=== PATIENT | female | born 1950 | race Caucasian/White ===

== ENCOUNTER 2025-07-10 14:35 | Inpatient (IN) ==
[2025-07-10 17:08] LABS: Hematocrit (blood only) 41.9 % (37.0-47.0); Hemoglobin 13.8 g/dl (12.0-16.0); Immature Granulocytes # (auto) 0.02 K/uL (0.01-0.20); Immature Granulocytes % (auto) 0.4 %; Mean Corpuscular Hemoglobin 31.4 pg (25.0-34.0); Mean Corpuscular Volume 95.2 fL (80.0-100.0); Platelet Count 201 K/uL (130-400); RDW Standard Deviation 47.3 fL (36.4-46.3); Red Blood Count 4.40 M/uL (4.20-5.40); White Blood Count 5.20 K/ul (4.8-10.8)
[2025-07-10 17:09] LABS: Appearance Urine Clear (Clear); Glucose Urine UA 2+ (Negative)
[2025-07-10 17:36] LABS: Alanine Aminotransferase 29.0 U/L (7-52); Albumin Globulin Ratio 1.1 (0.9-2); Alkaline Phosphatase 95.0 U/L (34-104); Anion Gap 8.0 (3-11); Bilirubin,Total 0.4 mg/dl (0.2-1.0); Blood Urea Nitrogen 39.0 mg/dl (6-23); Calcium 9.6 mg/dl (8.6-10.3); Carbon Dioxide 30.0 mmol/L (21-32); Chloride 103.0 mmol/L (98-107); Creatine Kinase 148.0 U/L (26-192); Creatinine Clr Calc Pharmacy 54.3 ml/min; Globulin 3.4 gm/dl (2.5-4.0); Glucose 92.0 mg/dl (70-99(Fasting)); Potassium 4.3 mmol/L (3.5-5.1); Sodium 141.0 mmol/L (136-145); Total Protein 7.2 gm/dl (6.0-8.3)
[2025-07-10 17:46] LABS: INR 0.9 (0.9-1.1); Prothrombin Time 9.8 Seconds (9.0-12.0)
[2025-07-10 17:50] LABS: Thyroid Stimulating Hormone 3.504 uIu/ml (0.300-4.500)
--- NOTE | 2025-07-10 18:23 | XRay Report ---
Chest radiograph, one view History: Weakness Comparison: None Findings: Single AP view of the chest performed. 8 mm nodular density in the left upper lobe seen to represent a granuloma on prior PET/CT. No focal consolidation or pleural effusion. No pneumothorax. The cardiomediastinal silhouette is within normal limits. Normal pulmonary vascularity. No evidence for lymphadenopathy. No visualized bony or soft tissue abnormality. Surgical clips throughout the right chest wall. Impression: Normal chest radiograph Electronically signed by Warner Betancourt 07-10-2025 6:23 PM
--- NOTE | 2025-07-10 18:43 | Emergency Department Note ---
Impression & Plan Bilateral arm weakness ED Provider Note CHIEF COMPLAINT: Weakness HISTORY OF PRESENTING ILLNESS: This 75-year-old female patient presents to the emergency department with her daughter for evaluation of weakness. The patient states that a few weeks ago she started to lose strength in her right arm. She is now also losing strength in her left hand. The patient has been seeing Dr. Mai of spinal surgery as an outpatient. She states that numerous tests have been performed and she was diagnosed with pinched nerves. However, due to the worsening symptoms, she was referred to the ER. The patient's daughter states that she is no longer able to do her daily activities at home because of the symptoms. She has also had pain in her middle back. All of the symptoms started in the middle of May per the patient's daughter, but getting progressively worse. She had a root canal around 05/29/25 and her right arm pain and symptoms seemed to be more noticeable during that procedure because she could not find a position to hold her arm in without pain and tingling. She states that it feels like there is electric running through both of her arms. Also having pain down both of her arms. She also feels like there is weakness in both hands and she can't even pull covers across her body at night. She can't put on her clothes anymore. She is also having trouble cutting food and feeding herself. Her right hand and arm is the worst, but now affecting her left arm and hand as well. She has a history of breast cancer 10 years ago s/p mastectomy. About 2 years ago she found a lump under her right armpit that was diagnosed as a metastatic lesion. She had lymph nodes removed with multiple abnormal lymph nodes. She had chemo and radiation 2 years ago, but only made it through 4/6 rounds of the chemo due to side effects. She had 25 treatments of radiation. The patient had an outpatient MRI's on 06/21/25. MRI of the cervical spine without contrast showed left C6/7 and C7/T1 neuroforaminal narrowing which may affect the exiting nerve roots. No changes compared to prior. MRI of the thoracic spine without contrast showed mild spinal stenosis from T8/9 through T10/11. Right T11/12 neuroforaminal narrowing which may affect the right T11 nerve root. No definite thoracic spine lesion. There is scoliosis. No changes to prior. MRI of the lumbar spine without contrast showed no acute fracture or traumatic subluxation. There is mild worsening of anterolisthesis of L4/5 which is likely degenerative. Multilevel worsening degenerative changes throughout the lumbar spine with varying degrees of canal, lateral recess, and foraminal stenosis. This is most pronounced at L4/5 with severe canal stenosis and lateral recess effacement as well as impingement of the descending intraspinal L5 nerve roots. Additional impingement of the exiting right L4 nerve root at L4/5. There is a new superimposed small right paracentral disc protrusion at L3/4 which contacts the intraspinal right L4 nerve root without significant mass effect or impingement at this level. Stable small right paracentral to foraminal disc protrusion at L2/3. Remainder of the chronic findings without significant change from previous imaging. The patient had a CT scan of the head with and without contrast to evaluate for brain metastases on 06/14/2025 that showed no acute abnormalities. The patient also had a CT scan of the chest with contrast on 06/14/2025 to evaluate for mets showed a 6.3 x 4.1 cm complex fluid collection in the right axilla with adjacent surgical clips. This may represent a seroma or resolving hematoma related to prior axillary lymph node resection. And necrotic metastasis is also possible. A follow-up CT could be obtained to ensure resolution. REVIEW OF SYSTEMS: See HPI for pertinent positives and pertinent negatives. ALLERGIES: Adhesive tape, clindamycin, crab, Synthroid, Augmentin, ciprofloxacin MEDICATIONS: See below PAST MEDICAL HISTORY: See below PHYSICAL EXAM: VITALS: Vitals are noted on the nurse's note and reviewed by myself. GENERAL: No acute distress, non-diaphoretic. SKIN: No significant erythema or warmth of the bilateral upper extremities. Capillary reflex less than 2 seconds. HEAD: No scalp tenderness. No step-offs felt. EYES: Pupils equal round and reactive to light and accommodation. Conjunctivae without injection, sclerae without icterus. Extraocular movements intact without pain. No nystagmus. NOSE: Patent, turbinates without inflammation or discharge. No sinus tenderness. No septal hematoma or bleeding. FACE: No facial bone tenderness. Full range of motion of the jaw without tenderness. No facial droop. MOUTH: Mucous membranes moist. Uvula midline. Airway patent. Tongue does not deviate. NECK: Supple without nuchal rigidity. Cervical spine is nontender. Full range of motion of the neck without tenderness and normal strength. HEART: Regular rate and rhythm without murmurs gallops or rubs. LUNGS: Clear to auscultation bilaterally without wheezes, rales or rhonchi. No retractions or accessory muscle use. No chest wall tenderness. ABDOMEN: Positive bowel sounds x 4. Normal tympanic percussion. Soft, nontender to palpation. No masses or hepatosplenomegaly. No guarding or rebound tenderness. No focal RLQ or LLQ tenderness. MUSCULOSKELETAL: The patient has decreased range of motion of the right upper extremity especially distal to the elbow. 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 However, she also has decreased strength and range of motion of the left hand as well. She states that she still has normal sensation to light and sharp touch of the bilateral upper extremities. Radial pulses 2+ and equal. Normal range of motion and strength of her bilateral lower extremities with normal sensation. NEURO: Patient was alert and oriented to person place and time. Normal mental status exam. DIFFERENTIAL DIAGNOSIS: Differential diagnosis includes infection, dehydration, metabolic abnormality, hypo/hyperglycemia, electrolyte disturbance, anemia, hypoxia, cardiac sources, intracerebral event, toxicologic, neurologic, strain/sprain, muscle spasm, disc herniation, fracture, subluxation, metastatic disease, cord compression, discitis, sciatica, cauda equina, conus medullaris syndrome, infection, epidural abscess, epidural hematoma, aortic disease, renal colic, UTI, pyelonephritis, gastrointestinal, as well as other pathologies. ED COURSE AND MEDICAL DECISION MAKING: HISTORY FROM INDEPENDENT HISTORIAN: Additional history obtained from the patient's daughter. MEDICATIONS GIVEN: Tylenol 1000 mg IV. MONITOR: Continuous cardiac nurse specialist: Order was placed for continuous cardiac nurse specialist. Patient was placed on the cardiac nurse specialist and continuous pulse ox. Patient was noted to be in normal sinus rhythm at an initial rate of 80 bpm per my interpretation. EKG: EKG was interpreted by myself as sinus rhythm at 76 bpm with no acute ST or T wave changes. INTERPRETATION OF LABS: I interpreted the labs with full lab results as below in the lab section of this note. Laboratory results pertinent to the emergent complaint are discussed in the MDM section below. The patient was advised to follow up with their PCP and/or specialist(s) for further outpatient monitoring and management of any abnormal results. INTERPRETATION OF IMAGING: Imaging studies were interpreted by myself and read by radiology as per the imaging section of this note. The patient was advised to follow up with their PCP and/or specialist(s) for further outpatient management of any non-emergent abnormal findings. Chest x-ray negative for acute cardiopulmonary etiology. CT scan of the head without contrast was negative for acute intracranial abnormality. EXTERNAL RECORDS REVIEWED: I reviewed the patient's outpatient MRIs and CT scans as summarized above. CHRONIC MEDICAL/SOCIAL CONDITIONS AFFECTING CARE: History of metastatic breast cancer CONSULTATIONS: On-call hospitalist MDM SUMMARY: The patient was seen during a time of extreme volume and extreme acuity. Nursing triage protocols were initiated with IV lock, labs, and/or imaging studies conducted by protocol in the triage area. The patient was examined by myself once they were taken back to an exam room. The patient has had progressive weakness of her right > left upper extremities since the middle of May. She had outpatient MRIs of her cervical, thoracic, and lumbar spine as summarized above. The patient also had a CT scan of her head and chest to evaluate for metastases as summarized above. The patient's daughter states that the patient is no longer able to care for herself at home because of the progressive weakness. The patient was given Tylenol 1000 mg IV with improvement of her pain. CBC without leukocytosis, anemia, or thrombocytopenia. PT/INR was normal. Creatinine elevated 1.28 and BUN elevated at 39. CMP otherwise normal. CPK normal. High-sensitivity troponin normal. TSH normal. Magnesium normal. Urinalysis with 2+ glucose, but otherwise negative. Lyme disease screen negative. Anaplasma and Babesia smear negative with DNA PCR still pending. Chest x-ray negative for acute cardiopulmonary etiology. CT scan of the head without contrast was negative for acute intracranial abnormality. I had a meaningful discussion about this patient with Dr. Lawson who agrees with my assessment and the treatment plan. The patient has had progressive weakness since the middle of May. She is no longer able to care for herself at home due to the progressive symptoms. Therefore, the patient will require admission for further evaluation and treatment and possible rehab placement. The patient and her daughter are in agreement with this recommendation. I spoke with the on- call hospitalist who agreed to admit the patient for further evaluation and treatment. Please refer to their dictation for further details. The patient's care was transferred in stable condition. DIAGNOSIS: Bilateral arm weakness R>L Past Med/Surg History Problem List (Updated 07/11/25 @ 00:45 by April Diaz PA-C) Bilateral arm weakness (Acute) Back pain with left-sided radiculopathy Weakness Hypothyroidism Sleep apnea Hypertension Back problem Arthritis Anemia Delayed wound healing Lymphedema of right arm Seroma of breast Recurrent cancer of right breast Medical History Hx of blood clots Kidney failure Bronchitis Surgical History H/O ligation of vein [id number] H/O mastectomy 2012 History of carpal tunnel surgery History of left knee replacement 2011 H/O right knee surgery 2010 Hx of tonsillectomy 1977 H/O lymph node excision 2022 H/O total mastectomy (~2022) Right and sentinel node biopsy/ right axillary lymph node dissection Family History Aunt Breast cancer Other Diabetes Heart disease Stroke Social History Smoking Status: Never smoker Hx Alcohol Use: Yes Alcohol type: hard liquor Alcohol Intake Frequency: 2-4 x/Month Hx Substance Use: No Beliefs That Will Affect Care: None marital status: Current Living Situation: Alone current occupational status: retired Feels Safe at Home: Yes Diet: regular during the past year weight has: increased > 10 lbs Assistive Devices: BiPap, Cane and Glasses Allergies Allergies Allergy/AdvReac Type Severity Reaction Status Date / Time adhesive tape Allergy Rash Unverified 07/10/25 19:18 clindamycin Allergy Unknown Verified 07/10/25 23:07 crab Allergy Nausea Verified 07/10/25 23:07 levofloxacin Allergy Diarrhea Verified 07/10/25 19:17 levothyroxine sodium Allergy Unknown Verified 07/10/25 23:07 [From Synthroid] amoxicillin [From Augmentin] AdvReac Diarrhea Verified 07/10/25 19:17 ciprofloxacin AdvReac Diarrhea Verified 07/10/25 19:17 clavulanic acid AdvReac Diarrhea Verified 07/10/25 19:17 [From Augmentin] Home Meds Home Medications Medication Instructions Recorded Confirmed ascorbic acid (vitamin C) 500 mg 500 mg PO DAILY 01/23/24 07/10/25 tablet lactobacillus combination no.9 4 4,000 mmu cells PO DAILY 01/23/24 07/10/25 billion cell capsule (Adult 50 Plus Probiotic) omega [id number]-[id number]-fish oil 120 1 cap PO DAILY 01/23/24 07/10/25 mg-180 mg-500 mg capsule (Fish Oil) red yeast rice 600 mg capsule 600 mg PO BID 01/23/24 07/10/25 zinc acetate 25 mg (zinc) capsule 25 mg PO DAILY 01/23/24 07/10/25 furosemide 20 mg tablet 20 mg PO DAILY 03/07/24 07/10/25 letrozole 2.5 mg tablet 2.5 mg PO DAILY 03/07/24 07/10/25 ropinirole 0.5 mg tablet 0.5 mg PO HS 09/12/24 07/10/25 thyroid (pork) 60 mg tablet 60 mg PO DAILY 09/12/24 07/10/25 (Thayne Thyroid) amitriptyline 25 mg tablet 25 mg PO HS 02/20/25 07/10/25 empagliflozin 10 mg tablet 10 mg PO DAILY 02/20/25 07/10/25 (Jardiance) gabapentin 400 mg capsule 800 mg PO TID 02/20/25 07/10/25 lisinopril 10 1 tab PO DAILY 02/20/25 07/10/25 mg-hydrochlorothiazide 12.5 mg tablet omeprazole 20 mg capsule,delayed 20 mg PO DAILY PRN Heartburn 02/20/25 07/10/25 release oxycodone 5 mg tablet 5 mg PO Q6H PRN Moderate Pain 07/10/25 07/10/25 (Scale Score 5-6) red yeast rice 600 mg capsule 1,200 mg PO HS 07/10/25 07/10/25 Previous Rx's Medication Instructions Recorded thyroid (pork) 15 mg tablet 15 mg PO DAILY #100 tabs 02/22/25 (Thayne Thyroid) Results & Data (ED) Vital Signs Vital Signs - 24 hr 07/10/25 14:49 07/10/25 18:37 Temperature 36.0 C L Temperature Source Skin Pulse Rate 77 Pulse Rate [Finger] 75 Respiratory Rate 20 18 Respiratory Effort / Characteristics Non-Labored Spontaneous Respiratory Depth Normal Respiratory Pattern Regular Blood Pressure 101/58 L Blood Pressure [Right Arm] 152/87 H Blood Pressure Mean 72 Blood Pressure Mean [Right Arm] 108 Pulse Oximetry 94 95 Oxygen Delivery Method Room Air Room Air Sepsis Recent Fever Within 48 Hours No Sepsis New/Unexplained Change in Mental Status N/A Sepsis Action Taken by Nursing No Action Required Laboratory Data 07/10/25 16:49 07/10/25 16:49 Lab Results 07/10/25 Range/Units 16:49 WBC 5.20 (4.8-10.8) K/ul RBC 4.40 (4.20-5.40) M/uL Hgb 13.8 (12.0-16.0) g/dl Hct 41.9 (37.0-47.0) % MCV 95.2 (80.0-100.0) fL MCH 31.4 (25.0-34.0) pg MCHC 32.9 (32.0-36.0) g/dL RDW Std Deviation 47.3 H (36.4-46.3) fL RDW Coeff of [place] 13.7 (11.5-14.5) % Plt Count 201 (130-400) K/uL MPV 11.0 (9.4-12.4) fL Immature Gran % (Auto) 0.4 % Neut % (Auto) 57.6 % Lymph % (Auto) 28.7 % [place] % (Auto) 11.2 % Eos % (Auto) 1.5 % Baso % (Auto) 0.6 % Neut # (Auto) 3.00 (1.40-6.50) K/uL Lymph # (Auto) 1.49 (1.20-3.40) K/uL [place] # (Auto) 0.58 (0.11-0.59) K/uL Eos # (Auto) 0.08 (0.00-0.50) K/uL Baso # (Auto) 0.03 (0.00-0.20) K/uL Immature Gran # (Auto) 0.02 (0.01-0.20) K/uL PT 9.8 (9.0-12.0) Seconds INR 0.9 (0.9-1.1) Sodium 141 (136-145) mmol/L Potassium 4.3 (3.5-5.1) mmol/L Chloride 103 (98-107) mmol/L Carbon Dioxide 30 (21-32) mmol/L Anion Gap 8 (3-11) BUN 39 H (6-23) mg/dl Creatinine 1.28 H (0.6-1.2) mg/dl Est Cr Clr Drug Dosing 54.3 ml/min eGFR 44.23 BUN/Creatinine Ratio 30.5 H (10-20) Glucose 92 (70-99(Fasting)) mg/dl Calcium 9.6 (8.6-10.3) mg/dl Phosphorus 4.6 (2.5-4.9) mg/dl Magnesium 2.3 (1.7-2.4) mg/dl Total Bilirubin 0.4 (0.2-1.0) mg/dl AST 28 (13-39) U/L ALT 29 (7-52) U/L Alkaline Phosphatase 95 (34-104) U/L Total Creatine Kinase 148 (26-192) U/L Troponin I High Sens 7.1 (0-14) pg/ml Total Protein 7.2 (6.0-8.3) gm/dl Albumin 3.8 (3.4-5.0) gm/dl Globulin 3.4 (2.5-4.0) gm/dl Albumin/Globulin Ratio 1.1 (0.9-2) TSH 3.504 (0.300-4.500) uIu/ml Anaplasma Smear See Comment Babesia Smear See Comment Lyme Disease Screen Negative (Negative) Administered Medications Amitriptyline HCl (Amitriptyline Hcl 25 Mg Tab) 25 mg PO HS NIA Stop: 08/09/25 23:02 Last Admin: 07/11/25 00:00 Dose: 25 mg Documented By: ENRRIQUE Cyclobenzaprine HCl (Cyclobenzaprine Hcl 5 Mg Tab) 5 mg PO BID NIA Stop: 08/09/25 23:02 Last Admin: 07/11/25 00:00 Dose: 5 mg Documented By: ENRRIQUE Gabapentin (Gabapentin 400 Mg Cap) 800 mg PO TID NIA Stop: 08/09/25 23:02 Last Admin: 07/11/25 00:00 Dose: 800 mg Documented By: ENRRIQUE Lactated Ringer's (Lr) 1,000 mls @ 80 mls/hr IV .[id number] NIA Stop: 07/11/25 11:44 Last Admin: 07/10/25 23:12 Dose: 80 mls/hr Documented By: ENRRIQUE Morphine Sulfate (Morphine Sulfate 2 Mg/Ml Carp) 2 mg IV Q3H PRN PRN Reason: Pain (6,7,8,9,10) Stop: 07/24/25 23:53 Last Admin: 07/11/25 00:00 Dose: 2 mg Documented By: ENRRIQUE Ropinirole HCl (Ropinirole Hcl 0.25 Mg Tablet) 0.5 mg PO HS NIA Stop: 08/09/25 23:02 Last Admin: 07/11/25 00:00 Dose: 0.5 mg Documented By: ENRRIQUE Discontinued Medications Gadobutrol (Gadobutrol 65ml Vial) 13.7 ml IV ONCE ONE Stop: 07/10/25 22:32 Last Admin: 07/10/25 22:35 Dose: 13.7 ml Documented By: YOSSI Acetaminophen (Ofirmev) 1,000 mg in 100 mls @ 400 mls/hr IV NOW STA Stop: 07/10/25 19:14 Last Infusion: 07/10/25 19:41 Dose: Infused Documented By: Admin: 07/10/25 19:26 Dose: 400 mls/hr Documented By: TOBIAS Imaging Data Radiologist's Impression: Chest X-Ray 07/10/25 15:12 Chest radiograph, one view History: Weakness Comparison: None Findings: Single AP view of the chest performed. 8 mm nodular density in the left upper lobe seen to represent a granuloma on prior PET/CT. No focal consolidation or pleural effusion. No pneumothorax. The cardiomediastinal silhouette is within normal limits. Normal pulmonary vascularity. No evidence for lymphadenopathy. No visualized bony or soft tissue abnormality. Surgical clips throughout the right chest wall. Impression: Normal chest radiograph Electronically signed by Warner Betancourt 07-10-2025 6:[address] 07/10/25 15:25 Technique: Axial computed tomography images were obtained of the brain from the vertex to the skull base without intravenous contrast. Findings: There is no sign of intracranial hemorrhage. There is normal brown-white matter differentiation with no sign of acute or old infarction. No midline shift or other form of herniation is identified. There is no hydrocephalus. No obvious mass lesion is seen on this noncontrast examination. The visualized portions of the orbits and paranasal sinuses appear unremarkable. The mastoid air cells appear clear Impression: Unremarkable noncontrast CT of the brain Electronically signed by Pedro Luis Bolanos 07-10-2025 6:49 PM Discharge Plan Visit Data Chief Complaint: Weakness Stated Complaint: WEAKNESS ED Provider: Wayne Lawson ED Midlevel Provider: April Diaz Discharge Problem: Bilateral arm weakness Patient Disposition: Admitted As Inpatient Condition: Fair Discharge Instructions Interventions: ED Discharge Assessment Last Done: 07/10/25 21:32
--- NOTE | 2025-07-10 18:49 | CT Scan Report ---
Technique: Axial computed tomography images were obtained of the brain from the vertex to the skull base without intravenous contrast. Findings: There is no sign of intracranial hemorrhage. There is normal brown-white matter differentiation with no sign of acute or old infarction. No midline shift or other form of herniation is identified. There is no hydrocephalus. No obvious mass lesion is seen on this noncontrast examination. The visualized portions of the orbits and paranasal sinuses appear unremarkable. The mastoid air cells appear clear Impression: Unremarkable noncontrast CT of the brain Electronically signed by Pedro Luis Bolanos 07-10-2025 6:49 PM
[2025-07-10] MEDS: ACETAMINOPHEN 1,000 MG/100 ML VIAL IV STA (19:26)
--- NOTE | 2025-07-10 19:55 | History & Physical Report ---
Date of Service July 10, 2025 Assessment & Plan (1) Bilateral arm weakness: (2) Hypertension: (3) Hypothyroidism: (4) Sleep apnea: Plan 75yo female with history of HTN, Hypothyroidism, DANNIE presenting with progressive numbness/tingling and weakness of bilateral UE. Symptoms began with the RUE in mid-May and have progressed. Over the last several weeks she has been having weakness in her LUE as well. She presents today because she has been unable to perform her ADLs. #Bilateral UE weakness - progressive. MRI obtained at [facility] on 06/21/25 - results have been scanned into the chart. Cervical spine MRI with Left C6-C7 and C7-T1 neural foramen narrowing which may affect the exiting nerve roots. This does correspond in part with the area of patient's weakness and discomfort. Question radiculopathy. -Admit to medical -Check MRI Brain -Check CK -Check Mg and PO4 -Tylenol 1gm po TID scheduled -Prednisone 40mg po daily x 5 days -Flexeril 5mg po BID -Oxycodone 5mg po q 6 hours as needed -Continue Gabapentin 800mg po TID -Continue Amitryptyline 25mg po qHS -If no improvement would consider Ortho-Spine consultation -PT/OT evaluations appreciated #Hypertension - blood pressure well controlled at present -Continue home Lisinopril/HCTZ -Montior BP #Hypothyroidism - TSH within normal limits at 3.504 -Continue [place] thyroid at home dose - 75mg po daily #DANNIE -BiPAP qHS #History of breast cancer - s/p mastectomy, s/p recurrence with lymph node dissection, chemotherapy and XRT. On Letrozole History of Present Illness Chief Complaint: bilateral UE weakness Primary Care Provider: ZULEMA Meyers Maryan Gonzalez is a 75yo female with history of DANNIE on nocturnal BiPAP, HTN, remote history of breast cancer presenting with upper extremity weakness. Patient reports her symptoms began in May with RUE numbness, tingling and weakness. Over the last 3-4 weeks she has been having progressive weakness involving her LUE as well. She also reports pain radiating across her upper back, bilateral shoulders and down her arms with pain occasionally across the front of her chest. She has been taking Oxycodone and Tylenol as needed for pain with occasional Ibuprofen as well with some relief. Pain is not positional or exertional. She denies fall, trauma. No LINDER, rash, visual changes, jaw claudication. No involvement of lower extremities. Daughter is at bedside and is concerned that patient is unable to perform her ADLs at home. Patient's just 3 days ago. The patient had an MRI on 06/21/25. Cervical spine without contrast shows left C6-C7 and C7-T1 neuroforaminal narrowing which may affect the exiting nerve root. No change when comapred with prior. MRI of the T-spine with mild spinal stenosis T8-T9 through T10/T11. In the ER she is afebrile, HD stable, NAD ER Course: Tylenol Allergies Allergy/AdvReac Type Severity Reaction Status Date / Time adhesive tape Allergy Rash Unverified 07/10/25 19:18 clindamycin Allergy Verified 07/10/25 19:17 levofloxacin Allergy Diarrhea Verified 07/10/25 19:17 levothyroxine sodium Allergy Verified 07/10/25 19:17 [From Synthroid] amoxicillin [From Augmentin] AdvReac Diarrhea Verified 07/10/25 19:17 ciprofloxacin AdvReac Diarrhea Verified 07/10/25 19:17 clavulanic acid AdvReac Diarrhea Verified 07/10/25 19:17 [From Augmentin] crabs Allergy Nausea Uncoded 07/10/25 19:17 Home Medications Medication Instructions Recorded Confirmed Type ascorbic acid (vitamin C) 500 mg 500 mg PO DAILY 01/23/24 07/10/25 History tablet lactobacillus combination no.9 4 4,000 mmu cells PO DAILY 01/23/24 07/10/25 History billion cell capsule (Adult 50 Plus Probiotic) omega 0-mln-uxj-fish oil 120 1 cap PO DAILY 01/23/24 07/10/25 History mg-180 mg-500 mg capsule (Fish Oil) red yeast rice 600 mg capsule 600 mg PO BID 01/23/24 07/10/25 History zinc acetate 25 mg (zinc) capsule 25 mg PO DAILY 01/23/24 07/10/25 History furosemide 20 mg tablet 20 mg PO DAILY 03/07/24 07/10/25 History letrozole 2.5 mg tablet 2.5 mg PO DAILY 03/07/24 07/10/25 History ropinirole 0.5 mg tablet 0.5 mg PO HS 09/12/24 07/10/25 History thyroid (pork) 60 mg tablet 60 mg PO DAILY 09/12/24 07/10/25 History ([place] Thyroid) amitriptyline 25 mg tablet 25 mg PO HS 02/20/25 07/10/25 History empagliflozin 10 mg tablet 10 mg PO DAILY 02/20/25 07/10/25 History (Jardiance) gabapentin 400 mg capsule 800 mg PO TID 02/20/25 07/10/25 History lisinopril 10 1 tab PO DAILY 02/20/25 07/10/25 History mg-hydrochlorothiazide 12.5 mg tablet omeprazole 20 mg capsule,delayed 20 mg PO DAILY PRN Heartburn 02/20/25 07/10/25 History release thyroid (pork) 15 mg tablet 15 mg PO DAILY #100 tabs 02/22/25 07/10/25 Rx ([place] Thyroid) oxycodone 5 mg tablet 5 mg PO Q6H PRN Moderate Pain 07/10/25 07/10/25 History (Scale Score 5-6) red yeast rice 600 mg capsule 1,200 mg PO HS 07/10/25 07/10/25 History Past Med/Surg History Problem List (Updated 07/10/25 @ 22:49 by Callie Rao DO) Bilateral arm weakness Back pain with left-sided radiculopathy Weakness Hypothyroidism Sleep apnea Hypertension Back problem Arthritis Anemia Delayed wound healing Lymphedema of right arm Seroma of breast Recurrent cancer of right breast Medical History Hx of blood clots Kidney failure Bronchitis Surgical History H/O ligation of vein 0181-7368 H/O mastectomy 2012 History of carpal tunnel surgery History of left knee replacement 2011 H/O right knee surgery 2010 Hx of tonsillectomy 1977 H/O lymph node excision 2022 H/O total mastectomy (~2022) Right and sentinel node biopsy/ right axillary lymph node dissection Family History Aunt Breast cancer Other Diabetes Heart disease Stroke Social History Smoking Status: Never smoker Hx Alcohol Use: Yes Alcohol type: beer, wine and hard liquor Alcohol Intake Frequency: 2-4 x/Month marital status: current occupational status: retired Feels Safe at Home: Yes Diet: regular during the past year weight has: increased > 10 lbs Review of Systems Review of Systems: All systems reviewed & are unremarkable except as noted in HPI & below Physical Exam Physical Exam: General: patient resting comfortably, NAD, non-toxic in appearance, AA&O x 4 Skin: warm, dry, intact, no rashes or lesions HEENT: NC/AT, PERRL, EOMI, anicteric sclera, conjunctiva without injection, external ear normal to inspection and nontender, nares patent, moist mucus membranes, dentition intact, no oropharyngeal lesions, neck supple, trachea midline, no LAD, no thyromegaly, no JVD Heart: +S1/S2, regular, no m/r/g Lungs: equal air entry bilaterally, no rales/rhonchi/wheezes Abd: +BS, soft, NT/ND, no masses/organomegaly/ascites Ext: warm, 2+ pulses in UE/LE bilaterally, no clubbing/cyanosis, RUE edema Neuro: weakness of RUE 4+/5, strength preserved in LUE 5/5 but patient states her hand feels clumsy and she has difficult time controlling it No other neurologic findings Results & Data Results & Data Vital Signs (Past 12 Hours) Vital Signs Temp Pulse Pulse Resp BP BP Pulse Ox 07/10/25 18:37 75 18 152/87 H 95 07/10/25 14:49 36.0 C L 77 20 101/58 L 94 O2 Del Method 07/10/25 18:37 Room Air 07/10/25 14:49 Room Air Laboratory Results Laboratory Results WBC 5.20 K/ul (4.8-10.8) 07/10/25 16:49 RBC 4.40 M/uL (4.20-5.40) 07/10/25 16:49 Hgb 13.8 g/dl (12.0-16.0) 07/10/25 16:49 Hct 41.9 % (37.0-47.0) 07/10/25 16:49 MCV 95.2 fL (80.0-100.0) 07/10/25 16:49 MCH 31.4 pg (25.0-34.0) 07/10/25 16:49 MCHC 32.9 g/dL (32.0-36.0) 07/10/25 16:49 RDW Std Deviation 47.3 fL (36.4-46.3) H 07/10/25 16:49 RDW Coeff of [place] 13.7 % (11.5-14.5) 07/10/25 16:49 Plt Count 201 K/uL (130-400) 07/10/25 16:49 MPV 11.0 fL (9.4-12.4) 07/10/25 16:49 Immature Gran % (Auto) 0.4 % 07/10/25 16:49 Neut % (Auto) 57.6 % 07/10/25 16:49 Lymph % (Auto) 28.7 % 07/10/25 16:49 [place] % (Auto) 11.2 % 07/10/25 16:49 Eos % (Auto) 1.5 % 07/10/25 16:49 Baso % (Auto) 0.6 % 07/10/25 16:49 Neut # (Auto) 3.00 K/uL (1.40-6.50) 07/10/25 16:49 Lymph # (Auto) 1.49 K/uL (1.20-3.40) 07/10/25 16:49 [place] # (Auto) 0.58 K/uL (0.11-0.59) 07/10/25 16:49 Eos # (Auto) 0.08 K/uL (0.00-0.50) 07/10/25 16:49 Baso # (Auto) 0.03 K/uL (0.00-0.20) 07/10/25 16:49 Immature Gran # (Auto) 0.02 K/uL (0.01-0.20) 07/10/25 16:49 PT 9.8 Seconds (9.0-12.0) 07/10/25 16:49 INR 0.9 (0.9-1.1) 07/10/25 16:49 Sodium 141 mmol/L (136-145) 07/10/25 16:49 Potassium 4.3 mmol/L (3.5-5.1) 07/10/25 16:49 Chloride 103 mmol/L (98-107) 07/10/25 16:49 Carbon Dioxide 30 mmol/L (21-32) 07/10/25 16:49 Anion Gap 8 (3-11) 07/10/25 16:49 BUN 39 mg/dl (6-23) H 07/10/25 16:49 Creatinine 1.28 mg/dl (0.6-1.2) H 07/10/25 16:49 Est Cr Clr Drug Dosing 54.3 ml/min 07/10/25 16:49 eGFR 44.23 07/10/25 16:49 BUN/Creatinine Ratio 30.5 (10-20) H 07/10/25 16:49 Glucose 92 mg/dl (70-99(Fasting)) 07/10/25 16:49 Calcium 9.6 mg/dl (8.6-10.3) 07/10/25 16:49 Total Bilirubin 0.4 mg/dl (0.2-1.0) 07/10/25 16:49 AST 28 U/L (13-39) 07/10/25 16:49 ALT 29 U/L (7-52) 07/10/25 16:49 Alkaline Phosphatase 95 U/L (34-104) 07/10/25 16:49 Total Creatine Kinase 148 U/L (26-192) 07/10/25 16:49 Troponin I High Sens 7.1 pg/ml (0-14) 07/10/25 16:49 Total Protein 7.2 gm/dl (6.0-8.3) 07/10/25 16:49 Albumin 3.8 gm/dl (3.4-5.0) 07/10/25 16:49 Globulin 3.4 gm/dl (2.5-4.0) 07/10/25 16:49 Albumin/Globulin Ratio 1.1 (0.9-2) 07/10/25 16:49 TSH 3.504 uIu/ml (0.300-4.500) 07/10/25 16:49 Urine Color Dark Yellow 07/10/25 Unknown Urine Appearance Clear (Clear) 07/10/25 Unknown Urine pH 6.0 (4.5-7.5) 07/10/25 Unknown Ur Specific [place] 1.032 (1.000-1.030) H 07/10/25 Unknown Urine Protein Negative (Negative) 07/10/25 Unknown Urine Glucose (UA) 2+ (Negative) H 07/10/25 Unknown Urine Ketones Negative (Negative) 07/10/25 Unknown Urine Blood Negative (Negative) 07/10/25 Unknown Urine Nitrite Negative (Negative) 07/10/25 Unknown Urine Bilirubin Negative (Negative) 07/10/25 Unknown Urine Urobilinogen Negative (Negative) 07/10/25 Unknown Ur Leukocyte Esterase Negative (Negative) 07/10/25 Unknown Urine Comment 07/10/25 Unknown Anaplasma Smear See Comment 07/10/25 16:49 Babesia Smear See Comment 07/10/25 16:49 Lyme Disease Screen Negative (Negative) 07/10/25 16:49 Impressions Chest X-Ray 07/10/25 15:12 Chest radiograph, one view History: Weakness Comparison: None Findings: Single AP view of the chest performed. 8 mm nodular density in the left upper lobe seen to represent a granuloma on prior PET/CT. No focal consolidation or pleural effusion. No pneumothorax. The cardiomediastinal silhouette is within normal limits. Normal pulmonary vascularity. No evidence for lymphadenopathy. No visualized bony or soft tissue abnormality. Surgical clips throughout the right chest wall. Impression: Normal chest radiograph Electronically signed by Warner Betancourt 07-10-2025 6:[address] 07/10/25 15:25 Technique: Axial computed tomography images were obtained of the brain from the vertex to the skull base without intravenous contrast. Findings: There is no sign of intracranial hemorrhage. There is normal brown-white matter differentiation with no sign of acute or old infarction. No midline shift or other form of herniation is identified. There is no hydrocephalus. No obvious mass lesion is seen on this noncontrast examination. The visualized portions of the orbits and paranasal sinuses appear unremarkable. The mastoid air cells appear clear Impression: Unremarkable noncontrast CT of the brain Electronically signed by Pedro Luis Bolanos 07-10-2025 6:49 PM PG Care Time/CCT Total # of Minutes Spent Total Time Spent with Patient: Total time spent is greater than 50% in coordination of care (as documented) at patient's floor/unit and/or counseling patient: Coding Level of Care Code 95775 INT INP/OBS CARE 3/75MIN Diagnoses Bilateral arm weakness R29.898 Hypertension I10 Hypothyroidism E03.9 Sleep apnea G47.30
[2025-07-10] MEDS: GADOBUTROL 65ML VIAL IV ONE (22:35)
[2025-07-10] MEDS ORDERED: ONDANSETRON INJ 2 MG/ML 2 ML VIAL IV PRN (23:03)
[2025-07-10] MEDS ORDERED: DOCUSATE SODIUM 100 MG CAP PO PRN (23:03)
[2025-07-10] MEDS: LACTATED RINGER'S 1,000 ML IV SCH (23:12)
[2025-07-10 23:42] LABS: Magnesium 2.3 mg/dl (1.7-2.4)
[2025-07-10] MEDS ORDERED: MoRPHine SULFATE 2 MG/ML CARP IV PRN (23:54)
[2025-07-11] MEDS: GABAPENTIN 400 MG CAP PO SCH
[2025-07-11] MEDS: MoRPHine SULFATE 2 MG/ML CARP IV PRN
[2025-07-11] MEDS: CYCLOBENZAPRINE HCL 5 MG TAB PO SCH
[2025-07-11] MEDS: AMITRIPTYLINE HCL 25 MG TAB PO SCH
--- NOTE | 2025-07-11 00:01 | Magnetic Resonance Report ---
Exam(s): MRI HEAD W/WO Contrast IV Amt: 13.7 cc gadavist EXAM: MR Head Without and With Intravenous Contrast CLINICAL HISTORY: Reason for exam: weakness bilateral arms. TECHNIQUE: Magnetic resonance images of the head/brain without and with intravenous contrast in multiple planes. Moderate motion/artifact CONTRAST: Patient received 13.7 cc gadavist of IV contrast COMPARISON: Head CT 07/10/2025. FINDINGS: Brain: No mass effect or acute infarct. No acute hemorrhage. Mild atrophy and chronic white matter disease. No mass or abnormal enhancement. Ventricles: No hydrocephalus or midline shift. Bones/joints: In the left parietal skull, there is a 2.4 x 2.1 x 0.7 cm enhancing area that shows subtle lucency on the head CT. Finding is nonspecific, could be incidental/chronic as there is no aggressive feature. Differential diagnosis includes hemangioma, calvarial meningioma, fibrous dysplasia, Paget's, though myeloma and/or metastatic disease are not excluded. Soft tissues: No scalp hematoma. Visualized Sinuses: Clear. Mastoid air cells: No mastoid effusion. IMPRESSION: 1. Nonspecific enhancing bony lesion left parietal skull, no soft tissue mass or aggressive feature, maybe incidental/chronic. Neoplasm not entirely excluded. 2. Otherwise, normal exam for patient's age group, limited by motion/artifact. Electronically signed by: Dorothea Moody M.D. 07/11/25 00:00 AM
[2025-07-11 07:41] LABS: Hematocrit (blood only) 44.1 % (37.0-47.0); Hemoglobin 14.7 g/dl (12.0-16.0); Mean Corpuscular Hemoglobin 31.6 pg (25.0-34.0); Mean Corpuscular Volume 94.8 fL (80.0-100.0); Platelet Count 187 K/uL (130-400); RDW Standard Deviation 47.0 fL (36.4-46.3); Red Blood Count 4.65 M/uL (4.20-5.40); White Blood Count 4.41 K/ul (4.8-10.8)
[2025-07-11 07:55] LABS: Anion Gap 5.0 (3-11); Blood Urea Nitrogen 31.0 mg/dl (6-23); Calcium 9.7 mg/dl (8.6-10.3); Carbon Dioxide 31.0 mmol/L (21-32); Chloride 103.0 mmol/L (98-107); Creatinine Clr Calc Pharmacy 68.8 ml/min; Glucose 101.0 mg/dl (70-99(Fasting)); Potassium 4.4 mmol/L (3.5-5.1); Sodium 139.0 mmol/L (136-145)
[2025-07-11] MEDS: ACETAMINOPHEN 500 MG TAB PO SCH (08:17)
[2025-07-11] MEDS: predniSONE 20 MG TAB PO SCH (08:18)
[2025-07-11] MEDS: LISINOPRIL/HCTZ 10/12.5MG TAB PO SCH (08:18)
[2025-07-11] MEDS: ARMOUR THYROID 30 MG TAB PO SCH ×2 (08:18→08:19)
[2025-07-11] MEDS: LETROZOLE 2.5 MG TAB PO SCH (08:18)
--- NOTE | 2025-07-11 08:29 | Orthopedic Consultation ---
Date of Consultation July 11, 2025 Assessment & Plan (1) Bilateral arm weakness: MRI report available does describe neuroforaminal disease. I am unable to actually visualize the films at this time. I believe a neurology consult would be warranted particularly with her strength deficits. An EMG nerve conduction of the bilateral lower extremities would be ideal. History of Present Illness Reason for Consultation: Bilateral arm weakness Attending Physician: Cindy Ware MD History of Present Illness This is a 75-year-old female presents with a history of right hand weakness for approximately 2 months. She denies any specific trauma fall or event. She notes pain radiating down the entire arm with deficits to hand function particular with grasp on the right. She is noticing it progressing to the left hand. She is right-hand dominant. She unfortunately recently lost her approximately 3 days ago. She does have a history of carpal tunnel release 10 years ago. Allergies Allergy/AdvReac Type Severity Reaction Status Date / Time adhesive tape Allergy Rash Unverified 07/10/25 19:18 clindamycin Allergy Unknown Verified 07/10/25 23:07 crab Allergy Nausea Verified 07/10/25 23:07 levofloxacin Allergy Diarrhea Verified 07/10/25 19:17 levothyroxine sodium Allergy Unknown Verified 07/10/25 23:07 [From Synthroid] amoxicillin [From Augmentin] AdvReac Diarrhea Verified 07/10/25 19:17 ciprofloxacin AdvReac Diarrhea Verified 07/10/25 19:17 clavulanic acid AdvReac Diarrhea Verified 07/10/25 19:17 [From Augmentin] Home Medications Medication Instructions Recorded Confirmed Type ascorbic acid (vitamin C) 500 mg 500 mg PO DAILY 01/23/24 07/10/25 History tablet lactobacillus combination no.9 4 4,000 mmu cells PO DAILY 01/23/24 07/10/25 History billion cell capsule (Adult 50 Plus Probiotic) omega 3-xkq-xnw-fish oil 120 1 cap PO DAILY 01/23/24 07/10/25 History mg-180 mg-500 mg capsule (Fish Oil) red yeast rice 600 mg capsule 600 mg PO BID 01/23/24 07/10/25 History zinc acetate 25 mg (zinc) capsule 25 mg PO DAILY 01/23/24 07/10/25 History furosemide 20 mg tablet 20 mg PO DAILY 03/07/24 07/10/25 History letrozole 2.5 mg tablet 2.5 mg PO DAILY 03/07/24 07/10/25 History ropinirole 0.5 mg tablet 0.5 mg PO HS 09/12/24 07/10/25 History thyroid (pork) 60 mg tablet 60 mg PO DAILY 09/12/24 07/10/25 History ([place] Thyroid) amitriptyline 25 mg tablet 25 mg PO HS 02/20/25 07/10/25 History empagliflozin 10 mg tablet 10 mg PO DAILY 02/20/25 07/10/25 History (Jardiance) gabapentin 400 mg capsule 800 mg PO TID 02/20/25 07/10/25 History lisinopril 10 1 tab PO DAILY 02/20/25 07/10/25 History mg-hydrochlorothiazide 12.5 mg tablet omeprazole 20 mg capsule,delayed 20 mg PO DAILY PRN Heartburn 02/20/25 07/10/25 History release thyroid (pork) 15 mg tablet 15 mg PO DAILY #100 tabs 02/22/25 07/10/25 Rx ([place] Thyroid) oxycodone 5 mg tablet 5 mg PO Q6H PRN Moderate Pain 07/10/25 07/10/25 History (Scale Score 5-6) red yeast rice 600 mg capsule 1,200 mg PO HS 07/10/25 07/10/25 History Patient History Medical History Hx of blood clots Kidney failure Bronchitis Surgical History H/O ligation of vein [id number] H/O mastectomy 2012 History of carpal tunnel surgery History of left knee replacement 2011 H/O right knee surgery 2010 Hx of tonsillectomy 1977 H/O lymph node excision 2022 H/O total mastectomy (~2022) Right and sentinel node biopsy/ right axillary lymph node dissection Family History Aunt Breast cancer Other Diabetes Heart disease Stroke Social History Smoking Status: Never smoker Hx Alcohol Use: Yes Alcohol type: hard liquor Alcohol Intake Frequency: 2-4 x/Month Hx Substance Use: No Beliefs That Will Affect Care: None marital status: Current Living Situation: Alone current occupational status: retired Feels Safe at Home: Yes Diet: regular during the past year weight has: increased > 10 lbs Assistive Devices: BiPap, Cane and Glasses Physical Exam Physical Exam: Patient seen at the bedside. She does have pain with cervical extension across the cervical thoracic region. No gross Lhermitte's phenomenon noted. Cervical flexion is tolerable. She has reasonable strength in bilateral deltoids and biceps. She has marked strength deficits to the right hand with grasp and finger intrinsics. The left hand is a 4/5 grasp and finger intrinsics. Sensory appears to be intact. Negative Jayme sign. Tinel's is difficult to establish secondary to marked lymphedema. Results & Data Vital Signs (Past 12 Hours) Vital Signs Temp Pulse Pulse Resp BP BP Pulse Ox 07/10/25 23:16 36.9 C 65 18 168/83 H 95 07/10/25 21:32 88 18 108/66 94 O2 Del Method 07/10/25 23:16 Room Air 07/10/25 21:32 Room Air
--- NOTE | 2025-07-11 10:14 | Neurology Consultation ---
Date of Consultation July 11, 2025 Assessment & Plan (1) Bilateral arm weakness: History of Present Illness Attending Physician: Cindy Ware MD History of Present Illness S: pt with few months of progressing weakness b/l upper limbs, rt greater than left. pt with prior hx of several lymph node dissection/mastectomy and chemo and XRT for her recurrent metastatic breast cancer on rt side. pt apparently [facility] and had mri C spine also and told she has Cervical radic. MRI C spine image is in the synapse, reviewed. pt also has increasing lymph edema on rt upper limb/shoulder due to her prior lymph node resection and has been working with oncology for this but not improving. not much pain involved at this point. pt with weakness t/o her UE except for shoulder area. admission HPI: Maryan Gonzalez is a 75yo female with history of DANNIE on nocturnal BiPAP, HTN, remote history of breast cancer presenting with upper extremity weakness. Patient reports her symptoms began in May with RUE numbness, tingling and weakness. Over the last 3-4 weeks she has been having progressive weakness involving her LUE as well. She also reports pain radiating across her upper back, bilateral shoulders and down her arms with pain occasionally across the front of her chest. She has been taking Oxycodone and Tylenol as needed for pain with occasional Ibuprofen as well with some relief. Pain is not positional or exertional. She denies fall, trauma. No LINDER, rash, visual changes, jaw claudication. No involvement of lower extremities. Daughter is at bedside and is concerned that patient is unable to perform her ADLs at home. Patient's just 3 days ago. The patient had an MRI on 06/21/25. Cervical spine without contrast shows left C6-C7 and C7-T1 neuroforaminal narrowing which may affect the exiting nerve root. No change when comapred with prior. MRI of the T-spine with mild spinal stenosis T8-T9 through T10/T11. In the ER she is afebrile, HD stable, NAD ER Course: Tylenol Allergies Allergy/AdvReac Type Severity Reaction Status Date / Time adhesive tape Allergy Rash Unverified 07/10/25 19:18 clindamycin Allergy Unknown Verified 07/10/25 23:07 crab Allergy Nausea Verified 07/10/25 23:07 levofloxacin Allergy Diarrhea Verified 07/10/25 19:17 levothyroxine sodium Allergy Unknown Verified 07/10/25 23:07 [From Synthroid] amoxicillin [From Augmentin] AdvReac Diarrhea Verified 07/10/25 19:17 ciprofloxacin AdvReac Diarrhea Verified 07/10/25 19:17 clavulanic acid AdvReac Diarrhea Verified 07/10/25 19:17 [From Augmentin] Home Medications Medication Instructions Recorded Confirmed Type ascorbic acid (vitamin C) 500 mg 500 mg PO DAILY 01/23/24 07/10/25 History tablet lactobacillus combination no.9 4 4,000 mmu cells PO DAILY 01/23/24 07/10/25 History billion cell capsule (Adult 50 Plus Probiotic) omega 2-xzv-hks-fish oil 120 1 cap PO DAILY 01/23/24 07/10/25 History mg-180 mg-500 mg capsule (Fish Oil) red yeast rice 600 mg capsule 600 mg PO BID 01/23/24 07/10/25 History zinc acetate 25 mg (zinc) capsule 25 mg PO DAILY 01/23/24 07/10/25 History furosemide 20 mg tablet 20 mg PO DAILY 03/07/24 07/10/25 History letrozole 2.5 mg tablet 2.5 mg PO DAILY 03/07/24 07/10/25 History ropinirole 0.5 mg tablet 0.5 mg PO HS 09/12/24 07/10/25 History thyroid (pork) 60 mg tablet 60 mg PO DAILY 09/12/24 07/10/25 History ([place] Thyroid) amitriptyline 25 mg tablet 25 mg PO HS 02/20/25 07/10/25 History empagliflozin 10 mg tablet 10 mg PO DAILY 02/20/25 07/10/25 History (Jardiance) gabapentin 400 mg capsule 800 mg PO TID 02/20/25 07/10/25 History lisinopril 10 1 tab PO DAILY 02/20/25 07/10/25 History mg-hydrochlorothiazide 12.5 mg tablet omeprazole 20 mg capsule,delayed 20 mg PO DAILY PRN Heartburn 02/20/25 07/10/25 History release thyroid (pork) 15 mg tablet 15 mg PO DAILY #100 tabs 02/22/25 07/10/25 Rx ([place] Thyroid) oxycodone 5 mg tablet 5 mg PO Q6H PRN Moderate Pain 07/10/25 07/10/25 History (Scale Score 5-6) red yeast rice 600 mg capsule 1,200 mg PO HS 07/10/25 07/10/25 History Patient History Medical History Hx of blood clots Kidney failure Bronchitis Surgical History H/O ligation of vein 4020-2338 H/O mastectomy 2012 History of carpal tunnel surgery History of left knee replacement 2011 H/O right knee surgery 2010 Hx of tonsillectomy 1977 H/O lymph node excision 2022 H/O total mastectomy (~2022) Right and sentinel node biopsy/ right axillary lymph node dissection Family History Aunt Breast cancer Other Diabetes Heart disease Stroke Social History Smoking Status: Never smoker Hx Alcohol Use: Yes Alcohol type: hard liquor Alcohol Intake Frequency: 2-4 x/Month Hx Substance Use: No Beliefs That Will Affect Care: None marital status: Current Living Situation: Alone current occupational status: retired Feels Safe at Home: Yes Diet: regular during the past year weight has: increased > 10 lbs Assistive Devices: BiPap, Cane and Glasses Exam (Neuro) Physical Exam: HEENT: normocephalic grossly Neuro: Mental: AOx4, fluent speech, normal comprehension, no apraxia, no L/R confusion, no neglect CN: PERRL, Full EOM, symmetric face, midline T/U/P, grossly full ROM neck Motor: No abnormal movements, normal tone, RUE: 4+/5 abduction shoulder, 3+/5 elbow extension and flexion, 4-/5 wrist extension and flexion. 4/5 finger flexion. LUE: 4+/5 shoulder abduction, 4-/5 elbow flexion/extension, 4/5 wrist extension/flexon. 5/5 finger flexion. RUE noted for lymph edema t/o her arm. b/l lower ext: 5-/5 t/o. Sens: slight decrease to touch t/o rt UE. Coord: intact FNT b/l DTR: 1+ sym b/l Gait: intact grossly Impression: 75 yo female with known repeat metastatic breast cancer with x/p XRT and chemo in the past with rt Upper arm lymphedema noted for subacute 3 months of progressing weakness b/l upper limbs (rt greater than left). Her MRI C and T spine from [facility] appears stable with no cord lesion and no obvious nerve radiculopathy to cause her weakness and her distribution of weakness does not match. Given overall clinical picture and her hx, ddx includes Paraneoplastic neurologic syndromes, e.g. Paraneoplastic brachial plexopathy and autoimmune sensorimotor neuronopathy. Her prior XRT and chemo also can be contributing as the peripheral nerve injury from these therapy usually shows up late (few months up to year later). Recommendations: consult oncology for paraneoplastic syndrome work up (including sending labs for antibodies associated with autoimmune neurological syndrome, specifically for Amphiphysin and MULTI OPERATION MACHINE OPERATOR-2 antibodies (which is associated with polyradiculopathy and sensory neuronopathy in pt with breast cancer). physical /Occupational therapy. 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 Dr. Flores will be oncall for neurology tomorrow to follow pt. Chart reviewed I have spent more than 50% educating patient about potential diagnosis and neurological evaluation and coordinating care with patient's treatment team. Total time spent (including chart review and coordination of care): 60 min (this includes chart review). Results & Data Vital Signs (Past 12 Hours) Vital Signs Temp Pulse Resp BP Pulse Ox O2 Del Method 07/10/25 23:16 36.9 C 65 18 168/83 H 95 Room Air PG Care Time/CCT Total # of Minutes Spent Total Time Spent with Patient: Total time spent is greater than 50% in coordination of care (as documented) at patient's floor/unit and/or counseling patient: Coding Level of Care Code 79214 IN/OBS CONSULT LVL 4,60M Diagnoses Bilateral arm weakness R29.898
--- NOTE | 2025-07-11 12:35 | Electrocardiogram Report ---
Test Reason : Blood Pressure : */* mmHG Vent. Rate : 76 BPM Atrial Rate : 76 BPM P-R Int : 214 ms QRS Dur : 120 ms QT Int : 364 ms P-R-T Axes : 45 -51 55 degrees QTcB Int : 409 ms Sinus rhythm with 1st degree A-V block Left anterior fascicular block Left ventricular hypertrophy with QRS widening Abnormal ECG No previous ECGs available Confirmed by Warner Maloney ([id number]) on 07/11/2025 12:35:17 PM Referred By: Scot Mai Confirmed By: Warner Maloney
--- NOTE | 2025-07-11 13:28 | Hospitalist Progress Note ---
Date of Service July 11, 2025 Assessment & Plan (1) Bilateral arm weakness: (2) Hypertension: (3) Hypothyroidism: (4) Sleep apnea: Plan 75yo female with history of HTN, Hypothyroidism, DANNIE presenting with progressive numbness/tingling and weakness of bilateral UE. Symptoms began with the RUE in mid-May and have progressed. Over the last several weeks she has been having weakness in her LUE as well. She presents today because she has been unable to perform her ADLs. #Bilateral UE weakness - progressive. MRI obtained at [facility] on 06/21/25 -Cervical spine MRI with Left C6-C7 and C7-T1 neural foramen narrowing which may affect the exiting nerve roots. This does correspond in part with the area of patient's weakness and discomfort. Question radiculopathy. MRI brain without acute findings or concerns for stroke, does show nonspecific bony lesion of left parietal skull, neoplasm cannot be excluded CK, mag, Phos all within normal limits Continue gabapentin and amitriptyline Trial scheduled Tylenol 1 g 3 times daily, scheduled Flexeril 5 mg twice daily Prednisone 40mg po daily x 5 days OrthoSpine consulted - no neuroforaminal disease, recommend neurology consult. Neurology consulted - concern for paraneoplastic syndrome. Concern for side effect from chemo or radiation. Recommend Oncology consult, could consider IVIG depending on diagnosis Oncology consulted - Dr. Pollard to see pt later, bone scan ordered to look for other areas of bony mets for possible bone marrow bx -PT/OT consulted - pt reports was trying to get [facility] #Hypertension - blood pressure well controlled at present -Continue home Lisinopril/HCTZ #Hypothyroidism - TSH within normal limits at 3.504 -Continue [place] thyroid at home dose - 75mg po daily #DANNIE -BiPAP qHS #History of breast cancer - s/p mastectomy, s/p recurrence with lymph node dissection, chemotherapy and XRT. On Letrozole Dispo: continued inpatient stay DVT proh: SCDs, encourage ambulation Admission and Anticipated Discharge Date Admission Date: July 10, 2025 Subjective patient seen sitting up in the bed. She reports that the weakness is worse on her right side this has been progressive over the last 6 weeks. she describes electrical shock type stabbing all the way down the right arm and about skilled nursing down the left arm. Feels like she cannot open jars and other things like she used to be able to cannot drive anymore. 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 She is able to move all both arms but does have lymphedema in her arms as well Neuro: A&O x3, Results & Data Results & Data Vital Signs (Past 12 Hours) Vital Signs Temp Pulse Resp BP Pulse Ox O2 Del Method 07/11/25 10:21 98.1 F 77 18 119/82 94 Room Air Laboratory Results CBC chemistry, urinalysis reviewed Diagnostic Findings head CT and brain MRI reviewed PG Care Time/CCT Total # of Minutes Spent Total Time Spent with Patient: Total time spent is greater than 50% in coordination of care (as documented) at patient's floor/unit and/or counseling patient: Coding Level of Care Code 90763 SUB INP/OBS CARE 3/50MIN Diagnoses Bilateral arm weakness R29.898 Hypertension I10 Hypothyroidism E03.9 Sleep apnea G47.30
[2025-07-11] MEDS: MICONAZOLE NITRATE 2% CR 30 GM TUBE EXT SCH (22:01)
--- NOTE | 2025-07-12 08:13 | Nuclear Medicine Report ---
WHOLE-BODY NUCLEAR BONE SCAN CLINICAL HISTORY: Left parietal lesion. History breast cancer. COMPARISON STUDY: Chest CT dated 07/05/2025. CT and MRI of the brain dated 07/10/2025. PET/CT dated 2023. TECHNIQUE: Three hours following the IV administration of 28.6 mCi of technetium 99m MDP, whole body nuclear bone scan was performed in the anterior and posterior projections. Additional lateral views of the calvarium were obtained. FINDINGS: There is likely tracer uptake identified in the left parietal bone lesion seen on the calvarial views . No additional foci of abnormal osseous tracer deposition are identified typical in appearance for b markus metastatic disease. Typically degenerative uptake is identified in the shoulders, knees, and feet. 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 Activity localizing to the right mandible is typical for periodontal disease. There is expected excreted activity within the renal collecting system and bladder. IMPRESSION: 1. Although difficult to characterize, there is likely increased tracer uptake within the left pariet al bone lesion seen by MRI. This is best appreciated on the lateral calvarial views. This is nonspeci fic, and as an isolated lesion could potentially represent a process such as fibrous dysplasia. A mel itary bony metastasis is not excluded. At a minimum, continued attention at follow-up will be require d. 2. No additional foci of abnormal tracer uptake suspicious for metastatic disease are identified. ACT 112: Negative or not required by law. Electronically signed by: Emmanuel Burt M.D. 07/12/2025 8:12 AM
--- NOTE | 2025-07-12 09:48 | Orthopedic Progress Note ---
Date of Service July 12, 2025 Assessment & Plan (1) Bilateral arm weakness: Plan: I have had the opportunity to personally review her MRIs of the cervical and thoracic spine. They are of moderate quality. I am not able to truly visualize the neuroforamen. Subsequently would like to obtain an MRI of the cervical spine with obliques while she is in the hospital. Admission and Anticipated Discharge Date Admission Date: July 10, 2025 Subjective Patient continues to have significant bilateral upper extremity weakness right greater than left. Physical Exam Physical Exam: Patient is in chair at the bedside. Continues to demonstrate marked deficits to the right hand. Sensory is intact. Results & Data Vital Signs (Past 12 Hours) Vital Signs Temp Pulse Pulse Resp BP BP Pulse Ox 07/12/25 07:19 36.8 C 64 18 131/81 94 07/11/25 23:29 36.4 C L 67 18 133/88 133/88 93 O2 Del Method 07/12/25 07:19 Room Air 07/11/25 23:29 Room Air
--- NOTE | 2025-07-12 12:23 | Oncology Consultation ---
Date of Consultation July 12, 2025 Assessment & Plan (1) Bilateral arm weakness: Patient admitted to [facility] on 07/10/2025 with progressing bilateral upper extremity weakness and radicular pain radiating predominantly right versus left. Patient has undergone neurologic consultation as well as further imaging including MRI of the brain which revealed a left sided nonspecific bony lesion in the left parietal region measuring 2.4 x 2.1 x 0.7. Bone scan followed which shows no radioactive uptake with the exception of a left parietal lesion. We need to pursue biopsy. However would be highly unusual to see a solitary metastatic lesion in the setting of breast cancer. Patient also continues letrozole which should offer some protection. Ultimately biopsy of this area should be carried out. The Neurology [facility] iam consultant suggested the possibility of paraneoplastic syndrome. Patient has yet to be proven to have active metastatic disease and therefore paraneoplastic syndrome in my estimation is less likely. There is testing available through [facility] but patient needs to be outpatient for us to order. Based on the other consultants involved in her care and the radiographic evidence I'am not totally convinced that her thoracic spine is competent as a suspect there may be a radicular component. Would also agree with electromyogram once patient is discharged. Once everything else from a neurologic or orthopedic perspective is ruled out we will then pursue paraneoplastic antibody testing. (2) Lymphedema of right arm: Patient has compressive sleeve, and continues rehabilitation in this regard. (3) Recurrent cancer of right breast: Patient was diagnosed with recurrent invasive ductal carcinoma involving the right breast ER positive, [place] negative HER2/naty negative with 16 of 17 lymph nodes positive for metastatic disease. She was offered an attempted adjuvant chemotherapy which was aborted because of poor tolerance. Patient continues on letrozole. (4) Back pain with left-sided radiculopathy: . Await results on today's MRI imaging and continue to follow with orthopedics . Patient's pain has been effectively treated with morphine for pain May consider placing her on methadone if correctable measures are not feasible. will discuss further on outpatient follow-up. History of Present Illness Reason for Consultation: Patient with diagnosis of recurrent invasive ductal carcinoma involving right breast grade 2, ER positive. Patient had 16 out of 17 lymph nodes positive for metastatic disease [facility] with bilateral upper extremity weakness and lancinating pain. Attending Physician: Cindy Ware MD History of Present Illness Ms. Willingham is a pleasant 73-year-old female well-known to my service Currently under my care for recurrent invasive ductal carcinoma involving the right breast ER positive, [place] negative, HER2/naty negative. Patient underwent corpectomy and axillary lymph node dissection 16, 17 lymph nodes positive for metastatic disease. She was offered an aborted chemotherapy because of poor tolerance. She is currently on. Over the past several visits patient has complained of progressive bilateral upper extremity weakness and lancinating pain which is much more predominant on the right versus left. He was just in our office on 09 July. She had undergone MRI imaging of the cervical spine and it was felt that her symptoms were out of worsening to the findings on image. Patient had been receiving physical therapy but continues to rapidly lose function which prompted her visit to [facility] where she was admitted on 10 July. She has had further workup including MRI of the brain and is presently undergoing MRI of the thoracic spine. I was somewhat surprised to hear of a nonspecific left parietal bony lesion seen on MRI. She then underwent bone scan which showed no other evidence of bony metastatic disease however there was radioactive uptake in the left parietal region. Patient has been formally evaluated by neurology and they feel that perhaps she has a paraneoplastic type syndrome and is requesting testing. [facility] does offer such a test however needs to be done in the outpatient setting. I asked the hospitalist service to consult interventional radiology for potential biopsy of the left parietal bony lesion. It is highly unusual to see a solitary metastatic lesion. Based on recent imaging there is suggestion of foraminal narrowing and thus radiculopathy is not exclusively ruled out in my opinion. Unfortunately they do not have inpatient EMG capability. Allergies Allergy/AdvReac Type Severity Reaction Status Date / Time adhesive tape Allergy Rash Unverified 07/10/25 19:18 clindamycin Allergy Unknown Verified 07/10/25 23:07 crab Allergy Nausea Verified 07/10/25 23:07 levofloxacin Allergy Diarrhea Verified 07/10/25 19:17 levothyroxine sodium Allergy Unknown Verified 07/10/25 23:07 [From Synthroid] amoxicillin [From Augmentin] AdvReac Diarrhea Verified 07/10/25 19:17 ciprofloxacin AdvReac Diarrhea Verified 07/10/25 19:17 clavulanic acid AdvReac Diarrhea Verified 07/10/25 19:17 [From Augmentin] Home Medications Medication Instructions Recorded Confirmed Type ascorbic acid (vitamin C) 500 mg 500 mg PO DAILY 01/23/24 07/10/25 History tablet lactobacillus combination no.9 4 4,000 mmu cells PO DAILY 01/23/24 07/10/25 History billion cell capsule (Adult 50 Plus Probiotic) omega 0-ugf-lzl-fish oil 120 1 cap PO DAILY 01/23/24 07/10/25 History mg-180 mg-500 mg capsule (Fish Oil) red yeast rice 600 mg capsule 600 mg PO BID 01/23/24 07/10/25 History zinc acetate 25 mg (zinc) capsule 25 mg PO DAILY 01/23/24 07/10/25 History furosemide 20 mg tablet 20 mg PO DAILY 03/07/24 07/10/25 History letrozole 2.5 mg tablet 2.5 mg PO DAILY 03/07/24 07/10/25 History ropinirole 0.5 mg tablet 0.5 mg PO HS 09/12/24 07/10/25 History thyroid (pork) 60 mg tablet 60 mg PO DAILY 09/12/24 07/10/25 History ([place] Thyroid) amitriptyline 25 mg tablet 25 mg PO HS 02/20/25 07/10/25 History empagliflozin 10 mg tablet 10 mg PO DAILY 02/20/25 07/10/25 History (Jardiance) gabapentin 400 mg capsule 800 mg PO TID 02/20/25 07/10/25 History lisinopril 10 1 tab PO DAILY 02/20/25 07/10/25 History mg-hydrochlorothiazide 12.5 mg tablet omeprazole 20 mg capsule,delayed 20 mg PO DAILY PRN Heartburn 02/20/25 07/10/25 History release thyroid (pork) 15 mg tablet 15 mg PO DAILY #100 tabs 02/22/25 07/10/25 Rx ([place] Thyroid) oxycodone 5 mg tablet 5 mg PO Q6H PRN Moderate Pain 07/10/25 07/10/25 History (Scale Score 5-6) red yeast rice 600 mg capsule 1,200 mg PO HS 07/10/25 07/10/25 History Patient History Medical History Hx of blood clots Kidney failure Bronchitis Surgical History H/O ligation of vein 6183-8233 H/O mastectomy 2013 History of carpal tunnel surgery History of left knee replacement 2011 H/O right knee surgery 2010 Hx of tonsillectomy 1977 H/O lymph node excision 2022 H/O total mastectomy (~2022) Right and sentinel node biopsy/ right axillary lymph node dissection Family History Aunt Breast cancer Other Diabetes Heart disease Stroke Social History Smoking Status: Never smoker Hx Alcohol Use: Yes Alcohol type: hard liquor Alcohol Intake Frequency: 2-4 x/Month Hx Substance Use: No Communication Ability: Effective Beliefs That Will Affect Care: None marital status: Current Living Situation: Alone current occupational status: retired Feels Safe at Home: Yes Diet: regular during the past year weight has: increased > 10 lbs Assistive Devices: BiPap, Cane, Glasses and Oxygen - Continuous Review of Systems Constitutional: Bilateral upper extremity weakness right greater than left with associated lancinating pain. Negative weight loss no fevers chills or sweats Eyes: No acute visual disturbances. Respiratory: Neg for SOB, dyspnea or orthopnea. Cardiovascular: Additional Comments: Neg. for cardiovascular disease Gastrointestinal: Denies abdominal pain nausea vomiting diarrhea or constipation Musculoskeletal: As per HPI Physical Exam Constitutional: [place] 75-year-old female in no acute distress awake alert answers questions appropriately Eyes: PERRLA, EOMI ENMT: Throat clear tongue midline Neck: Palpable Respiratory: Clear to auscultation bilaterally Cardiovascular: Regular rate and rhythm no clicks rubs or murmurs gallops Gastrointestinal (Abdomen): Soft nontender nondistended Neurologic: Deferred Results & Data Vital Signs (Past 12 Hours) Vital Signs Temp Pulse Resp BP Pulse Ox O2 Del Method 07/12/25 11:24 36.8 C 75 18 131/79 91 Room Air 07/12/25 07:19 36.8 C 64 18 131/81 94 Room Air
--- NOTE | 2025-07-12 12:27 | Hospitalist Progress Note ---
Date of Service July 12, 2025 Assessment & Plan (1) Bilateral arm weakness: (2) Hypertension: (3) Hypothyroidism: (4) Sleep apnea: Plan 75yo female with history of HTN, Hypothyroidism, DANNIE presenting with progressive numbness/tingling and weakness of bilateral UE. Symptoms began with the RUE in mid-May and have progressed. Over the last several weeks she has been having weakness in her LUE as well. She presents today because she has been unable to perform her ADLs. #Bilateral UE weakness - progressive. MRI obtained at [facility] on 06/21/25 -Cervical spine MRI with Left C6-C7 and C7-T1 neural foramen narrowing which may affect the exiting nerve roots. This does correspond in part with the area of patient's weakness and discomfort. Question radiculopathy. MRI brain without acute findings or concerns for stroke, does show nonspecific bony lesion of left parietal skull, neoplasm cannot be excluded CK, mag, Phos all within normal limits Continue gabapentin and amitriptyline Trial scheduled Tylenol 1 g 3 times daily, scheduled Flexeril 5 mg twice daily Prednisone 40mg po daily x 5 days OrthoSpine consulted - no neuroforaminal disease, recommend neurology consult. C-spine MRI ordered Neurology consulted - concern for paraneoplastic syndrome. Concern for side effect from chemo or radiation. Recommend Oncology consult, could consider IVIG depending on diagnosis Oncology consulted - Dr. Pollard. bone scan without any additional lesions - cannot preform scalp bx here -PT/OT consulted - pt reports was [facility] get [facility] #Hypertension - blood pressure well controlled at present -Continue home Lisinopril/HCTZ #Hypothyroidism - TSH within normal limits at 3.504 -Continue [place] thyroid at home dose - 75mg po daily #DANNIE -BiPAP qHS #History of breast cancer - s/p mastectomy, s/p recurrence with lymph node dissection, chemotherapy and XRT. 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 She is able to move all both arms but does have lymphedema in her arms as well. 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
--- NOTE | 2025-07-12 14:31 | Magnetic Resonance Report ---
MRI OF THE CERVICAL SPINE WITHOUT IV CONTRAST CLINICAL HISTORY: Upper extremity weakness. COMPARISON STUDY: CT of the cervical spine dated 06/14/2025. MRI of the cervical spine dated 06/21/2025. Nuclear bone scan dated 07/11/2025. TECHNIQUE: MRI of the cervical spine is performed utilizing various T1 and T2-weighted sequences in t he axial and sagittal planes. IV contrast was not administered for this examination. The axial cube i mages are significantly degraded by motion artifact. FINDINGS: Cervical spine: Vertebral body height and alignment are maintained throughout the cervical spine. The atlantodental articulation is maintained. There is diffuse drop in T1 marrow signal intensity within the spinous processes of C6 and C7 seen on the sagittal sequences with mild edema on the STIR sequen ce. No additional similar-appearing foci of marrow change are identified. The spinous processes appea r intact. Small anterior osteophytes are seen throughout. Intervertebral discs: Disc desiccation and loss of height is seen in the cervical spine. Loss of heig ht is moderate at C6-C7 and mild at the remaining cervical levels. Spinal cord and central canal: The cervical cord is normal in morphology and signal intensity. There is epidural thickening seen posteriorly extending from C4 to T2, best visualized on the sagittal T2 a nd STIR sequences. This measures up to 3.5 mm in thickness and showed avid postcontrast enhancement o n 06/21/2025 examination, and minimally narrows the posterior central canal at C5-C6 and C6-C7. C2-C3: Unremarkable. C3-C4: Unremarkable. C4-C5: Unremarkable. C5-C6: A posterior disc osteophyte complex eccentric to the left abuts the ventral cord. Mild facet a rthropathy is of no consequence. The neural foramina are patent. C6-C7: A posterior disc osteophyte complex effaces the ventral subarachnoid space. Prominent facet ar thropathy causes mild left neural foraminal stenosis. The right neural foramen is patent. T1-T2: Unremarkable. Soft tissues: There is significant an asymmetric edema within the right paraspinous musculature which is best seen on sagittal STIR image #5. Milder edema is seen within the paraspinous vasculature in t he left lower cervical region on sagittal image #12. Additionally, there is edema between the spinous processes posteriorly at all levels between C4-C5 and C7-T1. This could represent ligamentous injury if there has been a history of trauma. The thyroid gland is enlarged and heterogeneous. Brain parenchyma: The imaged brain parenchyma the skull base is normal as visualized. IMPRESSION: 1. There is significant epidural thickening seen posteriorly extending from C4 to T2. This showed anthony d postcontrast enhancement on the 06/21/2025 examination, and could represent epidural metastatic dise ase and/or treatment-related change. Clinical correlation will be essential. 2. There is marked and asymmetric edema within the paraspinous musculature, right side greater than l eft. This also showed avid postcontrast enhancement on the prior study. This carries a similar differ ential, and could represent metastatic disease, treatment-related change, or inflammation. 3. There is significant and abnormal drop in marrow signal within the spinous processes of C6 and C7 which likely represents metastatic disease. This does not show significant tracer uptake on yesterday 's bone scan and may represent treated disease. Clinical correlation will be essential. 4. There is edema between the spinous processes posteriorly seen at all levels between C4-C5 and C7-T 1. This is likely related to the same process as described above. If there has been a history of trau ma then ligamentous injury would be impossible to exclude. 5. There is no MRI evidence of acute fracture. 6. Additional findings as above. Electronically signed by: Emmanuel Burt M.D. 07/12/2025 2:30 PM
--- NOTE | 2025-07-13 10:54 | Neurology Progress Note ---
Date of Service July 13, 2025 Assessment & Plan (1) Bilateral arm weakness: (2) Brachial plexopathy: (3) Polyradiculopathy: Plan 75-year-old female with a history of metastatic breast cancer, chemotherapy associated neuropathy. She developed profound weakness of the right hand this past May which has been persistent and notable on examination with minimal grasp, and severe weakness of right wrist extension, finger abduction, relatively preserved right biceps and triceps strength, mildly weak right shoulder abduction. She also has moderately severe weakness of the left triceps. Her sensation for the right hand seems to be intact. This patient's recent cervical spine MRI is notable for significant epidural thickening extending from C4-T2 with associated postcontrast enhancement identified on the previous MRI done on June 21. The significance of this finding in the context of her upper extremity weakness is uncertain. The finding could be consistent with epidural metastatic disease or treatment related change. Patient's signs and symptoms could be consistent with bilateral brachial plexopathy or polyradiculopathy. I will order an MRI of the right and left brachial plexus (chest MRI) for further assessment, would like to exclude metastatic disease. Could also consider an autoimmune sensorimotor neuropathy, multifocal motor neuropathy and paraneoplastic brachial plexopathy. I will order a sensorimotor neuropathy panel. A paraneoplastic antibody panel can be completed if necessary as suggested by Dr. Lyons and Dr. Pollard. Patient will need a bilateral upper extremity EMG completed as an outpatient. Patient would like to follow-up with me in neurology clinic in 2 to 3 weeks after discharge. 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 She informs me that she had radiotherapy as well. Patient follows with [facility] oncology. She was initially seen in this hospitalization by Dr. Lyons in neurological consultation regarding her weakness, had suspected a possible paraneoplastic syndrome. She has also been evaluated by orthopedics and was seen yesterday by her oncologist, Dr. Pollard. I did review her cervical spine MRI that was completed yesterday. The study reveals significant epidural thickening posteriorly, extending from C4-T2. This finding was present on a previous MRI done on June 21 and had revealed significant postcontrast enhancement. The finding is felt to represent either epidural metastatic disease or treatment related change. There is edema and enhancement within the paraspinous musculature as well, right greater than left. There is no significant disc herniation or foraminal compromise on the basis of degenerative disc disease. I reviewed her brain MRI completed on July 10 as well. There is a bony lesion within the left parietal skull, indeterminate pathology. I did independently review her cervical spine and brain MRI images and was able to appreciate these findings. In speaking with the patient this morning, she reports a history of numbness and weakness affecting the right hand beginning in May, more recently, she has developed some weakness of the left triceps. She also complains of neck pain which radiates across the shoulder blades. Her right hand weakness is rather significant, near complete loss of grasp power, wrist extension and flexion, as well as finger abduction Results & Data Vital Signs (Past 12 Hours) Vital Signs Temp Pulse Resp BP Pulse Ox O2 Del Method 07/13/25 07:32 36.9 C 59 L 18 135/87 97 Room Air 07/13/25 07:30 Room Air 07/12/25 22:51 36.7 C 71 18 141/82 H 94 Room Air Exam (Neuro) Constitutional: well developed and well nourished; no acute distress Eyes: normal visual aragon by confrontation, PERRL and EOM intact bilaterally; no nystagmus Neurologic: Oriented to:: Person, Place and Time Memory: Short Term Intact and Remote Intact Attention: Span Intact and Concentration Intact Speech Fluency: negative Dysarthria or Dysfluency Speech Aphasia: negative Aphasia Fund of Knowledge: Current Events, Past History and Vocabulary Cranial Nerves: Normal II, III, IV, , V, VII, VIII, IX, X, XI and XII Motor Strength: Normal Lower Extremities; negative Normal Upper Extremities Muscle Bulk/Involuntary Movements: No Involuntary Movements; negative Muscle Atrophy Sensation: Light Touch Intact and Pain/Temperature Intact Details: Severe weakness of the right hand, minimal grasp, profound weakness of right wrist extension, flexion, and finger abduction, relatively preserved right biceps and triceps strength, mild weakness for right shoulder abduction. Patient also has moderately severe weakness of the left triceps. Coding Level of Care Code 74202 SUB INP/OBS CARE 3/50MIN Diagnoses Bilateral arm weakness R29.898 Brachial plexopathy G54.0 Polyradiculopathy M54.10 Time Spent (min) 50 Comment Total time includes patient contact, chart review, counseling, note preparation
[2025-07-13] MEDS: MoRPHine SULFATE 2 MG/ML CARP IV STA (16:22)
--- NOTE | 2025-07-13 17:13 | Hospitalist Progress Note ---
Date of Service July 13, 2025 Assessment & Plan (1) Bilateral arm weakness: (2) Hypertension: (3) Hypothyroidism: (4) Sleep apnea: Plan 75yo female with history of breast cancer treated with resection chemo and XRT who came in with progressive numbness/tingling and weakness of bilateral UE. Symptoms began with the RUE in mid-May and have progressed. Over the last several weeks she has been having weakness in her LUE as well. She has been unable to perform her ADLs. #Bilateral UE weakness - progressive. Ddx includes metastatic disease, paraneoplastic syndrome, autoimmune sensorimotor neuropathy, multifocal motor neuropathy and paraneoplastic brachial plexopathy Ortho spine, neurology and oncology consulted studies: MRI obtained at [facility] on 06/21/25 -Cervical spine MRI with Left C6-C7 and C7-T1 neural foramen narrowing which may affect the exiting nerve roots. MRI brain without acute findings or concerns for stroke, does show nonspecific bony lesion of left parietal skull, neoplasm cannot be excluded MRI cspine 07/12 - epidural thickening extending from C4-T2 with associated postcontrast enhancement, could be consistent with epidural metastatic disease or treatment related change. Bone scan with tracer uptake of the bony calvarial lesion seen on MRI, no other significant findings. Could be a process such as fibrous dysplasia or a solitary met CK, mag, Phos all within normal limits reviewed recommendations in Dr. Flores's note today - MRI chest (bilateral brachial plexus) - pending, sensorimotor neuropathy panel submitted recommended outpatient studies: biopsy of bony left parietal calvarial lesion EMG paraneoplastic antibody panel if necessary Continue: gabapentin and amitriptyline scheduled Tylenol 1 g 3 times daily, scheduled Flexeril 5 mg twice daily morphine IV as needed severe pain - gave extra 2 mg IV dose prior to MRI today since c-spine MRI was very uncomfortable yesterday Prednisone 40mg po daily x 5 days -PT/OT consulted #History of breast cancer - s/p mastectomy, s/p recurrence with lymph node dissection, chemotherapy and XRT. On Letrozole #CKD-3 - Cr stable, AM BMP #Hypertension - blood pressure well controlled at present -Continue home Lisinopril/HCTZ #Hypothyroidism - TSH within normal limits at 3.504 -Continue [place] thyroid at home dose - 75mg po daily #DANNIE -BiPAP qHS Lyme was negative, deborah/bab smears negative and DNA's pending Dispo: continued inpatient stay DVT proph: enoxaparin Admission and Anticipated Discharge Date Admission Date: July 12, 2025 Subjective continues with bilateral UE weakness and pain across her upper back unchanged Physical Exam Physical Exam: Sitting up in chair, getting ready to depart from MRI Alert and oriented, RUE weak especially hand and wrist, can lift LUE but not overhead Lymphedema RUE Results & Data Results & Data Vital Signs (Past 12 Hours) Vital Signs Temp Pulse Resp BP Pulse Ox O2 Del Method 07/13/25 14:53 36.9 C 82 18 115/71 92 Room Air 07/13/25 07:32 36.9 C 59 L 18 135/87 97 Room Air 07/13/25 07:30 Room Air PG Care Time/CCT Total # of Minutes Spent Total Time Spent with Patient: Total time spent is greater than 50% in coordination of care (as documented) at patient's floor/unit and/or counseling patient: Coding Level of Care Code 99429 SUB INP/OBS CARE 2/35MIN Diagnoses Bilateral arm weakness R29.898 Hypertension I10 Hypothyroidism E03.9 Sleep apnea G47.30
[2025-07-13] MEDS: GADOBUTROL 65ML VIAL IV ONE (18:05)
[2025-07-13] MEDS: ENOXAPARIN INJ 30 MG/0.3 ML SYR SQ SCH (20:47)
--- NOTE | 2025-07-14 04:32 | Magnetic Resonance Report ---
Exam(s): MRI OTHER W/WO Contrast EXAM: MR Right Upper Extremity Without and With Intravenous Contrast, Brachial Plexus CLINICAL HISTORY: Reason for exam: brachial plexus, john UE weakness. TECHNIQUE: Multiplanar magnetic resonance images of the right brachial plexus without and with intravenous contrast. CONTRAST: Contrast must be dictated COMPARISON: No relevant prior studies available. FINDINGS: There is a dorsal epidural hematoma extending from C2-T3 causing a severe spinal canal stenosis. Right brachial plexus: Unremarkable. Roots, trunks, divisions, and cords are unremarkable. No abnormal contrast enhancement. Bones/joints: Unremarkable. No visualized cervical ribs. Soft tissues: There is a hematoma in the right anterior chest wall measuring 71.0 x 67.0 x 51.4 mm Normal subcutaneous tissues and musculature. Vasculature: No acute findings. Normal subclavian and axillary vessels. IMPRESSION: There is a dorsal epidural hematoma extending from C2-T3 causing a severe spinal canal stenosis. Recommend neurosurgical consult for decompression. No evidence of acute brachial plexus pathology. There is a hematoma in the right anterior chest wall. Communications: Call Doctor Above results Electronically signed by: Deisy Jimenez MD 07/14/25 04:31 AM
--- NOTE | 2025-07-14 04:36 | Magnetic Resonance Report ---
Exam(s): MRI OTHER W/WO Contrast EXAM: MR Left Upper Extremity Without and With Intravenous Contrast, Brachial Plexus CLINICAL HISTORY: Reason for exam: brachial pleus, right and left. TECHNIQUE: Multiplanar magnetic resonance images of the left brachial plexus without and with intravenous contrast. CONTRAST: Contrast must be dictated COMPARISON: No relevant prior studies available. FINDINGS: There is a large dorsal epidural hematoma extending from C2-T3 causing a severe spinal canal stenosis. Left brachial plexus: Unremarkable. Roots, trunks, divisions, and cords are unremarkable. No abnormal contrast enhancement. Bones/joints: Unremarkable. No visualized cervical ribs. Soft tissues: There is moderate edema in the right paraspinous muscles. Normal subcutaneous tissues and musculature. Vasculature: No acute findings. Normal subclavian and axillary vessels. IMPRESSION: There is a large dorsal epidural hematoma extending from C2-T3 causing stenosis, canal stenosis. Recommend neurosurgical consult for decompression. No evidence of acute brachial plexus pathology. Communications: Call Doctor Above results Electronically signed by: Deisy Jimenez MD 07/14/25 04:35 AM
[2025-07-14 07:18] VITALS: RESP 18
[2025-07-14] MEDS ORDERED: DEXAMETHASONE SOD INJ 4 MG/ML VIAL IV SCH (11:00)
--- NOTE | 2025-07-14 11:44 | Discharge Summary ---
Discharge Summary Date of Service July 14, 2025 Principal Dx & Hospital Course #1 = Principal Diagnosis (1) Bilateral arm weakness: (2) Hypertension: (3) Hypothyroidism: (4) Sleep apnea: (5) Lymphedema of right arm: (6) Recurrent cancer of right breast: Plan Very pleasant 75 y/o woman with history of breast cancer treated with resection chemo and XRT who came in with progressive numbness/tingling and weakness of bilateral UE. Symptoms began with the RUE in mid-May and more recently have progressed more rapidly. Over the last several weeks she has been having weakness in her LUE as well. She has been unable to perform her ADLs. She has severe weakness of right hand and wrist especially, as well as left triceps. #Bilateral UE weakness - progressive. Ddx includes metastatic disease, paraneoplastic syndrome, autoimmune sensorimotor neuropathy, multifocal motor neuropathy and paraneoplastic brachial plexopathy Ortho spine, neurology and oncology consulted studies: 04/[address] at [facility] - right anterior chest wall fluid collection mild peripheral FDG activity may be postop seroma/hematoma cannot exclude infection, no hypermetabolic mediastinal hilar or axiliary LAD, no FDG avid distant mets 06/14 CT chest at [facility] - right axillary fluid collection noted 06/21 C and T-spine spine MRI at [facility] - report only - Left C6-C7 and C7-T1 neural foramen narrowing which may affect the exiting nerve roots 07/10 MRI brain without acute findings or concerns for stroke, does show nonspecific bony lesion of left parietal skull, neoplasm cannot be excluded 07/11 bone scan - likely uptake left parietal bone lesion seen on MRI, no other significant findings. Could be a process such as fibrous dysplasia or a solitary met 07/12 C-spine MRI - epidural thickening extending from C4-T2 with associated postcontrast enhancement, could be consistent with epidural metastatic disease or treatment related change 07/13 Chest MRI - per report C2-T3 dorsal epidural hematoma which seems unlikely based on review by daytime/staff radiologist and [facility]. There is some enhancing signal right brachial plexus pending, sensorimotor neuropathy panel recommended outpatient studies: biopsy of bony left parietal calvarial lesion which we cannot do at this facility EMG paraneoplastic antibody panel if necessary (we cannot send as inpatient) Discussed with neurosurgeon Dr. Sanchez at [facility] who also reviewed MRI films with [facility] neuroradiologist. There is a concerning bony lesion at C6 spinous process that raises concern regarding malignant potential of the noted epidural enhancement. Transferring to [facility] for further evaluation which cannot be completed locally including neurosurgical consultation, potential biopsy or surgical treatment. We do not have capability to biopsy the spinal or calvarial lesion. Updated our consulting nurologist Dr. Flores as well as her oncologist Dr. Pollard who concur. Would benefit from neurological consultation at [facility] as well because of the potential of brachial plexopathy, paraneoplastic syndromes. Discussed with Mrs. Gonzalez who is in agreement. Continue: gabapentin and amitriptyline scheduled Tylenol 1 g 3 times daily, scheduled Flexeril 5 mg twice daily morphine IV as needed severe pain Prednisone 40mg po daily started three days ago, currently IV dexamethasone per neurosurgeon rec from [facility]. Attempted to place [place]-J collar as per neurosurgeon rec however unable to get an adequate fit because of her anatomy with short neck -PT/OT consulted and recommended rehab #History of breast cancer - s/p mastectomy, with recurrence treated with lymph node dissection 05/2023 partially completed chemotherapy which was limited by tolerance and XRT. On Letrozole since then. Oncologist is Dr. Pollard at [facility] #CKD-3 - Cr stable #Hypertension - blood pressure well controlled at present -Continue home Lisinopril/HCTZ #Hypothyroidism - TSH within normal limits at 3.504 -Continue Depue thyroid at home dose - 75mg po daily #DANNIE -BiPAP qHS Other: Lyme was negative, deborah/bab smears negative and deborah/bab PCRs's pending DVT proph: enoxaparin ppx dose last given evening of 07/13 then held because of MRI findings above Of note her three days prior to the current admission Admission HPI Per Admitting Provider Maryan Gonzalez is a 75yo female with history of DANNIE on nocturnal BiPAP, HTN, remote history of breast cancer presenting with upper extremity weakness. Patient reports her symptoms began in May with RUE numbness, tingling and weakness. Over the last 3-4 weeks she has been having progressive weakness involving her LUE as well. She also reports pain radiating across her upper back, bilateral shoulders and down her arms with pain occasionally across the front of her chest. She has been taking Oxycodone and Tylenol as needed for pain with occasional Ibuprofen as well with some relief. Pain is not positional or exertional. She denies fall, trauma. No LINDER, rash, visual changes, jaw claudication. No involvement of lower extremities. Daughter is at bedside and is concerned that patient is unable to perform her ADLs at home. Patient's just 3 days ago. The patient had an MRI on 06/21/25. Cervical spine without contrast shows left C6-C7 and C7-T1 neuroforaminal narrowing which may affect the exiting nerve root. No change when comapred with prior. MRI of the T-spine with mild spinal stenosis T8-T9 through T10/T11. In the ER she is afebrile, HD stable, NAD ER Course: Tylenol Discharge Exam Sitting up in chair, very pleasant AOx4. LE strength normal. 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 Lymphedema RUE under reasonably good control. Heart reg no mrg, normal WOB CTAB LE wwp no significant edema Discharge Plan Discharge Items Reason For Visit: WEAKNESS Condition on Discharge: Fair Follow-up/Referrals: Dayron Camacho CRNP [Primary Care Provider] - Medications and DC Order Prescriptions: No Action thyroid (pork) [Depue Thyroid] 15 mg tablet 15 mg PO DAILY Qty: 100 1RF ascorbic acid (vitamin C) 500 mg tablet 500 mg PO DAILY Adult 50 Plus Probiotic 4 billion cell capsule 4,000 mmu cells PO DAILY Rx Instructions: administer with a meal Fish Oil 120-180-500 mg capsule 1 cap PO DAILY red yeast rice 600 mg capsule 600 mg PO BID Rx Instructions: give with meal/snack zinc acetate 25 mg (zinc) capsule 25 mg PO DAILY letrozole 2.5 mg tablet 2.5 mg PO DAILY furosemide 20 mg tablet 20 mg PO DAILY thyroid (pork) [Depue Thyroid] 60 mg tablet 60 mg PO DAILY ropinirole 0.5 mg tablet 0.5 mg PO HS omeprazole 20 mg capsule,delayed release(DR/EC) 20 mg PO DAILY PRN (Reason: Heartburn) lisinopril-hydrochlorothiazide 10-12.5 mg tablet 1 tab PO DAILY amitriptyline 25 mg tablet 25 mg PO HS gabapentin 400 mg capsule 800 mg PO TID Jardiance 10 mg tablet 10 mg PO DAILY oxycodone 5 mg tablet 5 mg PO Q6H PRN (Reason: Moderate Pain (Scale Score 5-6)) red yeast rice 600 mg Capsule 1,200 mg PO HS Rx Instructions: at bedtime for this dose Admission Data Admit Date/Time: 07/12/25 12:24 Attending Provider: Cindy Ware Admit Provider: Callie Rao Primary Care Provider: Dayron Camacho Other Providers: Callie Rao; [facility]; Rome Lyons; Peewee Pollard V.; Gil Flores Other Interventions: Discharge Summary Assessment (RN) Last Done: 07/14/25 14:36 Hospital Stay Data Consultations 07/10/25 19:24 ED Decision to Admit Stat 07/11/25 09:31 Consult Neurology Routine 07/11/25 11:19 Consult Oncology Routine 07/14/25 09:30 Consult Neurology Routine Diagnostic Imagining Performed 07/10/25 15:25 CT head/brain wo con Stat 07/10/25 19:54 MRI Brain [MR brain wo/w con] Routine 07/12/25 09:46 MR cervical spine wo con Routine 07/13/25 11:07 MR chest wo/w con Routine 07/13/25 15:58 MR chest wo/w con Routine Chest X-Ray 07/10/25 15:12 Chest radiograph, one view History: Weakness Comparison: None Findings: Single AP view of the chest performed. 8 mm nodular density in the left upper lobe seen to represent a granuloma on prior PET/CT. No focal consolidation or pleural effusion. No pneumothorax. The cardiomediastinal silhouette is within normal limits. Normal pulmonary vascularity. No evidence for lymphadenopathy. No visualized bony or soft tissue abnormality. Surgical clips throughout the right chest wall. Impression: Normal chest radiograph Electronically signed by Warner Betancourt 07-10-2025 6:[address] 07/10/25 15:25 Technique: Axial computed tomography images were obtained of the brain from the vertex to the skull base without intravenous contrast. Findings: There is no sign of intracranial hemorrhage. There is normal brown-white matter differentiation with no sign of acute or old infarction. No midline shift or other form of herniation is identified. There is no hydrocephalus. No obvious mass lesion is seen on this noncontrast examination. The visualized portions of the orbits and paranasal sinuses appear unremarkable. The mastoid air cells appear clear Impression: Unremarkable noncontrast CT of the brain Electronically signed by Pedro Luis Bolanos 07-10-2025 6:49 PM Brain MRI 07/10/25 19:54 Exam(s): MRI HEAD W/WO Contrast IV Amt: 13.7 cc gadavist EXAM: MR Head Without and With Intravenous Contrast CLINICAL HISTORY: Reason for exam: weakness bilateral arms. TECHNIQUE: Magnetic resonance images of the head/brain without and with intravenous contrast in multiple planes. Moderate motion/artifact CONTRAST: Patient received 13.7 cc gadavist of IV contrast COMPARISON: Head CT 07/10/2025. FINDINGS: Brain: No mass effect or acute infarct. No acute hemorrhage. Mild atrophy and chronic white matter disease. No mass or abnormal enhancement. Ventricles: No hydrocephalus or midline shift. Bones/joints: In the left parietal skull, there is a 2.4 x 2.1 x 0.7 cm enhancing area that shows subtle lucency on the head CT. Finding is nonspecific, could be incidental/chronic as there is no aggressive feature. Differential diagnosis includes hemangioma, calvarial meningioma, fibrous dysplasia, Paget's, though myeloma and/or metastatic disease are not excluded. Soft tissues: No scalp hematoma. Visualized Sinuses: Clear. Mastoid air cells: No mastoid effusion. IMPRESSION: 1. Nonspecific enhancing bony lesion left parietal skull, no soft tissue mass or aggressive feature, maybe incidental/chronic. Neoplasm not entirely excluded. 2. Otherwise, normal exam for patient's age group, limited by motion/artifact. Electronically signed by: Dorothea Moody M.D. 07/11/25 00:00 AM Bone Scan Nuclear Medicine 07/11/25 12:09 WHOLE-BODY NUCLEAR BONE SCAN CLINICAL HISTORY: Left parietal lesion. History breast cancer. COMPARISON STUDY: Chest CT dated 07/05/2025. CT and MRI of the brain dated 07/10/2025. PET/CT dated 04/09/2024. TECHNIQUE: Three hours following the IV administration of 28.6 mCi of technetium 99m MDP, whole body nuclear bone scan was performed in the anterior and posterior projections. Additional lateral views of the calvarium were obtained. FINDINGS: There is likely tracer uptake identified in the left parietal bone lesion seen on the calvarial views. No additional foci of abnormal osseous tracer deposition are identified typical in appearance for bony metastatic disease. Typically degenerative uptake is identified in the shoulders, knees, and feet. 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 Activity localizing to the right mandible is typical for periodontal disease. There is expected excreted activity within the renal collecting system and bladder. IMPRESSION: 1. Although difficult to characterize, there is likely increased tracer uptake within the left parietal bone lesion seen by MRI. This is best appreciated on the lateral calvarial views. This is nonspecific, and as an isolated lesion could potentially represent a process such as fibrous dysplasia. A solitary bony metastasis is not excluded. At a minimum, continued attention at follow-up will be required. 2. No additional foci of abnormal tracer uptake suspicious for metastatic disease are identified. ACT 112: Negative or not required by law. Electronically signed by: Emmanuel Burt M.D. 07/12/2025 8:12 AM Cervical Spine MRI 07/12/25 09:46 MRI OF THE CERVICAL SPINE WITHOUT IV CONTRAST CLINICAL HISTORY: Upper extremity weakness. COMPARISON STUDY: CT of the cervical spine dated 06/14/2025. MRI of the cervical spine dated 06/21/2025. Nuclear bone scan dated 07/11/2025. TECHNIQUE: MRI of the cervical spine is performed utilizing various T1 and T2- weighted sequences in the axial and sagittal planes. IV contrast was not administered for this examination. The axial cube images are significantly degraded by motion artifact. FINDINGS: Cervical spine: Vertebral body height and alignment are maintained throughout the cervical spine. The atlantodental articulation is maintained. There is diffuse drop in T1 marrow signal intensity within the spinous processes of C6 and C7 seen on the sagittal sequences with mild edema on the STIR sequence. No additional similar-appearing foci of marrow change are identified. The spinous processes appear intact. Small anterior osteophytes are seen throughout. Intervertebral discs: Disc desiccation and loss of height is seen in the cervical spine. Loss of height is moderate at C6-C7 and mild at the remaining cervical levels. Spinal cord and central canal: The cervical cord is normal in morphology and signal intensity. There is epidural thickening seen posteriorly extending from C4 to T2, best visualized on the sagittal T2 and STIR sequences. This measures up to 3.5 mm in thickness and showed avid postcontrast enhancement on 06/21/2025 examination, and minimally narrows the posterior central canal at C5-C6 and C6- C7. C2-C3: Unremarkable. C3-C4: Unremarkable. C4-C5: Unremarkable. C5-C6: A posterior disc osteophyte complex eccentric to the left abuts the ventral cord. Mild facet arthropathy is of no consequence. The neural foramina are patent. C6-C7: A posterior disc osteophyte complex effaces the ventral subarachnoid space. Prominent facet arthropathy causes mild left neural foraminal stenosis. The right neural foramen is patent. T1-T2: Unremarkable. Soft tissues: There is significant an asymmetric edema within the right paraspinous musculature which is best seen on sagittal STIR image #5. Milder edema is seen within the paraspinous vasculature in the left lower cervical region on sagittal image #12. Additionally, there is edema between the spinous processes posteriorly at all levels between C4-C5 and C7-T1. This could represent ligamentous injury if there has been a history of trauma. The thyroid gland is enlarged and heterogeneous. Brain parenchyma: The imaged brain parenchyma the skull base is normal as visualized. IMPRESSION: 1. There is significant epidural thickening seen posteriorly extending from C4 to T2. This showed avid postcontrast enhancement on the 06/21/2025 examination, and could represent epidural metastatic disease and/or treatment-related change. Clinical correlation will be essential. 2. There is marked and asymmetric edema within the paraspinous musculature, right side greater than left. This also showed avid postcontrast enhancement on the prior study. This carries a similar differential, and could represent metastatic disease, treatment-related change, or inflammation. 3. There is significant and abnormal drop in marrow signal within the spinous processes of C6 and C7 which likely represents metastatic disease. This does not show significant tracer uptake on yesterday's bone scan and may represent treated disease. Clinical correlation will be essential. 4. There is edema between the spinous processes posteriorly seen at all levels between C4-C5 and C7-T1. This is likely related to the same process as described above. If there has been a history of trauma then ligamentous injury would be impossible to exclude. 5. There is no MRI evidence of acute fracture. 6. Additional findings as above. Electronically signed by: Emmanuel Burt M.D. 07/12/2025 2:30 PM Chest MRI 07/13/25 11:07 CR Exam(s): MRI OTHER W/WO Contrast EXAM: MR Left Upper Extremity Without and With Intravenous Contrast, Brachial Plexus CLINICAL HISTORY: Reason for exam: brachial pleus, right and left. TECHNIQUE: Multiplanar magnetic resonance images of the left brachial plexus without and with intravenous contrast. CONTRAST: Contrast must be dictated COMPARISON: No relevant prior studies available. FINDINGS: There is a large dorsal epidural hematoma extending from C2-T3 causing a severe spinal canal stenosis. Left brachial plexus: Unremarkable. Roots, trunks, divisions, and cords are unremarkable. No abnormal contrast enhancement. Bones/joints: Unremarkable. No visualized cervical ribs. Soft tissues: There is moderate edema in the right paraspinous muscles. Normal subcutaneous tissues and musculature. Vasculature: No acute findings. Normal subclavian and axillary vessels. IMPRESSION: There is a large dorsal epidural hematoma extending from C2-T3 causing stenosis, canal stenosis. Recommend neurosurgical consult for decompression. No evidence of acute brachial plexus pathology. Communications: Call Doctor Above results Electronically signed by: Deisy Jimenez MD 07/14/25 04:35 AM Chest MRI 07/13/25 15:58 CR Exam(s): MRI OTHER W/WO Contrast EXAM: MR Right Upper Extremity Without and With Intravenous Contrast, Brachial Plexus CLINICAL HISTORY: Reason for exam: brachial plexus, john UE weakness. TECHNIQUE: Multiplanar magnetic resonance images of the right brachial plexus without and with intravenous contrast. CONTRAST: Contrast must be dictated COMPARISON: No relevant prior studies available. FINDINGS: There is a dorsal epidural hematoma extending from C2-T3 causing a severe spinal canal stenosis. Right brachial plexus: Unremarkable. Roots, trunks, divisions, and cords are unremarkable. No abnormal contrast enhancement. Bones/joints: Unremarkable. No visualized cervical ribs. Soft tissues: There is a hematoma in the right anterior chest wall measuring 71.0 x 67.0 x 51.4 mm Normal subcutaneous tissues and musculature. Vasculature: No acute findings. Normal subclavian and axillary vessels. IMPRESSION: There is a dorsal epidural hematoma extending from C2-T3 causing a severe spinal canal stenosis. Recommend neurosurgical consult for decompression. No evidence of acute brachial plexus pathology. There is a hematoma in the right anterior chest wall. Communications: Call Doctor Above results Electronically signed by: Deisy Jimenez MD 07/14/25 04:31 AM 07/11/25 07:06 07/11/25 07:06 Total Time Total Time Spent Total Time Spent (In Minutes): I personally spent: 95 minutes today on clinical care activities including: reviewing chart notes and vital signs reviewing labs reviewing studies discussion with aws consultant(s) discussion with chronic care nurse transfer center, accepting physician examining and counseling the patient writing orders documentation Coding Level of Care Code 54341 INP/OBS DISCH >30 MIN Diagnoses Bilateral arm weakness R29.898 Hypertension I10 Hypothyroidism E03.9 Sleep apnea G47.30 Lymphedema of right arm I89.0 Recurrent cancer of right breast C50.911
[2025-07-14] MEDS: dexAMETHasone 8 MG in SYRINGE 0 ML IV SCH (12:40)
--- NOTE | 2025-07-14 12:59 | Neurology Progress Note ---
Date of Service July 14, 2025 Assessment & Plan (1) Bilateral arm weakness: (2) Brachial plexopathy: (3) Polyradiculopathy: Plan Bilateral upper extremity weakness in a pattern concerning for brachial plexopathy's. MRI of both the right and left brachial plexus suggest either a recurrent neoplastic process or post radiation change. There is also a posterior epidural collection behind the cervical spinal cord which does not appear to be causing any mass effect. An autoimmune or paraneoplastic plexopathy is not excluded. Agree with transfer to [facility]. Patient may require a biopsy or neurosurgical care. She would also benefit from an assessment with neuro oncology, further evaluation of possible paraneoplastic or autoimmune plexopathy's. Admission and Anticipated Discharge Date Admission Date: July 12, 2025 Subjective Follow-up, weakness of the arms The patient does not report any change in her upper extremity weakness, continues to have profound weakness of the right hand, limited grasping ability, weakness of right wrist extension and finger abduction. She also has significant weakness of the left triceps muscle. MRI of the brachial plexus was completed last night and revealed significant signal abnormality within the soft tissues, notable on axial STIR and coronal images, right greater than left potentially concerning for a malignant process, post radiation treatment change not excluded. The posterior cervical epidural collection as seen on previous cervical spine MRI was seen as well, malignant process, post radiation change, or possibly hematoma. As noted previously, no significant mass effect on the cervical spinal cord. I reviewed these images with radiology, Dr. Devine and discussed her case further with Dr. Ware, attending hospitalist. Her case has been further discussed with neurosurgery at [facility], she has been accepted for transfer. Results & Data Vital Signs (Past 12 Hours) Vital Signs Temp Pulse Resp BP Pulse Ox O2 Del Method 07/14/25 07:17 36.8 C 67 18 121/78 93 Room Air Exam (Neuro) Constitutional: well developed and well nourished; no acute distress Eyes: normal visual aragon by confrontation, PERRL and EOM intact bilaterally; no nystagmus Neurologic: Oriented to:: Person, Place and Time Memory: Short Term Intact and Remote Intact Attention: Span Intact and Concentration Intact Speech Fluency: negative Dysarthria or Dysfluency Speech Aphasia: negative Aphasia Fund of Knowledge: Current Events, Past History and Vocabulary Cranial Nerves: Normal II, III, IV, , V, VII, VIII, IX, X, XI and XII Motor Strength: Normal Lower Extremities; negative Normal Upper Extremities Muscle Bulk/Involuntary Movements: No Involuntary Movements; negative Muscle Atrophy Sensation: Light Touch Intact and Pain/Temperature Intact Details: Severe weakness of the right hand, minimal grasp, profound weakness of right wrist extension, flexion, and finger abduction, relatively preserved right biceps and triceps strength, mild weakness for right shoulder abduction. Patient also has moderately severe weakness of the left triceps. Coding Level of Care Code 66663 SUB INP/OBS CARE 2/35MIN Diagnoses Bilateral arm weakness R29.898 Brachial plexopathy G54.0 Polyradiculopathy M54.10 Time Spent (min) 40
[2025-07-14 15:48] VITALS: BP 132/78; PULSE 69; TEMP 98.4; O2SAT 91
== END 2025-07-14 20:00 | disposition short-term general hospital (02) | DRG 74 ==
LOC: 3E 14:35 → ED 14:35 → SUATTDRO 19:54 → 3E 21:32

== ENCOUNTER 2025-07-24 21:41 | Inpatient (IN) ==
[2025-07-24] MEDS: NOREPINEPHRINE/D5W 4 MG/250 ML PLCT IV SCH (22:25)
[2025-07-24] MEDS: SODIUM CHLORIDE 0.9% 1,000 ML IV SCH (22:30)
--- NOTE | 2025-07-24 22:30 | Emergency Department Note ---
Impression & Plan Septic shock, MAGDA (acute kidney injury), Hyponatremia, Elevated liver enzymes, Respiratory failure, acute, Complicated urinary tract infection, Acute hyperkalemia, Acute encephalopathy ED Provider Note NAME: RISHI HECTOR AGE: 75 SEX: F : 1950 ARRIVES VIA: Ambulance INFORMANT: Patient, EMS ED PROVIDER(S): Tino Zarate DO CHIEF COMPLAINT: hypotension HPI: This is a 75-year-old female with the PMHx of Metastatic breast cancer, hypothyroidism, hypertension, DANNIE on CPAP and recent cervical spine disease s/p decompression presenting to [facility] for further evaluation of hypotension. Patient is accompanied by EMS who provide additional history. EMS does not give significant history but reports that patient currently resides at [facility] after she had a cervical spine surgery at [facility]. They report that the [facility]ent[facility] reported she was hypotensive with altered mental status and poor urine output. Patient reports generalized abdominal pain. Patient is unsure what her blood pressure normally is. She reports some urinary symptoms. Patient denies any neck pain. Patient states she is to remain in a [place] collar until further notice. Patient states that she does have a lack of appetite and has not been tolerating p.o. intake. Patient states only her abdomen is bothering her right now. 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 They deny fever or chills. No cough or congestion. Denies chest pain or palpitations. No shortness of breath. They deny nausea and vomiting. No recent changes in bowel movements. Patient denies recent changes in medications or OTC supplements. Patient offers no other complaints, today. ADDITIONAL HISTORY OBTAINED: Per HPI Chronic Medical/Social Conditions Affecting Care: Per HPI PAST MEDICAL HISTORY: See Below PAST SURGICAL HISTORY: See Below FAMILY HISTORY: See Below SOCIAL HISTORY: See Below HOME MEDICATIONS: See Below ALLERGIES: See Below VITALS: See Below PHYSICAL EXAMINATION: GENERAL: alert, ill appearing, obese, pale EYE EXAM: normal conjunctiva. PERRL and EOM's grossly intact. OROPHARYNX: no exudate, no erythema, lips, buccal mucosa, and tongue normal and mucous membranes are dry NECK: supple, no nuchal rigidity, no adenopathy, non-tender, incision is intact with macie in place. No surrounding erythema, warmth or drainage. [place] in place. LUNGS: Clear to auscultation. Normal chest wall mechanics HEART: no murmurs, regular rate, regular rhythm ABDOMEN: abdomen soft, diffuse tenderness to palpation, no masses, no rebound or guarding. BACK: Back is symmetrical on inspection and there is no deformity, no midline tenderness, no CVA tenderness. SKIN: no rashes and no bruising UPPER EXTREMITIES: upper extremities are grossly normal. LOWER EXTREMITIES: No pitting edema. NEURO EXAM: Normal sensorium, GCS 15, normal speech, no gross weakness of arms, no gross weakness of legs. She is inattentive and mildly confused at times. MEDICAL DECISION MAKING: Differential diagnoses includes but not limited to septic shock, hypovolemic shock, hemorrhagic shock, bacteremia, complicated UTI, soft tissue infection, postoperative infection, adrenal insufficiency, electrolyte derangements, dehydration In summary, this is a 75 year old female who presented with hypotension. Differential as above. Nursing notes and pertinent past medical records reviewed. Vital signs reviewed and the patient is Hypotensive and hypoxic but otherwise afebrile and hemodynamically stable. Low-flow nasal cannula initially applied with minimal improvement. Patient was transition to a nonrebreather mask with improvement and respiratory status. IV fluids restarted initially. She does appear mildly hypervolemic on physical examination. I did recommend IV placement and she had multiple IVs placed. IV access was difficult to obtain I recommended using her right upper extremity given the critical nature of the patient's presentation. Patient does have a limb alert on the side secondary to lymph node dissection. Do feel it is appropriate to use this at this time. Patient will undergo sepsis alert for further evaluation of the patient's hypotension and complaints. She is reporting diffuse abdominal pain and a CT abdomen/pelvis was ordered. Given profound hypotension, as well as her pain, do feel it is reasonable to obtain CTAs of the chest abdomen pelvis for further evaluation of AAA or aortic dissection. Will also be able to characterize other etiologies of the patient's hypotension including infectious pathology. Diagnostics interpreted by me include EKG and cardiac monitoring as listed below: -Cardiac Monitoring: An order was placed for continuous cardiac monitoring. The monitor shows a rate of 70-90s with regular rhythm. -ECG: EKG independently interpreted by me reveals normal sinus rhythm at a ventricular rate of [address] segment changes to suggest STEMI. There is a left anterior fascicular block present. -CXR independently interpreted by me reveals no evidence of focal consolidation to suggest pna. No large pneumothorax or pleural effusion. - CTA imaging of the chest/abdomen/pelvis was independently interpreted by me as negative for AAA or aortic dissection. Patient completed laboratory studies and imaging. Results independently interpreted by me are Significant leukocytosis. No significant anemia. Patient has an MAGDA with hyperkalemia. Duonebs, insulin/dextrose and calcium were given for hyperkalemia, which improvement was noted on repeat. Patient does have mild pseudohyponatremia in the setting of hyperglycemia. Do feel her hyponatremia is likely a combination of true hyponatremia as well as pseudohyponatremia. Patient's urinalysis is grossly positive for UTI as well as an elevated procalcitonin. Given the patient's presentation, I am more suspicious of septic shock at this time. The patient was managed initially with crystalloid resuscitation. Given her profound hypotension with evidence of mental status changes, I did recommend that we use norepinephrine infusion temporarily for further cardiovascular support. Norepinephrine infusion was started. She did require low doses of norepinephrine to maintain MAP over 65. Patient does appear mildly hypervolemic but I do believe intravascular volume is down. Will also use colloid resuscitation with albumin. Patient was started on broad-spectrum antibiotics. VBG showed acute hypoxic hypercapnic respiratory failure. Patient was placed on her home CPAP. Patient reported improvement throughout the course in the emergency department. Patient continues to have good urine output in the setting of her septic shock. I do feel the patient's source of her septic shock is likely complicated UTI. Patient's incision appears intact over her cervical spine. I send no evidence of infection. Patient has no complaints related to this. Given the patient's septic shock with electrolyte derangements including hyperkalemia as well as an MAGDA I do feel would be reasonable for the patient to stay in the ICU. Patient's septic shock is also complicated by acute encephalopathy. ICU was made aware of the patient. Ultimately, the decision was made to admit the patient for septic shock 2/2 complicated UTI. I discussed the case with the hospitalist service via telephone/TigerText and they are agreeable to admit the patient to their services. Based on the above, including the patient's age, coexisting illnesses, labs, imaging, and exam findings the decision to treat as an inpatient. I discussed the patient with the hospitalist team who recommended admission to their services. They received the medications, treatments, interventions indicated above and their condition []. I discussed my findings with the patient and their family and they understand and agree with the treatment plan. All patient / family questions were answered to their satisfaction. Consults/Care Managements Discussions: Per MDM ER treatment provided: See above Procedures:none Critical Care: I have personally spent 56 minutes of critical care time in direct management of this patient. This includes bedside care, interpretation of diagnostic studies, and testing, discussion with consultants, patient, and family members, and other require inpatient management activities. This 56 minutes is in excess of all separately billable procedures. The chart was completed utilizing Handle Speech voice recognition software. Grammatical errors, random word insertions, pronoun errors, and incomplete sentences are an occasional consequence of this system due to software limitations, ambient noise, and hardware issues. Any formal questions or concerns about the content, text, or information contained within the body of this dictation should be directly addressed to the physician for clarification. Past Med/Surg History Problem List (Updated 07/28/25 @ 15:19 by Tino Zarate DO) Acute encephalopathy (Acute) Acute hyperkalemia (Acute) Complicated urinary tract infection (Acute) Respiratory failure, acute (Acute) Counseling regarding goals of care Palliative care by specialist Lethargy Elevated liver enzymes (Acute) Respiratory acidosis Hyponatremia (Acute) MAGDA (acute kidney injury) (Acute) Septic shock (Acute) Brachial plexopathy Polyradiculopathy Bilateral arm weakness (Acute) Back pain with left-sided radiculopathy Weakness Hypothyroidism Sleep apnea Hypertension Back problem Arthritis Anemia Delayed wound healing Lymphedema of right arm Seroma of breast Recurrent cancer of right breast Medical History Hx of blood clots Kidney failure Bronchitis Surgical History H/O ligation of vein [id number] H/O mastectomy 2012 History of carpal tunnel surgery History of left knee replacement 2011 H/O right knee surgery 2010 Hx of tonsillectomy 1977 H/O lymph node excision 2022 H/O total mastectomy (~2022) Right and sentinel node biopsy/ right axillary lymph node dissection Family History Aunt Breast cancer Other Diabetes Heart disease Stroke Social History Smoking Status: Unknown if ever smoked Hx Alcohol Use: Yes Alcohol type: hard liquor Alcohol Intake Frequency: 2-4 x/Month Hx Substance Use: No Preferred Language: Azerbaijani Communication Ability: Effective Aircraft Load Controller Required: No Beliefs That Will Affect Care: None marital status: Current Living Situation: Alone current occupational status: retired Other Information That Helps Us Care for You: No Feels Safe at Home: Yes Safety Concerns: Feels Safe At This Time Diet: regular during the past year weight has: increased > 10 lbs Assistive Devices: None Allergies Allergies Allergy/AdvReac Type Severity Reaction Status Date / Time adhesive tape Allergy Rash Unverified 07/10/25 19:18 aspartame Allergy Verified 07/26/25 12:59 clindamycin Allergy Unknown Verified 07/10/25 23:07 crab Allergy Nausea Verified 07/10/25 23:07 levofloxacin Allergy Diarrhea Verified 07/10/25 19:17 levothyroxine sodium Allergy Unknown Verified 07/10/25 23:07 [From Synthroid] phenylalanine Allergy Verified 07/26/25 12:59 sucralose Allergy Verified 07/26/25 12:59 [From Splenda (sucralose)] amoxicillin [From Augmentin] AdvReac Diarrhea Verified 07/10/25 19:17 ciprofloxacin AdvReac Diarrhea Verified 07/10/25 19:17 clavulanic acid AdvReac Diarrhea Verified 07/10/25 19:17 [From Augmentin] Home Meds Home Medications Medication Instructions Recorded Confirmed furosemide 20 mg tablet 20 mg PO DAILY PRN Weight Gain 03/07/24 07/24/25 letrozole 2.5 mg tablet 2.5 mg PO DAILY 03/07/24 07/24/25 ropinirole 0.5 mg tablet 0.5 mg PO HS 09/12/24 07/24/25 amitriptyline 25 mg tablet 25 mg PO HS 02/20/25 07/24/25 empagliflozin 10 mg tablet 10 mg PO QAM 02/20/25 07/24/25 (Jardiance) gabapentin 400 mg capsule 800 mg PO Q12 02/20/25 07/24/25 lisinopril 10 1 tab PO DAILY 02/20/25 07/24/25 mg-hydrochlorothiazide 12.5 mg tablet oxycodone 5 mg tablet 5 mg PO Q4 PRN Moderate Pain 07/10/25 07/24/25 (Scale Score 4-6) acetaminophen 500 mg tablet 1,000 mg PO Q8 07/24/25 07/24/25 bisacodyl 10 mg rectal suppository 10 mg MS DAILY PRN Constipation 07/24/25 07/24/25 (Dulcolax (bisacodyl)) cyclobenzaprine 5 mg tablet 5 mg PO TID PRN Muscle Spasm 07/24/25 07/24/25 docusate sodium 100 mg capsule 100 mg PO Q12 PRN Constipation 07/24/25 07/24/25 enoxaparin 60 mg/0.6 mL 60 mg subcut BID 07/24/25 07/24/25 subcutaneous syringe fentanyl 50 mcg/hr transdermal 1 patch transdermal Q72H 07/24/25 07/24/25 patch ondansetron 4 mg disintegrating 4 mg PO Q6H PRN NAUSEA OR VOMITING 07/24/25 07/24/25 tablet oxycodone 5 mg tablet 10 mg PO Q4H PRN PAIN (SCALE 7-10) 07/24/25 07/24/25 pantoprazole 40 mg tablet,delayed 40 mg PO DAILYBB 07/24/25 07/24/25 release sennosides 8.6 mg-docusate sodium 1 tab-cap PO QDL PRN Constipation 07/24/25 07/24/25 50 mg tablet (Senokot-S) thyroid (pork) 30 mg tablet 60 mg PO DAILY 07/24/25 07/24/25 (Blue Thyroid) Results & Data (ED) Vital Signs Vital Signs - 24 hr 07/24/25 21:48 07/24/25 21:55 07/24/25 22:03 Temperature 36.9 C Temperature Source Oral Pulse Rate 78 Pulse Rate [Apical] 77 79 Pulse Rate from SpO2 Sensor Respiratory Rate 20 Respiratory Effort / Characteristics Non-Labored Spontaneous Respiratory Depth Normal Blood Pressure Blood Pressure [Right Arm] 70/40 L 61/38 L Blood Pressure Mean Blood Pressure Mean [Right Arm] 50 45 Pulse Oximetry 93 Oxygen Delivery Method Non-rebreather Oxygen Flow Rate Sepsis Recent Fever Within 48 Hours No Sepsis New/Unexplained Change in Mental Status No Sepsis Action Taken by Nursing No Action Required 07/24/25 22:08 07/24/25 22:10 07/24/25 22:12 Temperature Temperature Source Pulse Rate 77 87 Pulse Rate [Apical] Pulse Rate from SpO2 Sensor 80 Respiratory Rate 22 Respiratory Effort / Characteristics Respiratory Depth Blood Pressure 104/89 Blood Pressure [Right Arm] Blood Pressure Mean 93 Blood Pressure Mean [Right Arm] Pulse Oximetry 95 Oxygen Delivery Method Oxygen Flow Rate Sepsis Recent Fever Within 48 Hours Sepsis New/Unexplained Change in Mental Status Sepsis Action Taken by Nursing 07/24/25 22:25 07/24/25 22:25 07/24/25 22:25 Temperature Temperature Source Pulse Rate Pulse Rate [Apical] Pulse Rate from SpO2 Sensor Respiratory Rate Respiratory Effort / Characteristics Respiratory Depth Blood Pressure 64/48 L Blood Pressure [Right Arm] Blood Pressure Mean 56 Blood Pressure Mean [Right Arm] Pulse Oximetry 96 15 L Oxygen Delivery Method Non-rebreather Non-rebreather Oxygen Flow Rate 15 Sepsis Recent Fever Within 48 Hours Sepsis New/Unexplained Change in Mental Status Sepsis Action Taken by Nursing 07/24/25 22:30 07/24/25 22:33 07/24/25 22:39 Temperature Temperature Source Pulse Rate 81 88 Pulse Rate [Apical] Pulse Rate from SpO2 Sensor 82 88 Respiratory Rate 22 25 H Respiratory Effort / Characteristics Respiratory Depth Blood Pressure 93/40 L Blood Pressure [Right Arm] Blood Pressure Mean 47 Blood Pressure Mean [Right Arm] Pulse Oximetry 96 Oxygen Delivery Method Non-rebreather Oxygen Flow Rate Sepsis Recent Fever Within 48 Hours Sepsis New/Unexplained Change in Mental Status Sepsis Action Taken by Nursing 07/24/25 22:41 07/24/25 22:42 07/24/25 23:11 Temperature Temperature Source Pulse Rate 84 Pulse Rate [Apical] Pulse Rate from SpO2 Sensor 84 Respiratory Rate 22 Respiratory Effort / Characteristics Respiratory Depth Blood Pressure 88/44 L 109/65 Blood Pressure [Right Arm] Blood Pressure Mean 76 87 Blood Pressure Mean [Right Arm] Pulse Oximetry 95 Oxygen Delivery Method Non-rebreather Oxygen Flow Rate Sepsis Recent Fever Within 48 Hours Sepsis New/Unexplained Change in Mental Status Sepsis Action Taken by Nursing 07/24/25 23:12 07/24/25 23:18 07/24/25 23:20 Temperature Temperature Source Pulse Rate 92 H 95 H Pulse Rate [Apical] Pulse Rate from SpO2 Sensor 93 H 94 H Respiratory Rate 20 23 Respiratory Effort / Characteristics Respiratory Depth Blood Pressure 105/67 Blood Pressure [Right Arm] Blood Pressure Mean 80 Blood Pressure Mean [Right Arm] Pulse Oximetry 99 99 Oxygen Delivery Method Non-rebreather Non-rebreather Oxygen Flow Rate Sepsis Recent Fever Within 48 Hours Sepsis New/Unexplained Change in Mental Status Sepsis Action Taken by Nursing 07/24/25 23:27 07/24/25 23:30 07/24/25 23:30 Temperature Temperature Source Pulse Rate 90 Pulse Rate [Apical] Pulse Rate from SpO2 Sensor 91 H Respiratory Rate 20 Respiratory Effort / Characteristics Respiratory Depth Blood Pressure 110/64 110/64 Blood Pressure [Right Arm] Blood Pressure Mean 74 74 Blood Pressure Mean [Right Arm] Pulse Oximetry 99 Oxygen Delivery Method Non-rebreather Oxygen Flow Rate Sepsis Recent Fever Within 48 Hours Sepsis New/Unexplained Change in Mental Status Sepsis Action Taken by Nursing 07/24/25 23:38 07/24/25 23:40 07/24/25 23:41 Temperature Temperature Source Pulse Rate 95 H 96 H Pulse Rate [Apical] Pulse Rate from SpO2 Sensor 95 H 95 H Respiratory Rate 26 H 29 H Respiratory Effort / Characteristics Respiratory Depth Blood Pressure 110/59 L Blood Pressure [Right Arm] Blood Pressure Mean 76 Blood Pressure Mean [Right Arm] Pulse Oximetry 95 94 Oxygen Delivery Method Non-rebreather Nasal Cannula Oxygen Flow Rate 4 Sepsis Recent Fever Within 48 Hours Sepsis New/Unexplained Change in Mental Status Sepsis Action Taken by Nursing 07/24/25 23:50 07/24/25 23:50 07/24/25 23:50 Temperature Temperature Source Pulse Rate 94 H Pulse Rate [Apical] Pulse Rate from SpO2 Sensor 94 H Respiratory Rate 16 Respiratory Effort / Characteristics Respiratory Depth Blood Pressure 94/62 L 94/62 L Blood Pressure [Right Arm] Blood Pressure Mean 69 69 Blood Pressure Mean [Right Arm] Pulse Oximetry 94 Oxygen Delivery Method Nasal Cannula Oxygen Flow Rate 4 Sepsis Recent Fever Within 48 Hours Sepsis New/Unexplained Change in Mental Status Sepsis Action Taken by Nursing 07/24/25 23:56 07/25/25 00:00 07/25/25 00:11 Temperature Temperature Source Pulse Rate 95 H 92 H Pulse Rate [Apical] Pulse Rate from SpO2 Sensor 95 H 93 H Respiratory Rate 17 18 Respiratory Effort / Characteristics Respiratory Depth Blood Pressure 104/67 90/62 L Blood Pressure [Right Arm] Blood Pressure Mean 85 71 Blood Pressure Mean [Right Arm] Pulse Oximetry 94 91 Oxygen Delivery Method Nasal Cannula Nasal Cannula Oxygen Flow Rate 4 4 Sepsis Recent Fever Within 48 Hours Sepsis New/Unexplained Change in Mental Status Sepsis Action Taken by Nursing 07/25/25 00:11 07/25/25 00:14 07/25/25 00:21 Temperature Temperature Source Pulse Rate 93 H Pulse Rate [Apical] Pulse Rate from SpO2 Sensor 93 H Respiratory Rate 19 Respiratory Effort / Characteristics Respiratory Depth Blood Pressure 90/62 L 86/45 L Blood Pressure [Right Arm] Blood Pressure Mean 73 53 Blood Pressure Mean [Right Arm] Pulse Oximetry 90 Oxygen Delivery Method Nasal Cannula Oxygen Flow Rate 4 Sepsis Recent Fever Within 48 Hours Sepsis New/Unexplained Change in Mental Status Sepsis Action Taken by Nursing 07/25/25 00:23 07/25/25 00:26 07/25/25 00:29 Temperature Temperature Source Pulse Rate 94 H 92 H Pulse Rate [Apical] Pulse Rate from SpO2 Sensor 94 H 93 H Respiratory Rate 17 15 Respiratory Effort / Characteristics Respiratory Depth Blood Pressure 66/53 L Blood Pressure [Right Arm] Blood Pressure Mean 58 Blood Pressure Mean [Right Arm] Pulse Oximetry 93 Oxygen Delivery Method BiPAP Oxygen Flow Rate Sepsis Recent Fever Within 48 Hours Sepsis New/Unexplained Change in Mental Status Sepsis Action Taken by Nursing 07/25/25 00:30 07/25/25 00:32 07/25/25 00:33 Temperature Temperature Source Pulse Rate 92 H 50 L Pulse Rate [Apical] Pulse Rate from SpO2 Sensor 90 Respiratory Rate 17 18 Respiratory Effort / Characteristics Non-Labored Spontaneous Respiratory Depth Normal Blood Pressure 100/59 L Blood Pressure [Right Arm] Blood Pressure Mean 69 Blood Pressure Mean [Right Arm] Pulse Oximetry 92 Oxygen Delivery Method Oxygen Flow Rate 4 Sepsis Recent Fever Within 48 Hours Sepsis New/Unexplained Change in Mental Status Sepsis Action Taken by Nursing 07/25/25 00:37 07/25/25 00:41 07/25/25 00:47 Temperature Temperature Source Pulse Rate 94 H Pulse Rate [Apical] Pulse Rate from SpO2 Sensor 94 H Respiratory Rate 22 Respiratory Effort / Characteristics Respiratory Depth Blood Pressure 93/74 L 95/82 L Blood Pressure [Right Arm] Blood Pressure Mean 76 87 Blood Pressure Mean [Right Arm] Pulse Oximetry 90 Oxygen Delivery Method BiPAP Oxygen Flow Rate Sepsis Recent Fever Within 48 Hours Sepsis New/Unexplained Change in Mental Status Sepsis Action Taken by Nursing 07/25/25 00:50 07/25/25 00:59 07/25/25 01:00 Temperature Temperature Source Pulse Rate 91 H Pulse Rate [Apical] Pulse Rate from SpO2 Sensor 90 Respiratory Rate 19 Respiratory Effort / Characteristics Respiratory Depth Blood Pressure 89/65 L 94/60 L Blood Pressure [Right Arm] Blood Pressure Mean 75 80 Blood Pressure Mean [Right Arm] Pulse Oximetry 91 Oxygen Delivery Method BiPAP Oxygen Flow Rate Sepsis Recent Fever Within 48 Hours Sepsis New/Unexplained Change in Mental Status Sepsis Action Taken by Nursing 07/25/25 01:05 07/25/25 01:10 07/25/25 01:17 Temperature Temperature Source Pulse Rate 89 89 Pulse Rate [Apical] Pulse Rate from SpO2 Sensor 89 89 Respiratory Rate 19 16 Respiratory Effort / Characteristics Respiratory Depth Blood Pressure 88/59 L Blood Pressure [Right Arm] Blood Pressure Mean 76 Blood Pressure Mean [Right Arm] Pulse Oximetry 92 Oxygen Delivery Method BiPAP Oxygen Flow Rate Sepsis Recent Fever Within 48 Hours Sepsis New/Unexplained Change in Mental Status Sepsis Action Taken by Nursing 07/25/25 01:20 07/25/25 01:30 07/25/25 01:32 Temperature Temperature Source Pulse Rate 86 94 H Pulse Rate [Apical] Pulse Rate from SpO2 Sensor 86 94 H Respiratory Rate 17 17 Respiratory Effort / Characteristics Respiratory Depth Blood Pressure 82/49 L 100/64 Blood Pressure [Right Arm] Blood Pressure Mean 60 73 Blood Pressure Mean [Right Arm] Pulse Oximetry 92 90 Oxygen Delivery Method BiPAP BiPAP Oxygen Flow Rate Sepsis Recent Fever Within 48 Hours Sepsis New/Unexplained Change in Mental Status Sepsis Action Taken by Nursing Laboratory Data 07/28/25 04:13 07/28/25 04:13 Lab Results 07/24/25 07/24/25 07/24/25 Range/Units 22:27 22:29 22:37 WBC 26.51 H (4.8-10.8) K/ul RBC 4.23 (4.20-5.40) M/uL Hgb 13.7 (12.0-16.0) g/dl POC Hgb 14.6 (12.0-16.0) g/dl Hct 40.3 (37.0-47.0) % POC Hct 43 (37-47) % MCV 95.3 (80.0-100.0) fL MCH 32.4 (25.0-34.0) pg MCHC 34.0 (32.0-36.0) g/dL RDW Std Deviation 47.4 H (36.4-46.3) fL RDW Coeff of [place] 13.5 (11.5-14.5) % Plt Count 185 (130-400) K/uL MPV 11.7 (9.4-12.4) fL Immature Gran % (Auto) 1.9 % Neut % (Auto) 91.9 % Lymph % (Auto) 1.4 % Travis % (Auto) 4.6 % Eos % (Auto) 0.0 % Baso % (Auto) 0.2 % Neut # (Auto) 24.37 H (1.40-6.50) K/uL Lymph # (Auto) 0.37 L (1.20-3.40) K/uL Travis # (Auto) 1.21 H (0.11-0.59) K/uL Eos # (Auto) 0.00 (0.00-0.50) K/uL Baso # (Auto) 0.05 (0.00-0.20) K/uL Immature Gran # (Auto) 0.51 H (0.01-0.20) K/uL PT (9.0-12.0) Seconds INR (0.9-1.1) VBG pH (7.36-7.41) VBG pCO2 (38-50) mmHg VBG pO2 mmHg VBG HCO3 mmol/L VBG O2 Saturation % VBG Base Excess mEq/L POC Sodium 127 L (135-144) mmol/L Sodium 128 L (136-145) mmol/L POC Potassium 6.1 H* (3.3-5.0) mmol/L Potassium 6.2 H* (3.5-5.1) mmol/L POC Chloride 97 L (101-112) mmol/L Chloride 91 L (98-107) mmol/L Carbon Dioxide 26 (21-32) mmol/L POC Total CO2 25 (24-31) mmol/L Anion Gap 11 (3-11) POC Anion Gap 12.0 L (16-25) mmol/L POC BUN 65 H (7-18) mg/dl BUN 66 H (6-23) mg/dl Creatinine 2.64 H (0.6-1.2) mg/dl POC Creatinine 2.9 H (0.6-1.3) mg/dl Est Cr Clr Drug Dosing 26.6 ml/min eGFR 18.56 BUN/Creatinine Ratio 25.0 H (10-20) Glucose 152 H (70-99(Fasting)) mg/dl POC Glucose (other) 155 H (70-99) mg/dl Lactate 2.2 H* (0.4-2.0) mmol/L Calcium 9.5 (8.6-10.3) mg/dl POC Ioniz Calcium Cruz 1.15 (1.12-1.32) mmol/l Magnesium 2.3 (1.7-2.4) mg/dl Total Bilirubin 1.4 H (0.2-1.0) mg/dl Direct Bilirubin 0.7 H (0-0.2) mg/dl AST 55 H (13-39) U/L ALT 59 H (7-52) U/L Alkaline Phosphatase 261 H (34-104) U/L Troponin I High Sens 24.7 H (0-14) pg/ml B-Natriuretic Peptide 7 (0-100) pg/ml Total Protein 6.9 (6.0-8.3) gm/dl Albumin 3.2 L (3.4-5.0) gm/dl Procalcitonin 5.25 H (0-0.5) ng/ml Random Cortisol mcg/dl Urine Color [place] Urine Appearance Turbid A (Clear) Urine pH 5.0 (4.5-7.5) Ur Specific [place] 1.009 (1.000-1.030) Urine Protein 2+ H (Negative) Urine Glucose (UA) 1+ H (Negative) Urine Ketones Negative (Negative) Urine Blood 3+ H (Negative) Urine Nitrite Negative (Negative) Urine Bilirubin Negative (Negative) Urine Urobilinogen Negative (Negative) Ur Leukocyte Esterase 3+ H (Negative) Urine WBC (Auto) >50 H (0-5) /hpf Urine RBC (Auto) >20 H (0-2) /hpf U Hyaline Cast (Auto) 11-20 H (0-2) /lpf U Epithel Cells (Auto) 0-2 (0-2) /hpf Urine Bacteria (Auto) 4+ H (None Seen) Urine Comment Nasal Screen MRSA (PCR) (Negative) Adenovirus (PCR) (NotDetected) B. pertussis DNA (PCR) (NotDetected) B.parapertussis DNA PCR (NotDetected) C. pneumoniae DNA (PCR) (NotDetected) Coronavirus OC43 (PCR) (NotDetected) Coronavirus HKU1 (PCR) (NotDetected) Coronavirus 229E (PCR) (NotDetected) SARS-CoV-2 (PCR) (NotDetected) Coronavirus NL63 (PCR) (NotDetected) Human Metapneumovir PCR (NotDetected) Influenza Type A (PCR) (NotDetected) Influenza Type B (PCR) (NotDetected) M. pneumoniae (PCR) (NotDetected) Parainfluenza 1 (PCR) (NotDetected) Parainfluenza 2 (PCR) (NotDetected) Parainfluenza 3 (PCR) (NotDetected) Parainfluenza 4 (PCR) (NotDetected) RSV (PCR) (NotDetected) Entero/Rhino (PCR) (NotDetected) 07/24/25 07/24/25 07/25/25 Range/Units 23:26 23:42 00:45 WBC (4.8-10.8) K/ul RBC (4.20-5.40) M/uL Hgb (12.0-16.0) g/dl POC Hgb (12.0-16.0) g/dl Hct (37.0-47.0) % POC Hct (37-47) % MCV (80.0-100.0) fL MCH (25.0-34.0) pg MCHC (32.0-36.0) g/dL RDW Std Deviation (36.4-46.3) fL RDW Coeff of [place] (11.5-14.5) % Plt Count (130-400) K/uL MPV (9.4-12.4) fL Immature Gran % (Auto) % Neut % (Auto) % Lymph % (Auto) % Travis % (Auto) % Eos % (Auto) % Baso % (Auto) % Neut # (Auto) (1.40-6.50) K/uL Lymph # (Auto) (1.20-3.40) K/uL Travis # (Auto) (0.11-0.59) K/uL Eos # (Auto) (0.00-0.50) K/uL Baso # (Auto) (0.00-0.20) K/uL Immature Gran # (Auto) (0.01-0.20) K/uL PT (9.0-12.0) Seconds INR (0.9-1.1) VBG pH 7.23 L (7.36-7.41) VBG pCO2 60 H (38-50) mmHg VBG pO2 36 mmHg VBG HCO3 25 mmol/L VBG O2 Saturation 60.0 % VBG Base Excess -3.5 mEq/L POC Sodium (135-144) mmol/L Sodium (136-145) mmol/L POC Potassium (3.3-5.0) mmol/L Potassium (3.5-5.1) mmol/L POC Chloride (101-112) mmol/L Chloride (98-107) mmol/L Carbon Dioxide (21-32) mmol/L POC Total CO2 (24-31) mmol/L Anion Gap (3-11) POC Anion Gap (16-25) mmol/L POC BUN (7-18) mg/dl BUN (6-23) mg/dl Creatinine (0.6-1.2) mg/dl POC Creatinine (0.6-1.3) mg/dl Est Cr Clr Drug Dosing ml/min eGFR BUN/Creatinine Ratio (10-20) Glucose (70-99(Fasting)) mg/dl POC Glucose (other) (70-99) mg/dl Lactate (0.4-2.0) mmol/L Calcium (8.6-10.3) mg/dl POC Ioniz Calcium Cruz (1.12-1.32) mmol/l Magnesium (1.7-2.4) mg/dl Total Bilirubin (0.2-1.0) mg/dl Direct Bilirubin (0-0.2) mg/dl AST (13-39) U/L ALT (7-52) U/L Alkaline Phosphatase (34-104) U/L Troponin I High Sens 17.0 H D (0-14) pg/ml B-Natriuretic Peptide (0-100) pg/ml Total Protein (6.0-8.3) gm/dl Albumin (3.4-5.0) gm/dl Procalcitonin (0-0.5) ng/ml Random Cortisol mcg/dl Urine Color Urine Appearance (Clear) Urine pH (4.5-7.5) Ur Specific [place] (1.000-1.030) Urine Protein (Negative) Urine Glucose (UA) (Negative) Urine Ketones (Negative) Urine Blood (Negative) Urine Nitrite (Negative) Urine Bilirubin (Negative) Urine Urobilinogen (Negative) Ur Leukocyte Esterase (Negative) Urine WBC (Auto) (0-5) /hpf Urine RBC (Auto) (0-2) /hpf U Hyaline Cast (Auto) (0-2) /lpf U Epithel Cells (Auto) (0-2) /hpf Urine Bacteria (Auto) (None Seen) Urine Comment Nasal Screen MRSA (PCR) Negative (Negative) Adenovirus (PCR) Not Detected (NotDetected) B. pertussis DNA (PCR) Not Detected (NotDetected) B.parapertussis DNA PCR Not Detected (NotDetected) C. pneumoniae DNA (PCR) Not Detected (NotDetected) Coronavirus OC43 (PCR) Not Detected (NotDetected) Coronavirus HKU1 (PCR) Not Detected (NotDetected) Coronavirus 229E (PCR) Not Detected (NotDetected) SARS-CoV-2 (PCR) Not Detected (NotDetected) Coronavirus NL63 (PCR) Not Detected (NotDetected) Human Metapneumovir PCR Not Detected (NotDetected) Influenza Type A (PCR) Not Detected (NotDetected) Influenza Type B (PCR) Not Detected (NotDetected) M. pneumoniae (PCR) Not Detected (NotDetected) Parainfluenza 1 (PCR) Not Detected (NotDetected) Parainfluenza 2 (PCR) Not Detected (NotDetected) Parainfluenza 3 (PCR) Not Detected (NotDetected) Parainfluenza 4 (PCR) Not Detected (NotDetected) RSV (PCR) Not Detected (NotDetected) Entero/Rhino (PCR) Not Detected (NotDetected) 07/25/25 07/25/25 Range/Units 01:29 01:48 WBC (4.8-10.8) K/ul RBC (4.20-5.40) M/uL Hgb (12.0-16.0) g/dl POC Hgb (12.0-16.0) g/dl Hct (37.0-47.0) % POC Hct (37-47) % MCV (80.0-100.0) fL MCH (25.0-34.0) pg MCHC (32.0-36.0) g/dL RDW Std Deviation (36.4-46.3) fL RDW Coeff of [place] (11.5-14.5) % Plt Count (130-400) K/uL MPV (9.4-12.4) fL Immature Gran % (Auto) % Neut % (Auto) % Lymph % (Auto) % Travis % (Auto) % Eos % (Auto) % Baso % (Auto) % Neut # (Auto) (1.40-6.50) K/uL Lymph # (Auto) (1.20-3.40) K/uL [place] # (Auto) (0.11-0.59) K/uL Eos # (Auto) (0.00-0.50) K/uL Baso # (Auto) (0.00-0.20) K/uL Immature Gran # (Auto) (0.01-0.20) K/uL PT 10.3 (9.0-12.0) Seconds INR 0.9 (0.9-1.1) VBG pH (7.36-7.41) VBG pCO2 (38-50) mmHg VBG pO2 mmHg VBG HCO3 mmol/L VBG O2 Saturation % VBG Base Excess mEq/L POC Sodium (135-144) mmol/L Sodium 129 L (136-145) mmol/L POC Potassium (3.3-5.0) mmol/L Potassium 4.8 D (3.5-5.1) mmol/L POC Chloride (101-112) mmol/L Chloride 95 L (98-107) mmol/L Carbon Dioxide 25 (21-32) mmol/L POC Total CO2 (24-31) mmol/L Anion Gap 9 (3-11) POC Anion Gap (16-25) mmol/L POC BUN (7-18) mg/dl BUN 60 H (6-23) mg/dl Creatinine 2.31 H D (0.6-1.2) mg/dl POC Creatinine (0.6-1.3) mg/dl Est Cr Clr Drug Dosing 30.4 ml/min eGFR 21.78 BUN/Creatinine Ratio 26.0 H (10-20) Glucose 208 H (70-99(Fasting)) mg/dl POC Glucose (other) (70-99) mg/dl Lactate 2.4 H* (0.4-2.0) mmol/L Calcium 8.4 L (8.6-10.3) mg/dl POC Ioniz Calcium Cruz (1.12-1.32) mmol/l Magnesium (1.7-2.4) mg/dl Total Bilirubin (0.2-1.0) mg/dl Direct Bilirubin (0-0.2) mg/dl AST (13-39) U/L ALT (7-52) U/L Alkaline Phosphatase (34-104) U/L Troponin I High Sens (0-14) pg/ml B-Natriuretic Peptide (0-100) pg/ml Total Protein (6.0-8.3) gm/dl Albumin (3.4-5.0) gm/dl Procalcitonin (0-0.5) ng/ml Random Cortisol 58.19 mcg/dl Urine Color Urine Appearance (Clear) Urine pH (4.5-7.5) Ur Specific [place] (1.000-1.030) Urine Protein (Negative) Urine Glucose (UA) (Negative) Urine Ketones (Negative) Urine Blood (Negative) Urine Nitrite (Negative) Urine Bilirubin (Negative) Urine Urobilinogen (Negative) Ur Leukocyte Esterase (Negative) Urine WBC (Auto) (0-5) /hpf Urine RBC (Auto) (0-2) /hpf U Hyaline Cast (Auto) (0-2) /lpf U Epithel Cells (Auto) (0-2) /hpf Urine Bacteria (Auto) (None Seen) Urine Comment Nasal Screen MRSA (PCR) (Negative) Adenovirus (PCR) (NotDetected) B. pertussis DNA (PCR) (NotDetected) B.parapertussis DNA PCR (NotDetected) C. pneumoniae DNA (PCR) (NotDetected) Coronavirus OC43 (PCR) (NotDetected) Coronavirus HKU1 (PCR) (NotDetected) Coronavirus 229E (PCR) (NotDetected) SARS-CoV-2 (PCR) (NotDetected) Coronavirus NL63 (PCR) (NotDetected) Human Metapneumovir PCR (NotDetected) Influenza Type A (PCR) (NotDetected) Influenza Type B (PCR) (NotDetected) M. pneumoniae (PCR) (NotDetected) Parainfluenza 1 (PCR) (NotDetected) Parainfluenza 2 (PCR) (NotDetected) Parainfluenza 3 (PCR) (NotDetected) Parainfluenza 4 (PCR) (NotDetected) RSV (PCR) (NotDetected) Entero/Rhino (PCR) (NotDetected) Administered Medications Acetaminophen (Acetaminophen 325 Mg Tab) 650 mg PO Q8 PRN PRN Reason: Pain or Fever Stop: 08/26/25 18:36 Last Admin: 07/28/25 08:30 Dose: 650 mg Documented By: MTP Amitriptyline HCl (Amitriptyline Hcl 25 Mg Tab) 25 mg PO HS [facility] Stop: 08/24/25 20:59 Last Admin: 07/27/25 20:26 Dose: 25 mg Documented By: Admin: 07/26/25 20:50 Dose: 25 mg Documented By: Admin: 07/25/25 21:23 Dose: 25 mg Documented By: TP Bisacodyl (Bisacodyl 10 Mg Supp) 10 mg MS DAILY PRN PRN Reason: Constipation Stop: 08/24/25 03:45 Last Admin: 07/27/25 18:33 Dose: 10 mg Documented By: MTP Enoxaparin Sodium (Enoxaparin Inj 60 Mg/0.6 Ml Syr) 60 mg SQ Q12H [facility] Stop: 08/27/25 08:29 Last Admin: 07/28/25 09:25 Dose: 60 mg Documented By: JOSEPHINE Fentanyl (Fentanyl 50 Mcg/Hr Tdsy) 1 patch TD Q3D@0900 [facility] Stop: 08/11/25 00:29 Last Admin: 07/28/25 00:37 Dose: 1 patch Documented By: TP Gabapentin (Gabapentin 400 Mg Cap) 400 mg PO Q12 NIA Stop: 08/24/25 08:59 Last Admin: 07/28/25 08:37 Dose: 400 mg Documented By: Admin: 07/27/25 20:26 Dose: 400 mg Documented By: Admin: 07/27/25 08:18 Dose: 400 mg Documented By: Admin: 07/26/25 20:51 Dose: 400 mg Documented By: Admin: 07/26/25 09:03 Dose: 400 mg Documented By: Admin: 07/25/25 21:22 Dose: 400 mg Documented By: Admin: 07/25/25 11:20 Dose: 400 mg Documented By: MTP Thiamine HCl 200 mg/ Sodium (Chloride) 52 mls @ 210 mls/hr IV QAM NIA Stop: 07/29/25 09:15 Last Admin: 07/28/25 08:38 Dose: 210 mls/hr Documented By: Admin: 07/27/25 20:28 Dose: Not Given Documented By: Infusion: 07/26/25 09:14 Dose: Infused Documented By: Admin: 07/26/25 08:59 Dose: 210 mls/hr Documented By: Infusion: 07/25/25 19:14 Dose: Infused Documented By: Admin: 07/25/25 11:19 Dose: 210 mls/hr Documented By: MTP Norepinephrine Bitartrate (Levophed/D5w) 4 mg in 250 mls @ 0 mls/hr IV .Q0M NIA; Protocol Stop: 08/24/25 19:29 Last Titration: 07/28/25 12:22 Dose: 0.01 mcg/kg/min, 5.2 mls/hr Documented By: MTP Co-signed By: WRS Titration: 07/28/25 10:00 Dose: 0.03 mcg/kg/min, 15.5 mls/hr Documented By: MTP Co-signed By: WRS Titration: 07/28/25 08:49 Dose: 0.05 mcg/kg/min, 25.8 mls/hr Documented By: MTP Co-signed By: AMB Titration: 07/28/25 07:05 Dose: 0.07 mcg/kg/min, 36.1 mls/hr Documented By: TP Co-signed By: DTT Admin: 07/28/25 06:09 Dose: 0.07 mcg/kg/min, 36.1 mls/hr Documented By: TP Co-signed By: ESG Titration: 07/28/25 05:57 Dose: Infused Documented By: TP Co-signed By: ESG Admin: 07/27/25 23:01 Dose: 0.07 mcg/kg/min, 36.1 mls/hr Documented By: TP Co-signed By: ESG Titration: 07/27/25 23:01 Dose: Infused Documented By: TP Co-signed By: ESG Admin: 07/27/25 20:24 Dose: 0.07 mcg/kg/min, 36.1 mls/hr Documented By: TP Co-signed By: ESG Titration: 07/27/25 20:24 Dose: Infused Documented By: TP Co-signed By: ESG Admin: 07/27/25 20:23 Dose: 0.07 mcg/kg/min, 36.1 mls/hr Documented By: TP Co-signed By: ESG Titration: 07/27/25 20:23 Dose: Infused Documented By: TP Co-signed By: ESG Admin: 07/27/25 20:22 Dose: 0.07 mcg/kg/min, 36.1 mls/hr Documented By: TP Co-signed By: ESG Titration: 07/27/25 20:22 Dose: Infused Documented By: TP Co-signed By: ESG Titration: 07/27/25 19:07 Dose: 0.07 mcg/kg/min, 36.1 mls/hr Documented By: TP Co-signed By: MTP Titration: 07/27/25 15:15 Dose: Infused Documented By: MTP Co-signed By: WRS Admin: 07/27/25 15:15 Dose: 0.07 mcg/kg/min, 36.1 mls/hr Documented By: MTP Co-signed By: WRS Titration: 07/27/25 13:30 Dose: 0.05 mcg/kg/min, 25.8 mls/hr Documented By: MTP Co-signed By: WRS Titration: 07/27/25 06:34 Dose: 0.03 mcg/kg/min, 15.5 mls/hr Documented By: TP Co-signed By: CLC Admin: 07/27/25 06:30 Dose: 0.05 mcg/kg/min, 25.8 mls/hr Documented By: TP Co-signed By: CLC Titration: 07/27/25 06:30 Dose: Infused Documented By: TP Co-signed By: CLC Admin: 07/26/25 20:48 Dose: 0.05 mcg/kg/min, 25.8 mls/hr Documented By: TP Co-signed By: CLC Titration: 07/26/25 20:48 Dose: Infused Documented By: TP Co-signed By: CLC Titration: 07/26/25 19:13 Dose: 0.05 mcg/kg/min, 25.8 mls/hr Documented By: TP Co-signed By: MTP Admin: 07/26/25 13:48 Dose: 0.05 mcg/kg/min, 25.8 mls/hr Documented By: MTP Co-signed By: CAM Titration: 07/26/25 13:48 Dose: Infused Documented By: MTP Co-signed By: CAM Titration: 07/26/25 07:07 Dose: 0.05 mcg/kg/min, 25.8 mls/hr Documented By: TP Co-signed By: MTP Admin: 07/26/25 04:06 Dose: 0.05 mcg/kg/min, 25.8 mls/hr Documented By: TP Co-signed By: CLC Titration: 07/26/25 04:06 Dose: Infused Documented By: TP Co-signed By: CLC Admin: 07/25/25 21:22 Dose: 0.07 mcg/kg/min, 36.1 mls/hr Documented By: TP Co-signed By: [id number] Cefepime HCl (Maxipime 2000mg) 2,000 mg in 20 mls @ 5 mls/min IV Q8H NIA Stop: 07/31/25 15:59 Last Admin: 07/28/25 08:34 Dose: 5 mls/min Documented By: Admin: 07/28/25 00:31 Dose: 5 mls/min Documented By: Admin: 07/27/25 20:27 Dose: Not Given Documented By: TP Letrozole (Letrozole 2.5 Mg Tab) 2.5 mg PO DAILY NIA Stop: 08/24/25 08:59 Last Admin: 07/28/25 08:38 Dose: 2.5 mg Documented By: MTP Co-signed By: AMB Admin: 07/27/25 08:18 Dose: 2.5 mg Documented By: MTP Co-signed By: AMB Admin: 07/26/25 09:01 Dose: 2.5 mg Documented By: MTP Co-signed By: CB Admin: 07/25/25 11:19 Dose: 2.5 mg Documented By: MTP Co-signed By: PAUL Midodrine (Midodrine Hcl 10 Mg Tab) 10 mg PO TID@0800,1200,1700 [facility] Stop: 08/27/25 11:59 Last Admin: 07/28/25 11:31 Dose: 10 mg Documented By: JOSEPHINE Miscellaneous (Check Fentanyl Patch Placement) 1 each N/A QS NIA Stop: 08/24/25 15:59 Last Admin: 07/28/25 08:24 Dose: 1 each Documented By: Admin: 07/28/25 00:30 Dose: 1 each Documented By: Admin: 07/27/25 20:49 Dose: Not Given Documented By: Admin: 07/27/25 20:29 Dose: Not Given Documented By: TP Miscellaneous (Icu Electrolyte Replacement Protocol) 1 each N/A BID@,18 NIA; Protocol Stop: 08/04/25 05:59 Last Admin: 07/28/25 07:04 Dose: 1 each Documented By: KEN Nystatin (Nystatin Powder 15gm Btl) 1 appln EXT BID PRN PRN Reason: groin fold excoriation Stop: 08/24/25 03:45 Last Admin: 07/25/25 05:53 Dose: 1 appln Documented By: IRENA Pantoprazole Sodium (Pantoprazole 40 Mg Tab) 40 mg PO DAILYBB [facility] Stop: 08/24/25 06:29 Last Admin: 07/28/25 06:11 Dose: 40 mg Documented By: Admin: 07/27/25 20:29 Dose: Not Given Documented By: Admin: 07/26/25 08:50 Dose: 40 mg Documented By: Admin: 07/25/25 05:54 Dose: 40 mg Documented By: IRENA Ropinirole HCl (Ropinirole Hcl 0.25 Mg Tablet) 0.5 mg PO HS NIA Stop: 08/24/25 20:59 Last Admin: 07/27/25 20:27 Dose: 0.5 mg Documented By: Admin: 07/26/25 20:51 Dose: 0.5 mg Documented By: Admin: 07/25/25 21:22 Dose: 0.5 mg Documented By: TP Thyroid (Blue Thyroid 30 Mg Tab) 60 mg PO DAILY NIA Stop: 08/24/25 08:59 Last Admin: 07/28/25 08:41 Dose: 60 mg Documented By: Admin: 07/27/25 08:18 Dose: 60 mg Documented By: Admin: 07/26/25 08:57 Dose: 60 mg Documented By: Admin: 07/25/25 11:19 Dose: 60 mg Documented By: MTP Discontinued Medications Acetaminophen (Acetaminophen 1000 Mg/100 Ml Iv) Confirm Administered Dose 1,000 mg IV .STK-MED ONE Stop: 07/25/25 00:20 Last Admin: 07/25/25 00:22 Dose: Not Given Documented By: MAHESH Albuterol (Albut/Ipratrop 3mg/0.5mg Neb 3 Ml Vial) 3 ml NEB NOW STA; Protocol Stop: 07/25/25 00:39 Last Admin: 07/25/25 01:03 Dose: 3 ml Documented By: MAHESH Albuterol (Albut/Ipratrop 3mg/0.5mg Neb 3 Ml Vial) 3 ml NEB NOW STA; Protocol Stop: 07/25/25 02:00 Last Admin: 07/25/25 04:20 Dose: Not Given Documented By: IRENA Dextrose (Dextrose 50% 50 Ml Syringe) 50 ml IV NOW STA Stop: 07/25/25 00:41 Last Admin: 07/25/25 01:07 Dose: 50 ml Documented By: MAHESH Fentanyl (Fentanyl 50 Mcg/Hr Tdsy) 1 patch TD Q3D NIA Stop: 08/08/25 08:59 Last Admin: 07/28/25 00:30 Dose: 1 patch Documented By: KEN Heparin Sodium (Porcine) (Heparin Sod 5,000 Unit/0.5 Ml Vial) 5,000 units SQ Q8 NIA Stop: 08/24/25 05:59 Last Admin: 07/26/25 08:50 Dose: 5,000 units Documented By: Admin: 07/25/25 21:23 Dose: 5,000 units Documented By: Admin: 07/25/25 14:30 Dose: 5,000 units Documented By: Admin: 07/25/25 05:53 Dose: 5,000 units Documented By: IRENA Heparin Sodium (Porcine) (Heparin Sod 5,000 Unit/0.5 Ml Vial) 7,500 units SQ Q8 NIA Stop: 08/25/25 13:59 Last Admin: 07/27/25 20:50 Dose: Not Given Documented By: Admin: 07/27/25 06:29 Dose: 7,500 units Documented By: Admin: 07/26/25 23:30 Dose: 7,500 units Documented By: Admin: 07/26/25 16:46 Dose: 7,500 units Documented By: MTP Heparin Sodium (Porcine) (Heparin Sod 5,000 Unit/0.5 Ml Vial) 7,500 units SQ Q8 [facility] Stop: 08/27/25 05:59 Last Admin: 07/28/25 06:10 Dose: 7,500 units Documented By: TP Heparin Sodium/Dextrose (Heparin Iv Adult Wt-Based Standard *No* Initial Bolus Protocol) 1 each IV ONE STA; Protocol Stop: 07/27/25 14:15 Last Admin: 07/27/25 20:28 Dose: Not Given Documented By: KEN Sodium Chloride (Nss) 1,000 mls @ 999 mls/hr IV .Q1H1M [facility] Stop: 07/24/25 23:00 Last Infusion: 07/24/25 23:32 Dose: Infused Documented By: Admin: 07/24/25 22:30 Dose: 999 mls/hr Documented By: MAHEHS Piperacillin Sod/Tazobactam Sod (Zosyn) 4.5 gm in 100 mls @ 200 mls/hr IV NOW STA Stop: 07/24/25 22:22 Last Infusion: 07/25/25 00:39 Dose: Infused Documented By: Admin: 07/25/25 00:04 Dose: 200 mls/hr Documented By: MAHESH Parenteral Electrolytes (Plasma-Lyte A Ph 7.4) 1,000 mls @ 999 mls/hr IV .Q1H1M ONE Stop: 07/24/25 23:30 Last Infusion: 07/25/25 01:53 Dose: Infused Documented By: Admin: 07/25/25 00:55 Dose: 999 mls/hr Documented By: MAHESH Calcium Gluconate () 1,000 mg in 60 mls @ 240 mls/hr IV NOW STA Stop: 07/24/25 22:44 Last Infusion: 07/25/25 00:08 Dose: Infused Documented By: Admin: 07/24/25 23:45 Dose: 240 mls/hr Documented By: MAHESH Norepinephrine Bitartrate (Levophed/D5w) 4 mg in 250 mls @ 68.25 mls/hr IV .Q3H40M [facility]; Protocol Stop: 08/23/25 22:44 Last Titration: 07/25/25 17:20 Dose: Infused Documented By: MTP Co-signed By: TP Titration: 07/25/25 17:05 Dose: Infused Documented By: MTP Co-signed By: TP Titration: 07/25/25 17:00 Dose: Infused Documented By: MTP Co-signed By: TP Titration: 07/25/25 12:44 Dose: 0.13 mcg/kg/min, 68.3 mls/hr Documented By: MTP Co-signed By: CB Admin: 07/25/25 12:10 Dose: 0.11 mcg/kg/min, 57.8 mls/hr Documented By: MTP Co-signed By: CB Titration: 07/25/25 12:05 Dose: Infused Documented By: MTP Co-signed By: CB Titration: 07/25/25 07:33 Dose: 0.07 mcg/kg/min, 36.8 mls/hr Documented By: AMS Co-signed By: MTP Admin: 07/25/25 06:33 Dose: 0.07 mcg/kg/min, 36.8 mls/hr Documented By: AMS Co-signed By: SG Titration: 07/25/25 06:21 Dose: Infused Documented By: AMS Co-signed By: SG Titration: 07/25/25 01:42 Dose: 0.07 mcg/kg/min, 36.8 mls/hr Documented By: MAHESH Co-signed By: Titration: 07/25/25 00:24 Dose: 0.05 mcg/kg/min, 26.3 mls/hr Documented By: MAHESH Co-signed By: CARMELITA Titration: 07/25/25 00:08 Dose: 0 mcg/kg/min, 0 mls/hr Documented By: MAHESH Co-signed By: CHELA Admin: 07/24/25 22:25 Dose: 0.05 mcg/kg/min, 26.3 mls/hr Documented By: MAHESH Co-signed By: CARMELITA Albumin Human (Albumin 5%) 250 mls @ 500 mls/hr IV ONE ONE Stop: 07/24/25 23:14 Last Infusion: 07/25/25 00:08 Dose: Infused Documented By: Admin: 07/24/25 23:32 Dose: 500 mls/hr Documented By: MAHESH Vancomycin HCl 2,750 mg/ (Sodium Chloride) 555 mls @ 200 mls/hr IV NOW ONE Stop: 07/25/25 02:07 Last Infusion: 07/25/25 04:20 Dose: Infused Documented By: Admin: 07/25/25 00:39 Dose: 200 mls/hr Documented By: MAHESH Acetaminophen (Ofirmev) 1,000 mg in 100 mls @ 400 mls/hr IV NOW STA Stop: 07/25/25 00:33 Last Infusion: 07/25/25 00:39 Dose: Infused Documented By: Admin: 07/25/25 00:22 Dose: 400 mls/hr Documented By: MAHESH Insulin Human Regular 10 units (/ Syringe) 9.9 mls @ 3 mls/sec IV ONE STA Stop: 07/25/25 00:41 Last Admin: 07/25/25 01:07 Dose: 3 mls/sec Documented By: MAHESH Co-signed By: CARMELITA Parenteral Electrolytes (Plasma-Lyte A Ph 7.4) 1,000 mls @ 999 mls/hr IV .Q1H1M STA Stop: 07/25/25 02:46 Last Infusion: 07/25/25 04:20 Dose: Infused Documented By: Admin: 07/25/25 01:50 Dose: 999 mls/hr Documented By: MAHESH Parenteral Electrolytes (Plasma-Lyte A Ph 7.4) 1,000 mls @ 125 mls/hr IV .Q8H NIA Stop: 07/25/25 11:45 Last Infusion: 07/25/25 18:42 Dose: Infused Documented By: [facility] Admin: 07/25/25 04:38 Dose: 125 mls/hr Documented By: IRENA Cefepime HCl (Maxipime 2000mg) 2,000 mg in 20 mls @ 5 mls/min IV ONE ONE; Protocol Stop: 07/25/25 05:03 Last Admin: 07/25/25 04:38 Dose: 5 mls/min Documented By: IRENA Vasopressin 20 units/ Sodium (Chloride) 101 mls @ 12.12 mls/hr IV .[id number] [facility] Stop: 08/24/25 13:59 Last Admin: 07/27/25 20:51 Dose: Not Given Documented By: Infusion: 07/27/25 08:06 Dose: 0 unit/min, 0 mls/hr Documented By: MTP Co-signed By: WRS Admin: 07/27/25 01:05 Dose: 0.04 unit/min, 12.1 mls/hr Documented By: TP Co-signed By: CLC Infusion: 07/27/25 00:50 Dose: Infused Documented By: TP Co-signed By: CLC Infusion: 07/26/25 19:13 Dose: 0.04 unit/min, 12.1 mls/hr Documented By: TP Co-signed By: MTP Admin: 07/26/25 16:29 Dose: 0.04 unit/min, 12.1 mls/hr Documented By: MTP Co-signed By: KJS Infusion: 07/26/25 15:03 Dose: Infused Documented By: MTP Co-signed By: KJS Admin: 07/26/25 06:42 Dose: 0.04 unit/min, 12.1 mls/hr Documented By: MTP Co-signed By: CB Infusion: 07/26/25 06:41 Dose: Infused Documented By: MTP Co-signed By: CB Infusion: 07/26/25 04:06 Dose: 0.04 unit/min, 12.1 mls/hr Documented By: TP Co-signed By: MTP Admin: 07/25/25 22:21 Dose: 0.04 unit/min, 12.1 mls/hr Documented By: TP Co-signed By: ESG Infusion: 07/25/25 22:21 Dose: Infused Documented By: TP Co-signed By: ESG Infusion: 07/25/25 19:14 Dose: 0.04 unit/min, 12.1 mls/hr Documented By: TP Co-signed By: MTP Admin: 07/25/25 14:00 Dose: 0.04 unit/min, 12.1 mls/hr Documented By: MTP Co-signed By: PAUL Cefepime HCl (Maxipime 2000mg) 2,000 mg in 20 mls @ 5 mls/min IV Q12H NIA Stop: 08/04/25 15:59 Last Admin: 07/27/25 03:28 Dose: 5 mls/min Documented By: Admin: 07/26/25 16:47 Dose: 5 mls/min Documented By: Admin: 07/26/25 04:05 Dose: 5 mls/min Documented By: Admin: 07/25/25 17:31 Dose: 5 mls/min Documented By: MTP Vancomycin HCl (Vancomycin Hcl / Nss) 1,000 mg in 270 mls @ 200 mls/hr IV TODAY@1800 ONE Stop: 07/25/25 19:20 Last Infusion: 07/25/25 20:03 Dose: Infused Documented By: Admin: 07/25/25 18:42 Dose: 200 mls/hr Documented By: MTP Parenteral Electrolytes (Plasma-Lyte A Ph 7.4) 1,000 mls @ 100 mls/hr IV .Q10H NIA Stop: 07/28/25 18:44 Last Infusion: 07/26/25 14:06 Dose: Infused Documented By: Admin: 07/26/25 04:06 Dose: 100 mls/hr Documented By: Infusion: 07/26/25 04:06 Dose: Infused Documented By: Admin: 07/25/25 18:55 Dose: 100 mls/hr Documented By: MTP Vancomycin HCl (Vancomycin Hcl / Nss) 1,000 mg in 270 mls @ 200 mls/hr IV TODAY@1600 ONE Stop: 07/26/25 17:20 Last Infusion: 07/26/25 18:08 Dose: Infused Documented By: Admin: 07/26/25 16:47 Dose: 200 mls/hr Documented By: MTP Heparin Sodium/Dextrose (Heparin 34647 Unit/500 Ml D5w) 25,000 units in 500 mls @ 32 mls/hr IV .[id number] NIA; Protocol Stop: 08/26/25 14:29 Last Admin: 07/27/25 19:09 Dose: Not Given Documented By: TP Potassium Chloride (K Lazarus / Wtr) 20 meq in 100 mls @ 50 mls/hr IV Q2H NIA; Protocol Stop: 07/28/25 14:44 Last Admin: 07/28/25 12:22 Dose: 50 mls/hr Documented By: MTP Co-signed By: RUSSELL Infusion: 07/28/25 12:22 Dose: Infused Documented By: MTP Co-signed By: RUSSELL Admin: 07/28/25 11:20 Dose: 50 mls/hr Documented By: MTP Co-signed By: RUSSELL Infusion: 07/28/25 10:34 Dose: Infused Documented By: MTP Co-signed By: RUSSELL Admin: 07/28/25 08:34 Dose: 50 mls/hr Documented By: MTP Co-signed By: TOVA Ioversol (Optiray 320 125ml) 119 ml IV ONCE ONE Stop: 07/24/25 23:04 Last Admin: 07/24/25 23:03 Dose: 119 ml Documented By: JABARI Midodrine (Midodrine Hcl 2.5 Mg Tab) 5 mg PO TID@0800,1200,1700 [facility] Stop: 08/26/25 07:59 Last Admin: 07/27/25 20:49 Dose: Not Given Documented By: Admin: 07/27/25 20:28 Dose: Not Given Documented By: Admin: 07/27/25 08:17 Dose: 5 mg Documented By: MTP Midodrine (Midodrine Hcl 2.5 Mg Tab) 7.5 mg PO TID@0800,1200,1700 NIA Stop: 08/27/25 07:59 Last Admin: 07/28/25 08:36 Dose: 7.5 mg Documented By: JOSEPHINE Miscellaneous (Icu Protocol For Hyperglycemia) 1 each N/A ACHS [facility] Stop: 07/27/25 07:29 Last Admin: 07/26/25 21:18 Dose: Not Given Documented By: Admin: 07/26/25 16:47 Dose: Not Given Documented By: Admin: 07/26/25 15:58 Dose: Not Given Documented By: Admin: 07/26/25 09:40 Dose: Not Given Documented By: Admin: 07/26/25 00:18 Dose: Not Given Documented By: Admin: 07/25/25 17:31 Dose: Not Given Documented By: Admin: 07/25/25 12:40 Dose: Not Given Documented By: Admin: 07/25/25 09:35 Dose: Not Given Documented By: MTP Norepinephrine Bitartrate (Norepinephrine/D5w 4 Mg/250 Ml) Confirm Administered Dose 4 mg IV .STK-MED ONE Stop: 07/24/25 21:59 Last Admin: 07/24/25 23:15 Dose: Not Given Documented By: KMS Imaging Data Radiologist's Impression: Abdomen/Pelvis CTA 07/24/25 21:53 Exam(s): CTA ABDOMEN + PELVIS With Contrast IV Amt: 119ml opti 320 EXAM: CT Angiography Abdomen and Pelvis With Intravenous Contrast CLINICAL HISTORY: Reason for exam: eval for AAA. TECHNIQUE: Axial computed tomographic angiography images of the abdomen and pelvis with intravenous contrast. CTDI is 69 mGy and DLP is 2230 mGy-cm. Automated exposure control was utilized for the study. A dose lowering technique was utilized adhering to the principles of ALARA. MIP reconstructed images were created and reviewed. CONTRAST: Patient received 119ml opti 320 of IV contrast COMPARISON: No relevant prior studies available. FINDINGS: VASCULATURE: Aorta: No acute findings. No abdominal aortic aneurysm. No dissection. Celiac trunk and mesenteric arteries: No acute findings. No occlusion or significant stenosis. Renal arteries: No acute findings. No occlusion or significant stenosis. Iliac arteries: No acute findings. No occlusion or significant stenosis. Lung bases: Unremarkable. No mass. No consolidation. ABDOMEN: Liver: Borderline hepatomegaly. Gallbladder and bile ducts: Unremarkable. No calcified stones. No ductal dilation. Pancreas: 1.6 x 1.2 cm pancreatic body cyst. No ductal dilation. Spleen: Unremarkable. No splenomegaly. Adrenals: Unremarkable. No mass. Kidneys and ureters: Unremarkable. No hydronephrosis. No solid mass. Stomach and bowel: Subtle inflammatory changes about the splenic flexure and proximal descending colon consistent with colitis within same. Large amount of liquid stool within the colon. PELVIS: Appendix: No findings to suggest acute appendicitis. Bladder: Temple catheter within the urinary bladder. Reproductive: Unremarkable as visualized. ABDOMEN and PELVIS: Intraperitoneal space: Unremarkable. No significant fluid collection. No free air. Bones/joints: No acute fracture. No dislocation. Soft tissues: Unremarkable. Lymph nodes: Unremarkable. No enlarged lymph nodes. IMPRESSION: Mild uncomplicated colitis Large amount of liquid stool within the colon No evidence of abdominal aortic aneurysm. Electronically signed by: Kavon Mckeon MD 07/24/25 23:46 PM Chest CTA 07/24/25 21:53 Exam(s): CTA CHEST W/WO Contrast IV Amt: 119cc opti 320 EXAM: CT Angiography Chest Without and With Intravenous Contrast CLINICAL HISTORY: Reason for exam: eval for AAA. TECHNIQUE: Axial computed tomographic angiography images of the chest without and with intravenous contrast. CTDI is 28.14 mGy and DLP is 796 mGy-cm. Automated exposure control was utilized for the study. A dose lowering technique was utilized adhering to the principles of ALARA. MIP reconstructed images were created and reviewed. CONTRAST: Patient received 119cc opti 320 of IV contrast COMPARISON: Reference is made to MRI dated 07/13/2025 FINDINGS: Limitations: Exam limited secondary to patient respiratory motion. Pulmonary arteries: Unremarkable. No pulmonary embolism. Aorta: No acute findings. No thoracic aortic aneurysm. Lungs: Bibasilar [id number]-right dependent atelectasis. No mass. Pleural space: Unremarkable. No significant effusion. No pneumothorax. Heart: Unremarkable. No cardiomegaly. No significant pericardial effusion. No evidence of RV dysfunction. Bones/joints: Postoperative changes T1 and T2 interbody fusion. No acute fracture. No dislocation. Soft tissues: 6.2 x 3.3 cm soft tissue mass along the lateral tail of the right pectoralis major muscle. Air contains numerous surgical clips and corresponds to the abnormality identified as a hematoma on the prior MRI. Lymph nodes: Unremarkable. No enlarged lymph nodes. IMPRESSION: No acute findings in the visualized arteries of the chest. Exam limited as described above Right chest wall soft tissue mass likely representing resolving hematoma similar appearance when compared with the prior MRI Electronically signed by: Kavon Mckeon MD 07/24/25 23:31 PM Chest X-Ray 07/24/25 21:54 Exam(s): XR CXR 1 VIEW EXAM: XR Chest, 1 View CLINICAL HISTORY: Reason for exam: Sepsis. TECHNIQUE: Frontal view of the chest. COMPARISON: No relevant prior studies available. FINDINGS: Lungs: Unremarkable. No consolidation. Pleural space: Unremarkable. No pneumothorax. Heart: Unremarkable. No cardiomegaly. Mediastinum: Unremarkable. Normal mediastinal contour. Bones/joints: Unremarkable. No acute fracture. IMPRESSION: Normal chest x-ray. Electronically signed by: Kavon Mckeon MD 07/25/25 00:35 AM Discharge Plan Visit Data Chief Complaint: Hypotension Stated Complaint: HYPOTENSIVE, AB PAIN ED Provider: Tino Zarate Discharge Problem: Septic shock, MAGDA (acute kidney injury), Hyponatremia, Elevated liver enzymes, Respiratory failure, acute, Complicated urinary tract infection, Acute hyperkalemia, Acute encephalopathy Patient Disposition: Admitted As Inpatient Condition: Critical Discharge Instructions Interventions: ED Discharge Assessment Last Done: 07/25/25 03:33 Discharge Problem: Respiratory failure, acute Qualifiers: Respiratory failure complication: hypoxia and hypercapnia Qualified Code(s): J 96.01 - Acute respiratory failure with hypoxia; J96.02 - Acute respiratory failure with hypercapnia
[2025-07-24] MEDS ORDERED: STAT IV Infusion **Titration per Protocol STA (22:32)
[2025-07-24 22:58] LABS: Hematocrit (blood only) 40.3 % (37.0-47.0); Hemoglobin 13.7 g/dl (12.0-16.0); Mean Corpuscular Hemoglobin 32.4 pg (25.0-34.0); Mean Corpuscular Volume 95.3 fL (80.0-100.0); Platelet Count 185 K/uL (130-400); RDW Standard Deviation 47.4 fL (36.4-46.3); Red Blood Count 4.23 M/uL (4.20-5.40); White Blood Count 26.51 K/ul (4.8-10.8)
[2025-07-24] MEDS: OPTIRAY 320 125ml IV ONE (23:03)
[2025-07-24] MEDS: NOREPINEPHRINE/D5W 4 MG/250 ML IV ONE (23:15)
[2025-07-24 23:16] LABS: Immature Granulocytes # (auto) 0.51 K/uL (0.01-0.20); Immature Granulocytes % (auto) 1.9 %
[2025-07-24] MEDS ORDERED: VANCOMYCIN CONSULT ACTIVE PRN (23:17)
[2025-07-24] MEDS: ALBUMIN 5% 250 ML IV ONE (23:32)
[2025-07-24] MEDS: PLASMA-LYTE A 1,000 ML IV ONE (23:32)
--- NOTE | 2025-07-24 23:32 | CT Scan Report ---
Exam(s): CTA CHEST W/WO Contrast IV Amt: 119cc opti 320 EXAM: CT Angiography Chest Without and With Intravenous Contrast CLINICAL HISTORY: Reason for exam: eval for AAA. TECHNIQUE: Axial computed tomographic angiography images of the chest without and with intravenous contrast. CTDI is 28.14 mGy and DLP is 796 mGy-cm. Automated exposure control was utilized for the study. A dose lowering technique was utilized adhering to the principles of ALARA. MIP reconstructed images were created and reviewed. CONTRAST: Patient received 119cc opti 320 of IV contrast COMPARISON: Reference is made to MRI dated 07/13/2025 FINDINGS: Limitations: Exam limited secondary to patient respiratory motion. Pulmonary arteries: Unremarkable. No pulmonary embolism. Aorta: No acute findings. No thoracic aortic aneurysm. Lungs: Bibasilar [id number]-right dependent atelectasis. No mass. Pleural space: Unremarkable. No significant effusion. No pneumothorax. Heart: Unremarkable. No cardiomegaly. No significant pericardial effusion. No evidence of RV dysfunction. Bones/joints: Postoperative changes T1 and T2 interbody fusion. No acute fracture. No dislocation. Soft tissues: 6.2 x 3.3 cm soft tissue mass along the lateral tail of the right pectoralis major muscle. Air contains numerous surgical clips and corresponds to the abnormality identified as a hematoma on the prior MRI. Lymph nodes: Unremarkable. No enlarged lymph nodes. IMPRESSION: No acute findings in the visualized arteries of the chest. Exam limited as described above Right chest wall soft tissue mass likely representing resolving hematoma similar appearance when compared with the prior MRI Electronically signed by: Kavon Mckeon MD 07/24/25 23:31 PM
[2025-07-24 23:41] LABS: Appearance Urine Turbid (Clear); Bacteria Urine Automated 4+ (None Seen); Epithelial Cell Urine Auto 0-2 /hpf (0-2); Glucose Urine UA 1+ (Negative); RBC Urine Automated >20 /hpf (0-2); WBC Urine Automated >50 /hpf (0-5)
[2025-07-24 23:45] LABS: Base Excess VBG -3.5 mEq/L; HCO3 VBG 25 mmol/L; Oxygen Saturation VBG 60.0 %; PCO2 VBG 60 mmHg (38-50); PO2 VBG 36 mmHg; pH VBG 7.23 (7.36-7.41)
[2025-07-24] MEDS: CALCIUM GLUCONATE 1,000 MG/60 ML BAG IV STA (23:45)
--- NOTE | 2025-07-24 23:47 | CT Scan Report ---
Exam(s): CTA ABDOMEN + PELVIS With Contrast IV Amt: 119ml opti 320 EXAM: CT Angiography Abdomen and Pelvis With Intravenous Contrast CLINICAL HISTORY: Reason for exam: eval for AAA. TECHNIQUE: Axial computed tomographic angiography images of the abdomen and pelvis with intravenous contrast. CTDI is 69 mGy and DLP is 2230 mGy-cm. Automated exposure control was utilized for the study. A dose lowering technique was utilized adhering to the principles of ALARA. MIP reconstructed images were created and reviewed. CONTRAST: Patient received 119ml opti 320 of IV contrast COMPARISON: No relevant prior studies available. FINDINGS: VASCULATURE: Aorta: No acute findings. No abdominal aortic aneurysm. No dissection. Celiac trunk and mesenteric arteries: No acute findings. No occlusion or significant stenosis. Renal arteries: No acute findings. No occlusion or significant stenosis. Iliac arteries: No acute findings. No occlusion or significant stenosis. Lung bases: Unremarkable. No mass. No consolidation. ABDOMEN: Liver: Borderline hepatomegaly. Gallbladder and bile ducts: Unremarkable. No calcified stones. No ductal dilation. Pancreas: 1.6 x 1.2 cm pancreatic body cyst. No ductal dilation. Spleen: Unremarkable. No splenomegaly. Adrenals: Unremarkable. No mass. Kidneys and ureters: Unremarkable. No hydronephrosis. No solid mass. Stomach and bowel: Subtle inflammatory changes about the splenic flexure and proximal descending colon consistent with colitis within same. Large amount of liquid stool within the colon. PELVIS: Appendix: No findings to suggest acute appendicitis. Bladder: Temple catheter within the urinary bladder. Reproductive: Unremarkable as visualized. ABDOMEN and PELVIS: Intraperitoneal space: Unremarkable. No significant fluid collection. No free air. Bones/joints: No acute fracture. No dislocation. Soft tissues: Unremarkable. Lymph nodes: Unremarkable. No enlarged lymph nodes. IMPRESSION: Mild uncomplicated colitis Large amount of liquid stool within the colon No evidence of abdominal aortic aneurysm. Electronically signed by: Kavon Mckeon MD 07/24/25 23:46 PM
[2025-07-25] MEDS: PIPERACILLIN/TAZOBACTAM 4.5 GM/100 ML BAG IV STA (00:04)
[2025-07-25] MEDS: ACETAMINOPHEN 1,000 MG/100 ML VIAL IV STA (00:22)
[2025-07-25] MEDS: ACETAMINOPHEN 1000 MG/100 ML IV IV ONE (00:22)
[2025-07-25 00:26] LABS: Alanine Aminotransferase 59.0 U/L (7-52); Albumin Level 3.2 gm/dl (3.4-5.0); Alkaline Phosphatase 261.0 U/L (34-104); Anion Gap 11.0 (3-11); Bilirubin,Total 1.4 mg/dl (0.2-1.0); Blood Urea Nitrogen 66.0 mg/dl (6-23); Calcium 9.5 mg/dl (8.6-10.3); Carbon Dioxide 26.0 mmol/L (21-32); Chloride 91.0 mmol/L (98-107); Creatinine Clr Calc Pharmacy 26.6 ml/min; Glucose 152.0 mg/dl (70-99(Fasting)); Magnesium 2.3 mg/dl (1.7-2.4); Potassium 6.2 mmol/L (3.5-5.1); Sodium 128.0 mmol/L (136-145); Total Protein 6.9 gm/dl (6.0-8.3)
--- NOTE | 2025-07-25 00:36 | XRay Report ---
Exam(s): XR CXR 1 VIEW EXAM: XR Chest, 1 View CLINICAL HISTORY: Reason for exam: Sepsis. TECHNIQUE: Frontal view of the chest. COMPARISON: No relevant prior studies available. FINDINGS: Lungs: Unremarkable. No consolidation. Pleural space: Unremarkable. No pneumothorax. Heart: Unremarkable. No cardiomegaly. Mediastinum: Unremarkable. Normal mediastinal contour. Bones/joints: Unremarkable. No acute fracture. IMPRESSION: Normal chest x-ray. Electronically signed by: Kavon Mckeon MD 07/25/25 00:35 AM
[2025-07-25] MEDS: VANCOMYCIN HCL 2,750 MG in SODIUM CHLORIDE 0.9% 500 ML IV ONE (00:39)
[2025-07-25 00:50] LABS: Chlamydia pneumoniae PCR Not Detected (NotDetected); Coronavirus 229E PCR Not Detected (NotDetected); Coronavirus CoV-2 (COVID19)PCR Not Detected (NotDetected); Coronavirus HKU1 PCR Not Detected (NotDetected); Coronavirus NL63 PCR Not Detected (NotDetected); Coronavirus OC43PCR Not Detected (NotDetected); Human Metapneumovirus PCR Not Detected (NotDetected); Parainfluenza Virus 1 PCR Not Detected (NotDetected); Parainfluenza Virus 2 PCR Not Detected (NotDetected); Parainfluenza Virus 3 PCR Not Detected (NotDetected); Parainfluenza Virus 4 PCR Not Detected (NotDetected); Respiratory Syncytial VirusPCR Not Detected (NotDetected); Rhinovirus/Enterovirus PCR Not Detected (NotDetected)
[2025-07-25] MEDS: ALBUT/IPRATROP 3MG/0.5MG NEB 3 ML VIAL NEB STA ×2 (01:03→04:20)
[2025-07-25] MEDS: DEXTROSE 50% 50 ML SYRINGE IV STA (01:07)
[2025-07-25] MEDS: INSULIN HUMAN REGULAR PER UNIT 10 UNITS in SYRINGE 9.9 ML IV STA (01:07)
--- NOTE | 2025-07-25 01:14 | History & Physical Report ---
Date of Service July 25, 2025 Assessment & Plan (1) Septic shock: (2) Bilateral arm weakness: (3) MAGDA (acute kidney injury): (4) Elevated liver enzymes: (5) Hypothyroidism: (6) Sleep apnea: (7) Hypertension: Plan 75-year-old female with remote history of breast cancer s/p mastectomy, chemo and radiation with progressive bilateral upper extremity weakness. 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 She was transferred to [facility] and had spinal surgery performed on July 16. She was discharged to [facility] on July 23. Presents today with hypotension, septic shock. #Neuropatient is somnolent but arousable, oriented x 4 and following commands. Mildly encephalopathic likely in setting of infection. Neuro exam with bilateral upper extremity weakness, otherwise unremarkable. cervical collar in place Maintain cervical collar Pain management with IV Dilaudid as needed Frequent orientation Continue ropinirole 0.5 mg p.o. nightly for restless leg Will hold home oxycodone and fentanyl patch in setting of hypotension, renal compromise and encephalopathy Will decrease gabapentin from 800 mg p.o. twice daily to 400 mg p.o. twice daily in setting of renal dysfunction and encephalopathy Will hold Flexeril for now #Pulmonarypatient initially hypoxic requiring placement of supplemental oxygen. VBG with mild respiratory acidosis (7.2 3/60/36). Patient with history of DANNIE and reports compliance with her home CPAP CPAP nightly Supplemental oxygen as needed #Cardiacpatient presenting with shock. Blood pressure actually 64/48. Reports of low blood pressure throughout the day while at rehab as well. Evidence of endorgan damage to include MAGDA, elevated LFTs, elevated troponin. Likely septic shock likely secondary to catheter associated UTI. Patient with Temple in place since July 18 for urinary retention. Patient has thus far received 3 L of crystalloid as well as 250 mL of albumin. Is on Levophed now for continued blood pressure support Admit to ICU Continue Levophed as needed to maintain MAP greater than 65 Monitor urine output, mental status Repeat troponin, LFTs and chemistry in a.m. #GIpatient reports abdominal pain. CT findings as above with nonspecific colitis. Mild elevated lactate 2.2--> 2.4 following 2 L of IV fluid. mild elevation of LFTs likely secondary to poor perfusion with prolonged hypotension Repeat LFTs in the morning Continue Protonix Continue bowel regimen as needed #Renalpatient with MAGDA, BUN = 66, creatinine = 2.6. Per review of records, creatinine was 1.6 on 07/17. Patient with hyperkalemia upon arrival with K = greater than 6. She was medically treated with insulin/D50, albuterol, calcium and IV fluids. Repeat potassium improved to 4.8. Also with hyponatremia, sodium = 128. Adequate urine output Avoid nephrotoxic agents Renal dosing were needed Urine and serum osmolality for hyponatremia workup #IDUA appears grossly infected. Patient with Temple catheter in place since 07/18/2025. Initially placed for urinary retention. Exchanged in the ER Follow cultures Continue cefepime, vancomycin for now Check MRSA nares #Endocrinepatient with hypothyroidism. TSH = 3.504 on 07/10/2025. Random cortisol appropriately elevated Continue Synthroid #History of breast cancer with likely recurrence. Pathology results not yet available for [place] records Continue letrozole Follow-up pathology results May need referral to oncology #Prophylaxisheparin 5000 units SQ every 8 History of Present Illness Chief Complaint: Hypotension Primary Care Provider: ZULEMA Meyers 75-year-old female with history of breast cancer s/p mastectomy, chemo and radiation, sleep apnea and hypertension presenting from [facility] with hypotension. Patient has been having progressive bilateral upper extremity weakness ongoing since May. She was seen at [facility] on 06/21/2025 and had a cervical spine without contrast which showed a left C6-C7 and C7-T1 neuroforaminal narrowing which may affect the exiting nerve root. No change when compared with prior. MRI of the thoracic spine with mild spinal stenosis, T8-T9 through T10- T11. Patient was admitted to [facility] from 07/10 - 07/14/25 after presenting with worsening bilateral upper extremity pain. On 07/12 patient had a cervical spine MRI which showed epidural thickening extending from C4-T2 with associated postcontrast enhancement, could be consistent with epidural metastatic disease or treatment related changes. She had a chest MRI performed on 07/13 which revealed C2-T3 dorsal epidural hematoma which seems unlikely based on review by day time/day for radiologist and some signal enhancement in the right brachial plexus Patient was ultimately transferred to [facility] on 07/14/2025 for neurosurgical evaluation. On 07/16/2025 patient had biopsy of C6 and C7 spinous processes and epidural area, C5-T1 laminectomy, bilateral foraminotomies at C5-C6, C6-C7 and T1-T2 and posterior spinal fusion C3-T2, posterior instrumentation patient C3-T2 and allograft performed by Dr. Sanchez at [facility]. 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 Patient did well postoperatively per review of [facility] records. She did develop urinary retention and had a Temple placed on July 18. Patient was ultimately discharged to [facility] on 07/23/2025 Per report, patient with low blood pressure throughout the day today as well as worsening confusion and lethargy Therefore she was sent to the ER for evaluation Patient complaining only of abdominal pain at present. Denies chest pain, cough, shortness of breath. Denies fever, chills, nausea, vomiting, diarrhea. Upon arrival to the ER patient hypotensive with blood pressure of 64/48. Initially hypoxic requiring placement of nonrebreather. She was administered 3 L of crystalloid as well as albumin 5% x 250 mL with persistent hypotension. Levophed was initiated with improvement. ER course: Normal saline x 1 L Plasma-Lyte x 2 L Albumin 5% x 2 at 50 mL Levophed Calcium gluconate x 1 g Zosyn x 4.5 g Tylenol x 1 g Vancomycin 2750 mg Albuterol neb x 1 Insulin 10 units IV plus dextrose 50 mL Temple Exchanged Allergies Allergy/AdvReac Type Severity Reaction Status Date / Time adhesive tape Allergy Rash Unverified 07/10/25 19:18 clindamycin Allergy Unknown Verified 07/10/25 23:07 crab Allergy Nausea Verified 07/10/25 23:07 levofloxacin Allergy Diarrhea Verified 07/10/25 19:17 levothyroxine sodium Allergy Unknown Verified 07/10/25 23:07 [From Synthroid] amoxicillin [From Augmentin] AdvReac Diarrhea Verified 07/10/25 19:17 ciprofloxacin AdvReac Diarrhea Verified 07/10/25 19:17 clavulanic acid AdvReac Diarrhea Verified 07/10/25 19:17 [From Augmentin] Home Medications Medication Instructions Recorded Confirmed Type furosemide 20 mg tablet 20 mg PO DAILY PRN Weight Gain 03/07/24 07/24/25 History letrozole 2.5 mg tablet 2.5 mg PO DAILY 03/07/24 07/24/25 History ropinirole 0.5 mg tablet 0.5 mg PO HS 09/12/24 07/24/25 History amitriptyline 25 mg tablet 25 mg PO HS 02/20/25 07/24/25 History empagliflozin 10 mg tablet 10 mg PO QAM 02/20/25 07/24/25 History (Jardiance) gabapentin 400 mg capsule 800 mg PO Q12 02/20/25 07/24/25 History lisinopril 10 1 tab PO DAILY 02/20/25 07/24/25 History mg-hydrochlorothiazide 12.5 mg tablet oxycodone 5 mg tablet 5 mg PO Q4 PRN Moderate Pain 07/10/25 07/24/25 History (Scale Score 4-6) acetaminophen 500 mg tablet 1,000 mg PO Q8 07/24/25 07/24/25 History bisacodyl 10 mg rectal suppository 10 mg NJ DAILY PRN Constipation 07/24/25 07/24/25 History (Dulcolax (bisacodyl)) cyclobenzaprine 5 mg tablet 5 mg PO TID PRN Muscle Spasm 07/24/25 07/24/25 History docusate sodium 100 mg capsule 100 mg PO Q12 PRN Constipation 07/24/25 07/24/25 History enoxaparin 60 mg/0.6 mL 60 mg subcut BID 07/24/25 07/24/25 History subcutaneous syringe fentanyl 50 mcg/hr transdermal 1 patch transdermal Q72H 07/24/25 07/24/25 History patch ondansetron 4 mg disintegrating 4 mg PO Q6H PRN NAUSEA OR VOMITING 07/24/25 07/24/25 History tablet oxycodone 5 mg tablet 10 mg PO Q4H PRN PAIN (SCALE 7-10) 07/24/25 07/24/25 History pantoprazole 40 mg tablet,delayed 40 mg PO DAILYBB 07/24/25 07/24/25 History release sennosides 8.6 mg-docusate sodium 1 tab-cap PO QDL PRN Constipation 07/24/25 07/24/25 History 50 mg tablet (Senokot-S) thyroid (pork) 30 mg tablet 60 mg PO DAILY 07/24/25 07/24/25 History ([place] Thyroid) Past Med/Surg History Problem List Elevated liver enzymes Respiratory acidosis Hyponatremia MAGDA (acute kidney injury) Septic shock Brachial plexopathy Polyradiculopathy Bilateral arm weakness (Acute) Back pain with left-sided radiculopathy Weakness Hypothyroidism Sleep apnea Hypertension Back problem Arthritis Anemia Delayed wound healing Lymphedema of right arm Seroma of breast Recurrent cancer of right breast Medical History Hx of blood clots Kidney failure Bronchitis Surgical History H/O ligation of vein [id number] H/O mastectomy 2012 History of carpal tunnel surgery History of left knee replacement 2011 H/O right knee surgery 2010 Hx of tonsillectomy 1977 H/O lymph node excision 2022 H/O total mastectomy (~2022) Right and sentinel node biopsy/ right axillary lymph node dissection Family History Aunt Breast cancer Other Diabetes Heart disease Stroke Social History Smoking Status: Never smoker Hx Alcohol Use: Yes Alcohol type: hard liquor Alcohol Intake Frequency: 2-4 x/Month Hx Substance Use: No Communication Ability: Effective Beliefs That Will Affect Care: None marital status: Current Living Situation: Alone current occupational status: retired Feels Safe at Home: Yes Diet: regular during the past year weight has: increased > 10 lbs Assistive Devices: BiPap, Cane, Glasses and Oxygen - Continuous Review of Systems Review of Systems: All systems reviewed & are unremarkable except as noted in HPI & below Physical Exam Physical Exam: General: patient somnolent, arousable, ill in appearance Skin: surgical incision clean and dry, no bleeding/drainage HEENT: NC/AT, PERRL, EOMI, anicteric sclera, conjunctiva without injection, external ear normal to inspection and nontender, nares patent, moist mucus membranes, dentition intact, no oropharyngeal lesions, neck supple, trachea midline, no LAD, no thyromegaly, no JVD, cervical [place] J collar in place Heart: +S1/S2, regular, no m/r/g Lungs: equal air entry bilaterally, no rales/rhonchi/wheezes Abd: +BS, soft, tender, mildly distended, tympanic, no masses/organomega ly/ascites Ext: warm, 2+ pulses in UE/LE bilaterally, no clubbing/cyanosis or edema Neuro: 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, following commands Results & Data Results & Data Vital Signs (Past 12 Hours) Vital Signs Temp Pulse Pulse Resp BP BP Pulse Ox 07/25/25 00:33 50 L 18 92 07/25/25 00:26 94 H 17 07/25/25 00:23 66/53 L 07/25/25 00:21 86/45 L 07/25/25 00:14 93 H 19 90 07/25/25 00:11 90/62 L 07/25/25 00:11 92 H 18 90/62 L 91 07/25/25 00:00 104/67 07/24/25 23:56 95 H 17 94 07/24/25 23:50 94/62 L 07/24/25 23:50 94/62 L 07/24/25 23:50 94 H 16 94 07/24/25 23:41 96 H 29 H 94 07/24/25 23:40 110/59 L 07/24/25 23:38 95 H 26 H 95 07/24/25 23:30 110/64 07/24/25 23:30 110/64 07/24/25 23:27 90 20 99 07/24/25 23:20 105/67 07/24/25 23:18 95 H 23 99 07/24/25 23:12 92 H 20 99 07/24/25 23:11 109/65 07/24/25 22:42 84 22 95 07/24/25 22:41 88/44 L 07/24/25 22:39 88 25 H 07/24/25 22:33 81 22 96 07/24/25 22:30 93/40 L 07/24/25 22:25 64/48 L 07/24/25 22:25 15 L 07/24/25 22:25 96 07/24/25 22:12 87 22 95 07/24/25 22:10 104/89 07/24/25 22:08 77 07/24/25 22:03 36.9 C 78 20 93 07/24/25 21:55 79 61/38 L 07/24/25 21:48 77 70/40 L O2 Del Method O2 Flow Rate 07/25/25 00:33 4 07/25/25 00:26 07/25/25 00:23 07/25/25 00:21 07/25/25 00:14 Nasal Cannula 4 07/25/25 00:11 07/25/25 00:11 Nasal Cannula 4 07/25/25 00:00 07/24/25 23:56 Nasal Cannula 4 07/24/25 23:50 07/24/25 23:50 07/24/25 23:50 Nasal Cannula 4 07/24/25 23:41 Nasal Cannula 4 07/24/25 23:40 07/24/25 23:38 Non-rebreather 07/24/25 23:30 07/24/25 23:30 07/24/25 23:27 Non-rebreather 07/24/25 23:20 07/24/25 23:18 Non-rebreather 07/24/25 23:12 Non-rebreather 07/24/25 23:11 07/24/25 22:42 Non-rebreather 07/24/25 22:41 07/24/25 22:39 07/24/25 22:33 Non-rebreather 07/24/25 22:30 07/24/25 22:25 07/24/25 22:25 Non-rebreather 07/24/25 22:25 Non-rebreather 15 07/24/25 22:12 07/24/25 22:10 07/24/25 22:08 07/24/25 22:03 Non-rebreather 07/24/25 21:55 07/24/25 21:48 Diagnostic Findings 04/[address] at [facility] - right anterior chest wall fluid collection mild peripheral FDG activity may be postop seroma/hematoma cannot exclude infection, no hypermetabolic mediastinal hilar or axiliary LAD, no FDG avid distant mets 06/14 CT chest at [facility] - right axillary fluid collection noted 06/21 C and T-spine spine MRI at [facility] - report only - Left C6-C7 and C7-T1 neural foramen narrowing which may affect the exiting nerve roots 07/10 MRI brain without acute findings or concerns for stroke, does show nonspecific bony lesion of left parietal skull, neoplasm cannot be excluded 07/11 bone scan - likely uptake left parietal bone lesion seen on MRI, no other significant findings. Could be a process such as fibrous dysplasia or a solitary met 07/12 C-spine MRI - epidural thickening extending from C4-T2 with associated postcontrast enhancement, could be consistent with epidural metastatic disease or treatment related change 07/13 Chest MRI - per report C2-T3 dorsal epidural hematoma which seems unlikely based on review by daytime/staff radiologist and PSH. There is some enhancing signal right brachial plexus PG Care Time/CCT Total # of Minutes Spent Total Time Spent with Patient: Total time spent is greater than 50% in coordination of care (as documented) at patient's floor/unit and/or counseling patient: Coding Level of Care Code 62651 INT INP/OBS CARE 3/75MIN Diagnoses Septic shock A41.9; R65.21 Bilateral arm weakness R29.898 MAGDA (acute kidney injury) N17.9 Elevated liver enzymes R74.8 Hypothyroidism E03.9 Sleep apnea G47.30 Hypertension I10
[2025-07-25] MEDS: PLASMA-LYTE A 1,000 ML IV STA (01:50)
[2025-07-25 02:21] LABS: Anion Gap 9.0 (3-11); Blood Urea Nitrogen 60.0 mg/dl (6-23); Calcium 8.4 mg/dl (8.6-10.3); Carbon Dioxide 25.0 mmol/L (21-32); Chloride 95.0 mmol/L (98-107); Creatinine Clr Calc Pharmacy 30.4 ml/min; Glucose 208.0 mg/dl (70-99(Fasting)); Potassium 4.8 mmol/L (3.5-5.1); Sodium 129.0 mmol/L (136-145)
[2025-07-25 02:54] LABS: INR 0.9 (0.9-1.1); Prothrombin Time 10.3 Seconds (9.0-12.0)
--- NOTE | 2025-07-25 03:41 | Critical Care Consultation ---
Date of Consultation July 25, 2025 Assessment & Plan (1) Septic shock: (2) MAGDA (acute kidney injury): (3) Hyponatremia: (4) Respiratory acidosis: (5) Elevated liver enzymes: (6) Brachial plexopathy: Plan Reason Critically Ill: 75 YOF presents hypotensive with concern for septic shock with organ dysfunction. Source at this time appears to be likely urine. Neuro - Metabolic Encephalopathy, Hx: Of brachioplexopathy, s/p C6 process biopsy to rule out malignancy, chronic pain [facility] ICU: + - Supporrtive care for encephalopathy- hopeful to improve with control of sepsis and perfusion - Cervical collar to remain in place- attempt to obtain biopsy results from C, as well as post surgical instruction - Chronic pain- continue multimodal pain approach- will remove fentanyl patch if on at this time until vasopressors are off- Hydromorphone IV - continue adjuvants - Cervical collar on at all times Cardiac - Shock, - Shock- septic at this time likely secondary to urinary source, with organ dysfunction - brain, renals, liver, heart - Continue with hemodynamics support- LEVOphed, if further pressors needed will add vasopressin - received 3.25 L of volume - hold on further volume infusion at this time - body habitus and peripheral lymphedema makes assessing volume status difficult as well as POCUS imaging- follow end organ labs, and urine output - Await culture results Respiratory - DANNIE, Hypercarbic respiratory acidosis - Patient arrives wearing her CPAP- VBG in am - No further acute needs GI - Abdominal pain, nonspecific colitis on imaging, elevated LFTS - follow clinically- if frequent consider testing of stool - LFTS elevated likely secondary to shock- follow - NPO at this time RENAL/LYTES - MAGDA/ARF, hyponatremia, hyperkalemia - non-oliguric renal injury classified with acute renal failure- baseline [employer] 1.1- continue to defend MAP > 65 - hyperkalemia resolving on recent labs following treatment, and volume replacement - hyponatremia likely secondary to decreased solute intake- will still send serum osmo and uosmo - Urinary retention required Cook catheter- replaced in ER - consider voiding trial once acute illness is resolved or urology follow up ENDO - No acute needs - ICU hyper/hypoglycemic protocol- - COntinue synthroid HEME - No acute needs, hx: breast ca, ? neoplastic process on spine - Attempt to identify biopsy results - Consider consultation with heme onc again once acute illness is resolved ID - Septic shock - Source urinary and possible nonspecific colitis - Continue Vanco- de-escelate when able - Cefepime- de-escelate when targeted results are available - PCT - 5, WBC, 26 LINES/IV ACCESS - PIV LT arm Cook Continue use of these lines Body habitus and cervical collar will make obtaining central access challenging, hopeful she continues to respond favorably DVT PROPHYLAXIS - SCDS, Heparin sq DISPO: ICU until hemodynamics are proven stable with vasopressors off I have personally spent 45 minutes of critical care time in the direct management of this patient. This is a life/limb threatening event. This includes time spent evaluating patient, direct bedside care, chart review, placing orders, interpretation of diagnostic studies, discussion with consultants, patient, and family members, as well as other required patient management activities. This time is exclusive of all separately billable procedures, and teaching time and separate from and in addition to any other critical care service time. Thank you for allowing us to participate in the care of this patient. Please refer to my attending physician's documentation for any further recommendations. History of Present Illness Reason for Consultation: septic shock Requesting Physician: arnaud rao DO Attending Physician: arnaud rao DO History of Present Illness 75 YOF with medical history of: Morbid obesity, DANNIE, hypothyroidism, HTN, arthritis, lymphedema of the RIGHT arm, breast cancer (chemo and XRT), recently transferred to [facility] for biopsy of C6 spinous process for concern regarding possible malignancy, following admission for bilateral upper extremity weakness with also concern of brachial plexopathy. Patient was discharged to rehab facility, appears she had a cook catehter placed there secondary to urinary retention. She was transferred from rehab facility on 07/24 in the evening to the ER for hypotension. In the ER the remains with her Cervical Collar hypotensive 60s/30s, tachypnea, she was placed on LEVOphed, had routine labs performed to include blood cultures and UA with culture. UA returned with concern for infection. She also had CTA of the chest performed that was interpreted as negative for PE but remains with a right chest wall mass that is favored to be a hematoma, "reported as improving." She was volume challenged with 1L crystalloid and 250ml of albumin, she remained with hypotension and organ dysfunction. Hospitalist was consulted for admission, she was given another 2L of crystalloid with minimal improvement in her hemodynamics. Lactate remains at 2.4, however she is with increase in urine output and potassium has decreased. Patient will be admitted to the ICU for continued supportive care. CODE: Allergies Allergy/AdvReac Type Severity Reaction Status Date / Time adhesive tape Allergy Rash Unverified 07/10/25 19:18 clindamycin Allergy Unknown Verified 07/10/25 23:07 crab Allergy Nausea Verified 07/10/25 23:07 levofloxacin Allergy Diarrhea Verified 07/10/25 19:17 levothyroxine sodium Allergy Unknown Verified 07/10/25 23:07 [From Synthroid] amoxicillin [From Augmentin] AdvReac Diarrhea Verified 07/10/25 19:17 ciprofloxacin AdvReac Diarrhea Verified 07/10/25 19:17 clavulanic acid AdvReac Diarrhea Verified 07/10/25 19:17 [From Augmentin] Home Medications Medication Instructions Recorded Confirmed Type furosemide 20 mg tablet 20 mg PO DAILY PRN Weight Gain 03/07/24 07/24/25 History letrozole 2.5 mg tablet 2.5 mg PO DAILY 03/07/24 07/24/25 History ropinirole 0.5 mg tablet 0.5 mg PO HS 09/12/24 07/24/25 History amitriptyline 25 mg tablet 25 mg PO HS 02/20/25 07/24/25 History empagliflozin 10 mg tablet 10 mg PO QAM 02/20/25 07/24/25 History (Jardiance) gabapentin 400 mg capsule 800 mg PO Q12 02/20/25 07/24/25 History lisinopril 10 1 tab PO DAILY 02/20/25 07/24/25 History mg-hydrochlorothiazide 12.5 mg tablet oxycodone 5 mg tablet 5 mg PO Q4 PRN Moderate Pain 07/10/25 07/24/25 History (Scale Score 4-6) acetaminophen 500 mg tablet 1,000 mg PO Q8 07/24/25 07/24/25 History bisacodyl 10 mg rectal suppository 10 mg ME DAILY PRN Constipation 07/24/25 07/24/25 History (Dulcolax (bisacodyl)) cyclobenzaprine 5 mg tablet 5 mg PO TID PRN Muscle Spasm 07/24/25 07/24/25 History docusate sodium 100 mg capsule 100 mg PO Q12 PRN Constipation 07/24/25 07/24/25 History enoxaparin 60 mg/0.6 mL 60 mg subcut BID 07/24/25 07/24/25 History subcutaneous syringe fentanyl 50 mcg/hr transdermal 1 patch transdermal Q72H 07/24/25 07/24/25 History patch ondansetron 4 mg disintegrating 4 mg PO Q6H PRN NAUSEA OR VOMITING 07/24/25 07/24/25 History tablet oxycodone 5 mg tablet 10 mg PO Q4H PRN PAIN (SCALE 7-10) 07/24/25 07/24/25 History pantoprazole 40 mg tablet,delayed 40 mg PO DAILYBB 07/24/25 07/24/25 History release sennosides 8.6 mg-docusate sodium 1 tab-cap PO QDL PRN Constipation 07/24/25 07/24/25 History 50 mg tablet (Senokot-S) thyroid (pork) 30 mg tablet 60 mg PO DAILY 07/24/25 07/24/25 History ([place] Thyroid) Patient History Medical History Hx of blood clots Kidney failure Bronchitis Surgical History H/O ligation of vein [id number] H/O mastectomy 2012 History of carpal tunnel surgery History of left knee replacement 2011 H/O right knee surgery 2010 Hx of tonsillectomy 1977 H/O lymph node excision 2022 H/O total mastectomy (~2022) Right and sentinel node biopsy/ right axillary lymph node dissection Family History Aunt Breast cancer Other Diabetes Heart disease Stroke Social History Smoking Status: Unknown if ever smoked Hx Alcohol Use: Yes Alcohol type: hard liquor Alcohol Intake Frequency: 2-4 x/Month Hx Substance Use: No Preferred Language: Kyrgyz Communication Ability: Effective Client Application Support Specialist Required: No Beliefs That Will Affect Care: None marital status: Current Living Situation: Alone current occupational status: retired Other Information That Helps Us Care for You: No Feels Safe at Home: Yes Safety Concerns: Feels Safe At This Time Diet: regular during the past year weight has: increased > 10 lbs Assistive Devices: Cane and Glasses Review of Systems Review of Systems: REVIEW OF SYSTEMS: Limited review secondary to encephalopathy Physical Exam Physical Exam: PHYSICAL EXAM: General: Encephalopathy improving, ENT: PERRL, EOMI, no pharyngeal exudate, mucous membranes dry Neuro: AAO x 2, , strength intact bilaterally 3-4/5 uppers, grasp to right hand, 5/5 lowers, sensation intact appears equal Chest: equal rise and fall of the chest, no accessory muscle use, no heaves or thrills, Clear to auscultation, on room air, Cardiac: Regular rate and rhythm, telemetry reviewed, skin warm dry, cap refill <3 seconds, peripheral pulses +2 no JVD, no murmur, no JVD, no edema GI: NABS x 4 quadrants, soft, nontender to palpation, no rebound, guarding or tenderness : Cook Skin: groin excoriation Results & Data Results & Data Vital Signs (Past 12 Hours) Vital Signs Temp Pulse Pulse Resp BP BP Pulse Ox 07/25/25 02:58 95 H 07/25/25 02:48 91 H 13 98/81 L 94 07/25/25 02:40 105/59 L 07/25/25 02:32 89 13 94 07/25/25 02:31 96/55 L 07/25/25 02:29 89 14 94 07/25/25 02:10 94/74 L 07/25/25 02:02 99 H 19 92 07/25/25 02:00 96/78 L 07/25/25 01:50 95 H 14 89/52 L 93 07/25/25 01:48 91/55 L 07/25/25 01:47 97 H 15 91 07/25/25 01:41 94 H 14 66/46 L 90 07/25/25 01:40 76/54 L 07/25/25 01:38 93 H 15 92 07/25/25 01:32 94 H 17 90 07/25/25 01:30 100/64 07/25/25 01:20 86 17 82/49 L 92 07/25/25 01:17 89 16 07/25/25 01:10 88/59 L 07/25/25 01:05 89 19 92 07/25/25 01:00 94/60 L 07/25/25 00:59 91 H 19 91 07/25/25 00:50 89/65 L 07/25/25 00:47 94 H 22 90 07/25/25 00:41 95/82 L 07/25/25 00:37 93/74 L 07/25/25 00:33 50 L 18 92 07/25/25 00:32 92 H 17 07/25/25 00:30 100/59 L 07/25/25 00:29 92 H 15 93 07/25/25 00:26 94 H 17 07/25/25 00:23 66/53 L 07/25/25 00:21 86/45 L 07/25/25 00:14 93 H 19 90 07/25/25 00:11 90/62 L 07/25/25 00:11 92 H 18 90/62 L 91 07/25/25 00:00 104/67 07/24/25 23:56 95 H 17 94 07/24/25 23:50 94/62 L 07/24/25 23:50 94/62 L 07/24/25 23:50 94 H 16 94 07/24/25 23:41 96 H 29 H 94 07/24/25 23:40 110/59 L 07/24/25 23:38 95 H 26 H 95 07/24/25 23:30 110/64 07/24/25 23:30 110/64 07/24/25 23:27 90 20 99 07/24/25 23:20 105/67 07/24/25 23:18 95 H 23 99 07/24/25 23:12 92 H 20 99 07/24/25 23:11 109/65 07/24/25 22:42 84 22 95 07/24/25 22:41 88/44 L 07/24/25 22:39 88 25 H 07/24/25 22:33 81 22 96 07/24/25 22:30 93/40 L 07/24/25 22:25 64/48 L 07/24/25 22:25 15 L 07/24/25 22:25 96 07/24/25 22:12 87 22 95 07/24/25 22:10 104/89 07/24/25 22:08 77 07/24/25 22:03 36.9 C 78 20 93 07/24/25 21:55 79 61/38 L 07/24/25 21:48 77 70/40 L O2 Del Method O2 Flow Rate 07/25/25 02:58 07/25/25 02:48 BiPAP 07/25/25 02:40 07/25/25 02:32 BiPAP 07/25/25 02:31 07/25/25 02:29 BiPAP 07/25/25 02:10 07/25/25 02:02 BiPAP 07/25/25 02:00 07/25/25 01:50 BiPAP 07/25/25 01:48 07/25/25 01:47 BiPAP 07/25/25 01:41 BiPAP 07/25/25 01:40 07/25/25 01:38 BiPAP 07/25/25 01:32 BiPAP 07/25/25 01:30 07/25/25 01:20 BiPAP 07/25/25 01:17 07/25/25 01:10 07/25/25 01:05 BiPAP 07/25/25 01:00 07/25/25 00:59 BiPAP 07/25/25 00:50 07/25/25 00:47 BiPAP 07/25/25 00:41 07/25/25 00:37 07/25/25 00:33 4 07/25/25 00:32 07/25/25 00:30 07/25/25 00:29 BiPAP 07/25/25 00:26 07/25/25 00:23 07/25/25 00:21 07/25/25 00:14 Nasal Cannula 4 07/25/25 00:11 07/25/25 00:11 Nasal Cannula 4 07/25/25 00:00 07/24/25 23:56 Nasal Cannula 4 07/24/25 23:50 07/24/25 23:50 07/24/25 23:50 Nasal Cannula 4 07/24/25 23:41 Nasal Cannula 4 07/24/25 23:40 07/24/25 23:38 Non-rebreather 07/24/25 23:30 07/24/25 23:30 07/24/25 23:27 Non-rebreather 07/24/25 23:20 07/24/25 23:18 Non-rebreather 07/24/25 23:12 Non-rebreather 07/24/25 23:11 07/24/25 22:42 Non-rebreather 07/24/25 22:41 07/24/25 22:39 07/24/25 22:33 Non-rebreather 07/24/25 22:30 07/24/25 22:25 07/24/25 22:25 Non-rebreather 07/24/25 22:25 Non-rebreather 15 07/24/25 22:12 07/24/25 22:10 07/24/25 22:08 07/24/25 22:03 Non-rebreather 07/24/25 21:55 07/24/25 21:48 Laboratory Results Abnormal lab results 07/24/25 07/24/25 07/24/25 Range/Units 22:27 22:29 22:37 WBC 26.51 H (4.8-10.8) K/ul RDW Std Deviation 47.4 H (36.4-46.3) fL Neut # (Auto) 24.37 H (1.40-6.50) K/uL Lymph # (Auto) 0.37 L (1.20-3.40) K/uL Stearns # (Auto) 1.21 H (0.11-0.59) K/uL Immature Gran # (Auto) 0.51 H (0.01-0.20) K/uL VBG pH (7.36-7.41) VBG pCO2 (38-50) mmHg POC Sodium 127 L (135-144) mmol/L Sodium 128 L (136-145) mmol/L POC Potassium 6.1 H* (3.3-5.0) mmol/L Potassium 6.2 H* (3.5-5.1) mmol/L POC Chloride 97 L (101-112) mmol/L Chloride 91 L (98-107) mmol/L POC Anion Gap 12.0 L (16-25) mmol/L POC BUN 65 H (7-18) mg/dl BUN 66 H (6-23) mg/dl Creatinine 2.64 H (0.6-1.2) mg/dl POC Creatinine 2.9 H (0.6-1.3) mg/dl BUN/Creatinine Ratio 25.0 H (10-20) Glucose 152 H (70-99(Fasting)) mg/dl POC Glucose (other) 155 H (70-99) mg/dl Lactate 2.2 H* (0.4-2.0) mmol/L Calcium (8.6-10.3) mg/dl Total Bilirubin 1.4 H (0.2-1.0) mg/dl Direct Bilirubin 0.7 H (0-0.2) mg/dl AST 55 H (13-39) U/L ALT 59 H (7-52) U/L Alkaline Phosphatase 261 H (34-104) U/L Troponin I High Sens 24.7 H (0-14) pg/ml Albumin 3.2 L (3.4-5.0) gm/dl Procalcitonin 5.25 H (0-0.5) ng/ml Urine Appearance Turbid A (Clear) Urine Protein 2+ H (Negative) Urine Glucose (UA) 1+ H (Negative) Urine Blood 3+ H (Negative) Ur Leukocyte Esterase 3+ H (Negative) Urine WBC (Auto) >50 H (0-5) /hpf Urine RBC (Auto) >20 H (0-2) /hpf U Hyaline Cast (Auto) 11-20 H (0-2) /lpf Urine Bacteria (Auto) 4+ H (None Seen) 07/24/25 07/25/25 07/25/25 Range/Units 23:26 00:45 01:48 WBC (4.8-10.8) K/ul RDW Std Deviation (36.4-46.3) fL Neut # (Auto) (1.40-6.50) K/uL Lymph # (Auto) (1.20-3.40) K/uL Stearns # (Auto) (0.11-0.59) K/uL Immature Gran # (Auto) (0.01-0.20) K/uL VBG pH 7.23 L (7.36-7.41) VBG pCO2 60 H (38-50) mmHg POC Sodium (135-144) mmol/L Sodium 129 L (136-145) mmol/L POC Potassium (3.3-5.0) mmol/L Potassium (3.5-5.1) mmol/L POC Chloride (101-112) mmol/L Chloride 95 L (98-107) mmol/L POC Anion Gap (16-25) mmol/L POC BUN (7-18) mg/dl BUN 60 H (6-23) mg/dl Creatinine 2.31 H D (0.6-1.2) mg/dl POC Creatinine (0.6-1.3) mg/dl BUN/Creatinine Ratio 26.0 H (10-20) Glucose 208 H (70-99(Fasting)) mg/dl POC Glucose (other) (70-99) mg/dl Lactate 2.4 H* (0.4-2.0) mmol/L Calcium 8.4 L (8.6-10.3) mg/dl Total Bilirubin (0.2-1.0) mg/dl Direct Bilirubin (0-0.2) mg/dl AST (13-39) U/L ALT (7-52) U/L Alkaline Phosphatase (34-104) U/L Troponin I High Sens 17.0 H D (0-14) pg/ml Albumin (3.4-5.0) gm/dl Procalcitonin (0-0.5) ng/ml Urine Appearance (Clear) Urine Protein (Negative) Urine Glucose (UA) (Negative) Urine Blood (Negative) Ur Leukocyte Esterase (Negative) Urine WBC (Auto) (0-5) /hpf Urine RBC (Auto) (0-2) /hpf U Hyaline Cast (Auto) (0-2) /lpf Urine Bacteria (Auto) (None Seen) Diagnostic Findings Abdomen/Pelvis CTA 07/24/25 21:53 Exam(s): CTA ABDOMEN + PELVIS With Contrast IV Amt: 119ml opti 320 EXAM: CT Angiography Abdomen and Pelvis With Intravenous Contrast CLINICAL HISTORY: Reason for exam: eval for AAA. TECHNIQUE: Axial computed tomographic angiography images of the abdomen and pelvis with intravenous contrast. CTDI is 69 mGy and DLP is 2230 mGy-cm. Automated exposure control was utilized for the study. A dose lowering technique was utilized adhering to the principles of ALARA. MIP reconstructed images were created and reviewed. CONTRAST: Patient received 119ml opti 320 of IV contrast COMPARISON: No relevant prior studies available. FINDINGS: VASCULATURE: Aorta: No acute findings. No abdominal aortic aneurysm. No dissection. Celiac trunk and mesenteric arteries: No acute findings. No occlusion or significant stenosis. Renal arteries: No acute findings. No occlusion or significant stenosis. Iliac arteries: No acute findings. No occlusion or significant stenosis. Lung bases: Unremarkable. No mass. No consolidation. ABDOMEN: Liver: Borderline hepatomegaly. Gallbladder and bile ducts: Unremarkable. No calcified stones. No ductal dilation. Pancreas: 1.6 x 1.2 cm pancreatic body cyst. No ductal dilation. Spleen: Unremarkable. No splenomegaly. Adrenals: Unremarkable. No mass. Kidneys and ureters: Unremarkable. No hydronephrosis. No solid mass. Stomach and bowel: Subtle inflammatory changes about the splenic flexure and proximal descending colon consistent with colitis within same. Large amount of liquid stool within the colon. PELVIS: Appendix: No findings to suggest acute appendicitis. Bladder: Cook catheter within the urinary bladder. Reproductive: Unremarkable as visualized. ABDOMEN and PELVIS: Intraperitoneal space: Unremarkable. No significant fluid collection. No free air. Bones/joints: No acute fracture. No dislocation. Soft tissues: Unremarkable. Lymph nodes: Unremarkable. No enlarged lymph nodes. IMPRESSION: Mild uncomplicated colitis Large amount of liquid stool within the colon No evidence of abdominal aortic aneurysm. Electronically signed by: Kavon Mckeon MD 07/24/25 23:46 PM Chest CTA 07/24/25 21:53 Exam(s): CTA CHEST W/WO Contrast IV Amt: 119cc opti 320 EXAM: CT Angiography Chest Without and With Intravenous Contrast CLINICAL HISTORY: Reason for exam: eval for AAA. TECHNIQUE: Axial computed tomographic angiography images of the chest without and with intravenous contrast. CTDI is 28.14 mGy and DLP is 796 mGy-cm. Automated exposure control was utilized for the study. A dose lowering technique was utilized adhering to the principles of ALARA. MIP reconstructed images were created and reviewed. CONTRAST: Patient received 119cc opti 320 of IV contrast COMPARISON: Reference is made to MRI dated 07/13/2025 FINDINGS: Limitations: Exam limited secondary to patient respiratory motion. Pulmonary arteries: Unremarkable. No pulmonary embolism. Aorta: No acute findings. No thoracic aortic aneurysm. Lungs: Bibasilar [id number]-right dependent atelectasis. No mass. Pleural space: Unremarkable. No significant effusion. No pneumothorax. Heart: Unremarkable. No cardiomegaly. No significant pericardial effusion. No evidence of RV dysfunction. Bones/joints: Postoperative changes T1 and T2 interbody fusion. No acute fracture. No dislocation. Soft tissues: 6.2 x 3.3 cm soft tissue mass along the lateral tail of the right pectoralis major muscle. Air contains numerous surgical clips and corresponds to the abnormality identified as a hematoma on the prior MRI. Lymph nodes: Unremarkable. No enlarged lymph nodes. IMPRESSION: No acute findings in the visualized arteries of the chest. Exam limited as described above Right chest wall soft tissue mass likely representing resolving hematoma similar appearance when compared with the prior MRI Electronically signed by: Kavon Mckeon MD 07/24/25 23:31 PM Chest X-Ray 07/24/25 21:54 Exam(s): XR CXR 1 VIEW EXAM: XR Chest, 1 View CLINICAL HISTORY: Reason for exam: Sepsis. TECHNIQUE: Frontal view of the chest. COMPARISON: No relevant prior studies available. FINDINGS: Lungs: Unremarkable. No consolidation. Pleural space: Unremarkable. No pneumothorax. Heart: Unremarkable. No cardiomegaly. Mediastinum: Unremarkable. Normal mediastinal contour. Bones/joints: Unremarkable. No acute fracture. IMPRESSION: Normal chest x-ray. Electronically signed by: Kavon Mckeon MD 07/25/25 00:35 AM Medications Administered Norepinephrine Bitartrate (Levophed/D5w) 4 mg in 250 mls @ 26.25 mls/hr IV .Q9H32M [facility]; Protocol Stop: 08/23/25 22:44 Last Titration: 07/25/25 01:42 Dose: 0.07 mcg/kg/min, 36.8 mls/hr Documented By: MAHESH Co-signed By: Titration: 07/25/25 00:24 Dose: 0.05 mcg/kg/min, 26.3 mls/hr Documented By: MAHESH Co-signed By: CARMELITA Titration: 07/25/25 00:08 Dose: 0 mcg/kg/min, 0 mls/hr Documented By: MAHESH Co-signed By: CHELA Admin: 07/24/25 22:25 Dose: 0.05 mcg/kg/min, 26.3 mls/hr Documented By: MAHESH Co-signed By: CARMELITA Discontinued Medications Acetaminophen (Acetaminophen 1000 Mg/100 Ml Iv) Confirm Administered Dose 1,000 mg IV .STK-MED ONE Stop: 07/25/25 00:20 Last Admin: 07/25/25 00:22 Dose: Not Given Documented By: MAHESH Albuterol (Albut/Ipratrop 3mg/0.5mg Neb 3 Ml Vial) 3 ml NEB NOW STA; Protocol Stop: 07/25/25 00:39 Last Admin: 07/25/25 01:03 Dose: 3 ml Documented By: MAHESH Dextrose (Dextrose 50% 50 Ml Syringe) 50 ml IV NOW STA Stop: 07/25/25 00:41 Last Admin: 07/25/25 01:07 Dose: 50 ml Documented By: MAHESH Sodium Chloride (Nss) 1,000 mls @ 999 mls/hr IV .Q1H1M NIA Stop: 07/24/25 23:00 Last Infusion: 07/24/25 23:32 Dose: Infused Documented By: Admin: 07/24/25 22:30 Dose: 999 mls/hr Documented By: MAHESH Piperacillin Sod/Tazobactam Sod (Zosyn) 4.5 gm in 100 mls @ 200 mls/hr IV NOW STA Stop: 07/24/25 22:22 Last Infusion: 07/25/25 00:39 Dose: Infused Documented By: Admin: 07/25/25 00:04 Dose: 200 mls/hr Documented By: MAHESH Parenteral Electrolytes (Plasma-Lyte A Ph 7.4) 1,000 mls @ 999 mls/hr IV .Q1H1M ONE Stop: 07/24/25 23:30 Last Infusion: 07/25/25 01:53 Dose: Infused Documented By: Admin: 07/25/25 00:55 Dose: 999 mls/hr Documented By: MAHESH Calcium Gluconate () 1,000 mg in 60 mls @ 240 mls/hr IV NOW STA Stop: 07/24/25 22:44 Last Infusion: 07/25/25 00:08 Dose: Infused Documented By: Admin: 07/24/25 23:45 Dose: 240 mls/hr Documented By: MAHESH Albumin Human (Albumin 5%) 250 mls @ 500 mls/hr IV ONE ONE Stop: 07/24/25 23:14 Last Infusion: 07/25/25 00:08 Dose: Infused Documented By: Admin: 07/24/25 23:32 Dose: 500 mls/hr Documented By: MAHESH Vancomycin HCl 2,750 mg/ (Sodium Chloride) 555 mls @ 200 mls/hr IV NOW ONE Stop: 07/25/25 02:07 Last Admin: 07/25/25 00:39 Dose: 200 mls/hr Documented By: MAHESH Acetaminophen (Ofirmev) 1,000 mg in 100 mls @ 400 mls/hr IV NOW STA Stop: 07/25/25 00:33 Last Infusion: 07/25/25 00:39 Dose: Infused Documented By: Admin: 07/25/25 00:22 Dose: 400 mls/hr Documented By: MAHESH Insulin Human Regular 10 units (/ Syringe) 9.9 mls @ 3 mls/sec IV ONE STA Stop: 07/25/25 00:41 Last Admin: 07/25/25 01:07 Dose: 3 mls/sec Documented By: MAHESH Co-signed By: CARMELITA Parenteral Electrolytes (Plasma-Lyte A Ph 7.4) 1,000 mls @ 999 mls/hr IV .Q1H1M STA Stop: 07/25/25 02:46 Last Admin: 07/25/25 01:50 Dose: 999 mls/hr Documented By: MAHESH Ioversol (Optiray 320 125ml) 119 ml IV ONCE ONE Stop: 07/24/25 23:04 Last Admin: 07/24/25 23:03 Dose: 119 ml Documented By: JABARI Norepinephrine Bitartrate (Norepinephrine/D5w 4 Mg/250 Ml) Confirm Administered Dose 4 mg IV .STK-MED ONE Stop: 07/24/25 21:59 Last Admin: 07/24/25 23:15 Dose: Not Given Documented By: MAHESH ECG Additional Comments: Normal sinus rhythm Left anterior fascicular block Left ventricular hypertrophywith QRS widening(R in aVL,Jose product) Abnormal ECG When compared with ECG 16:35, ME intervalhas decreased Coding Level of Care Code 77954 CRITICAL CARE 1ST 30-74M Diagnoses Septic shock A41.9; R65.21 MAGDA (acute kidney injury) N17.9 Hyponatremia E87.1 Respiratory acidosis E87.29 Elevated liver enzymes R74.8 Brachial plexopathy G54.0
[2025-07-25] MEDS ORDERED: VANCOMYCIN CONSULT ACTIVE PRN (03:46)
[2025-07-25] MEDS ORDERED: DOCUSATE SODIUM 100 MG CAP PO PRN (03:46)
[2025-07-25] MEDS ORDERED: HYDROmorphone INJ 0.5 MG/0.5 ML SYR IV PRN ×2 (03:46)
[2025-07-25] MEDS: CEFEPIME 2000MG 2,000 MG/20 ML SYR IV ONE (04:38)
[2025-07-25] MEDS: PLASMA-LYTE A 1,000 ML IV SCH ×2 (04:38→18:55)
[2025-07-25 04:45] LABS: Base Excess VBG -4.9 mEq/L; HCO3 VBG 23 mmol/L; Oxygen Saturation VBG 61.5 %; PCO2 VBG 52 mmHg (38-50); PO2 VBG 37 mmHg; pH VBG 7.25 (7.36-7.41)
[2025-07-25 04:49] LABS: Hematocrit (blood only) 39.5 % (37.0-47.0); Hemoglobin 13.6 g/dl (12.0-16.0); Mean Corpuscular Hemoglobin 32.5 pg (25.0-34.0); Mean Corpuscular Volume 94.3 fL (80.0-100.0); Platelet Count 189 K/uL (130-400); RDW Standard Deviation 47.1 fL (36.4-46.3); Red Blood Count 4.19 M/uL (4.20-5.40); White Blood Count 24.71 K/ul (4.8-10.8)
[2025-07-25 05:00] LABS: Albumin Level 3.1 gm/dl (3.4-5.0); Anion Gap 12.0 (3-11); Bilirubin,Total 1.6 mg/dl (0.2-1.0); Calcium 8.8 mg/dl (8.6-10.3); Carbon Dioxide 20.0 mmol/L (21-32); Chloride 97.0 mmol/L (98-107); Potassium 5.0 mmol/L (3.5-5.1); Sodium 129.0 mmol/L (136-145)
[2025-07-25 05:06] LABS: Alanine Aminotransferase 65.0 U/L (7-52); Alkaline Phosphatase 269.0 U/L (34-104); Blood Urea Nitrogen 58.0 mg/dl (6-23); Creatinine Clr Calc Pharmacy 33.6 ml/min; Glucose 164.0 mg/dl (70-99(Fasting)); Total Protein 6.4 gm/dl (6.0-8.3)
[2025-07-25 05:18] LABS: Immature Granulocytes # (auto) 0.20 K/uL (0.01-0.20); Immature Granulocytes % (auto) 0.8 %; Polychromasia 1+
[2025-07-25] MEDS: HEPARIN SOD 5,000 UNIT/0.5 ML VIAL SQ SCH (05:53)
[2025-07-25] MEDS: NYSTATIN POWDER 15GM BTL EXT PRN (05:53)
--- NOTE | 2025-07-25 07:01 | Hospitalist Progress Note ---
Date of Service July 25, 2025 Assessment & Plan (1) Septic shock: (2) Bilateral arm weakness: (3) MAGDA (acute kidney injury): (4) Elevated liver enzymes: (5) Hypothyroidism: (6) Sleep apnea: (7) Hypertension: Plan 75-year-old female with remote history of breast cancer s/p mastectomy, chemo and radiation with progressive bilateral upper extremity weakness. 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 She was transferred to [facility] and had spinal surgery performed on July 16. She was discharged to [facility] on July 23. Presents today with hypotension, septic shock. # septic shock UA appears grossly infected. Patient with Temple catheter in place since 07/18/2025. Initially placed for urinary retention. Exchanged in the ER Follow cultures Continue cefepime, vancomycin for now nare mrsa screen is negative pressor support started 07/26 # post op cervical spine surgerypatient is somnolent but arousable, metabolic encephalopathy likely in setting of urinary infection poa Maintain cervical collar Pain management with IV Dilaudid as needed Frequent orientation Continue ropinirole 0.5 mg p.o. nightly for restless leg hold home oxycodone and fentanyl patch in setting of hypotension, renal compromise and encephalopathy l decrease gabapentin from 800 mg p.o. twice daily to 400 mg p.o. twice daily in setting of renal dysfunction and encephalopathy hold Flexeril for now #acute hypoxic respiratory failure associated with sepsispatient initially hypoxic requiring placement of supplemental oxygen. VBG with mild respiratory acidosis (7.2 60/36). Patient with history of DANNIE and reports compliance with her home CPAP CPAP nightly Supplemental oxygen as needed # abdominal pain. CT findings as above with nonspecific colitis. Mild elevated lactate 2.2--> 2.4 following 2 L of IV fluid. mild elevation of LFTs likely secondary to poor perfusion with prolonged hypotension Repeat LFTs in the morning Continue Protonix Continue bowel regimen as needed, is liquid stool consider C diff testing # MAGDA with CKD 3, BUN = 66, creatinine = 2.6. Per review of records, creatinine was 1.6 on 07/17. Patient with hyperkalemia upon arrival with K = greater than 6. She was medically treated with insulin/D50, albuterol, calcium and IV fluids. Repeat potassium improved to 4.8. Also with hyponatremia, sodium = 128. Adequate urine output Avoid nephrotoxic agents Renal dosing were needed Urine and serum osmolality for hyponatremia workup # hypothyroidism. TSH = 3.504 on 07/10/2025. Random cortisol appropriately elevated Continue Synthroid #History of breast cancer with likely recurrence. Pathology results not yet available for [place] records Continue letrozole Follow-up pathology results May need referral to oncology #Prophylaxisheparin 5000 units SQ every 8 Admission and Anticipated Discharge Date Admission Date: July 25, 2025 Subjective pt is fatigued and pale, some neck pain. Physical Exam Physical Exam: pt was pale but did converse, mild respiratory distress with need for increasing oxygen support Results & Data Results & Data Vital Signs (Past 12 Hours) Vital Signs Temp Pulse Pulse Resp BP BP Pulse Ox 07/25/25 06:46 104/53 L 07/25/25 06:31 93/54 L 07/25/25 06:23 86/54 L 07/25/25 06:01 92 H 28 H 83/59 L 94 07/25/25 05:46 97/54 L 07/25/25 05:31 94/53 L 07/25/25 05:16 90 15 94/53 L 95 07/25/25 04:45 86/51 L 07/25/25 04:32 81/50 L 07/25/25 04:16 96 H 17 92/55 L 97 07/25/25 03:55 94 H 24 95/55 L 100 07/25/25 03:46 98 H 07/25/25 03:33 07/25/25 03:30 07/25/25 03:25 98.2 F 98 H 18 104/57 L 93 07/25/25 02:58 95 H 07/25/25 02:48 91 H 13 98/81 L 94 07/25/25 02:40 105/59 L 07/25/25 02:32 89 13 94 07/25/25 02:31 96/55 L 07/25/25 02:29 89 14 94 07/25/25 02:10 94/74 L 07/25/25 02:02 99 H 19 92 07/25/25 02:00 96/78 L 07/25/25 01:50 95 H 14 89/52 L 93 07/25/25 01:48 91/55 L 07/25/25 01:47 97 H 15 91 07/25/25 01:41 94 H 14 66/46 L 90 07/25/25 01:40 76/54 L 07/25/25 01:38 93 H 15 92 07/25/25 01:32 94 H 17 90 07/25/25 01:30 100/64 07/25/25 01:20 86 17 82/49 L 92 07/25/25 01:17 89 16 07/25/25 01:10 88/59 L 07/25/25 01:05 89 19 92 07/25/25 01:00 94/60 L 07/25/25 00:59 91 H 19 91 07/25/25 00:50 89/65 L 07/25/25 00:47 94 H 22 90 07/25/25 00:41 95/82 L 07/25/25 00:37 93/74 L 07/25/25 00:33 50 L 18 92 07/25/25 00:32 92 H 17 07/25/25 00:30 100/59 L 07/25/25 00:29 92 H 15 93 07/25/25 00:26 94 H 17 07/25/25 00:23 66/53 L 07/25/25 00:21 86/45 L 07/25/25 00:14 93 H 19 90 07/25/25 00:11 90/62 L 07/25/25 00:11 92 H 18 90/62 L 91 07/25/25 00:00 104/67 07/24/25 23:56 95 H 17 94 07/24/25 23:50 94/62 L 07/24/25 23:50 94/62 L 07/24/25 23:50 94 H 16 94 07/24/25 23:41 96 H 29 H 94 07/24/25 23:40 110/59 L 07/24/25 23:38 95 H 26 H 95 07/24/25 23:30 110/64 07/24/25 23:30 110/64 07/24/25 23:27 90 20 99 07/24/25 23:20 105/67 07/24/25 23:18 95 H 23 99 07/24/25 23:12 92 H 20 99 07/24/25 23:11 109/65 07/24/25 22:42 84 22 95 07/24/25 22:41 88/44 L 07/24/25 22:39 88 25 H 07/24/25 22:33 81 22 96 07/24/25 22:30 93/40 L 07/24/25 22:25 64/48 L 07/24/25 22:25 15 L 07/24/25 22:25 96 07/24/25 22:12 87 22 95 07/24/25 22:10 104/89 07/24/25 22:08 77 07/24/25 22:03 98.4 F 78 20 93 07/24/25 21:55 79 61/38 L 07/24/25 21:48 77 70/40 L O2 Del Method O2 Flow Rate 07/25/25 06:46 07/25/25 06:31 07/25/25 06:23 07/25/25 06:01 Nasal Cannula 4 07/25/25 05:46 07/25/25 05:31 07/25/25 05:16 BiPAP 07/25/25 04:45 07/25/25 04:32 07/25/25 04:16 BiPAP 07/25/25 03:55 Nasal Cannula 4 07/25/25 03:46 07/25/25 03:33 BiPAP 07/25/25 03:30 Nasal Cannula, BiPAP 4 07/25/25 03:25 Nasal Cannula 4 07/25/25 02:58 07/25/25 02:48 BiPAP 07/25/25 02:40 07/25/25 02:32 BiPAP 07/25/25 02:31 07/25/25 02:29 BiPAP 07/25/25 02:10 07/25/25 02:02 BiPAP 07/25/25 02:00 07/25/25 01:50 BiPAP 07/25/25 01:48 07/25/25 01:47 BiPAP 07/25/25 01:41 BiPAP 07/25/25 01:40 07/25/25 01:38 BiPAP 07/25/25 01:32 BiPAP 07/25/25 01:30 07/25/25 01:20 BiPAP 07/25/25 01:17 07/25/25 01:10 07/25/25 01:05 BiPAP 07/25/25 01:00 07/25/25 00:59 BiPAP 07/25/25 00:50 07/25/25 00:47 BiPAP 07/25/25 00:41 07/25/25 00:37 07/25/25 00:33 4 07/25/25 00:32 07/25/25 00:30 07/25/25 00:29 BiPAP 07/25/25 00:26 07/25/25 00:23 07/25/25 00:21 07/25/25 00:14 Nasal Cannula 4 07/25/25 00:11 07/25/25 00:11 Nasal Cannula 4 07/25/25 00:00 07/24/25 23:56 Nasal Cannula 4 07/24/25 23:50 07/24/25 23:50 07/24/25 23:50 Nasal Cannula 07/24/25 23:41 Nasal Cannula 4 07/24/25 23:40 07/24/25 23:38 Non-rebreather 07/24/25 23:30 07/24/25 23:30 07/24/25 23:27 Non-rebreather 07/24/25 23:20 07/24/25 23:18 Non-rebreather 07/24/25 23:12 Non-rebreather 07/24/25 23:11 07/24/25 22:42 Non-rebreather 07/24/25 22:41 07/24/25 22:39 07/24/25 22:33 Non-rebreather 07/24/25 22:30 07/24/25 22:25 07/24/25 22:25 Non-rebreather 07/24/25 22:25 Non-rebreather 15 07/24/25 22:12 07/24/25 22:10 07/24/25 22:08 07/24/25 22:03 Non-rebreather 07/24/25 21:55 07/24/25 21:48 PG Care Time/CCT Total # of Minutes Spent Total Time Spent with Patient: Total time spent is greater than 50% in coordination of care (as documented) at patient's floor/unit and/or counseling patient: Coding Level of Care Code None Diagnoses Septic shock A41.9; R65.21 Bilateral arm weakness R29.898 MAGDA (acute kidney injury) N17.9 Elevated liver enzymes R74.8 Hypothyroidism E03.9 Sleep apnea G47.30 Hypertension I10
[2025-07-25 09:02] LABS: Anion Gap 9.0 (3-11); Blood Urea Nitrogen 59.0 mg/dl (6-23); Calcium 8.4 mg/dl (8.6-10.3); Carbon Dioxide 23.0 mmol/L (21-32); Chloride 98.0 mmol/L (98-107); Creatinine Clr Calc Pharmacy 36.2 ml/min; Glucose 166.0 mg/dl (70-99(Fasting)); Potassium 5.0 mmol/L (3.5-5.1); Sodium 130.0 mmol/L (136-145)
--- NOTE | 2025-07-25 09:50 | Communication Note ---
Date of Service: July 25, 2025 Continue to hold fentanyl patch as patient is lethargic. No improvement in blood pressure at this point adding thiamine 200 mg daily x 5 days then dis continue. Continue Vanco and cefepime most likely source going to be urine cannot exclude postoperative infection at this point however I think it is unlikely. Palliative care consult for continued goals of care discussion given surgery, central nervous system issues and recent loss of family support: 1500 update: Mild increase in vasoactive's adding vasopressin. Required definitive central venous access. I have personally spent 45 minutes of critical care time in the direct management of this patient. This is a life/limb threatening event. This includes time spent evaluating patient, direct bedside care, chart review, placing orders, interpretation of diagnostic studies, discussion with consultants, patient, and/or family members regarding treatment decisions, as well as other required patient management activities. This time is exclusive of all separately billable procedures, and teaching time and separate from and in addition to any other critical care service time. Coding Level of Care Code 07286 CRITICAL CARE EA ADD 30M
[2025-07-25] MEDS: THIAMINE HCL 200 MG in SODIUM CHLORIDE 0.9% 50 ML IV SCH (11:19)
[2025-07-25] MEDS: ARMOUR THYROID 30 MG TAB PO SCH (11:19)
[2025-07-25] MEDS: LETROZOLE 2.5 MG TAB PO SCH (11:19)
[2025-07-25] MEDS: GABAPENTIN 400 MG CAP PO SCH (11:20)
[2025-07-25] MEDS ORDERED: VANCOMYCIN HCL / NSS 1,000 MG/270 ML BAG IV SCH (12:00)
[2025-07-25 13:03] LABS: Anion Gap 13.0 (3-11); Blood Urea Nitrogen 61.0 mg/dl (6-23); Calcium 8.7 mg/dl (8.6-10.3); Carbon Dioxide 21.0 mmol/L (21-32); Chloride 97.0 mmol/L (98-107); Creatinine Clr Calc Pharmacy 34.8 ml/min; Glucose 166.0 mg/dl (70-99(Fasting)); Potassium 5.2 mmol/L (3.5-5.1); Sodium 131.0 mmol/L (136-145)
[2025-07-25] MEDS ORDERED: STAT IV Infusion **Titration per Protocol STA ×2 (13:55→19:19)
[2025-07-25] MEDS: VASOPRESSIN 20 UNITS in SODIUM CHLORIDE 0.9% 100 ML IV SCH (14:00)
--- NOTE | 2025-07-25 14:09 | XRay Report ---
XR chest 1V portable CLINICAL HISTORY: line placement COMPARISON STUDY: 07/24/2025 FINDINGS: Left central catheter tip is in the SVC. There is no pneumothorax. No consolidation or pleu ral effusion seen. IMPRESSION: No pneumothorax seen. ACT 112: Negative or not required by law. Electronically signed by: Shawn Garza M.D. 07/25/2025 2:07 PM
--- NOTE | 2025-07-25 14:50 | Procedure Note ---
Procedure Note Date of Service July 25, 2025 Procedure date: Noted above Procedure: Central venous access Pre-procedure indication: Need for vasoactive medication administration Post-procedure Diagnosis: same as above Prior to Procedure: Informed Consent: The risks, benefits, indications, potential complications, and alternatives were explained to the patient's son and informed consent obtained. Attending Staff: Hayden Sethi DO Resident/APC: Not applicable Skin Prep: Chlorhexidine Anesthesia: 4 mL 1% lidocaine without epinephrine The identity of the patient was confirmed and a bedside time out was performed. Prior to procedure location decision making. Patient is in a [place] after spinal surgery, also has questionable lesion on MRI. History of right radical mastectomy with radiation and history of lymphedema in right upper extremity. BMI of 52 with significant body habitus difficulties with pannus extending over inguinal areas. By enlarge part only viable location for advanced axis is the left upper chest. Description of Procedure: After sterile prep and sterile drape utilizing standard sterile technique the superficial skin of the left subclavian area was anesthetized. The target vessel was identified and entered with an 18-gauge needle. Dark venous blood return was noted. A guidewire was inserted through the needle and into the vessel. The needle was withdrawn and a skin adelina was made. A tissue dilator was advanced via Seldinger technique and removed. A triple lumen catheter was inserted via Seldinger technique and the guidewire removed. All ports richelle and flushed easily. A Biopatch was placed, and the catheter was secured via silk suture. A sterile dressing was then applied. Complications: None Estimated blood loss: Trace Patient tolerated the procedure well. [facility] [place] Procedure Codes (Charges) Tubes, Drains, and Vasc Access Procedure 1: Tubes, Drains, and Vasc Access: [id number] Insertion Of Non-tunneled Catheter Age 7 Yrs> Coding CPT Codes Tubes, Drains, and Vasc Access - Tubes, Drains, and Vasc Access: [id number] Insertion Of Non-tunneled Catheter Age 7 Yrs> ([id number]) Additional Codes Date of Service ([facility].[email or web address])
--- NOTE | 2025-07-25 15:40 | Pharmacy Report ---
Pharmacy PK ABX Note - Date of Service July 25, 2025 - Assessment and Plan Assessment * 75 year old F receiving cefepime and vancomycin for treatment of septic shock 2nd urinary vs. spinal source. Recent spinal fusion & laminectomy. * Pertinent microbiologic data includes: urine and blood cultures pending. Nasal MRSA swab negative * SCr originally elevated, now trending down Plan Vancomycin * Loading dose: 2750 mg IV x 1 @ 0039 * Maintenance dose: 1000 mg IV x1 @ 1800 * Dosing via level for now 2nd MAGDA and acutely changing SCr * Random level ordered for: 07/26 AM Pharmacy will continue to follow and will adjust dose/frequency as necessary. Thank you. Pharmacy has transitioned to AUC monitoring for vancomycin. AUC/OLGA is the preferred PK/PD target and is associated with decreased risk of nephrotoxicity compared to traditional trough targets.
--- NOTE | 2025-07-25 15:43 | Palliative Care Consultation ---
Date of Consultation July 25, 2025 Assessment & Plan (1) Weakness: (2) Lethargy: (3) Palliative care by specialist: Met with pt at bedside and spoke with son via phone. Spent 30 minutes discussing pt values and GOC with son. Introduced Palliative Medicine and explained our role in advanced care planning, symptom management and navigation through the progression of life limiting disease. Patient and/or family were receptive to palliative services for goals of care discussions. Reviewed we are different from hospice, a home health nurse visiting service. (4) Counseling regarding goals of care: Spoke with pt at bedside. She shared that she has been weak and tired since her surgery and this is why she is at hospital, she was unable to share any details of her medical history nor current hospital course, other than that she has "an infection". She was focused on describing her husbands illness and stay in SNF prior to his (07/06) and may have been blending some of his medical history with her own. BSRN shared that the patient was more lucid earlier in day, but at the time of my visit she was hypotensive and confused. Patient exhibits current lack of decisional capacity at this time. SHe did share that she is a and has a son and a daughter who she trusts to make decisions for her. She shared that her son should be first contact and was agreeable to me calling him to discuss her care. Spoke with pt's son, Emmanuel, by phone. he works daylight and visits the hospital in evenings but shared that he is available by phone at any time. He shared that he and his sister are very involved in pt's life. He shared that he had spoken with pt earlier today and she told him that she is in ICU because she has and infection and a bowel obstruction. Discussed pt's HPI and admission course. Helped Emmanuel understand that the pt is critically ill and requiring ICU level care due to need for vasoactive medications. Emmanuel shared that pt's recently and since that time pt has been discussing her GOC with him and his sister. He shared that she has an advanced directive from 2007, but it is not consistent with her current wishes. He shared that last week they discussed what she would want done and she told them that she would want resuscitation and mechanical ventilation if needed to prolong her life. Emmanuel shared that he and his sister will support the patient's wishes as she has verbalized them just da ys ago. Emmanuel shared concern that the pt has been ill since her spinal surgery, but he states he remains hopeful for full recovery and return to independent living. Plan Full support. History of Present Illness Reason for Consultation: goals of care Requesting Physician: Madi Sethi MD Attending Physician: Carlos Espinosa MD History of Present Illness Maryan Gonzalez 75-year-old female with history of breast cancer s/p mastectomy, chemo and radiation, sleep apnea and hypertension presenting from [facility] with lethargy and hypotension. Patient has been having progressive bilateral upper extremity weakness ongoing since May. She was seen at [facility] on 06/21/2025 and had a cervical spi ne without contrast which showed a left C6-C7 and C7-T1 neuroforaminal narrowing which may affect the exiting nerve root. MRI of the thoracic spine with mild spinal stenosis, T8-T9 through T10-T11. Patient was admitted to [facility] from 07/10 - 07/14/25 after presenting with worsening bilateral upper extremity pain. On 07/12 patient had a cervical spine MRI which showed epidural thickening extending from C4-T2 with associated postcontrast enhancement, could be consistent with epidural metastatic disease or treatment related changes. She had a chest MRI performed on 07/13 which revealed C2-T3 dorsal epidural hematoma which seems unlikely based on review by day time/day for radiologist and some signal enhancement in the right brachial plexus Patient was ultimately transferred to [facility] on 07/14/2025 for neurosurgical evaluation. On 07/16/2025 patient had biopsy of C6 and C7 spinous processes and epidural area, C5-T1 laminectomy, bilateral foraminotomies at C5-C6, C6-C7 and T1-T2 and posterior spinal fusion C3-T2, posterior instrumentation patient C3-T2 and allograft performed by Dr. Sanchez at [facility]. 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 Patient did well postoperatively and was discharged to [facility] on 07/23/2025. Allergies Allergy/AdvReac Type Severity Reaction Status Date / Time adhesive tape Allergy Rash Unverified 07/10/25 19:18 clindamycin Allergy Unknown Verified 07/10/25 23:07 crab Allergy Nausea Verified 07/10/25 23:07 levofloxacin Allergy Diarrhea Verified 07/10/25 19:17 levothyroxine sodium Allergy Unknown Verified 07/10/25 23:07 [From Synthroid] amoxicillin [From Augmentin] AdvReac Diarrhea Verified 07/10/25 19:17 ciprofloxacin AdvReac Diarrhea Verified 07/10/25 19:17 clavulanic acid AdvReac Diarrhea Verified 07/10/25 19:17 [From Augmentin] Home Medications Medication Instructions Recorded Confirmed Type furosemide 20 mg tablet 20 mg PO DAILY PRN Weight Gain 03/07/24 07/24/25 History letrozole 2.5 mg tablet 2.5 mg PO DAILY 03/07/24 07/24/25 History ropinirole 0.5 mg tablet 0.5 mg PO HS 09/12/24 07/24/25 History amitriptyline 25 mg tablet 25 mg PO HS 02/20/25 07/24/25 History empagliflozin 10 mg tablet 10 mg PO QAM 02/20/25 07/24/25 History (Jardiance) gabapentin 400 mg capsule 800 mg PO Q12 02/20/25 07/24/25 History lisinopril 10 1 tab PO DAILY 02/20/25 07/24/25 History mg-hydrochlorothiazide 12.5 mg tablet oxycodone 5 mg tablet 5 mg PO Q4 PRN Moderate Pain 07/10/25 07/24/25 History (Scale Score 4-6) acetaminophen 500 mg tablet 1,000 mg PO Q8 07/24/25 07/24/25 History bisacodyl 10 mg rectal suppository [address] DAILY PRN Constipation 07/24/25 07/24/25 History (Dulcolax (bisacodyl)) cyclobenzaprine 5 mg tablet 5 mg PO TID PRN Muscle Spasm 07/24/25 07/24/25 History docusate sodium 100 mg capsule 100 mg PO Q12 PRN Constipation 07/24/25 07/24/25 History enoxaparin 60 mg/0.6 mL 60 mg subcut BID 07/24/25 07/24/25 History subcutaneous syringe fentanyl 50 mcg/hr transdermal 1 patch transdermal Q72H 07/24/25 07/24/25 History patch ondansetron 4 mg disintegrating 4 mg PO Q6H PRN NAUSEA OR VOMITING 07/24/25 07/24/25 History tablet oxycodone 5 mg tablet 10 mg PO Q4H PRN PAIN (SCALE 7-10) 07/24/25 07/24/25 History pantoprazole 40 mg tablet,delayed 40 mg PO DAILYBB 07/24/25 07/24/25 History release sennosides 8.6 mg-docusate sodium 1 tab-cap PO QDL PRN Constipation 07/24/25 07/24/25 History 50 mg tablet (Senokot-S) thyroid (pork) 30 mg tablet 60 mg PO DAILY 07/24/25 07/24/25 History ([place] Thyroid) Patient History Medical History Hx of blood clots Kidney failure Bronchitis Surgical History H/O ligation of vein 7231-1515 H/O mastectomy 2012 History of carpal tunnel surgery History of left knee replacement 2011 H/O right knee surgery 2010 Hx of tonsillectomy 1977 H/O lymph node excision 2022 H/O total mastectomy (~2022) Right and sentinel node biopsy/ right axillary lymph node dissection Family History Aunt Breast cancer Other Diabetes Heart disease Stroke Social History Smoking Status: Unknown if ever smoked Hx Alcohol Use: Yes Alcohol type: hard liquor Alcohol Intake Frequency: 2-4 x/Month Hx Substance Use: No Preferred Language: Portuguese Communication Ability: Effective Cloth Tester Required: No Beliefs That Will Affect Care: None marital status: Current Living Situation: Alone current occupational status: retired Other Information That Helps Us Care for You: No Feels Safe at Home: Yes Safety Concerns: Feels Safe At This Time Diet: regular during the past year weight has: increased > 10 lbs Assistive Devices: Cane and Glasses Review of Systems Constitutional: + body aches, + fatigue and + malaise Neurologic: + paresthesia paresthesias to both hands, chronic Physical Exam Constitutional: + ill appearing, + morbidly obese, coope rative and + edematous; no acute distress Eyes: PERRL, conjunctivae normal, anicteric sclerae Neck: trachea midline, no thyromegaly Cardiovascular: Rate/Rhythm: + tachycardic Heart Sounds: normal S1 and normal S2 Extremities: + edema Gastrointestinal (Abdomen): normal bowel sounds, soft, nontender, no hepatosplenomegaly Neurologic: PERRL, EOMI, accommodation nl, no face palsy, no dysarthria Psychiatric: A+Ox3, euthymic affect Lymphatic: + lymphedema Results & Data Vital Signs (Past 12 Hours) Vital Signs Temp Pulse Pulse Resp BP BP Pulse Ox 07/25/25 12:05 98 H 26 H 90 07/25/25 06:46 104/53 L 07/25/25 06:31 93/54 L 07/25/25 06:23 86/54 L 07/25/25 06:01 92 H 28 H 83/59 L 94 07/25/25 05:46 97/54 L 07/25/25 05:31 94/53 L 07/25/25 05:16 90 15 94/53 L 95 07/25/25 04:45 86/51 L 07/25/25 04:32 81/50 L 07/25/25 04:16 96 H 17 92/55 L 97 07/25/25 03:55 94 H 24 95/55 L 100 07/25/25 03:46 98 H 07/25/25 03:33 07/25/25 03:30 07/25/25 03:25 36.8 C 98 H 18 104/57 L 93 07/25/25 02:58 95 H 07/25/25 02:48 91 H 13 98/81 L 94 07/25/25 02:40 105/59 L 07/25/25 02:32 89 13 94 07/25/25 02:31 96/55 L 07/25/25 02:29 89 14 94 07/25/25 02:10 94/74 L 07/25/25 02:02 99 H 19 92 07/25/25 02:00 96/78 L 07/25/25 01:50 95 H 14 89/52 L 93 07/25/25 01:48 91/55 L O2 Del Method O2 Flow Rate 07/25/25 12:05 7 07/25/25 06:46 07/25/25 06:31 07/25/25 06:23 07/25/25 06:01 Nasal Cannula 4 07/25/25 05:46 07/25/25 05:31 07/25/25 05:16 BiPAP 07/25/25 04:45 07/25/25 04:32 07/25/25 04:16 BiPAP 07/25/25 03:55 Nasal Cannula 4 07/25/25 03:46 07/25/25 03:33 BiPAP 07/25/25 03:30 Nasal Cannula, BiPAP 4 07/25/25 03:25 Nasal Cannula 4 07/25/25 02:58 07/25/25 02:48 BiPAP 07/25/25 02:40 07/25/25 02:32 BiPAP 07/25/25 02:31 07/25/25 02:29 BiPAP 07/25/25 02:10 07/25/25 02:02 BiPAP 07/25/25 02:00 07/25/25 01:50 BiPAP 07/25/25 01:48 Laboratory Results Abnormal lab results 07/24/25 07/24/25 07/24/25 Range/Units 22:27 22:29 22:37 WBC 26.51 H (4.8-10.8) K/ul RBC (4.20-5.40) M/uL RDW Std Deviation 47.4 H (36.4-46.3) fL Neut # (Auto) 24.37 H (1.40-6.50) K/uL Lymph # (Auto) 0.37 L (1.20-3.40) K/uL [place] # (Auto) 1.21 H (0.11-0.59) K/uL Immature Gran # (Auto) 0.51 H (0.01-0.20) K/uL VBG pH (7.36-7.41) VBG pCO2 (38-50) mmHg POC Sodium 127 L (135-144) mmol/L Sodium 128 L (136-145) mmol/L POC Potassium 6.1 H* (3.3-5.0) mmol/L Potassium 6.2 H* (3.5-5.1) mmol/L POC Chloride 97 L (101-112) mmol/L Chloride 91 L (98-107) mmol/L Carbon Dioxide (21-32) mmol/L Anion Gap (3-11) POC Anion Gap 12.0 L (16-25) mmol/L POC BUN 65 H (7-18) mg/dl BUN 66 H (6-23) mg/dl Creatinine 2.64 H (0.6-1.2) mg/dl POC Creatinine 2.9 H (0.6-1.3) mg/dl BUN/Creatinine Ratio 25.0 H (10-20) Glucose 152 H (70-99(Fasting)) mg/dl POC Glucose (other) 155 H (70-99) mg/dl Osmolality (280-300) mOsm/kg Lactate 2.2 H* (0.4-2.0) mmol/L Calcium (8.6-10.3) mg/dl Total Bilirubin 1.4 H (0.2-1.0) mg/dl Direct Bilirubin 0.7 H (0-0.2) mg/dl AST 55 H (13-39) U/L ALT 59 H (7-52) U/L Alkaline Phosphatase 261 H (34-104) U/L Troponin I High Sens 24.7 H (0-14) pg/ml C-Reactive Protein (0-0.5) mg/dl Albumin 3.2 L (3.4-5.0) gm/dl Procalcitonin 5.25 H (0-0.5) ng/ml Urine Appearance Turbid A (Clear) Urine Protein 2+ H (Negative) Urine Glucose (UA) 1+ H (Negative) Urine Blood 3+ H (Negative) Ur Leukocyte Esterase 3+ H (Negative) Urine WBC (Auto) >50 H (0-5) /hpf Urine RBC (Auto) >20 H (0-2) /hpf U Hyaline Cast (Auto) 11-20 H (0-2) /lpf Urine Bacteria (Auto) 4+ H (None Seen) Urine Osmolality (500-800) mOsm/kg Random Vancomycin (10-20) mcg/ml 07/24/25 07/25/25 07/25/25 Range/Units 23:26 00:45 01:48 WBC (4.8-10.8) K/ul RBC (4.20-5.40) M/uL RDW Std Deviation (36.4-46.3) fL Neut # (Auto) (1.40-6.50) K/uL Lymph # (Auto) (1.20-3.40) K/uL [place] # (Auto) (0.11-0.59) K/uL Immature Gran # (Auto) (0.01-0.20) K/uL VBG pH 7.23 L (7.36-7.41) VBG pCO2 60 H (38-50) mmHg POC Sodium (135-144) mmol/L Sodium 129 L (136-145) mmol/L POC Potassium (3.3-5.0) mmol/L Potassium (3.5-5.1) mmol/L POC Chloride (101-112) mmol/L Chloride 95 L (98-107) mmol/L Carbon Dioxide (21-32) mmol/L Anion Gap (3-11) POC Anion Gap (16-25) mmol/L POC BUN (7-18) mg/dl BUN 60 H (6-23) mg/dl Creatinine 2.31 H D (0.6-1.2) mg/dl POC Creatinine (0.6-1.3) mg/dl BUN/Creatinine Ratio 26.0 H (10-20) Glucose 208 H (70-99(Fasting)) mg/dl POC Glucose (other) (70-99) mg/dl Osmolality (280-300) mOsm/kg Lactate 2.4 H* (0.4-2.0) mmol/L Calcium 8.4 L (8.6-10.3) mg/dl Total Bilirubin (0.2-1.0) mg/dl Direct Bilirubin (0-0.2) mg/dl AST (13-39) U/L ALT (7-52) U/L Alkaline Phosphatase (34-104) U/L Troponin I High Sens 17.0 H D (0-14) pg/ml C-Reactive Protein (0-0.5) mg/dl Albumin (3.4-5.0) gm/dl Procalcitonin (0-0.5) ng/ml Urine Appearance (Clear) Urine Protein (Negative) Urine Glucose (UA) (Negative) Urine Blood (Negative) Ur Leukocyte Esterase (Negative) Urine WBC (Auto) (0-5) /hpf Urine RBC (Auto) (0-2) /hpf U Hyaline Cast (Auto) (0-2) /lpf Urine Bacteria (Auto) (None Seen) Urine Osmolality (500-800) mOsm/kg Random Vancomycin (10-20) mcg/ml 07/25/25 07/25/25 07/25/25 Range/Units 04:17 06:52 08:18 WBC 24.71 H (4.8-10.8) K/ul RBC 4.19 L (4.20-5.40) M/uL RDW Std Deviation 47.1 H (36.4-46.3) fL Neut # (Auto) 23.26 H (1.40-6.50) K/uL Lymph # (Auto) 0.53 L (1.20-3.40) K/uL [place] # (Auto) 0.68 H (0.11-0.59) K/uL Immature Gran # (Auto) (0.01-0.20) K/uL VBG pH 7.25 L (7.36-7.41) VBG pCO2 52 H (38-50) mmHg POC Sodium (135-144) mmol/L Sodium 129 L 130 L (136-145) mmol/L POC Potassium (3.3-5.0) mmol/L Potassium (3.5-5.1) mmol/L POC Chloride (101-112) mmol/L Chloride 97 L (98-107) mmol/L Carbon Dioxide 20 L (21-32) mmol/L Anion Gap 12 H (3-11) POC Anion Gap (16-25) mmol/L POC BUN (7-18) mg/dl BUN 58 H 59 H (6-23) mg/dl Creatinine 2.07 H 1.92 H (0.6-1.2) mg/dl POC Creatinine (0.6-1.3) mg/dl BUN/Creatinine Ratio 28.0 H 30.7 H (10-20) Glucose 164 H 166 H (70-99(Fasting)) mg/dl POC Glucose (other) (70-99) mg/dl Osmolality 305 H (280-300) mOsm/kg Lactate 2.2 H* (0.4-2.0) mmol/L Calcium 8.4 L (8.6-10.3) mg/dl Total Bilirubin 1.6 H (0.2-1.0) mg/dl Direct Bilirubin 1.1 H (0-0.2) mg/dl AST 96 H (13-39) U/L ALT 65 H (7-52) U/L Alkaline Phosphatase 269 H (34-104) U/L Troponin I High Sens 14.3 H (0-14) pg/ml C-Reactive Protein 20.23 H (0-0.5) mg/dl Albumin 3.1 L (3.4-5.0) gm/dl Procalcitonin (0-0.5) ng/ml Urine Appearance (Clear) Urine Protein (Negative) Urine Glucose (UA) (Negative) Urine Blood (Negative) Ur Leukocyte Esterase (Negative) Urine WBC (Auto) (0-5) /hpf Urine RBC (Auto) (0-2) /hpf U Hyaline Cast (Auto) (0-2) /lpf Urine Bacteria (Auto) (None Seen) Urine Osmolality 425 L (500-800) mOsm/kg Random Vancomycin (10-20) mcg/ml 07/25/25 Range/Units 12:27 WBC (4.8-10.8) K/ul RBC (4.20-5.40) M/uL RDW Std Deviation (36.4-46.3) fL Neut # (Auto) (1.40-6.50) K/uL Lymph # (Auto) (1.20-3.40) K/uL [place] # (Auto) (0.11-0.59) K/uL Immature Gran # (Auto) (0.01-0.20) K/uL VBG pH (7.36-7.41) VBG pCO2 (38-50) mmHg POC Sodium (135-144) mmol/L Sodium 131 L (136-145) mmol/L POC Potassium (3.3-5.0) mmol/L Potassium 5.2 H (3.5-5.1) mmol/L POC Chloride (101-112) mmol/L Chloride 97 L (98-107) mmol/L Carbon Dioxide (21-32) mmol/L Anion Gap 13 H (3-11) POC Anion Gap (16-25) mmol/L POC BUN (7-18) mg/dl BUN 61 H (6-23) mg/dl Creatinine 2.00 H (0.6-1.2) mg/dl POC Creatinine (0.6-1.3) mg/dl BUN/Creatinine Ratio 30.5 H (10-20) Glucose 166 H (70-99(Fasting)) mg/dl POC Glucose (other) (70-99) mg/dl Osmolality (280-300) mOsm/kg Lactate (0.4-2.0) mmol/L Calcium (8.6-10.3) mg/dl Total Bilirubin (0.2-1.0) mg/dl Direct Bilirubin (0-0.2) mg/dl AST (13-39) U/L ALT (7-52) U/L Alkaline Phosphatase (34-104) U/L Troponin I High Sens (0-14) pg/ml C-Reactive Protein (0-0.5) mg/dl Albumin (3.4-5.0) gm/dl Procalcitonin (0-0.5) ng/ml Urine Appearance (Clear) Urine Protein (Negative) Urine Glucose (UA) (Negative) Urine Blood (Negative) Ur Leukocyte Esterase (Negative) Urine WBC (Auto) (0-5) /hpf Urine RBC (Auto) (0-2) /hpf U Hyaline Cast (Auto) (0-2) /lpf Urine Bacteria (Auto) (None Seen) Urine Osmolality (500-800) mOsm/kg Random Vancomycin 22.4 H (10-20) mcg/ml Diagnostic Findings Abdomen/Pelvis CTA 07/24/25 21:53 Exam(s): CTA ABDOMEN + PELVIS With Contrast IV Amt: 119ml opti 320 EXAM: CT Angiography Abdomen and Pelvis With Intravenous Contrast CLINICAL HISTORY: Reason for exam: eval for AAA. TECHNIQUE: Axial computed tomographic angiography images of the abdomen and pelvis with intravenous contrast. CTDI is 69 mGy and DLP is 2230 mGy-cm. Automated exposure control was utilized for the study. A dose lowering technique was utilized adhering to the principles of ALARA. MIP reconstructed images were created and reviewed. CONTRAST: Patient received 119ml opti 320 of IV contrast COMPARISON: No relevant prior studies available. FINDINGS: VASCULATURE: Aorta: No acute findings. No abdominal aortic aneurysm. No dissection. Celiac trunk and mesenteric arteries: No acute findings. No occlusion or significant stenosis. Renal arteries: No acute findings. No occlusion or significant stenosis. Iliac arteries: No acute findings. No occlusion or significant stenosis. Lung bases: Unremarkable. No mass. No consolidation. ABDOMEN: Liver: Borderline hepatomegaly. Gallbladder and bile ducts: Unremarkable. No calcified stones. No ductal dilation. Pancreas: 1.6 x 1.2 cm pancreatic body cyst. No ductal dilation. Spleen: Unremarkable. No splenomegaly. Adrenals: Unremarkable. No mass. Kidneys and ureters: Unremarkable. No hydronephrosis. No solid mass. Stomach and bowel: Subtle inflammatory changes about the splenic flexure and proximal descending colon consistent with colitis within same. Large amount of liquid stool within the colon. PELVIS: Appendix: No findings to suggest acute appendicitis. Bladder: Temple catheter within the urinary bladder. Reproductive: Unremarkable as visualized. ABDOMEN and PELVIS: Intraperitoneal space: Unremarkable. No significant fluid collection. No free air. Bones/joints: No acute fracture. No dislocation. Soft tissues: Unremarkable. Lymph nodes: Unremarkable. No enlarged lymph nodes. IMPRESSION: Mild uncomplicated colitis Large amount of liquid stool within the colon No evidence of abdominal aortic aneurysm. Electronically signed by: Kavon Mckeon MD 07/24/25 23:46 PM Chest CTA 07/24/25 21:53 Exam(s): CTA CHEST W/WO Contrast IV Amt: 119cc opti 320 EXAM: CT Angiography Chest Without and With Intravenous Contrast CLINICAL HISTORY: Reason for exam: eval for AAA. TECHNIQUE: Axial computed tomographic angiography images of the chest without and with intravenous contrast. CTDI is 28.14 mGy and DLP is 796 mGy-cm. Automated exposure control was utilized for the study. A dose lowering technique was utilized adhering to the principles of ALARA. MIP reconstructed images were created and reviewed. CONTRAST: Patient received 119cc opti 320 of IV contrast COMPARISON: Reference is made to MRI dated 07/13/2025 FINDINGS: Limitations: Exam limited secondary to patient respiratory motion. Pulmonary arteries: Unremarkable. No pulmonary embolism. Aorta: No acute findings. No thoracic aortic aneurysm. Lungs: Bibasilar imqk-[id number]-right dependent atelectasis. No mass. Pleural space: Unremarkable. No significant effusion. No pneumothorax. Heart: Unremarkable. No cardiomegaly. No significant pericardial effusion. No evidence of RV dysfunction. Bones/joints: Postoperative changes T1 and T2 interbody fusion. No acute fracture. No dislocation. Soft tissues: 6.2 x 3.3 cm soft tissue mass along the lateral tail of the right pectoralis major muscle. Air contains numerous surgical clips and corresponds to the abnormality identified as a hematoma on the prior MRI. Lymph nodes: Unremarkable. No enlarged lymph nodes. IMPRESSION: No acute findings in the visualized arteries of the chest. Exam limited as described above Right chest wall soft tissue mass likely representing resolving hematoma similar appearance when compared with the prior MRI Electronically signed by: Kavon Mckeon MD 07/24/25 23:31 PM Chest X-Ray 07/25/25 13:45 XR chest 1V portable CLINICAL HISTORY: line placement COMPARISON STUDY: 07/24/2025 FINDINGS: Left central catheter tip is in the SVC. There is no pneumothorax. No consolidation or pleural effusion seen. IMPRESSION: No pneumothorax seen. ACT 112: Negative or not required by law. Electronically signed by: Shawn Garza M.D. 07/25/2025 2:07 PM Medications Administered Current Inpatient Medications Amitriptyline HCl (Amitriptyline Hcl 25 Mg Tab) 25 mg PO HS NIA Stop: 08/24/25 20:59 Bisacodyl (Bisacodyl 10 Mg Supp) [address] DAILY PRN PRN Reason: Constipation Stop: 08/24/25 03:45 Fentanyl (Fentanyl 50 Mcg/Hr Tdsy) 1 patch TD Q3D NIA Stop: 08/08/25 08:59 Gabapentin (Gabapentin 400 Mg Cap) 400 mg PO Q12 NIA Stop: 08/24/25 08:59 Last Admin: 07/25/25 11:20 Dose: 400 mg Heparin Sodium (Porcine) (Heparin Sod 5,000 Unit/0.5 Ml Vial) 5,000 units SQ Q8 NIA Stop: 08/24/25 05:59 Last Admin: 07/25/25 05:53 Dose: 5,000 units Hydromorphone HCl (Hydromorphone Inj 0.5 Mg/0.5 Ml Syr) 0.25 mg IV Q3H PRN PRN Reason: Pain (1,2,3,4,5) & Pre PT Stop: 08/08/25 03:45 Hydromorphone HCl (Hydromorphone Inj 0.5 Mg/0.5 Ml Syr) 0.5 mg IV Q3H PRN PRN Reason: Pain (6,7,8,9,10) Stop: 08/08/25 03:45 Norepinephrine Bitartrate (Levophed/D5w) 4 mg in 250 mls @ 68.25 mls/hr IV .Q3H40M NIA; Protocol Stop: 08/23/25 22:44 Last Titration: 07/25/25 12:44 Dose: 0.13 mcg/kg/min, 68.3 mls/hr Thiamine HCl 200 mg/ Sodium (Chloride) 52 mls @ 210 mls/hr IV QAM [facility] Stop: 07/29/25 09:15 Last Admin: 07/25/25 11:19 Dose: 210 mls/hr Vasopressin 20 units/ Sodium (Chloride) 101 mls @ 12.12 mls/hr IV .Q8H20M [facility] Stop: 08/24/25 13:59 Cefepime HCl (Maxipime 2000mg) 2,000 mg in 20 mls @ 5 mls/min IV Q12H NIA Stop: 08/04/25 15:59 Vancomycin HCl (Vancomycin Hcl / Nss) 1,000 mg in 270 mls @ 200 mls/hr IV TODAY@1800 ONE Stop: 07/25/25 19:20 Letrozole (Letrozole 2.5 Mg Tab) 2.5 mg PO DAILY [facility] Stop: 08/24/25 08:59 Last Admin: 07/25/25 11:19 Dose: 2.5 mg Miscellaneous (Fentanyl Patch Remove & Waste) 1 each N/A Q3D@0859 [facility] Stop: 08/27/25 08:58 Miscellaneous (Check Fentanyl Patch Placement) 1 each N/A QS [facility] Stop: 08/24/25 15:59 Miscellaneous (Icu Protocol For Hyperglycemia) 1 each N/A ACHS [facility] Stop: 07/27/25 07:29 Last Admin: 07/25/25 12:40 Dose: Not Given Miscellaneous Information (Vancomycin Consult Active) 1 each N/A UD PRN PRN Reason: Consult Stop: 08/24/25 03:45 Nystatin (Nystatin Powder 15gm Btl) 1 appln EXT BID PRN PRN Reason: groin fold excoriation Stop: 08/24/25 03:45 Last Admin: 07/25/25 05:53 Dose: 1 appln Pantoprazole Sodium (Pantoprazole 40 Mg Tab) 40 mg PO DAILYBB [facility] Stop: 08/24/25 06:29 Last Admin: 07/25/25 05:54 Dose: 40 mg Ropinirole HCl (Ropinirole Hcl 0.25 Mg Tablet) 0.5 mg PO HS [facility] Stop: 08/24/25 20:59 Senna/Docusate Sodium (Docusate Sodium/Senna 50/8.6mg Tab) 1 tab PO QDL PRN PRN Reason: Constipation Stop: 08/24/25 03:45 Thyroid ([place] Thyroid 30 Mg Tab) 60 mg PO DAILY NIA Stop: 08/24/25 08:59 Last Admin: 07/25/25 11:19 Dose: 60 mg PG Care Time/CCT Total # of Minutes Spent Total Time Spent with Patient: Total time spent is greater than 50% in coordination of care (as documented) at patient's floor/unit and/or counseling patient: [place] [address] IN/OBS CONSULT LVL 4,60M Patient Type New Medical Decision Making Moderate Complexity Diagnoses Weakness R53.1 Lethargy R53.83 Palliative care by specialist Z51.5 Counseling regarding goals of care Z71.89
--- NOTE | 2025-07-25 17:06 | XCELERA ---
[id number] [id number]
[2025-07-25] MEDS: CEFEPIME 2000MG 2,000 MG/20 ML SYR IV SCH (17:31)
[2025-07-25] MEDS ORDERED: CEFEPIME 2000MG 2,000 MG/20 ML SYR IV SCH (18:00)
[2025-07-25] MEDS ORDERED: CEFEPIME 1000MG 1,000 MG/10 ML SYR IV SCH (18:00)
[2025-07-25 18:27] LABS: Blood Urea Nitrogen 62.0 mg/dl (6-23); Carbon Dioxide 21.0 mmol/L (21-32); Chloride 97.0 mmol/L (98-107); Creatinine Clr Calc Pharmacy 37.6 ml/min; Glucose 181.0 mg/dl (70-99(Fasting))
[2025-07-25 18:30] LABS: Anion Gap 12.0 (3-11); Calcium 8.4 mg/dl (8.6-10.3); Potassium 4.8 mmol/L (3.5-5.1); Sodium 130.0 mmol/L (136-145)
[2025-07-25] MEDS: VANCOMYCIN HCL / NSS 1,000 MG/270 ML BAG IV ONE (18:42)
[2025-07-25 20:48] LABS: Anion Gap 11.0 (3-11); Blood Urea Nitrogen 61.0 mg/dl (6-23); Calcium 8.4 mg/dl (8.6-10.3); Carbon Dioxide 21.0 mmol/L (21-32); Chloride 99.0 mmol/L (98-107); Creatinine Clr Calc Pharmacy 38.6 ml/min; Glucose 166.0 mg/dl (70-99(Fasting)); Potassium 4.8 mmol/L (3.5-5.1); Sodium 131.0 mmol/L (136-145)
[2025-07-25] MEDS: NOREPINEPHRINE/D5W 4 MG/250 ML PLCT IV SCH (21:22)
[2025-07-25] MEDS: AMITRIPTYLINE HCL 25 MG TAB PO SCH (21:23)
[2025-07-26 05:27] LABS: Hematocrit (blood only) 35.4 % (37.0-47.0); Hemoglobin 11.6 g/dl (12.0-16.0); Mean Corpuscular Hemoglobin 30.7 pg (25.0-34.0); Mean Corpuscular Volume 93.7 fL (80.0-100.0); Platelet Count 176 K/uL (130-400); RDW Standard Deviation 48.8 fL (36.4-46.3); Red Blood Count 3.78 M/uL (4.20-5.40); White Blood Count 18.15 K/ul (4.8-10.8)
[2025-07-26 05:34] LABS: Alanine Aminotransferase 51.0 U/L (7-52); Albumin Level 2.6 gm/dl (3.4-5.0); Alkaline Phosphatase 210.0 U/L (34-104); Bilirubin,Total 1.2 mg/dl (0.2-1.0); Magnesium 2.5 mg/dl (1.7-2.4); Total Protein 5.5 gm/dl (6.0-8.3)
[2025-07-26 06:01] LABS: Immature Granulocytes # (auto) 0.34 K/uL (0.01-0.20); Immature Granulocytes % (auto) 1.9 %; Polychromasia 1+
--- NOTE | 2025-07-26 07:44 | Critical Care Progress Note ---
Date of Service July 26, 2025 Assessment & Plan (1) Counseling regarding goals of care: (2) Palliative care by specialist: (3) Lethargy: (4) Elevated liver enzymes: (5) Respiratory acidosis: (6) Hyponatremia: (7) MAGDA (acute kidney injury): (8) Septic shock: (9) Brachial plexopathy: (10) Polyradiculopathy: (11) Bilateral arm weakness: (12) Back pain with left-sided radiculopathy: (13) Weakness: Plan 75 YOF presents hypotensive with concern for septic shock with organ dysfunction. Source at this time appears to be likely urine. Neuro - Metabolic Encephalopathy, Hx: Of brachioplexopathy, s/p C6 process biopsy to rule out malignancy, chronic pain CAM ICU: + - Supporrtive care for encephalopathy- improving with control of sepsis and perfusion - Cervical collar to remain in place- attempt to obtain biopsy results from [facility] [place], as well as post surgical instruction - Chronic pain- continue multimodal pain approach- will remove fentanyl patch if on at this time until vasopressors are off- Hydromorphone IV - continue adjuvants - Cervical collar on at all times Cardiac - Shock, - Shock- septic at this time likely secondary to urinary source, with organ dysfunction - brain, renals, liver, heart - Continue with hemodynamics support- Levophed @0.05 mcg/kg/min, Vasopressors added currently on 0.04 units/min - body habitus and peripheral lymphedema makes assessing volume status difficult as well as POCUS imaging- follow end organ labs, and urine output - Blood culture reports is negative Respiratory - DANNIE, Hypercarbic respiratory acidosis - Patient arrives wearing her CPAP- Initial VBG with mild respiratory acidosis - No further acute needs GI - Abdominal pain, nonspecific colitis on imaging, - follow clinically- if frequent consider testing of stool - LFTS improving - Carb consistent diet RENAL/LYTES - MAGDA/ARF, hyponatremia, hyperkalemia - non-oliguric renal injury classified with acute renal failure- 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 neoplastic process on spine - Attempt to identify biopsy results - Consider consultation with heme onc again once acute illness is resolved ID - Septic shock - Source urinary and possible nonspecific colitis - Continue Vanco- de-escelate when able - Cefepime- de-escelate when targeted results are available - PCT - 5, WBC, 26 LINES/IV ACCESS - PIV LT arm Temple Continue use of these lines Body habitus and cervical collar will make obtaining central access challenging, hopeful she continues to respond favorably DVT PROPHYLAXIS - SCDS, Heparin sq DISPO: ICU until hemodynamics are proven stable with vasopressors off Admission and Anticipated Discharge Date Admission Date: July 25, 2025 Supervising Physician Co-Signing Physician Notes Dr. Redman was resident physician during care of patient. I separately evaluated patient for moreno portions of the history and the exam. I was present during the critical portion of medical decision making, and I discussed the case with the resident. I generally agree with the findings and plan. Hemodynamics have improved, no growth and blood cultures at 24 hours urine culture still pending at this time. Continue cefepime and vancomycin, again cannot exclude surgical site infection at this time; however, I do believe it is unlikely. Vasoactives decreasing. Awaiting additional records from [place] and [facility]. Continue current treatment at this time. Hyponatremia improving as well as acute kidney injury. Has not had stool output, lactic acid remains negative. If urine turns positive for gram-negative's I would discontinue empiric vancomycin. Stopping additional fluids, patient able to eat and drink diet as ordered I examined the surgical site with the wound care nurse. Patient still had macie operative procedure was reported to be at least 3 weeks ago, incision is clean dry and well adhered. Dr. Redman removed macie I have personally spent 70 minutes of critical care time in the direct management of this patient. This is a life/limb threatening event. This includes time spent evaluating patient, direct bedside care, chart review, placing orders, interpretation of diagnostic studies, discussion with consultants, patient, and/or family members regarding treatment decisions, as well as other required patient management activities. This time is exclusive of all separately billable procedures, and teaching time and separate from and in addition to any other critical care service time. Subjective Patient is sleeping comfortable. Not in acute distress. Review of Systems Review of Systems: All systems reviewed are negative, apart from the ones contained in the history. Physical Exam Physical Exam: The patient is awake, alert and oriented 3, well developed and well nourished, on BIPAP HEENT--PERRL, EOMI, mucous membranes and oropharynx mildly dry Neck--supple. No JVD. No bruits. Thyroid normal, trachea midline, no adenopathy. Heart--normal S1 and S2. No murmurs, rubs or gallops. Lungs--clear bilaterally, no respiratory distress, no accessory muscle use. Abdomen--normal bowel sounds and soft. Extremities--no cyanosis or clubbing. No edema. Dermatologic--normal skin turgor, normal color, no abnormal lymph nodes, no rash. Neurologic--cranial nerves II through XII grossly intact. Rheumatologic--normal range of motion. Psychiatric--normal affect. Results & Data Results & Data Vital Signs (Past 12 Hours) Vital Signs Temp Pulse Resp BP Pulse Ox O2 Flow Rate 07/26/25 02:45 91 H 17 92 10 07/25/25 23:31 111/67 07/25/25 23:31 111/67 07/25/25 23:27 94 H 18 92 07/25/25 23:03 98 H 20 90 07/25/25 23:01 102/68 07/25/25 23:01 102/68 07/25/25 22:55 98 H 20 91 7 07/25/25 22:54 98 H 19 91 07/25/25 22:46 125/58 L 07/25/25 22:45 96 H 17 92 07/25/25 22:31 114/91 07/25/25 22:31 114/91 07/25/25 22:31 114/91 07/25/25 22:31 114/91 07/25/25 22:31 114/91 07/25/25 22:30 99 H 20 07/25/25 22:00 89/63 L 07/25/25 22:00 96 H 25 H 91 07/25/25 21:46 85/61 L 07/25/25 21:42 101 H 24 07/25/25 21:06 97 H 21 91 07/25/25 21:02 93/62 L 07/25/25 21:02 93/62 L 07/25/25 21:02 93/62 L 07/25/25 20:42 94 H 19 91 07/25/25 20:27 94 H 22 91 07/25/25 20:21 94 H 21 92 07/25/25 20:17 88/66 L 07/25/25 20:17 88/66 L 07/25/25 20:01 123/91 07/25/25 20:01 37 C 123/91 07/25/25 19:54 94 H 19 92 Coding Level of Care Code 28228 CRITICAL CARE 1ST 30-74M Diagnoses Counseling regarding goals of care Z71.89 Palliative care by specialist Z51.5 Lethargy R53.83 Elevated liver enzymes R74.8 Respiratory acidosis E87.29 Hyponatremia E87.1 AMGDA (acute kidney injury) N17.9 Septic shock A41.9; R65.21 Brachial plexopathy G54.0 Polyradiculopathy M54.10 Bilateral arm weakness R29.898 Back pain with left-sided radiculopathy M54.10 Weakness R53.1 Resident Activity Tracking Resident Involvement: Resident Care Provided Care Provided: [facility]
[2025-07-26 08:04] LABS: Creatinine Clr Calc Pharmacy 43.6 ml/min
[2025-07-26 08:30] LABS: Hematocrit (blood only) 36.5 % (37.0-47.0); Hemoglobin 12.2 g/dl (12.0-16.0)
[2025-07-26 08:47] LABS: Anion Gap 9.0 (3-11); Blood Urea Nitrogen 62.0 mg/dl (6-23); Calcium 8.4 mg/dl (8.6-10.3); Carbon Dioxide 24.0 mmol/L (21-32); Chloride 99.0 mmol/L (98-107); Creatinine Clr Calc Pharmacy 46.1 ml/min; Glucose 163.0 mg/dl (70-99(Fasting)); Potassium 4.3 mmol/L (3.5-5.1); Sodium 132.0 mmol/L (136-145)
--- NOTE | 2025-07-26 09:30 | Billing Data ---
Date of Service July 26, 2025 Coding Level of Care Code 32378 CRITICAL CARE
--- NOTE | 2025-07-26 10:28 | Hospitalist Progress Note ---
Date of Service July 26, 2025 Assessment & Plan (1) Septic shock: (2) MAGDA (acute kidney injury): (3) Bilateral arm weakness: (4) Recurrent cancer of right breast: (5) Brachial plexopathy: (6) Respiratory acidosis: (7) Hypertension: Plan This is a 75-year-old female with remote history of breast cancer s/p mastectomy, chemo and radiation with progressive bilateral upper extremity weakness. 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 She was transferred to [facility] and had spinal surgery performed on July 16. She was discharged to [facility] on July 23. Presents to [facility] with hypotension, septic shock. # septic shock -Source is likely urinary UA appears grossly infected. -Patient with Temple catheter in place since 07/18/2025, Initially placed for urinary retention. Exchanged in the ER Follow cultures have been negative Continue empriric cefepime, vancomycin for now nare mrsa screen is negative -continue pressor support started 07/26, wean as tiolerated # post op cervical spine surgery Awaiting for records from [place] Maintain cervical collar Pain management with IV Dilaudid as needed Frequent orientation Continue ropinirole 0.5 mg p.o. nightly for restless leg hold home oxycodone and fentanyl patch in setting of hypotension, renal compromise and encephalopathy l decrease gabapentin from 800 mg p.o. twice daily to 400 mg p.o. twice daily in setting of renal dysfunction and encephalopathy hold Flexeril for now #acute hypoxic respiratory failure associated with sepsis patient initially hypoxic requiring placement of supplemental oxygen. -VBG with mild respiratory acidosis (7.2 ). -Patient with history of DANNIE and reports compliance with her home CPAP CPAP nightly Supplemental oxygen as needed # abdominal pain. -CT findings as above with nonspecific colitis. -Denies pain this morning # MAGDA with CKD 3, -Likely secondary to septic shock -urine output has been adequate Avoid nephrotoxic agents Renal dosing were needed # hypothyroidism. TSH = 3.504 on 07/10/2025. Random cortisol appropriately elevated Continue Synthroid #History of breast cancer with likely recurrence. 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 -She was offered an attempted adjuvant chemotherapy which was aborted because of poor tolerance. -Patient continues on letrozole. Admission and Anticipated Discharge Date Admission Date: July 25, 2025 Subjective Patient seen and examined in the ICU, She is awake and alert, Complaints of dry and sore throat Review of Systems Review of Systems: All systems reviewed are negative, apart from the ones contained in the history. Physical Exam Physical Exam: The patient is awake, alert and oriented 3, well developed and well nourished, on BIPAP HEENT--PERRL, EOMI, mucous membranes and oropharynx mildly dry Neck--supple. No JVD. No bruits. Thyroid normal, trachea midline, no adenopathy. Heart--normal S1 and S2. No murmurs, rubs or gallops. Lungs--clear bilaterally, no respiratory distress, no accessory muscle use. Abdomen--normal bowel sounds and soft. Extremities--no cyanosis or clubbing. No edema. Dermatologic--normal skin turgor, normal color, no abnormal lymph nodes, no rash. Neurologic--cranial nerves II through XII grossly intact. Rheumatologic--normal range of motion. Psychiatric--normal affect. Results & Data Results & Data Vital Signs (Past 12 Hours) Vital Signs Pulse Resp BP Pulse Ox O2 Flow Rate 07/26/25 02:45 91 H 17 92 10 07/25/25 23:31 111/07/25/25 23:31 111/07/25/25 23:27 94 H 18 92 07/25/25 23:03 98 H 20 90 07/25/25 23:01 /07/25/25 23:01 /07/25/25 22:55 98 H 20 91 7 07/25/25 22:54 98 H 19 91 07/25/25 22:46 125/58 L 07/25/25 22:45 96 H 17 92 07/25/25 22:31 114/07/25/25 22:31 114/07/25/25 22:31 114/07/25/25 22:31 114/07/25/25 22:31 114/07/25/25 22:30 99 H 20 91 PG Care Time/CCT Total # of Minutes Spent Total Time Spent with Patient: Total time spent is greater than 50% in coordination of care (as documented) at patient's floor/unit and/or counseling patient: Coding Level of Care Code 98686 SUB INP/OBS CARE 2/35MIN Diagnoses Septic shock A41.9; R65.21 MAGDA (acute kidney injury) N17.9 Bilateral arm weakness R29.898 Recurrent cancer of right breast C50.911 Brachial plexopathy G54.0 Respiratory acidosis E87.29 Hypertension I10 Time Spent (min) 35
--- NOTE | 2025-07-26 11:34 | Pharmacy Report ---
Pharmacy PK ABX Note - Date of Service July 26, 2025 - Assessment and Plan Assessment * 75 year old F receiving cefepime and vancomycin for treatment of septic shock 2nd urinary vs. spinal source. Recent spinal fusion & laminectomy. * Pertinent microbiologic data includes: urine and blood cultures pending. Nasal MRSA swab negative * SCr originally elevated, now trending down 07/26 * After discussion at ICU rounds today, will redose with vanc one more time today and then d/c. Urine culture growing gram negatives. Low suspicion for surgical site infection per ICU rounds discussion. Plan Vancomycin * Previous dose: 1000 mg IV x 1 07/26 @ 1800 * Redose one more time with 1000 mg IV x1 @ 1600 today * Dosing via level for now 2nd MAGDA and acutely changing SCr * No further levels needed Pharmacy will continue to follow and will adjust dose/frequency as necessary. Thank you. Pharmacy has transitioned to AUC monitoring for vancomycin. AUC/OLGA is the preferred PK/PD target and is associated with decreased risk of nephrotoxicity compared to traditional trough targets.
--- NOTE | 2025-07-26 12:28 | Procedure Note ---
Procedure Note Date of Service July 26, 2025 Note Stitch removal - 48 stitches were removed in back of head using suture scissors - No signs of infection like pus discharge, erythema or warmth. - Signs of healing like scab formation present. - Wound was cleaned following sterile technique and sterile stripe was applied. Supervising Physician Co-Signing Physician Notes I was present during the procedure, there was superficial wound dehiscence at the apex of the incision, good granulation tissue in base this was dressed by wound care no purulence was noted Coding Resident Activity Tracking Resident Involvement: Resident Care Provided Care Provided: Adult Hospital Medicine
[2025-07-26] MEDS: HEPARIN SOD 5,000 UNIT/0.5 ML VIAL SQ SCH (16:46)
[2025-07-26] MEDS: VANCOMYCIN HCL / NSS 1,000 MG/270 ML BAG IV ONE (16:47)
[2025-07-27 04:23] LABS: Hematocrit (blood only) 32.2 % (37.0-47.0); Hemoglobin 11.1 g/dl (12.0-16.0); Mean Corpuscular Hemoglobin 32.0 pg (25.0-34.0); Mean Corpuscular Volume 92.8 fL (80.0-100.0); Platelet Count 167 K/uL (130-400); RDW Standard Deviation 48.7 fL (36.4-46.3); Red Blood Count 3.47 M/uL (4.20-5.40); White Blood Count 12.67 K/ul (4.8-10.8)
[2025-07-27 04:43] LABS: Anion Gap 7.0 (3-11); Blood Urea Nitrogen 55.0 mg/dl (6-23); Calcium 8.5 mg/dl (8.6-10.3); Carbon Dioxide 25.0 mmol/L (21-32); Chloride 99.0 mmol/L (98-107); Creatinine Clr Calc Pharmacy 66.0 ml/min; Glucose 146.0 mg/dl (70-99(Fasting)); Magnesium 2.6 mg/dl (1.7-2.4); Potassium 3.8 mmol/L (3.5-5.1); Sodium 131.0 mmol/L (136-145)
[2025-07-27 05:02] LABS: Acanthocytes 1+; Dohle Bodies 2+; Immature Granulocytes # (auto) 0.18 K/uL (0.01-0.20); Immature Granulocytes % (auto) 1.4 %; Polychromasia 1+; Tear Drop Cells 1+; Toxic Granulation 1+
--- NOTE | 2025-07-27 06:40 | Electrocardiogram Report ---
Test Reason : Blood Pressure : */* mmHG Vent. Rate : 79 BPM Atrial Rate : 79 BPM P-R Int : 178 ms QRS Dur : 122 ms QT Int : 340 ms P-R-T Axes : 60 -56 22 degrees QTcB Int : 389 ms Normal sinus rhythm Left anterior fascicular block Left ventricular hypertrophy with QRS widening ( R in aVL , Jose product ) Abnormal ECG When compared with ECG of 10-Jul-2025 16:35, [place] interval has decreased Confirmed by Joshua Meyer ([id number]) on 07/27/2025 6:40:29 AM Referred By: [facility] Confirmed By: Joshua Meyer
--- NOTE | 2025-07-27 07:44 | Critical Care Progress Note ---
Date of Service July 27, 2025 Assessment & Plan (1) Counseling regarding goals of care: (2) Palliative care by specialist: (3) Lethargy: (4) Elevated liver enzymes: (5) Respiratory acidosis: (6) Hyponatremia: (7) MAGDA (acute kidney injury): (8) Septic shock: (9) Brachial plexopathy: (10) Polyradiculopathy: (11) Bilateral arm weakness: (12) Back pain with left-sided radiculopathy: (13) Weakness: Plan 75 YOF presents hypotensive with concern for septic shock with organ dysfunction. Source at this time appears to be likely urine. Neuro - Metabolic Encephalopathy, Hx: Of brachioplexopathy, s/p C6 process biopsy to rule out malignancy, chronic pain CAM ICU: + - Supporrtive care for encephalopathy- improving with control of sepsis and perfusion - Cervical collar to remain in place- attempt to obtain biopsy results from [facility] [place], as well as post surgical instruction - Chronic pain- Discontinue IV opioids- restarted Fentanyl patch -Patient is on Levophed 0.03 mcg/kg/min and Midodrine 5mg PO TID - Continue adjuvants Patient is sleeping comfortable. Not in acute distress - Cervical collar on at all times Cardiac - Shock, - Shock- septic at this time likely secondary to urinary source, with organ dysfunction - brain, renals, liver, heart - Continue with hemodynamics support- Levophed @0.03mcg/kg/min, Vasopressors discontinued - body habitus and peripheral lymphedema makes assessing volume status difficult as well as POCUS imaging- follow end organ labs, and urine output - Blood culture reports is negative -Controlled Afib reported at 12:40. 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 neoplastic process on spine - Attempt to identify biopsy results - Consider consultation with heme onc again once acute illness is resolved ID - Septic shock - Source urinary and possible nonspecific colitis - Continue Vanco- de-escelate when able - Cefepime- de-escelate when targeted results are available - PCT - 5, WBC, 26 LINES/IV ACCESS - PIV LT arm Temple Continue use of these lines Body habitus and cervical collar will make obtaining central access challenging, hopeful she continues to respond favorably DVT PROPHYLAXIS - Patient is on heparin Infusion DISPO: ICU until hemodynamics are proven stable with vasopressors off Admission and Anticipated Discharge Date Admission Date: July 25, 2025 Supervising Physician Co-Signing Physician Notes Dr. Redman was resident physician during care of patient. I separately evaluated patient for moreno portions of the history and the exam. I was present during the critical portion of medical decision making, and I discussed the case with the resident. I generally agree with the findings and plan. Patient growing Klebsiella pneumonia and Pseudomonas from urine, sensitive to cefepime continue for 7-day course, will need voiding trial as this was likely a catheter associated UTI. Encourage up and out of bed when off pressors. Adding midodrine hopefully will be able to discontinue pressors later today. Venous duplex of right upper extremity pending Discontinue IV narcotics and reinstitute fentanyl patch as patient's mental status has significantly improved I have personally spent 35 minutes of critical care time in the direct management of this patient. This is a life/limb threatening event. This includes time spent evaluating patient, direct bedside care, chart review, placing orders, interpretation of diagnostic studies, discussion with consultants, patient, and/or family members regarding treatment decisions, as well as other required patient management activities. This time is exclusive of all separately billable procedures, and teaching time and separate from and in addition to any other critical care service time. Subjective Patient is sleeping comfortable. Not in acute distress Review of Systems Review of Systems: All systems reviewed are negative, apart from the ones contained in the history. Physical Exam Physical Exam: The patient is awake, alert and oriented 3, well developed and well nourished, on BIPAP HEENT--PERRL, EOMI, mucous membranes and oropharynx mildly dry Neck--supple. No JVD. No bruits. Thyroid normal, trachea midline, no adenopathy. Heart--normal S1 and S2. No murmurs, rubs or gallops. Lungs--clear bilaterally, no respiratory distress, no accessory muscle use. Abdomen--normal bowel sounds and soft. Extremities--no cyanosis or clubbing. No edema. Dermatologic--normal skin turgor, normal color, no abnormal lymph nodes, no rash. Neurologic--cranial nerves II through XII grossly intact. Rheumatologic--normal range of motion. Psychiatric--normal affect. Results & Data Results & Data Vital Signs (Past 12 Hours) Vital Signs Temp Pulse Pulse Resp BP BP Pulse Ox 07/27/25 04:03 82 18 93 07/27/25 04:01 106/53 L 07/27/25 04:01 106/53 L 07/27/25 04:01 106/53 L 07/27/25 04:01 106/53 L 07/27/25 03:54 84 18 93 07/27/25 03:09 81 19 94 07/27/25 03:01 100/60 07/27/25 02:57 83 17 94 07/27/25 02:01 101/59 L 07/27/25 02:01 101/59 L 07/27/25 02:00 84 20 94 07/27/25 01:01 94/60 L 07/27/25 01:01 94/60 L 07/27/25 01:01 94/60 L 07/27/25 01:01 94/60 L 07/27/25 01:00 84 16 95 07/27/25 00:01 115/55 L 07/27/25 00:00 36.7 C 90 15 94 07/27/25 00:00 36.6 C 83 16 94/60 L 94 07/26/25 23:06 87 17 93 07/26/25 23:01 93/59 L 07/26/25 22:57 87 16 93 07/26/25 22:03 91 H 16 94 07/26/25 22:01 86/52 L 07/26/25 21:54 88 15 94 07/26/25 21:00 91 H 14 92 07/26/25 20:01 103/46 L 07/26/25 20:01 103/46 L 07/26/25 20:01 103/46 L 07/26/25 20:01 103/46 L 07/26/25 20:00 91 H 18 92 O2 Del Method O2 Flow Rate 07/27/25 04:03 07/27/25 04:01 07/27/25 04:01 07/27/25 04:01 07/27/25 04:01 07/27/25 03:54 07/27/25 03:09 07/27/25 03:01 07/27/25 02:57 07/27/25 02:01 07/27/25 02:01 07/27/25 02:00 07/27/25 01:01 07/27/25 01:01 07/27/25 01:01 07/27/25 01:01 07/27/25 01:00 07/27/25 00:01 07/27/25 00:00 07/27/25 00:00 Nasal Cannula 4 07/26/25 23:06 07/26/25 23:01 07/26/25 22:57 07/26/25 22:03 07/26/25 22:01 07/26/25 21:54 07/26/25 21:00 07/26/25 20:01 07/26/25 20:01 07/26/25 20:01 07/26/25 20:01 07/26/25 20:00 Coding Level of Care Code 71426 CRITICAL CARE 1ST 30-74M Diagnoses Counseling regarding goals of care Z71.89 Palliative care by specialist Z51.5 Lethargy R53.83 Elevated liver enzymes R74.8 Respiratory acidosis E87.29 Hyponatremia E87.1 MAGDA (acute kidney injury) N17.9 Septic shock A41.9; R65.21 Brachial plexopathy G54.0 Polyradiculopathy M54.10 Bilateral arm weakness R29.898 Back pain with left-sided radiculopathy M54.10 Weakness R53.1 Resident Activity Tracking Resident Involvement: Resident Care Provided Care Provided: Adult Hospital Medicine
--- NOTE | 2025-07-27 08:06 | Billing Data ---
Date of Service July 27, 2025 Coding Level of Care Code 77946 CRITICAL CARE
[2025-07-27] MEDS: MIDODRINE HCL 2.5 MG TAB PO SCH (08:17)
--- NOTE | 2025-07-27 08:34 | Ultrasound Report ---
EXAM: US venous doppler UE RT CLINICAL HISTORY: Lymphedema vs VTE. TECHNIQUE: Ultrasound examination of the right upper extremity veins was performed in real time with duplex imaging. One or more of the following were performed: spectral analysis, resistive index, waveform analysis, and pulsed Doppler. The examination was limited due to patient body habitus. COMPARISON: None. FINDINGS: Normal phasic, nonpulsatile, and spontaneous flow is noted in the right internal jugular, subclavian, axillary, brachial, basilic, cephalic, radial, and ulnar veins. No sonographic evidence of acute deep vein thrombosis (DVT) is detected in the visualized veins of the upper extremity. Compression and Augmentation: All evaluated veins compress fully with applied transducer pressure. Augmentation of venous flow is noted with distal compression. Additional Findings: No evidence of intraluminal thrombus. Very mild edema of the right upper extremity is noted. IMPRESSION: 1. No sonographic evidence of acute DVT is detected at the time of examination. 2. Very mild edema of the right upper extremity is noted. 3. The examination was limited due to patient body habitus. Disclaimer: DVT could be missed early in the disease when clot burden is minimal. For patients with moderate and high pretest probability of DVT and negative ultrasound, the [employer] clinical guidelines recommend testing with a D-dimer assay or repeat ultrasound in 5-7 days. If symptoms worsen, the Society of Radiologists in Ultrasound recommends repeating ultrasound even earlier. Electronically signed by Arun Oglesby 07-27-2025 08:34 AM
--- NOTE | 2025-07-27 09:57 | Hospitalist Progress Note ---
Date of Service July 27, 2025 Assessment & Plan (1) Septic shock: (2) MAGDA (acute kidney injury): (3) Bilateral arm weakness: (4) Recurrent cancer of right breast: (5) Brachial plexopathy: (6) Respiratory acidosis: (7) Hypertension: Plan This is a 75-year-old female with remote history of breast cancer s/p mastectomy, chemo and radiation with progressive bilateral upper extremity weakness. 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 She was transferred to [facility] and had spinal surgery performed on July 16. She was discharged to [facility] rehab on July 23. Presents to [facility] with hypotension, septic shock. # septic shock -Source is likely urinary UA appears grossly infected. Cultures growing Klebsiella and Pseudomonas montague sensitive -Continue IV cefepime -continue pressor support started 07/26, wean as tolerated # post op cervical spine surgery -Sutures were removed on 07/26/25 Pain management with IV Dilaudid as needed Frequent orientation Continue ropinirole 0.5 mg p.o. nightly for restless leg hold home oxycodone and fentanyl patch in setting of hypotension, renal compromise and encephalopathy l decrease gabapentin from 800 mg p.o. twice daily to 400 mg p.o. twice daily in setting of renal dysfunction and encephalopathy hold Flexeril for now #acute hypoxic respiratory failure associated with sepsis patient initially hypoxic requiring placement of supplemental oxygen. -VBG with mild respiratory acidosis (7.2 /36). -Patient with history of DANNIE and reports compliance with her home CPAP CPAP nightly Supplemental oxygen as needed # abdominal pain. -CT findings as above with nonspecific colitis. -Just mild tenderness this morning # MAGDA with CKD 3, -Likely secondary to septic shock -urine output has been adequate Avoid nephrotoxic agents Renal dosing were needed # hypothyroidism. TSH = 3.504 on 07/10/2025. -Random cortisol appropriately elevated Continue Synthroid #History of breast cancer with likely recurrence. 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 -She was offered an attempted adjuvant chemotherapy which was aborted because of poor tolerance. -Patient continues on letrozole. Admission and Anticipated Discharge Date Admission Date: July 25, 2025 Subjective Patient is sleeping comfortable. Not in acute distress. Review of Systems Review of Systems: All systems reviewed are negative, apart from the ones contained in the history. Physical Exam Physical Exam: The patient is awake, alert and oriented 3, well developed and well nourished, on BIPAP HEENT--PERRL, EOMI, mucous membranes and oropharynx mildly dry Neck--supple. No JVD. No bruits. Thyroid normal, trachea midline, no adenopathy. Heart--normal S1 and S2. No murmurs, rubs or gallops. Lungs--clear bilaterally, no respiratory distress, no accessory muscle use. Abdomen--normal bowel sounds and soft. Extremities--no cyanosis or clubbing. No edema. Dermatologic--normal skin turgor, normal color, no abnormal lymph nodes, no rash. Neurologic--cranial nerves II through XII grossly intact. Rheumatologic--normal range of motion. Psychiatric--normal affect. Results & Data Results & Data Vital Signs (Past 12 Hours) Vital Signs Temp Pulse Pulse Resp BP BP Pulse Ox 07/27/25 04:03 82 18 93 07/27/25 04:01 106/53 L 07/27/25 04:01 106/53 L 07/27/25 04:01 106/53 L 07/27/25 04:01 106/53 L 07/27/25 03:54 84 18 93 07/27/25 03:09 81 19 94 07/27/25 03:01 100/60 07/27/25 02:57 83 17 94 07/27/25 02:01 101/59 L 07/27/25 02:01 101/59 L 07/27/25 02:00 84 20 94 07/27/25 01:01 94/60 L 07/27/25 01:01 94/60 L 07/27/25 01:01 94/60 L 07/27/25 01:01 94/60 L 07/27/25 01:00 84 16 95 07/27/25 00:01 115/55 L 07/27/25 00:00 98.1 F 90 15 94 07/27/25 00:00 97.9 F 83 16 94/60 L 94 07/26/25 23:06 87 17 93 07/26/25 23:01 93/59 L 07/26/25 22:57 87 16 93 07/26/25 22:03 91 H 16 94 07/26/25 22:01 86/52 L 07/26/25 21:54 88 15 94 O2 Del Method O2 Flow Rate 07/27/25 04:03 07/27/25 04:01 07/27/25 04:01 07/27/25 04:01 07/27/25 04:01 07/27/25 03:54 07/27/25 03:09 07/27/25 03:01 07/27/25 02:57 07/27/25 02:01 07/27/25 02:01 07/27/25 02:00 07/27/25 01:01 07/27/25 01:01 07/27/25 01:01 07/27/25 01:01 07/27/25 01:00 07/27/25 00:01 07/27/25 00:00 07/27/25 00:00 Nasal Cannula 4 07/26/25 23:06 07/26/25 23:01 07/26/25 22:57 07/26/25 22:03 07/26/25 22:01 07/26/25 21:54 PG Care Time/CCT Total # of Minutes Spent Total Time Spent with Patient: Total time spent is greater than 50% in coordination of care (as documented) at patient's floor/unit and/or counseling patient: Coding Level of Care Code 02072 SUB INP/OBS CARE 2/35MIN Diagnoses Septic shock A41.9; R65.21 MAGDA (acute kidney injury) N17.9 Bilateral arm weakness R29.898 Recurrent cancer of right breast C50.911 Brachial plexopathy G54.0 Respiratory acidosis E87.29 Hypertension I10 Time Spent (min) 35
[2025-07-27 15:25] LABS: ANTI-Xa, UFH(UnfractionatedHep < 0.10 IU/ml (0.3-0.7)
[2025-07-27 15:28] LABS: INR 0.9 (0.9-1.1); Prothrombin Time 9.5 Seconds (9.0-12.0)
[2025-07-27] MEDS: HEPARIN 25000 UNIT/500 ML D5W 25,000 UNITS/500 ML BAG IV SCH (19:09)
[2025-07-27] MEDS: CEFEPIME 2000MG 2,000 MG/20 ML SYR IV SCH (20:27)
[2025-07-27] MEDS: Heparin IV Adult Wt-Based Standard *NO* INITIAL Bolus Protocol IV STA (20:28)
[2025-07-28 04:54] LABS: Hematocrit (blood only) 30.1 % (37.0-47.0); Hemoglobin 10.3 g/dl (12.0-16.0); Mean Corpuscular Hemoglobin 32.0 pg (25.0-34.0); Mean Corpuscular Volume 93.5 fL (80.0-100.0); Platelet Count 164 K/uL (130-400); RDW Standard Deviation 47.5 fL (36.4-46.3); Red Blood Count 3.22 M/uL (4.20-5.40); White Blood Count 9.33 K/ul (4.8-10.8)
[2025-07-28 05:25] LABS: Anion Gap 6.0 (3-11); Blood Urea Nitrogen 44.0 mg/dl (6-23); Calcium 8.5 mg/dl (8.6-10.3); Carbon Dioxide 26.0 mmol/L (21-32); Chloride 99.0 mmol/L (98-107); Creatinine Clr Calc Pharmacy 86.4 ml/min; Dohle Bodies 1+; Glucose 120.0 mg/dl (70-99(Fasting)); Immature Granulocytes # (auto) 0.08 K/uL (0.01-0.20); Immature Granulocytes % (auto) 0.9 %; Magnesium 2.4 mg/dl (1.7-2.4); Potassium 3.4 mmol/L (3.5-5.1); Sodium 131.0 mmol/L (136-145)
[2025-07-28] MEDS: HEPARIN SOD 5,000 UNIT/0.5 ML VIAL SQ SCH (06:10)
[2025-07-28] MEDS: ICU ELECTROLYTE REPLACEMENT PROTOCOL SCH (07:04)
[2025-07-28 07:25] LABS: Alanine Aminotransferase 36.0 U/L (7-52); Albumin Level 2.5 gm/dl (3.4-5.0); Alkaline Phosphatase 186.0 U/L (34-104); Bilirubin,Total 1.0 mg/dl (0.2-1.0); Total Protein 5.4 gm/dl (6.0-8.3)
[2025-07-28] MEDS: ACETAMINOPHEN 325 MG TAB PO PRN (08:30)
--- NOTE | 2025-07-28 08:31 | Critical Care Progress Note ---
Date of Service July 28, 2025 Assessment & Plan (1) Counseling regarding goals of care: (2) Palliative care by specialist: (3) Lethargy: (4) Elevated liver enzymes: (5) Respiratory acidosis: (6) Hyponatremia: (7) MAGDA (acute kidney injury): (8) Septic shock: (9) Brachial plexopathy: (10) Polyradiculopathy: (11) Bilateral arm weakness: (12) Back pain with left-sided radiculopathy: (13) Weakness: Plan 75 YOF presents hypotensive with concern for septic shock with organ dysfunction. Source at this time appears to be likely urine. 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, chronic pain CAM ICU: + - Supporrtive care for encephalopathy- improving with control of sepsis and perfusion - Cervical collar to remain in place- attempt to obtain biopsy results from C, as well as post surgical instruction - Chronic pain- Fentanyl patch -Patient is on Levophed and Midodrine 7.5mg PO TID: Increase to 10 mg - Cervical collar on at all times Cardiac - Shock: Improving - Continue with hemodynamics support - Echo reviewed: EF 50 to 55% -Paroxysmal atrial fibrillation - Spontaneous conversion to normal sinus rhythm - Likely secondary to stress of hospitalization - Will not systemically anticoagulate at this time Respiratory - DANNIE, Hypercarbic respiratory acidosis - CPAP at night - No further acute needs GI - LFTS improving - Carb consistent diet RENAL/LYTES - MAGDA/ARF: Resolved hyponatremia, hyperkalemia: Resolved - Urinary retention required Temple catheter- replaced in ER - consider voiding trial once acute illness is resolved or urology follow up ENDO - No acute needs - ICU hyper/hypoglycemic protocol- - COntinue synthroid - Rechecking random cortisol given persistence and vasoactive requirement HEME - No acute needs, hx: breast ca, ? neoplastic process on spine - Baseline anemia ID - Septic shock - Source urinary - [id number] course LINES/IV ACCESS - PIV LT arm Temple Continue use of these lines Body habitus and cervical collar will make obtaining central access challenging, hopeful she continues to respond favorably DVT PROPHYLAXIS -Lovenox 60 the milligrams twice daily given creatinine improvement DISPO: ICU until hemodynamics are proven stable with vasopressors off Admission and Anticipated Discharge Date Admission Date: July 25, 2025 Supervising Physician Co-Signing Physician Notes I have personally spent 45 minutes of critical care time in the direct management of this patient. This is a life/limb threatening event. This includes time spent evaluating patient, direct bedside care, chart review, placi ng orders, interpretation of diagnostic studies, discussion with consultants, patient, and/or family members regarding treatment decisions, as well as other required patient management activities. This time is exclusive of all separately billable procedures, and teaching time and separate from and in addition to any other critical care service time. Subjective No overnight events Physical Exam Physical Exam: General: Alert. nontoxic. Skin: Warm, dry, Head: Atraumatic Ears, nose, mouth and throat: airway patent Cardiovascular: Normal peripheral perfusion Respiratory: no respiratory distress Gastrointestinal: Non distended Musculoskeletal: No deformity Results & Data Results & Data Vital Signs (Past 12 Hours) Vital Signs Pulse Resp BP Pulse Ox O2 Flow Rate 07/28/25 07:06 84 15 107/55 L 96 07/28/25 06:45 89 16 96 07/28/25 06:30 88 20 96 07/28/25 06:24 83 18 95 07/28/25 06:01 107/45 L 07/28/25 05:54 85 17 95 07/28/25 05:48 85 15 96 07/28/25 05:12 88 15 95 07/28/25 05:01 126/58 L 07/28/25 05:01 126/58 L 07/28/25 05:01 126/58 L 07/28/25 04:54 85 15 96 07/28/25 04:27 87 17 98 07/28/25 04:01 105/50 L 07/28/25 03:57 86 16 97 07/28/25 03:03 85 18 98 07/28/25 03:01 115/50 L 07/28/25 03:01 115/50 L 07/28/25 02:48 84 24 97 07/28/25 02:22 85 14 96 5 07/28/25 02:01 91/41 L 07/28/25 02:00 84 15 96 07/28/25 01:15 89 14 98 07/28/25 01:00 108/53 L 07/28/25 00:54 88 17 96 07/28/25 00:01 98/45 L 07/28/25 00:00 88 17 99 09/20/25 23:01 88/45 L 07/27/25 23:01 88/45 L 07/27/25 23:00 86 15 96 07/27/25 22:36 94 H 25 H 94 5 07/27/25 22:21 87 16 98 07/27/25 22:01 100/80 07/27/25 21:51 97 H 14 94 07/27/25 21:12 101/44 L 07/27/25 21:09 92 H 16 96 07/27/25 21:00 95 H 17 96 Critical Care Results & Data Vital Signs (Past 12 Hours) Vital Signs Pulse Resp BP Pulse Ox O2 Flow Rate 07/28/25 07:06 84 15 107/55 L 96 07/28/25 06:45 89 16 96 07/28/25 06:30 88 20 96 07/28/25 06:24 83 18 95 07/28/25 06:01 107/45 L 07/28/25 05:54 85 17 95 07/28/25 05:48 85 15 96 07/28/25 05:12 88 15 95 07/28/25 05:01 126/58 L 07/28/25 05:01 126/58 L 07/28/25 05:01 126/58 L 07/28/25 04:54 85 15 96 07/28/25 04:27 87 17 98 07/28/25 04:01 105/50 L 07/28/25 03:57 86 16 97 07/28/25 03:03 85 18 98 07/28/25 03:01 115/50 L 07/28/25 03:01 115/50 L 07/28/25 02:48 84 24 97 07/28/25 02:22 85 14 96 5 07/28/25 02:01 91/41 L 07/28/25 02:00 84 15 96 07/28/25 01:15 89 14 98 07/28/25 01:00 108/53 L 07/28/25 00:54 88 17 96 07/28/25 00:01 98/45 L 07/28/25 00:00 88 17 99 07/27/25 23:01 88/45 L 07/27/25 23:01 88/45 L 07/27/25 23:00 86 15 96 07/27/25 22:36 94 H 25 H 94 5 07/27/25 22:21 87 16 98 07/27/25 22:01 100/80 07/27/25 21:51 97 H 14 94 07/27/25 21:12 101/44 L 07/27/25 21:09 92 H 16 96 07/27/25 21:00 95 H 17 96 Lab & Micro Results (Past 24 Hours) RBC 3.22 M/uL (4.20-5.40) L 07/28/25 WBC 9.33 K/ul (4.8-10.8) 07/28/25 Hgb 10.3 g/dl (12.0-16.0) L 07/28/25 Hct 30.1 % (37.0-47.0) L 07/28/25 MCV 93.5 fL (80.0-100.0) 07/28/25 MCH 32.0 pg (25.0-34.0) 07/28/25 MCHC 34.2 g/dL (32.0-36.0) 07/28/25 RDW Standard Deviation 47.5 fL (36.4-46.3) H 07/28/25 RDW Coefficient of Variation 14.0 % (11.5-14.5) 07/28/25 Plt Count 164 K/uL (130-400) 07/28/25 MPV 11.6 fL (9.4-12.4) 07/28/25 Neutrophils (%) (Auto) 88.5 % 07/28/25 Lymphocytes (%) (Auto) 5.9 % 07/28/25 Monocytes # (Auto) 0.37 K/uL (0.11-0.59) 07/28/25 Eosinophils # (Auto) 0.05 K/uL (0.00-0.50) 07/28/25 Immature Granulocyte % (Auto) 0.9 % 07/28/25 Neutrophils # (Auto) 8.26 K/uL (1.40-6.50) H 07/28/25 Lymphocytes # (Auto) 0.55 K/uL (1.20-3.40) L 07/28/25 Monocytes # (Auto) 0.37 K/uL (0.11-0.59) 07/28/25 Eosinophils # (Auto) 0.05 K/uL (0.00-0.50) 07/28/25 Basophils # (Auto) 0.02 K/uL (0.00-0.20) 07/28/25 Immature Granulocyte # (Auto) 0.08 K/uL (0.01-0.20) 5 Echinocytes 1+ 07/28/25 Dohle Bodies 1+ 07/28/25 Na 131 mmol/L (136-145) L 07/28/25 K 3.4 mmol/L (3.5-5.1) L 07/28/25 Cl 99 mmol/L (98-107) 07/28/25 CO2 26 mmol/L (21-32) 07/28/25 Anion Gap 6 (3-11) 07/28/25 BUN 44 mg/dl (6-23) H 07/28/25 Creatinine 0.82 mg/dl (0.6-1.2) 07/28/25 BUN/Creatinine Ratio 53.7 (10-20) H 07/28/25 Glu 120 mg/dl (70-99(Fasting)) H 07/28/25 Ca 8.5 mg/dl (8.6-10.3) L 07/28/25 Phosphorus Level 2.3 mg/dl (2.5-4.9) L 07/28/25 Total Bilirubin 1.0 mg/dl (0.2-1.0) 07/28/25 Direct Bilirubin 0.3 mg/dl (0-0.2) H 07/28/25 AST 50 U/L (13-39) H 07/28/25 ALT 36 U/L (7-52) 07/28/25 Alkaline Phosphatase 186 U/L (34-104) H 07/28/25 TP 5.4 gm/dl (6.0-8.3) L 07/28/25 Albumin 2.5 gm/dl (3.4-5.0) L 07/28/25 Mg 2.4 mg/dl (1.7-2.4) 07/28/25 04:13 Calcium Level 8.5 mg/dl (8.6-10.3) L 07/28/25 04:13 Prothromb Time International Ratio 0.9 (0.9-1.1) 07/27/25 14:4 4 Microbiology 07/24/25 22:37 Urine Culture - Final Urine,Straight Cath Klebsiella pneumoniae Pseudomonas aeruginosa Diagnostic Findings (Past 24 Hours) Venous Doppler Study 07/27/25 06:27 EXAM: US venous doppler UE RT CLINICAL HISTORY: Lymphedema vs VTE. TECHNIQUE: Ultrasound examination of the right upper extremity veins was performed in real time with duplex imaging. One or more of the following were performed: spectral analysis, resistive index, waveform analysis, and pulsed Doppler. The examination was limited due to patient body habitus. COMPARISON: None. FINDINGS: Normal phasic, nonpulsatile, and spontaneous flow is noted in the right internal jugular, subclavian, axillary, brachial, basilic, cephalic, radial, and ulnar veins. No sonographic evidence of acute deep vein thrombosis (DVT) is detected in the visualized veins of the upper extremity. Compression and Augmentation: All evaluated veins compress fully with applied transducer pressure. Augmentation of venous flow is noted with distal compression. Additional Findings: No evidence of intraluminal thrombus. Very mild edema of the right upper extremity is noted. IMPRESSION: 1. No sonographic evidence of acute DVT is detected at the time of examination. 2. Very mild edema of the right upper extremity is noted. 3. The examination was limited due to patient body habitus. Disclaimer: DVT could be missed early in the disease when clot burden is minimal. For patients with moderate and high pretest probability of DVT and negative ultrasound, the [employer] clinical guidelines recommend testing with a D-dimer assay or repeat ultrasound in 5-7 days. If symptoms worsen, the Society of Radiologists in Ultrasound recommends repeating ultrasound even earlier. Electronically signed by Arun Oglesby 07-27-2025 08:34 AM I & O Totals 24 Hours 07/27/25 07/28/25 07/29/25 06:59 06:59 06:59 Intake Total 3856.320 / 3856.320 2157.897 / 2157.897 33.693 / 33.693 Output Total 3000 / 3000 3641 / 3641 Balance 856.320 / 856.320 -1483.103 / -1483.103 33.693 / 33.693 Cumulative 07/24/25 21:31 thru 07/28/25 07:05 Intake Total 94437.776 Output Total 66643 Balance 3130.776 RT Ventilator Mngmt (Last Documented) Ventilator Ordered Settings Respiratory Rate 15 07/28/25 07:06 Ventilator - PT Measurements Respiratory Rate 15 Coding Level of Care Code 13533 CRITICAL CARE 1ST 30-74M Diagnoses Counseling regarding goals of care Z71.89 Palliative care by specialist Z51.5 Lethargy R53.83 Elevated liver enzymes R74.8 Respiratory acidosis E87.29 Hyponatremia E87.1 MAGDA (acute kidney injury) N17.9 Septic shock A41.9; R65.21 Brachial plexopathy G54.0 Polyradiculopathy M54.10 Bilateral arm weakness R29.898 Back pain with left-sided radiculopathy M54.10 Weakness R53.1
[2025-07-28] MEDS: POTASSIUM CHLORIDE / WTR 20 MEQ/100 ML PLCT IV SCH (08:34)
[2025-07-28] MEDS: MIDODRINE HCL 2.5 MG TAB PO SCH (08:36)
[2025-07-28] MEDS: ENOXAPARIN INJ 60 MG/0.6 ML SYR SQ SCH (09:25)
--- NOTE | 2025-07-28 09:48 | Hospitalist Progress Note ---
Date of Service July 28, 2025 Assessment & Plan (1) Septic shock: (2) MAGDA (acute kidney injury): (3) Bilateral arm weakness: (4) Recurrent cancer of right breast: (5) Brachial plexopathy: (6) Respiratory acidosis: (7) Hypertension: Plan This is a 75-year-old female with remote history of breast cancer s/p mastectomy, chemo and radiation with progressive bilateral upper extremity weakness. 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 She was transferred to [facility] and had spinal surgery performed on July 16. She was discharged to [facility] rehab on July 23. Presents to [facility] with hypotension, septic shock. Afib: Went into afib last night started on heparin converted to NSR Heparin has been discontinued # septic shock -Source is likely urinary UA appears grossly infected. Cultures growing Klebsiella and Pseudomonas montague sensitive -Continue IV cefepime -continue pressor support started 07/26, wean as tolerated -started PO midodrine # post op cervical spine surgery -Sutures were removed on 07/26/25 Pain management with IV Dilaudid as needed Frequent orientation Continue ropinirole 0.5 mg p.o. nightly for restless leg hold home oxycodone and fentanyl patch in setting of hypotension, renal compromise and encephalopathy l decrease gabapentin from 800 mg p.o. twice daily to 400 mg p.o. twice daily in setting of renal dysfunction and encephalopathy hold Flexeril for now #acute hypoxic respiratory failure associated with sepsis patient initially hypoxic requiring placement of supplemental oxygen. -Patient with history of DANNIE and reports compliance with her home CPAP CPAP nightly Supplemental oxygen as needed # abdominal pain. -CT findings as above with nonspecific colitis. -Just mild tenderness this morning # MAGDA with CKD 3, -Likely secondary to septic shock -urine output has been adequate Avoid nephrotoxic agents Renal dosing were needed # hypothyroidism. TSH = 3.504 on 07/10/2025. -Random cortisol appropriately elevated Continue Synthroid #History of breast cancer with likely recurrence. 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 -She was offered an attempted adjuvant chemotherapy which was aborted because of poor tolerance. -Patient continues on letrozole. Has history of brachioplexopathy, s/p C6 process biopsy to rule out malignancy Disposition: continue ICU, still on pressors Admission and Anticipated Discharge Date Admission Date: July 25, 2025 Subjective patient seen and examined in the ICU, denies any new complaints Review of Systems Review of Systems: All systems reviewed are negative, apart from the ones contained in the history. Physical Exam Physical Exam: The patient is awake, alert and oriented 3, well developed and well nourished, HEENT--PERRL, EOMI, mucous membranes and oropharynx mildly dry Neck--supple. No JVD. No bruits. Thyroid normal, trachea midline, no adenopathy. Heart--normal S1 and S2. No murmurs, rubs or gallops. Lungs--clear bilaterally, no respiratory distress, no accessory muscle use. Abdomen--normal bowel sounds and soft. Extremities--no cyanosis or clubbing. No edema. Dermatologic--normal skin turgor, normal color, no abnormal lymph nodes, no rash. Neurologic--cranial nerves II through XII grossly intact. Rheumatologic--normal range of motion. Psychiatric--normal affect. Results & Data Results & Data Vital Signs (Past 12 Hours) Vital Signs Pulse Resp BP Pulse Ox O2 Flow Rate 07/28/25 07:06 84 15 107/55 L 96 07/28/25 06:45 89 16 96 07/28/25 06:30 88 20 96 07/28/25 06:24 83 18 95 07/28/25 06:01 107/45 L 07/28/25 05:54 85 17 95 07/28/25 05:48 85 15 96 07/28/25 05:12 88 15 95 07/28/25 05:01 126/58 L 07/28/25 05:01 126/58 L 07/28/25 05:01 126/58 L 07/28/25 04:54 85 15 96 07/28/25 04:27 87 17 98 07/28/25 04:01 105/50 L 07/28/25 03:57 86 16 97 07/28/25 03:03 85 18 98 07/28/25 03:01 115/50 L 07/28/25 03:01 115/50 L 07/28/25 02:48 84 24 97 07/28/25 02:22 85 14 96 5 07/28/25 02:01 91/41 L 07/28/25 02:00 84 15 96 07/28/25 01:15 89 14 98 07/28/25 01:00 108/53 L 07/28/25 00:54 88 17 96 07/28/25 00:01 98/45 L 07/28/25 00:00 88 17 99 07/27/25 23:01 88/45 L 07/27/25 23:01 88/45 L 07/27/25 23:00 86 15 96 07/27/25 22:36 94 H 25 H 94 5 07/27/25 22:21 87 16 98 07/27/25 22:01 100/80 07/27/25 21:51 97 H 14 94 PG Care Time/CCT Total # of Minutes Spent Total Time Spent with Patient: Total time spent is greater than 50% in coordination of care (as documented) at patient's floor/unit and/or counseling patient: Coding Level of Care Code 69458 SUB INP/OBS CARE 2/35MIN Diagnoses Septic shock A41.9; R65.21 MAGDA (acute kidney injury) N17.9 Bilateral arm weakness R29.898 Recurrent cancer of right breast C50.911 Brachial plexopathy G54.0 Respiratory acidosis E87.29 Hypertension I10 Time Spent (min) 35
--- NOTE | 2025-07-28 09:56 | XRay Report ---
HISTORY: Shortness of breath. TECHNIQUE: Portable AP radiograph of the chest. COMPARISON: Chest radiograph dated 07/25/2025. FINDINGS: Left subclavian catheter with tip in the SVC. Low lung volumes. No new focal consolidation. No pneumothorax or effusion.Left-sided aortic arch. Midline trachea. Included upper abdomen is unremarkable. IMPRESSION: * No acute cardiopulmonary findings. * Left subclavian catheter with tip in the SVC. * Low lung volumes limit evaluation. Electronically signed by Rome Nicolas 07-28-2025 09:55 AM
[2025-07-28] MEDS: MIDODRINE HCL 10 MG TAB PO SCH (11:31)
[2025-07-28] MEDS ORDERED: SODIUM PHOSPHATE 3 MMOL/1 ML INFUSION IV STA (19:01)
[2025-07-28] MEDS: SODIUM PHOSPHATE 15 MMOL in SODIUM CHLORIDE 0.9% 250 ML IV ONE (21:20)
[2025-07-29 04:47] LABS: Hematocrit (blood only) 29.1 % (37.0-47.0); Hemoglobin 9.4 g/dl (12.0-16.0); Mean Corpuscular Hemoglobin 30.9 pg (25.0-34.0); Mean Corpuscular Volume 95.7 fL (80.0-100.0); Platelet Count 160 K/uL (130-400); RDW Standard Deviation 50.7 fL (36.4-46.3); Red Blood Count 3.04 M/uL (4.20-5.40); White Blood Count 6.72 K/ul (4.8-10.8)
[2025-07-29 05:11] LABS: Anion Gap 5.0 (3-11); Blood Urea Nitrogen 46.0 mg/dl (6-23); Calcium 8.3 mg/dl (8.6-10.3); Carbon Dioxide 25.0 mmol/L (21-32); Chloride 100.0 mmol/L (98-107); Creatinine Clr Calc Pharmacy 72.4 ml/min; Glucose 110.0 mg/dl (70-99(Fasting)); Magnesium 2.2 mg/dl (1.7-2.4); Potassium 4.3 mmol/L (3.5-5.1); Sodium 130.0 mmol/L (136-145)
[2025-07-29] MEDS: MIDODRINE HCL 2.5 MG TAB PO SCH (08:07)
[2025-07-29] MEDS: FUROSEMIDE INJ 20 MG/2 ML VIAL IV SCH (09:29)
--- NOTE | 2025-07-29 10:10 | Pulmonology Progress Note ---
<Statement entered by Kailash Verma MD - 07/29/25 15:37> I, Kailash Verma MD, supervised and reviewed the physical exam, assessment, plan, and management provided by the Advanced Care Provider, for this patient encounter. I discussed the case with them, confirmed the findings, and I concur with the proposed plan of care. I was available for consultation throughout the encounter and provided guidance as needed. Date of Service July 29, 2025 Assessment & Plan (1) Counseling regarding goals of care: (2) Palliative care by specialist: (3) Lethargy: (4) Elevated liver enzymes: (5) Respiratory acidosis: (6) Hyponatremia: (7) MAGDA (acute kidney injury): (8) Septic shock: (9) Brachial plexopathy: (10) Polyradiculopathy: (11) Bilateral arm weakness: (12) Back pain with left-sided radiculopathy: (13) Weakness: Plan 75 YOF presents hypotensive with concern for septic shock with organ dysfunction. Source at this time appears to be likely urine. 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, chronic pain CAM ICU: + - Supportive care for encephalopathy- improving with control of sepsis and perfusion - Cervical collar to remain in place- attempt to obtain biopsy results from [facility], as well as post surgical instruction - Chronic pain- Fentanyl patch - Patient is on Levophed and Midodrine 7.5mg PO TID - Cervical collar on at all times Cardiac - Shock: Improvied - Continue with hemodynamics support - Echo reviewed: EF 50 to 55% -Paroxysmal atrial fibrillation - Spontaneous conversion to normal sinus rhythm - Likely secondary to stress of hospitalization - Will not systemically anticoagulate at this time Respiratory - DANNIE, Hypercarbic respiratory acidosis - CPAP at night - No further acute needs GI - LFTS improving - Carb consistent diet RENAL/LYTES - MAGDA/ARF: Resolved hyponatremia, hyperkalemia: Resolved - Urinary retention required Temple catheter- replaced in ER - consider voiding trial once acute illness is resolved or urology follow up ENDO - No acute needs - ICU hyper/hypoglycemic protocol- - COntinue synthroid - Rechecking random cortisol given persistence and vasoactive requirement HEME - No acute needs, hx: breast ca, ? neoplastic process on spine - Baseline anemia ID - Septic shock - Source urinary - Kxebidee-5-eub course. Day 6 of 7 today. LINES/IV ACCESS - PIV LT arm Temple Continue use of these lines Body habitus and cervical collar will make obtaining central access challenging, hopeful she continues to respond favorably DVT PROPHYLAXIS -Lovenox 60 the milligrams twice daily given creatinine improvement DISPO: ICU for evaluation and management of complicated UTI with sepsis requiring vasopressors. Patient is full code. Patient updated to POC by ICU provider this am. I have personally spent 31 minutes of critical care time in the direct management of this patient. This is a life/limb threatening event. This includes time spent evaluating patient, direct bedside care, chart review, placing orders, interpretation of diagnostic studies, discussion with consultants, patient, and family members, as well as other required patient management activities. This time is exclusive of all separately billable procedures, and teaching time and separate from and in addition to any other critical care service time. Thank you for allowing us to participate in the care of this patient. Please refer to my attending physician's documentation for any further recommendations. Admission and Anticipated Discharge Date Admission Date: July 25, 2025 Subjective Patient off vasopressors. Midodrine down titrated this am to 7.5mg tid due to marked improvement in BP. PT/OT consult. Review of Systems Review of Systems: All systems reviewed & are unremarkable except as noted in HPI & below Physical Exam Physical Exam: VITALS: Reviewed. WEIGHT/BMI reviewed. GEN: Well-developed, NAD. PSYCH: Good Judgment. AOx3. Normal memory, mood, and affect. HEENT -Head: NC/AT; -Eyes: PERRL, EOMI. No discharge or redn ess; -Ears: External ears are normal. -Nose: Normal nares. -Mouth and throat: MMM. Normal gums, muc dannie, palate,. Good dentition. NECK: Supple, with no masses. CV: RRR, no m/r/g. LUNGS: CTAB, no w/r/c. ABD: Soft, NT/ND, NBS, no masses or organomegaly. : Temple draining yellow/clear urine SKIN: Warm, well perfused. No skin rashes or abnormal lesions. MSK: No deformities, Normal gait. EXT: No clubbing, cyanosis, or edema. NEURO: Ambulating with no limitations. Normal muscle strength and tone. No focal deficits. Results & Data Results & Data Vital Signs (Past 12 Hours) Vital Signs Temp Pulse Resp BP Pulse Ox O2 Del Method O2 Flow Rate 07/29/25 08:00 Nasal Cannula 07/29/25 06:06 89 16 98 CPAP 4 07/29/25 05:03 87 15 94 07/29/25 05:01 135/78 07/29/25 05:01 135/78 07/29/25 04:48 89 15 98 07/29/25 04:03 91 H 15 97 CPAP 4 07/29/25 04:01 119/62 07/29/25 04:01 119/62 07/29/25 04:00 37.2 C 07/29/25 03:54 92 H 17 99 CPAP 4 07/29/25 03:01 116/73 07/29/25 03:00 92 H 16 98 CPAP 4 07/29/25 02:00 93 H 16 99 CPAP 4 07/29/25 02:00 124/73 07/29/25 02:00 124/73 07/29/25 01:09 88 14 98 CPAP 4 07/29/25 01:01 122/63 07/29/25 00:54 94 H 19 98 07/29/25 00:24 93 H 18 96 07/29/25 00:03 92 H 17 99 07/29/25 00:01 129/78 07/29/25 00:01 129/78 07/29/25 00:01 129/78 07/29/25 00:00 36.9 C 07/28/25 23:54 90 18 98 07/28/25 23:48 89 16 99 07/28/25 23:30 90 17 100 07/28/25 23:15 94 H 18 100 07/28/25 23:06 90 17 98 07/28/25 22:51 91 H 18 98 07/28/25 22:33 93 H 12 98 07/28/25 22:27 93 H 18 100 07/28/25 22:25 101/61 07/28/25 22:25 101/61 07/28/25 22:25 101/61 Critical Care Results & Data Vital Signs (Past 12 Hours) Vital Signs Temp Pulse Resp BP Pulse Ox O2 Del Method O2 Flow Rate 07/29/25 08:00 Nasal Cannula 07/29/25 06:06 89 16 98 CPAP 4 07/29/25 05:03 87 15 94 07/29/25 05:01 135/78 07/29/25 05:01 135/78 07/29/25 04:48 89 15 98 07/29/25 04:03 91 H 15 97 CPAP 4 07/29/25 04:01 119/62 07/29/25 04:01 119/62 07/29/25 04:00 37.2 C 07/29/25 03:54 92 H 17 99 CPAP 4 07/29/25 03:01 116/73 07/29/25 03:00 92 H 16 98 CPAP 4 07/29/25 02:00 93 H 16 99 CPAP 4 07/29/25 02:00 124/73 07/29/25 02:00 124/73 07/29/25 01:09 88 14 98 CPAP 4 07/29/25 01:01 122/63 07/29/25 00:54 94 H 19 98 07/29/25 00:24 93 H 18 96 07/29/25 00:03 92 H 17 99 07/29/25 00:01 129/78 07/29/25 00:01 129/78 07/29/25 00:01 129/78 07/29/25 00:00 36.9 C 07/28/25 23:54 90 18 98 07/28/25 23:48 89 16 99 07/28/25 23:30 90 17 100 07/28/25 23:15 94 H 18 100 07/28/25 23:06 90 17 98 07/28/25 22:51 91 H 18 98 07/28/25 22:33 93 H 12 98 07/28/25 22:27 93 H 18 100 07/28/25 22:25 101/61 07/28/25 22:25 101/61 07/28/25 22:25 101/61 Lab & Micro Results (Past 24 Hours) RBC 3.04 M/uL (4.20-5.40) L 07/29/25 WBC 6.72 K/ul (4.8-10.8) 07/29/25 Hgb 9.4 g/dl (12.0-16.0) L 07/29/25 Hct 29.1 % (37.0-47.0) L 07/29/25 MCV 95.7 fL (80.0-100.0) 07/29/25 MCH 30.9 pg (25.0-34.0) 07/29/25 MCHC 32.3 g/dL (32.0-36.0) 07/29/25 RDW Standard Deviation 50.7 fL (36.4-46.3) H 07/29/25 RDW Coefficient of Variation 14.4 % (11.5-14.5) 07/29/25 Plt Count 160 K/uL (130-400) 07/29/25 MPV 11.2 fL (9.4-12.4) 07/29/25 Na 130 mmol/L (136-145) L 07/29/25 K 4.3 mmol/L (3.5-5.1) 07/29/25 Cl 100 mmol/L (98-107) 07/29/25 CO2 25 mmol/L (21-32) 07/29/25 Anion Gap 5 (3-11) 07/29/25 BUN 46 mg/dl (6-23) H 07/29/25 Creatinine 0.99 mg/dl (0.6-1.2) 07/29/25 BUN/Creatinine Ratio 46.5 (10-20) H 07/29/25 Glu 110 mg/dl (70-99(Fasting)) H 07/29/25 Ca 8.3 mg/dl (8.6-10.3) L 07/29/25 Phosphorus Level 3.3 mg/dl (2.5-4.9) 07/29/25 Mg 2.2 mg/dl (1.7-2.4) 07/29/25 04:31 Calcium Level 8.3 mg/dl (8.6-10.3) L 07/29/25 04:31 I & O Totals 24 Hours 07/28/25 07/29/25 07/30/25 06:59 06:59 06:59 Intake Total 2157.897 / 2157.897 2410.059 / 2410.059 52 / 52 Output Total 3641 / 3641 1825 / 1825 Balance -1483.103 / -1483.103 585.059 / 585.059 52 / 52 Cumulative 07/24/25 21:31 thru 07/29/25 08:45 Intake Total 12269.142 Output Total 84498 Balance 3734.142 RT Ventilator Mngmt (Last Documented) Ventilator Ordered Settings Respiratory Rate 16 07/29/25 06:06 Ventilator - PT Measurements Respiratory Rate 16 PG Care Time/CCT Total # of Minutes Spent Total Time Spent with Patient: Total time spent is greater than 50% in coordination of care (as documented) at patient's floor/unit and/or counseling patient: Coding Level of Care Code 44538 CRITICAL CARE 1ST 30-74M Diagnoses Counseling regarding goals of care Z71.89 Palliative care by specialist Z51.5 Lethargy R53.83 Elevated liver enzymes R74.8 Respiratory acidosis E87.29 Hyponatremia E87.1 MAGDA (acute kidney injury) N17.9 Septic shock A41.9; R65.21 Brachial plexopathy G54.0 Polyradiculopathy M54.10 Bilateral arm weakness R29.898 Back pain with left-sided radiculopathy M54.10 Weakness R53.1
--- NOTE | 2025-07-29 11:11 | Hospitalist Progress Note ---
Date of Service July 29, 2025 Assessment & Plan (1) Septic shock: (2) MAGDA (acute kidney injury): (3) Bilateral arm weakness: (4) Recurrent cancer of right breast: (5) Brachial plexopathy: (6) Respiratory acidosis: (7) Hypertension: Plan This is a 75-year-old female with remote history of breast cancer s/p mastectomy, chemo and radiation with progressive bilateral upper extremity weakness. 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 She was transferred to [facility] and had spinal surgery performed on July 16. She was discharged to [facility] rehab on July 23. Presents to [facility] with hypotension, septic shock. fluid overload: Has gained about 11 pounds in 4 days Will start gentle diuresis with lasix 20mg IV daily BP is now stable off pressors, but on Midodrine Monitor I/O Afib: Went into afib last night started on heparin converted to NSR Heparin has been discontinued # septic shock -Source is likely urinary UA appears grossly infected. -Cultures growing Klebsiella and Pseudomonas montague sensitive -Continue IV cefepime -now off pressors -started PO midodrine # post op cervical spine surgery -Sutures were removed on 07/26/25 Pain management with IV Dilaudid as needed Frequent orientation Continue ropinirole 0.5 mg p.o. nightly for restless leg hold home oxycodone and fentanyl patch in setting of hypotension, renal compromise and encephalopathy l decrease gabapentin from 800 mg p.o. twice daily to 400 mg p.o. twice daily in setting of renal dysfunction and encephalopathy hold Flexeril for now #acute hypoxic respiratory failure associated with sepsis patient initially hypoxic requiring placement of supplemental oxygen. -Patient with history of DANNIE and reports compliance with her home CPAP CPAP nightly Supplemental oxygen as needed # abdominal pain. -CT findings as above with nonspecific colitis. -Just mild tenderness this morning # MAGDA with CKD 3, -Likely secondary to septic shock -urine output has been adequate Avoid nephrotoxic agents Renal dosing were needed # hypothyroidism. TSH = 3.504 on 07/10/2025. -Random cortisol appropriately elevated Continue Synthroid #History of breast cancer with likely recurrence. 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 -She was offered an attempted adjuvant chemotherapy which was aborted because of poor tolerance. -Patient continues on letrozole. Has history of brachioplexopathy, s/p C6 process biopsy to rule out malignancy Decondtioning Will need PT/OT Disposition:continue hospitalization Admission and Anticipated Discharge Date Admission Date: July 25, 2025 Subjective patient seen and examined, lying quietly in bed, still on nasal canula Review of Systems Review of Systems: All systems reviewed are negative, apart from the ones contained in the history. Physical Exam Physical Exam: The patient is awake, alert and oriented 3, well developed and well nourished, HEENT--PERRL, EOMI, mucous membranes and oropharynx mildly dry Neck--supple. No JVD. No bruits. Thyroid normal, trachea midline, no adenopathy. Heart--normal S1 and S2. No murmurs, rubs or gallops. Lungs--clear bilaterally, no respiratory distress, no accessory muscle use. Abdomen--normal bowel sounds and soft. Extremities--no cyanosis or clubbing. No edema. Dermatologic--normal skin turgor, normal color, no abnormal lymph nodes, no rash. Neurologic--cranial nerves II through XII grossly intact. Rheumatologic--normal range of motion. Psychiatric--normal affect. Results & Data Results & Data Vital Signs (Past 12 Hours) Vital Signs Temp Pulse Resp BP Pulse Ox O2 Del Method O2 Flow Rate 07/29/25 10:12 Nasal Cannula 4 07/29/25 08:00 Nasal Cannula 07/29/25 06:06 89 16 98 CPAP 4 07/29/25 05:03 87 15 94 07/29/25 05:01 135/78 07/29/25 05:01 135/78 07/29/25 04:48 89 15 98 07/29/25 04:03 91 H 15 97 CPAP 4 07/29/25 04:01 119/62 07/29/25 04:01 11907/29/25 04:00 99.0 F 07/29/25 03:54 92 H 17 99 CPAP 4 07/29/25 03:01 116/73 07/29/25 03:00 92 H 16 98 CPAP 4 07/29/25 02:00 93 H 16 99 CPAP 4 07/29/25 02:00 124/73 07/29/25 02:00 124/73 07/29/25 01:09 88 14 98 CPAP 4 07/29/25 01:01 122/63 07/29/25 00:54 94 H 19 98 07/29/25 00:24 93 H 18 96 07/29/25 00:03 92 H 17 99 07/29/25 00:01 129/78 07/29/25 00:01 129/78 07/29/25 00:01 129/78 07/29/25 00:00 98.4 F 07/28/25 23:54 90 18 98 07/28/25 23:48 89 16 99 07/28/25 23:30 90 17 100 07/28/25 23:15 94 H 18 100 PG Care Time/CCT Total # of Minutes Spent Total Time Spent with Patient: Total time spent is greater than 50% in coordination of care (as documented) at patient's floor/unit and/or counseling patient: Coding Level of Care Code 02900 SUB INP/OBS CARE 2/35MIN Diagnoses Septic shock A41.9; R65.21 MAGDA (acute kidney injury) N17.9 Bilateral arm weakness R29.898 Recurrent cancer of right breast C50.911 Brachial plexopathy G54.0 Respiratory acidosis E87.29 Hypertension I10 Time Spent (min) 35
[2025-07-29] MEDS: HEPARIN 100 UNIT/ML 5ML FLUSH FLUSH PRN (15:04)
[2025-07-30] MEDS: DOCUSATE SODIUM/SENNA 50/8.6MG TAB PO PRN (02:23)
[2025-07-30 07:25] LABS: Hematocrit (blood only) 26.8 % (37.0-47.0); Hemoglobin 8.5 g/dl (12.0-16.0); Mean Corpuscular Hemoglobin 30.8 pg (25.0-34.0); Mean Corpuscular Volume 97.1 fL (80.0-100.0); Platelet Count 204 K/uL (130-400); RDW Standard Deviation 52.0 fL (36.4-46.3); Red Blood Count 2.76 M/uL (4.20-5.40); White Blood Count 12.25 K/ul (4.8-10.8)
[2025-07-30 08:01] LABS: Anion Gap 8.0 (3-11); Blood Urea Nitrogen 65.0 mg/dl (6-23); Calcium 8.5 mg/dl (8.6-10.3); Carbon Dioxide 23.0 mmol/L (21-32); Chloride 96.0 mmol/L (98-107); Creatinine Clr Calc Pharmacy 36.7 ml/min; Glucose 103.0 mg/dl (70-99(Fasting)); Magnesium 2.3 mg/dl (1.7-2.4); Potassium 4.5 mmol/L (3.5-5.1); Sodium 127.0 mmol/L (136-145)
--- NOTE | 2025-07-30 11:15 | Hospitalist Progress Note ---
Date of Service July 30, 2025 Assessment & Plan (1) Septic shock: (2) MAGDA (acute kidney injury): (3) Bilateral arm weakness: (4) Recurrent cancer of right breast: (5) Brachial plexopathy: (6) Respiratory acidosis: (7) Hypertension: Plan This is a 75-year-old female with remote history of breast cancer s/p mastectomy, chemo and radiation with progressive bilateral upper extremity weakness. 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 She was transferred to [facility] and had spinal surgery performed on July 16[facility] Presents to [facility] with hypotension, septic shock. fluid overload: Has gained about 11 pounds in 4 days Initially started on lasix 20mg, however, patient appears dry this morning, with low urine output Will hold diuresis Give 500cc of saline BP is now stable off pressors, but on Midodrine Monitor I/O Afib: Went into afib last night started on heparin converted to NSR Heparin has been discontinued # septic shock -Source is likely urinary -Now resolved UA appears grossly infected. -Cultures growing Klebsiella and Pseudomonas montague sensitive -Continue IV cefepime -now off pressors -started PO midodrine # post op cervical spine surgery -Sutures were removed on 07/26/25 Pain management with IV Dilaudid as needed Frequent orientation Continue ropinirole 0.5 mg p.o. nightly for restless leg hold home oxycodone and fentanyl patch in setting of hypotension, renal compromise and encephalopathy l decrease gabapentin from 800 mg p.o. twice daily to 400 mg p.o. twice daily in setting of renal dysfunction and encephalopathy hold Flexeril for now -Will find out when to remove the [place] neck collar #acute hypoxic respiratory failure associated with sepsis patient initially hypoxic requiring placement of supplemental oxygen. -Patient with history of DANNIE and reports compliance with her home CPAP CPAP nightly Supplemental oxygen as needed # abdominal pain. -CT findings as above with nonspecific colitis. -Just mild tenderness this morning # MAGDA with CKD 3, -Likely secondary to septic shock -urine output has been adequate Avoid nephrotoxic agents Renal dosing were needed # hypothyroidism. TSH = 3.504 on 07/10/2025. -Random cortisol appropriately elevated Continue Synthroid #History of breast cancer with likely recurrence. 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 -She was offered an attempted adjuvant chemotherapy which was aborted because of poor tolerance. -Patient continues on letrozole. Has history of brachioplexopathy, s/p C6 process biopsy to rule out malignancy Decondtioning Will need PT/OT Disposition:continue hospitalization, she will need rehab Admission and Anticipated Discharge Date Admission Date: July 25, 2025 Subjective patient seen and examined, lying quietly in bed, still on nasal canula Review of Systems Review of Systems: All systems reviewed are negative, apart from the ones contained in the history. Physical Exam Physical Exam: The patient is awake, alert and oriented 3, well developed and well nourished, HEENT--PERRL, EOMI, mucous membranes and oropharynx mildly dry Neck--supple. No JVD. No bruits. Thyroid normal, trachea midline, no adenopathy. Heart--normal S1 and S2. No murmurs, rubs or gallops. Lungs--clear bilaterally, no respiratory distress, no accessory muscle use. Abdomen--normal bowel sounds and soft. Extremities--no cyanosis or clubbing. No edema. Dermatologic--normal skin turgor, normal color, no abnormal lymph nodes, no rash. Neurologic--cranial nerves II through XII grossly intact. Rheumatologic--normal range of motion. Psychiatric--normal affect. Results & Data Results & Data Vital Signs (Past 12 Hours) Vital Signs Temp Pulse Resp BP Pulse Ox O2 Del Method O2 Flow Rate 07/30/25 10:31 97.9 F 83 20 104/57 L 96 Nasal Cannula 07/30/25 10:20 108/56 L 07/30/25 09:00 Nasal Cannula 4 07/30/25 07:35 98.1 F 88 20 93/59 L 97 Nasal Cannula 07/30/25 02:41 97.3 F L 84 18 114/62 93 Nasal Cannula 4.0 PG Care Time/CCT Total # of Minutes Spent Total Time Spent with Patient: Total time spent is greater than 50% in coordination of care (as documented) at patient's floor/unit and/or counseling patient: Coding Level of Care Code 17234 SUB INP/OBS CARE 2/35MIN Diagnoses Septic shock A41.9; R65.21 MAGDA (acute kidney injury) N17.9 Bilateral arm weakness R29.898 Recurrent cancer of right breast C50.911 Brachial plexopathy G54.0 Respiratory acidosis E87.29 Hypertension I10 Time Spent (min) 35
[2025-07-30] MEDS: SODIUM CHLORIDE 0.9% 500 ML IV SCH (11:55)
[2025-07-30] MEDS: CEFEPIME 2000MG 2,000 MG/20 ML SYR IV SCH (20:15)
[2025-07-31 00:32] LABS: Base Excess VBG -6.8 mEq/L; HCO3 VBG 20 mmol/L; Oxygen Saturation VBG 94.1 %; PCO2 VBG 42 mmHg (38-50); PO2 VBG 66 mmHg; pH VBG 7.28 (7.36-7.41)
[2025-07-31 06:26] LABS: Hematocrit (blood only) 25.8 % (37.0-47.0); Hemoglobin 8.7 g/dl (12.0-16.0); Mean Corpuscular Hemoglobin 31.8 pg (25.0-34.0); Mean Corpuscular Volume 94.2 fL (80.0-100.0); Platelet Count 198 K/uL (130-400); RDW Standard Deviation 49.9 fL (36.4-46.3); Red Blood Count 2.74 M/uL (4.20-5.40); White Blood Count 12.93 K/ul (4.8-10.8)
[2025-07-31 07:03] LABS: Anion Gap 9.0 (3-11); Calcium 8.4 mg/dl (8.6-10.3); Carbon Dioxide 20.0 mmol/L (21-32); Chloride 96.0 mmol/L (98-107); Magnesium 2.2 mg/dl (1.7-2.4); Potassium 4.7 mmol/L (3.5-5.1); Sodium 125.0 mmol/L (136-145)
[2025-07-31 07:09] LABS: Blood Urea Nitrogen 80.0 mg/dl (6-23); Creatinine Clr Calc Pharmacy 34.0 ml/min; Glucose 105.0 mg/dl (70-99(Fasting))
[2025-07-31] MEDS: SODIUM CHLORIDE 1 GM TABLET PO SCH (08:29)
[2025-07-31] MEDS: SODIUM CHLORIDE 0.9% 500 ML IV SCH (12:31)
--- NOTE | 2025-07-31 12:33 | Hospitalist Progress Note ---
Date of Service July 31, 2025 Assessment & Plan (1) Septic shock: (2) MAGDA (acute kidney injury): (3) Bilateral arm weakness: (4) Recurrent cancer of right breast: (5) Brachial plexopathy: (6) Respiratory acidosis: (7) Hypertension: Plan This is a 75-year-old female with remote history of breast cancer s/p mastectomy, chemo and radiation with progressive bilateral upper extremity weakness. 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 She was transferred to [facility] and had spinal surgery performed on July 16. She was [facility] on July 23. Presents to [facility] with hypotension, septic shock. Deconditioning: Patient is very deconditioned Barely able to participate in physical therapy, and also reluctant to Will continue to encourage PT Afib: Went into afib last night started on heparin converted to NSR Heparin has been discontinued # septic shock -Source is likely urinary -Now resolved UA appears grossly infected. -Cultures growing Klebsiella and Pseudomonas montague sensitive -Continue IV cefepime, end date 08/01 -now off pressors -started PO midodrine # post op cervical spine surgery -Sutures were removed on 07/26/25 Pain management with IV Dilaudid as needed Frequent orientation Continue ropinirole 0.5 mg p.o. nightly for restless leg hold home oxycodone and fentanyl patch in setting of hypotension, renal compromise and encephalopathy l decrease gabapentin from 800 mg p.o. twice daily to 400 mg p.o. twice daily in setting of renal dysfunction and encephalopathy hold Flexeril for now -[employer] [place] neck collar to remain for 12 weeks #acute hypoxic respiratory failure associated with sepsis patient initially hypoxic requiring placement of supplemental oxygen. -Patient with history of DANNIE and reports compliance with her home CPAP CPAP nightly Supplemental oxygen as needed # abdominal pain. -CT findings as above with nonspecific colitis. -Just mild tenderness this morning # MAGDA with CKD 3, -Likely secondary to septic shock -urine output has been adequate Avoid nephrotoxic agents Renal dosing were needed # hypothyroidism. TSH = 3.504 on 07/10/2025. -Random cortisol appropriately elevated Continue Synthroid #History of breast cancer with likely recurrence. 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 -She was offered an attempted adjuvant chemotherapy which was aborted because of poor tolerance. -Patient continues on letrozole. Has history of brachioplexopathy, s/p C6 process biopsy to rule out malignancy Decondtioning Will need PT/OT Disposition:continue hospitalization, she will need rehab, She still wants to remain full code Admission and Anticipated Discharge Date Admission Date: July 25, 2025 Subjective patient seen and examined, lying quietly in bed, still on nasal canula, Son by the bedside, feels very weak Review of Systems Review of Systems: All systems reviewed are negative, apart from the ones contained in the history. Physical Exam Physical Exam: The patient is awake, alert and oriented 3, well developed and well nourished, HEENT--PERRL, EOMI, mucous membranes and oropharynx mildly dry Neck--supple. No JVD. No bruits. Thyroid normal, trachea midline, no adenopathy. Heart--normal S1 and S2. No murmurs, rubs or gallops. Lungs--clear bilaterally, no respiratory distress, no accessory muscle use. Abdomen--normal bowel sounds and soft. Extremities--no cyanosis or clubbing. No edema. Dermatologic--normal skin turgor, normal color, no abnormal lymph nodes, no rash. Neurologic--cranial nerves II through XII grossly intact. Rheumatologic--normal range of motion. Psychiatric--normal affect. Results & Data Results & Data Vital Signs (Past 12 Hours) Vital Signs Temp Pulse Pulse Resp BP Pulse Ox O2 Del Method 07/31/25 07:33 98.1 F 89 20 117/56 L 95 Nasal Cannula 07/31/25 04:22 97.9 F 89 20 100/61 91 BiPAP 07/31/25 02:27 90 22 94 O2 Flow Rate 07/31/25 07:33 4 07/31/25 04:22 07/31/25 02:27 4 PG Care Time/CCT Total # of Minutes Spent Total Time Spent with Patient: Total time spent is greater than 50% in coordination of care (as documented) at patient's floor/unit and/or counseling patient: Coding Level of Care Code 31812 SUB INP/OBS CARE 2/35MIN Diagnoses Septic shock A41.9; R65.21 MAGDA (acute kidney injury) N17.9 Bilateral arm weakness R29.898 Recurrent cancer of right breast C50.911 Brachial plexopathy G54.0 Respiratory acidosis E87.29 Hypertension I10 Time Spent (min) 35
--- NOTE | 2025-07-31 15:20 | Palliative Family Discussion ---
Date of Service July 31, 2025 Patient Directed Conference Time of Meetin:00 - 10:30 Participants: Karen Roberto Patient participation: yes Patient Support System: son Other Healthcare Provider Participation: None Meeting Location: bedside Advanced Directive available: no If yes, descriptors: The patient's surrogate medical decision maker participated: junito Gonzalez Legally authorized health care proxy: n/a Other surrogate: n/a A family meeting was held for RISHI GONZALEZ. This meeting was necessary for determining the appropriate course of treatment. Topics of Discussion Topics of Discussion: 1. HPI/admissison course 2. pt values/goals 3. general prognostication 4. code status Other Content of Meetin. Opportunity given for participants to speak and ask questions. 2. Participants were assured of attention to patient comfort. 3. Reassurance provided. 4. Support was provided for informed, [place] decisions. 5. Emotions expressed by family were acknowledged and addressed. 6. Follow-up Outpatient: n/a 7. Plan of Care: full code/ full treat Met with pt's son at bedside. Introduced Palliative Medicine and explained our role in advanced care planning, symptom management and navigation through the progression of life limiting disease. Patient and/or family were receptive to palliative services for goals of care discussions. Reviewed we are different from hospice, a home health nurse visiting service. We discussed at length the patient's acute and chronic medical conditions, general prognosis, treatment options, and goals of care. Pt has verbalized desire to get stronger but is not cooperatively participating with PT/OT. Pt remains intermittently confused and unable to follow simple single step commands. Discussed feasibility of attending rehab. Discussed what goals/wishes would be if rehab goes poorly. Shared with Emmanuel that, although confused, the pt has repeatedly stated that she would not want to continue aggressive care if she cannot return to independent living. Helped Emmanuel understand that the pt is unlikely to participate regularly with PT enough to rebuild strength. Discussed that pt is currently bedbound and totally dependent on nursing care for ALL ADLs. She continues to get weaker and more deconditioned making rehab more and more difficult. We discussed prognosis based on the following prognostic scores (calculation based on pt's current condition): Palliative Prognostic Index (PPI) Score: 12 (PPI > 6 = approx survival of three weeks. Sensitivity 80% / Specificity 85%.) Ernesto CY, Juan YS, Giles HM, Rodriguez JS, Chin TL, Cari CY, Chi CC, Yeivett YC, Donahue JM, Miryam JH, Devin WC.Combination of initial palliative prognostic index and score change provides a better prognostic value for terminally ill cancer patients: a six- year observational cohort study https://www.ncbi.nlm.nih.gov/pubmed/64757631 . J Pain Symptom Manage. 2014;48(5):804-14. Palliative Prognostic Score (PaP - predicts 30 day survival probability in cancer and non cancer diagnoses): 13.5 = 30-day survival probability is less than 30% Juliet Shaikh.Independent validation of Palliative Prognostic Score in terminally ill patients referred to a hospital-based palliative medicine consultation service https://www.ncbi.nlm.nih.gov/pubmed/81051795 . J Pain Symp Manage. 2001; 22(5):164527. Discussed that these prognostic scores are a general reflection of likely outcomes and that patient outcomes do vary. Discussed code status and helped Emmanuel understand that CPR is only done after a person has and involves uncomfortable and invasive procedures that, if successful. have high risk of multiple complications including but not limited to rib fractures, pneumo/hemothorax, MAGDA, ventilator dependence, anoxic brain injury, and intermediate/permanent cognitive and functional deficits. CPR survival: Only about 10% of patients who have [id number] sudden cardiac arrest survive to hospital discharge, with many survivors having neurologic impairment. This rate is even lower among patients with serious coexisting conditions, ie chance of survival to hospital discharge for in- hospital CPR in older people is low to moderate (15%) and decreases with age, comorbidities, performance status and frailty: for pts > 70 yo, more than half of the patients who initially survived resuscitation in the hospital before hospital discharge. The pooled survival to discharge after in-hospital CPR was 18% for patients between 70 and 79 years old, 15% for patients between 80 and 89 years old and 11% for patients of 90 years and older. (Juma COLINY, Jose LJ, Jackie F, et al. Trends in short- and long-term survival among qes-qa-hyratjlz cardiac arrest patients alive at hospital arrival. Circulation 2014;130:1883- 1890. AND Deepa Hawk, Jayde T, Moody R, et al. Performance of clinical risk scores to predict mortality and neurological outcome in cardiac arrest patients. Resuscitation 2019;136:21-29.) Emmanuel shared that he would like to speak with an MD for updates and more perspective. He shared that he and his sister would together help the pt to make decisions. Discussed that the patient currently lacks decisional capacity and d oes require a proxy for medical decisions. Pt is a and there is not have LW/AD on file. Per PA [id number], in absence of written documentation of patient wishes, pt's proxy for medical decisions would be her adult children Emmanuel and Latesha. Emmanuel shared that he will work with his sister to arrange a time for a GOC discussion in next few days. Time Involved in Meeting: I spent 60 minutes overall addressing this case: 10 in medical data review/discussion with referring provider(s) and/or preparation for the visit 30 in direct interaction with the patient and son 30 Advance Care Planning/Goals of Care discussions as detailed above in note (must be >16min) 10 in subsequent review and synthesis of assessment and plan 10 in communicating with other providers regarding the patient's case: attending, CM, BSRN
--- NOTE | 2025-07-31 21:47 | Communication Note ---
Date of Service: July 31, 2025 Around 20:50 nurse let me know that pt was barely arousable so po medications were held and that pt was to be transferred out of PCU to [facility] per day provider order. Went to bedside to assess patient. Pt on nasal CPAP and opens eyes to voice and at times looks around or mumbles something but does not communicate meaningfully and does not follow commands. She did start to moves her arms up a few times as if she was going to reach up for the nasal device but then dropped them back down. She is slightly more alert seeming to painful stimuli but again responses are not meaningful and quickly closes eyes again. Labs and imaging ordered. Reviewed charting and palliative note from day shift. Pt is full code at this time. Labs show persistent low WBC count and neutrophil predominance. Lactate wnl. Sodium 126 which is consistent with last few days. VBG shows acidosis, not respiratory in nature. ABG ordered and shows elevated oxygen levels so respiratory contacted to lower oxygen settings on CPAP but otherwise is unrevealing. Started on bicarb drip. Started on empiric antibiotics zosyn (MRSA nares negative so vanc not added) given worsening CXR and blood cultures gathered. Pt was septic earlier this admission needing pressor support. Given overall clinical status is relatively poor, called son Emmanuel Gonzalez who is the POA. I discussed her overall clinical picture including topics touched upon by palliative already and and that with her AMS at this point we need to know if she would want invasive measures such as CPR/intubation. I advised him that if she were to need intubated or CPR the chance of a successful recovery for her is likely slim. He does note ongoing decline for her, and states when he was in early today he noticed she seemed like she was starting to do very unwell again. 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 He called his sister, Tamy, to discuss with her and ultimately called back and stated that the two of them agree she would NOT want CPR or intubation/ventilation and agree with change from full code to DNR/DNI. He states he would not want to see her suffer. D iscussed with him briefly about comfort measures. He is agreeable to transition to PLANT TECHNICIAN if pt further declines and asks if she further declines to call his sister (pt's daughter) Tamy who lives locally as first contact so she can come in. End consensus with son Emmanuel who is POA is that pt will be transitioned from full code to DNR/DNI and if she further worsens clinically we will contact Tamy (pt's daughter, his sister) and transition to PLANT TECHNICIAN based care with the understanding that this would mean stopping curative attempts and focusing on symptom management only. I advised he call back with any questions or concerns. Resident Activity Tracking Resident Involvement: Resident Care Provided Care Provided: Adult Hospital Medicine
[2025-07-31 21:50] LABS: Base Excess VBG -8.5 mEq/L; HCO3 VBG 18 mmol/L; Oxygen Saturation VBG 76.1 %; PCO2 VBG 42 mmHg (38-50); PO2 VBG 43 mmHg; pH VBG 7.25 (7.36-7.41)
[2025-07-31 21:53] LABS: Hematocrit (blood only) 25.6 % (37.0-47.0); Hemoglobin 8.6 g/dl (12.0-16.0); Mean Corpuscular Hemoglobin 31.7 pg (25.0-34.0); Mean Corpuscular Volume 94.5 fL (80.0-100.0); Platelet Count 243 K/uL (130-400); RDW Standard Deviation 50.0 fL (36.4-46.3); Red Blood Count 2.71 M/uL (4.20-5.40); White Blood Count 12.89 K/ul (4.8-10.8)
[2025-07-31 22:10] LABS: Alanine Aminotransferase 42.0 U/L (7-52); Albumin Globulin Ratio 0.7 (0.9-2); Albumin Level 2.3 gm/dl (3.4-5.0); Alkaline Phosphatase 197.0 U/L (34-104); Anion Gap 10.0 (3-11); Bilirubin,Total 0.6 mg/dl (0.2-1.0); Blood Urea Nitrogen 88.0 mg/dl (6-23); Calcium 8.2 mg/dl (8.6-10.3); Carbon Dioxide 19.0 mmol/L (21-32); Chloride 97.0 mmol/L (98-107); Creatinine Clr Calc Pharmacy 30.0 ml/min; Globulin 3.4 gm/dl (2.5-4.0); Glucose 110.0 mg/dl (70-99(Fasting)); Magnesium 2.2 mg/dl (1.7-2.4); Potassium 4.6 mmol/L (3.5-5.1); Sodium 126.0 mmol/L (136-145); Total Protein 5.7 gm/dl (6.0-8.3)
[2025-07-31] MEDS ORDERED: STAT IV/IM STA (22:31)
[2025-07-31 22:34] LABS: Dohle Bodies 1+; Immature Granulocytes # (auto) 0.89 K/uL (0.01-0.20); Immature Granulocytes % (auto) 6.9 %
[2025-07-31 22:56] LABS: HCO3 ABG 17 mmol/L (19-24); Oxygen Saturation ABG 100.0 % (90-95); PCO2 ABG 32 mmHg (35-46); PO2 ABG 139 mmHg (80-95)
[2025-07-31 22:58] LABS: Allen Test Pos (Pos)
[2025-07-31] MEDS: PIPERACILLIN/TAZOBACTAM 4.5 GM/100 ML BAG IV SCH (23:02)
[2025-07-31] MEDS: SODIUM BICARBONATE 8.4% 150 MEQ in WATER, STERILE 1,000 ML IV SCH (23:02)
--- NOTE | 2025-07-31 23:23 | XRay Report ---
Exam(s): XR CXR 1 VIEW EXAM: XR Chest, 1 View CLINICAL HISTORY: Reason for exam: worsened AMS. TECHNIQUE: Frontal view of the chest. COMPARISON: 07/28/2025 FINDINGS: Lungs: Within limitations this exam there is mild central pulmonary vascular congestion consistent with pulmonary edema. Shallow inspiration limits evaluation. Pleural space: Unremarkable. No pneumothorax. Heart: Cardiomegaly. Mediastinum: Unremarkable. Normal mediastinal contour. Bones/joints: Postop changes of the cervical spine. No acute fracture. Tubes, lines and devices: Left subclavian central venous catheter stable in position. IMPRESSION: Mild pulmonary edema Electronically signed by: Kavon Mckeon MD 07/31/25 23:22 PM
[2025-08-01 03:20] LABS: Anion Gap 10.0 (3-11); Calcium 8.2 mg/dl (8.6-10.3); Carbon Dioxide 20.0 mmol/L (21-32); Chloride 96.0 mmol/L (98-107); Potassium 4.7 mmol/L (3.5-5.1); Sodium 126.0 mmol/L (136-145)
[2025-08-01 03:41] LABS: Blood Urea Nitrogen 93.0 mg/dl (6-23); Creatinine Clr Calc Pharmacy 28.4 ml/min; Glucose 111.0 mg/dl (70-99(Fasting))
[2025-08-01 06:52] LABS: Hematocrit (blood only) 25.7 % (37.0-47.0); Hemoglobin 8.3 g/dl (12.0-16.0); Mean Corpuscular Hemoglobin 30.9 pg (25.0-34.0); Mean Corpuscular Volume 95.5 fL (80.0-100.0); Platelet Count 231 K/uL (130-400); RDW Standard Deviation 50.6 fL (36.4-46.3); Red Blood Count 2.69 M/uL (4.20-5.40); White Blood Count 12.13 K/ul (4.8-10.8)
[2025-08-01 07:28] LABS: Anion Gap 11.0 (3-11); Blood Urea Nitrogen 97.0 mg/dl (6-23); Calcium 8.2 mg/dl (8.6-10.3); Carbon Dioxide 20.0 mmol/L (21-32); Chloride 95.0 mmol/L (98-107); Creatinine Clr Calc Pharmacy 26.2 ml/min; Glucose 105.0 mg/dl (70-99(Fasting)); Magnesium 2.3 mg/dl (1.7-2.4); Potassium 4.8 mmol/L (3.5-5.1); Sodium 126.0 mmol/L (136-145)
[2025-08-01 09:20] LABS: iSTAT Art Bld Gas Base Excess -8.0 mmol/L (-9-1.8); iSTAT Art Bld Gas pCO2 Correct 36 mmHg (35-46); iSTAT Art Bld Gas pH Corrected 7.314 (7.35-7.45); iSTAT Arterial Blood Gas pO2 C 91
--- NOTE | 2025-08-01 11:12 | Hospitalist Progress Note ---
Date of Service August 01, 2025 Assessment & Plan (1) Septic shock: (2) MAGDA (acute kidney injury): (3) Bilateral arm weakness: (4) Recurrent cancer of right breast: (5) Brachial plexopathy: (6) Respiratory acidosis: (7) Hypertension: Plan This is a 75-year-old female with remote history of breast cancer s/p mastectomy, chemo and radiation with progressive bilateral upper extremity weakness. 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 She was transferred to [facility] and had spinal surgery performed on July 16. She was discharged to [facility] on July 23. Presents to [facility] with hypotension, septic shock. Acute encephalopathy Overnight, she deteriorated and became more sonolent She was made DNR and family open for her to be comfort care only, they want to continue antibiotics till 08/04 But if she deteriorates further, they will make her comfort care before then Deconditioning: Patient is very deconditioned Barely able to participate in physical therapy, and also reluctant to Will continue to encourage PT Afib: Went into afib last night started on heparin converted to NSR Heparin has been discontinued # septic shock -Source is likely urinary UA appears grossly infected. -Cultures growing Klebsiella and Pseudomonas montague sensitive -Continue IV cefepime, end date 08/04 -now off pressors -started PO midodrine # post op cervical spine surgery -Sutures were removed on 07/26/25 Pain management Frequent orientation -[place] neck collar to remain for 12 weeks #acute hypoxic respiratory failure associated with sepsis patient initially hypoxic requiring placement of supplemental oxygen. -Patient with history of DANNIE and reports compliance with her home CPAP CPAP nightly Supplemental oxygen as needed # abdominal pain. -CT findings as above with nonspecific colitis. -Just mild tenderness this morning # MAGDA with CKD 3, -Likely secondary to septic shock -urine output has been adequate Avoid nephrotoxic agents Renal dosing were needed # hypothyroidism. TSH = 3.504 on 07/10/2025. -Random cortisol appropriately elevated Continue Synthroid #History of breast cancer with likely recurrence. 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 -She was offered an attempted adjuvant chemotherapy which was aborted because of poor tolerance. -Patient continues on letrozole. Has history of brachioplexopathy, s/p C6 process biopsy to rule out malignancy Decondtioning Will need PT/OT Disposition:prognosis is guarded, she has not improved, family open for comfort care only Admission and Anticipated Discharge Date Admission Date: July 25, 2025 Subjective patient seen and examined, daughter by the bedside, she is poorly responsive Review of Systems Review of Systems: unable to obtain Physical Exam Physical Exam: The patient is somnolent HEENT--PERRL, EOMI, mucous membranes and oropharynx mildly dry Neck--supple. No JVD. No bruits. Thyroid normal, trachea midline, no adenopathy. Heart--normal S1 and S2. No murmurs, rubs or gallops. Lungs--clear bilaterally, no respiratory distress, no accessory muscle use. Abdomen--normal bowel sounds and soft. Extremities--no cyanosis or clubbing. No edema. Dermatologic--normal skin turgor, normal color, no abnormal lymph nodes, no rash. Neurologic--somnolent Rheumatologic--normal range of motion. Psychiatric--normal affect. Results & Data Results & Data Vital Signs (Past 12 Hours) Vital Signs Temp Pulse Pulse Resp BP Pulse Ox O2 Del Method 08/01/25 09:53 CPAP 08/01/25 07:13 98.1 F 88 19 99/56 L 94 CPAP 08/01/25 03:08 88 18 94/59 L 95 CPAP 08/01/25 02:20 74 20 92 O2 Flow Rate 08/01/25 09:53 08/01/25 07:13 08/01/25 03:08 08/01/25 02:20 2 PG Care Time/CCT Total # of Minutes Spent Total Time Spent with Patient: Total time spent is greater than 50% in coordination of care (as documented) at patient's floor/unit and/or counseling patient: Coding Level of Care Code 94799 SUB INP/OBS CARE 2/35MIN Diagnoses Septic shock A41.9; R65.21 MAGDA (acute kidney injury) N17.9 Bilateral arm weakness R29.898 Recurrent cancer of right breast C50.911 Brachial plexopathy G54.0 Respiratory acidosis E87.29 Hypertension I10 Time Spent (min) 35
[2025-08-01] MEDS: CALCIUM ACETATE 667 MG CAP/TAB PO SCH (11:58)
--- NOTE | 2025-08-01 12:05 | Palliative Family Discussion ---
Date of Service August 01, 2025 Patient Directed Conference Time of Meetin:00 - 10:40 Participants: Heather Mejia AGACNP Patient participation: no Patient Support System: daughter Nikky and son Emmanuel Other Healthcare Provider Participation: None Meeting Location: bedside Advanced Directive available: no If yes, descriptors: The patient's surrogate medical decision maker participated: pt is with 2 adult children Nikky and Emmanuel Legally authorized health care proxy: n/a Other surrogate: n/a A family meeting was held for RISHI HECTOR. This meeting was necessary for determining the appropriate course of treatment. Topics of Discussion Topics of Discussion: 1. pt values and GOC 2. admission course, general health 3. Other Content of Meetin. Opportunity given for participants to speak and ask questions. 2. Participants were assured of attention to patient comfort. 3. Reassurance provided. 4. Support was provided for informed, [place] decisions. 5. Emotions expressed by family were acknowledged and addressed. 6. Follow-up Outpatient: n/a 7. Plan of Care: continue current level of care, DNR/DNI with no escalation of care, if pt decompensates will transition to comfort directed care. Met with pt's daughter, Nikky, and son Emmanuel joined by phone. Pt's eldest grandson and partner were also present for discussion. Patient appears confused with difficulty verbalizing other than to repeatedly say "I don't want, I don't want". Patient does not attempt to respond to yes / no questions. We discussed at length the patient's acute and chronic medical conditions, general prognosis, treatment options, and goals of care. Discussed feasibility of attending rehab. Nikky shared that she has seen a dramatic decline in the patient's health and does not feel that she would benefit from PT/OT at this point. She shared frustration with the rapid decline in pt's health, stating that she had been pulling weeds in her garden just weeks ago. We discussed that the pt has not had the strength to participate with PT/OT or her own ADLs. I shared concern that she continues to get weaker. Nikky and Emmanuel both shared that the patient has verbalized that she would never want to live in a SNF or be dependent on others for her basic care. We discussed prognosis based on the following prognostic scores (calculation based on pt's current condition): Palliative Prognostic Index (PPI) Score: 12 (PPI > 6 = approx survival of three weeks. Sensitivity 80% / Specificity 85%.) Ernesto CY, Juan YS, Giles HM, Rodriguez JS, Francesco TL, Cari CY, Jorge CC, Janice YC, Godfrey JM, Miryam JH, Devin WC.Combination of initial palliative prognostic index and score change provides a better prognostic value for terminally ill cancer patients: a six- year observational cohort study https://www.ncbi.nlm.nih.gov/pubmed/22751502 . J Pain Symptom Manage. 2014;48(5):804-14. Palliative Prognostic Score (PaP - predicts 30 day survival probability in cancer and non cancer diagnoses): 13.5 = 30-day survival probability is less than 30% Juliet Shaikh.Independent validation of Palliative Prognostic Score in terminally ill patients referred to a hospital-based palliative medicine consultation service https://www.ncbi.nlm.nih.gov/pubmed/54932134 . J Pain Symp Manage. 2001; 22(5):305576. Discussed that these prognostic scores are a general reflection of likely outcomes and that patient outcomes do vary. Nikky and Emmanuel both shared that they would like to see if pt may improve with continued IV ABx to complete course for her UTI. Nikky shared that if the patient were to decompensate and need ICU level care again, that would be a sign that she will not improve. Ultimately, both Emmanuel and Nikky agreed that pt should remain at current level of care through weekend with plan to transition to comfort directed care if she does not show some improvement over weekend or if she worsens before Tuesday. Time Involved in Meeting: I spent 60 minutes overall addressing this case: 5 in medical data review/discussion with referring provider(s) and/or preparation for the visit 40 in direct interaction with the patient and family 40 Advance Care Planning/Goals of Care discussions as detailed above in note (must be >16min) 10 in subsequent review and synthesis of assessment and plan 5 in communicating with other providers regarding the patient's case: ML SHAH, attending
[2025-08-02 06:00] LABS: Hematocrit (blood only) 24.9 % (37.0-47.0); Hemoglobin 8.1 g/dl (12.0-16.0); Mean Corpuscular Hemoglobin 30.6 pg (25.0-34.0); Mean Corpuscular Volume 94.0 fL (80.0-100.0); Platelet Count 228 K/uL (130-400); RDW Standard Deviation 49.8 fL (36.4-46.3); Red Blood Count 2.65 M/uL (4.20-5.40); White Blood Count 9.90 K/ul (4.8-10.8)
[2025-08-02 06:14] LABS: Anion Gap 11.0 (3-11); Blood Urea Nitrogen 102.0 mg/dl (6-23); Calcium 8.0 mg/dl (8.6-10.3); Carbon Dioxide 22.0 mmol/L (21-32); Chloride 94.0 mmol/L (98-107); Creatinine Clr Calc Pharmacy 22.5 ml/min; Glucose 84.0 mg/dl (70-99(Fasting)); Magnesium 2.2 mg/dl (1.7-2.4); Potassium 4.4 mmol/L (3.5-5.1); Sodium 127.0 mmol/L (136-145)
[2025-08-02] MEDS: ENOXAPARIN INJ 60 MG/0.6 ML SYR SQ SCH (08:27)
--- NOTE | 2025-08-02 12:09 | Hospitalist Progress Note ---
Date of Service August 02, 2025 Assessment & Plan (1) Septic shock: (2) MAGDA (acute kidney injury): (3) Bilateral arm weakness: (4) Recurrent cancer of right breast: (5) Brachial plexopathy: (6) Respiratory acidosis: (7) Hypertension: Plan This is a 75-year-old female with remote history of breast cancer s/p mastectomy, chemo and radiation with progressive bilateral upper extremity weakness. 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 She was transferred to [facility] and had spinal surgery performed on July 16. She was discharged to [facility] rehab on July 23. Presents to [facility] with hypotension, septic shock. Acute encephalopathy A little more awake this morning, although still confused She was made DNR and family open for her to be comfort care only, they want to continue antibiotics till 08/04. no further escalation of care But if she deteriorates further, they will make her comfort care before then, Deconditioning: Patient is very deconditioned Barely able to participate in physical therapy, and also reluctant to Initial plan was for [facility], I doubt if she can make it there Afib: Now in sinus # septic shock -Source is likely urinary UA appears grossly infected. -Cultures growing Klebsiella and Pseudomonas [place] sensitive -Continue IV cefepime, end date 08/04 -now off pressors -started PO midodrine # post op cervical spine surgery -Sutures were removed on 07/26/25 Pain management Frequent orientation -[place] neck collar to remain for 12 weeks #acute hypoxic respiratory failure associated with sepsis patient initially hypoxic requiring placement of supplemental oxygen. -Patient with history of DANNIE and reports compliance with her home CPAP CPAP nightly Supplemental oxygen as needed # abdominal pain. -CT findings as above with nonspecific colitis. -Just mild tenderness this morning # MAGDA with CKD 3, -Likely secondary to septic shock -urine output has been adequate Avoid nephrotoxic agents Renal dosing were needed # hypothyroidism. TSH = 3.504 on 07/10/2025. -Random cortisol appropriately elevated Continue Synthroid #History of breast cancer with likely recurrence. 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 -She was offered an attempted adjuvant chemotherapy which was aborted because of poor tolerance. -Patient continues on letrozole. Has history of brachioplexopathy, s/p C6 process biopsy to rule out malignancy Decondtioning Will need PT/OT Disposition:prognosis is guarded, she has not improved, family open for comfort care only, no escalation of care Admission and Anticipated Discharge Date Admission Date: July 25, 2025 Subjective patient seen and examined, she is awake, a little more interactive today, although still confused Review of Systems Review of Systems: unable to obtain Physical Exam Physical Exam: The patient is somnolent HEENT--PERRL, EOMI, mucous membranes and oropharynx mildly dry Neck--supple. No JVD. No bruits. Thyroid normal, trachea midline, no adenopathy. Heart--normal S1 and S2. No murmurs, rubs or gallops. Lungs--clear bilaterally, no respiratory distress, no accessory muscle use. Abdomen--normal bowel sounds and soft. Extremities--no cyanosis or clubbing. No edema. Dermatologic--normal skin turgor, normal color, no abnormal lymph nodes, no rash. Neurologic--somnolent Rheumatologic--normal range of motion. Psychiatric--normal affect. Results & Data Results & Data Vital Signs (Past 12 Hours) Vital Signs Temp Pulse Pulse Resp BP Pulse Ox O2 Del Method 08/02/25 11:29 97.9 F 85 20 101/63 98 Nasal Cannula 08/02/25 10:12 Room Air 08/02/25 08:01 97.7 F 83 20 108/57 L 96 CPAP 08/02/25 02:32 80 18 97 08/02/25 02:31 98.1 F 82 16 108/66 97 CPAP O2 Flow Rate 08/02/25 11:29 4 08/02/25 10:12 08/02/25 08:01 08/02/25 02:32 4 08/02/25 02:31 PG Care Time/CCT Total # of Minutes Spent Total Time Spent with Patient: Total time spent is greater than 50% in coordination of care (as documented) at patient's floor/unit and/or counseling patient: Coding Level of Care Code 15840 SUB INP/OBS CARE 2/35MIN Diagnoses Septic shock A41.9; R65.21 MAGDA (acute kidney injury) N17.9 Bilateral arm weakness R29.898 Recurrent cancer of right breast C50.911 Brachial plexopathy G54.0 Respiratory acidosis E87.29 Hypertension I10 Time Spent (min) 35
[2025-08-02] MEDS: SODIUM CHLORIDE 0.9% 1,000 ML IV SCH (12:47)
[2025-08-02] MEDS: ALBUMIN 25% 25 GM/100 ML VIAL IV SCH (19:44)
[2025-08-02] MEDS: SODIUM CHLORIDE 0.9% 500 ML IV ONE (19:45)
[2025-08-03 08:15] LABS: Hematocrit (blood only) 24.1 % (37.0-47.0); Hemoglobin 8.1 g/dl (12.0-16.0); Mean Corpuscular Hemoglobin 31.5 pg (25.0-34.0); Mean Corpuscular Volume 93.8 fL (80.0-100.0); Platelet Count 255 K/uL (130-400); RDW Standard Deviation 49.9 fL (36.4-46.3); Red Blood Count 2.57 M/uL (4.20-5.40); White Blood Count 8.60 K/ul (4.8-10.8)
[2025-08-03 08:34] LABS: Alanine Aminotransferase 25.0 U/L (7-52); Albumin Globulin Ratio 0.9 (0.9-2); Albumin Level 2.5 gm/dl (3.4-5.0); Alkaline Phosphatase 127.0 U/L (34-104); Anion Gap 14.0 (3-11); Bilirubin,Total 0.7 mg/dl (0.2-1.0); Blood Urea Nitrogen 107.0 mg/dl (6-23); Calcium 8.2 mg/dl (8.6-10.3); Carbon Dioxide 21.0 mmol/L (21-32); Chloride 97.0 mmol/L (98-107); Creatinine Clr Calc Pharmacy 20.3 ml/min; Globulin 2.7 gm/dl (2.5-4.0); Glucose 86.0 mg/dl (70-99(Fasting)); Magnesium 2.2 mg/dl (1.7-2.4); Potassium 3.9 mmol/L (3.5-5.1); Sodium 132.0 mmol/L (136-145); Total Protein 5.2 gm/dl (6.0-8.3)
[2025-08-03] MEDS ORDERED: STAT IV/IM STA (09:26)
--- NOTE | 2025-08-03 09:58 | CT Scan Report ---
EXAM: CT Head Without Intravenous Contrast INDICATION: Follow-up parietal lesions. TECHNIQUE: Axial computed tomography images of the head/brain without intravenous contrast. Sagittal and/or coronal reformats are provided. Sagittal and coronal reformatted images were created and reviewed. This CT exam was performed using one or more of the following dose reduction techniques: automated exposure control, adjustment of the mA and/or kV according to patient size, and/or use of iterative reconstruction technique. COMPARISON: 07/10/2025 FINDINGS: Limitations: None. Brain and extra-axial spaces: There is age appropriate cortical atrophy and chronic ischemic periventricular white matter hypodensity. No acute infarct, hemorrhage or mass noted. Bones/joints: No acute changes. Soft tissues: No significant abnormality noted. Vasculature: No acute abnormality noted. Sinuses: No layering fluid in the visualized portions of the paranasal sinuses. Mastoid air cells: Stable chronic sclerosis and mild mucosal thickening floor of the right mastoid. No mastoid effusion. Orbits: No significant abnormality noted. IMPRESSION: Cerebral atrophy. No interval change. ACT 112: N/A Electronically signed by Elli Strange 08-03-2025 09:58 AM
--- NOTE | 2025-08-03 11:33 | Hospitalist Progress Note ---
Date of Service August 03, 2025 Assessment & Plan (1) Septic shock: (2) MAGDA (acute kidney injury): (3) Bilateral arm weakness: (4) Recurrent cancer of right breast: (5) Brachial plexopathy: (6) Respiratory acidosis: (7) Hypertension: Plan This is a 75-year-old female with remote history of breast cancer s/p mastectomy, chemo and radiation with progressive bilateral upper extremity weakness. 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 She was transferred to [facility] and had spinal surgery performed on July 16. She was discharged to [facility]hab on July 23. Presents to [facility] with hypotension, septic shock. Acute encephalopathy A little more awake this morning, although still confused Her mentation usually waxes and wanes, this is a combination of metabolic factors, worsening renal factors She was made DNR and family open for her to be comfort care only, they want to continue antibiotics till 08/04. no further escalation of care But if she deteriorates further, they will make her comfort care before then, CT scan of the head done today 08/03/2025 did not show any acute pathology Deconditioning: Patient is very deconditioned Barely able to participate in physical therapy, and also reluctant to Initial plan was for [facility], I doubt if she can make it there Afib: Now in sinus # septic shock -Source is likely urinary UA appears grossly infected. -Cultures growing Klebsiella and Pseudomonas [place] sensitive -Continue IV cefepime, end date 08/05 -now off pressors -started PO midodrine # post op cervical spine surgery -Due to worsening bilateral upper extremity weakness, she was sent to [place] -Patient was found to have an epidural mass, 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 -Biopsy of the mass was taken and sent to pathology, result pending. -She also underwent bilateral foraminotomies of C5-C6 C6-6 7 and posterior fusion of C3-T3. -She is currently on [place] neck collar which will be in place for 8 to 12 weeks -Sutures were removed on 07/26/25 Pain management Frequent orientation -[place] neck collar to remain for 12 weeks #acute hypoxic respiratory failure associated with sepsis patient initially hypoxic requiring placement of supplemental oxygen. -Patient with history of DANNIE and reports compliance with her home CPAP CPAP nightly Supplemental oxygen as needed # abdominal pain. -CT findings as above with nonspecific colitis. -Just mild tenderness this morning # MAGDA with CKD 3, -Likely secondary to septic shock -urine output has been adequate Avoid nephrotoxic agents Renal dosing were needed # hypothyroidism. TSH = 3.504 on 07/10/2025. -Random cortisol appropriately elevated Continue Synthroid #History of breast cancer with likely recurrence. 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 -She was offered an attempted adjuvant chemotherapy which was aborted because of poor tolerance. -Patient continues on letrozole. Has history of brachioplexopathy, s/p C6 process biopsy to rule out malignancy Decondtioning Will need PT/OT Disposition:prognosis is guarded, she has not improved, family open for comfort care only, no escalation of care Admission and Anticipated Discharge Date Admission Date: July 25, 2025 Subjective patient seen and examined, she is awake, a little more interactive today, although still confused Review of Systems Review of Systems: unable to obtain Physical Exam Physical Exam: The patient is somnolent HEENT--PERRL, EOMI, mucous membranes and oropharynx mildly dry Neck--supple. No JVD. No bruits. Thyroid normal, trachea midline, no adenopathy. Heart--normal S1 and S2. No murmurs, rubs or gallops. Lungs--clear bilaterally, no respiratory distress, no accessory muscle use. Abdomen--normal bowel sounds and soft. Extremities--no cyanosis or clubbing. No edema. Dermatologic--normal skin turgor, normal color, no abnormal lymph nodes, no rash. Neurologic--somnolent Rheumatologic--normal range of motion. Psychiatric--normal affect. Results & Data Results & Data Vital Signs (Past 12 Hours) Vital Signs Temp Pulse Resp BP Pulse Ox O2 Del Method O2 Flow Rate 08/03/25 10:20 Nasal Cannula 4 08/03/25 08:24 97.9 F 87 17 108/61 97 Nasal Cannula 4 08/03/25 03:25 97.9 F 83 18 117/67 97 High Flow Nasal Cannula 4 PG Care Time/CCT Total # of Minutes Spent Total Time Spent with Patient: Total time spent is greater than 50% in coordination of care (as documented) at patient's floor/unit and/or counseling patient: Coding Level of Care Code 37030 SUB INP/OBS CARE 2/35MIN Diagnoses Septic shock A41.9; R65.21 MAGDA (acute kidney injury) N17.9 Bilateral arm weakness R29.898 Recurrent cancer of right breast C50.911 Brachial plexopathy G54.0 Respiratory acidosis E87.29 Hypertension I10 Time Spent (min) 35
[2025-08-03] MEDS: SODIUM BICARBONATE 8.4% 100 MEQ in DEXTROSE 5% 1,000 ML IV SCH (11:36)
[2025-08-04 08:34] LABS: Hematocrit (blood only) 27.1 % (37.0-47.0); Hemoglobin 9.3 g/dl (12.0-16.0); Mean Corpuscular Hemoglobin 31.7 pg (25.0-34.0); Mean Corpuscular Volume 92.5 fL (80.0-100.0); Platelet Count 266 K/uL (130-400); RDW Standard Deviation 48.8 fL (36.4-46.3); Red Blood Count 2.93 M/uL (4.20-5.40); White Blood Count 9.40 K/ul (4.8-10.8)
[2025-08-04 09:12] LABS: Anion Gap 13.0 (3-11); Blood Urea Nitrogen 105.0 mg/dl (6-23); Calcium 8.4 mg/dl (8.6-10.3); Carbon Dioxide 24.0 mmol/L (21-32); Chloride 96.0 mmol/L (98-107); Creatinine Clr Calc Pharmacy 19.7 ml/min; Glucose 132.0 mg/dl (70-99(Fasting)); Potassium 3.5 mmol/L (3.5-5.1); Sodium 133.0 mmol/L (136-145)
--- NOTE | 2025-08-04 10:18 | Hospitalist Progress Note ---
Date of Service August 04, 2025 Assessment & Plan (1) Septic shock: (2) MAGDA (acute kidney injury): (3) Bilateral arm weakness: (4) Recurrent cancer of right breast: (5) Brachial plexopathy: (6) Respiratory acidosis: (7) Hypertension: Plan This is a 75-year-old female with remote history of breast cancer s/p mastectomy, chemo and radiation with progressive bilateral upper extremity weakness. 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 She was transferred to [facility] and had spinal surgery performed on July 16. She was discharged to [facility]hab on July 23. Presents to [facility] with hypotension, septic shock. Acute encephalopathy A little more awake this morning, although still confused Her mentation usually waxes and wanes, this is a combination of metabolic factors, worsening renal factors She was made DNR and family open for her to be comfort care only, they want to continue antibiotics till 08/05. no further escalation of care But if she deteriorates further, they will make her comfort care before then, CT scan of the head done 08/03/2025 did not show any acute pathology Deconditioning: Patient is very deconditioned Barely able to participate in physical therapy, and also reluctant to Initial plan was for [facility], I doubt if she can make it there Afib: Now in sinus # septic shock -Now rseolved -Source is likely urinary UA appears grossly infected. 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 -Biopsy of the mass was taken and sent to pathology, result pending. -She also underwent bilateral foraminotomies of C5-C6 C6-6 7 and posterior fusion of C3-T3. -She is currently on [place] neck collar which will be in place for 8 to 12 weeks -Sutures were removed on 07/26/25 Pain management Frequent orientation -[place] neck collar to remain for 12 weeks #acute hypoxic respiratory failure associated with sepsis patient initially hypoxic requiring placement of supplemental oxygen. -Patient with history of DANNIE and reports compliance with her home CPAP CPAP nightly Supplemental oxygen as needed # abdominal pain. -CT findings as above with nonspecific colitis. -Just mild tenderness this morning # MAGDA with CKD 3, -Renal function is worsening -Initially family was leaning towards comfort measures only, however, it seems they now want to continue care -Will consult nephrology Metabolic acidosis: Was started on biacrb infusion Hyperphosphatemia: Secondary to poor renal fucntion On Phos[place] # hypothyroidism. TSH = 3.504 on 07/10/2025. -Random cortisol appropriately elevated Continue Synthroid #History of breast cancer with likely recurrence. 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 -She was offered an attempted adjuvant chemotherapy which was aborted because of poor tolerance. -Patient continues on letrozole. Has history of brachioplexopathy, s/p C6 process biopsy to rule out malignancy Decondtioning Will need PT/OT Disposition:prognosis is guarded, she has not improved, family open for comfort care only, no escalation of care Admission and Anticipated Discharge Date Admission Date: July 25, 2025 Subjective patient seen and examined, she is awake, a little more interactive today, although still confused Review of Systems Review of Systems: unable to obtain Physical Exam Physical Exam: The patient is somnolent HEENT--PERRL, EOMI, mucous membranes and oropharynx mildly dry Neck--supple. No JVD. No bruits. Thyroid normal, trachea midline, no adenopathy. Heart--normal S1 and S2. No murmurs, rubs or gallops. Lungs--clear bilaterally, no respiratory distress, no accessory muscle use. Abdomen--normal bowel sounds and soft. Extremities--no cyanosis or clubbing. No edema. Dermatologic--normal skin turgor, normal color, no abnormal lymph nodes, no rash. Neurologic--somnolent Rheumatologic--normal range of motion. Psychiatric--normal affect. Results & Data Results & Data Vital Signs (Past 12 Hours) Vital Signs Temp Pulse Pulse Resp BP Pulse Ox O2 Del Method 08/04/25 08:48 97.7 F 77 17 145/82 H 98 CPAP 08/04/25 07:00 68 08/04/25 06:50 72 18 93 08/04/25 04:30 98.2 F 80 20 119/62 90 BiPAP 08/04/25 03:31 68 18 94 08/04/25 03:15 73 08/03/25 22:44 71 18 97 08/03/25 22:30 Nasal Cannula, BiPAP O2 Flow Rate 08/04/25 08:48 08/04/25 07:00 08/04/25 06:50 2 08/04/25 04:30 08/04/25 03:31 2 08/04/25 03:15 08/03/25 22:44 2 08/03/25 22:30 4 PG Care Time/CCT Total # of Minutes Spent Total Time Spent with Patient: Total time spent is greater than 50% in coordination of care (as documented) at patient's floor/unit and/or counseling patient: Coding Level of Care Code 43081 SUB INP/OBS CARE 2/35MIN Diagnoses Septic shock A41.9; R65.21 MAGDA (acute kidney injury) N17.9 Bilateral arm weakness R29.898 Recurrent cancer of right breast C50.911 Brachial plexopathy G54.0 Respiratory acidosis E87.29 Hypertension I10 Time Spent (min) 35
--- NOTE | 2025-08-04 11:09 | Nephrology Consultation ---
Date of Consultation August 04, 2025 Assessment & Plan (1) MAGDA (acute kidney injury): * MAGDA likely ATN secondary to septic shock * Patient remains in the injury phase but is now nonoliguric * Electrolyte balance is acceptable. No acute indication for HOSPICE CARE SALES CONSULTANT at this time * Continue NaCl 1 g p.o. 3 times daily * Stop NaHCO3 gtt as serum bicarbonate has corrected and patient is net volume + * Poor dialysis candidate due to metastatic breast cancer, intolerant of adjuvant chemotherapy, poor short-term prognosis as documented by palliative care, continued need for vasoactive therapy (midodrine) * Will order urinalysis with microscopy to check for ATN and casts * Monitor BMP, UO (2) Chronic kidney disease: * CKD with baseline Cr 0.91.0 w/ eGFR 60 cc/minute (3) Acute encephalopathy: * Multifactorial including sepsis, medications * Recommend consultation with pharmacy to dose adjust gabapentin, ropinirole and Zosyn * Thyroid replacement added back yesterday (4) Recurrent cancer of right breast: * Intolerant to adjuvant chemotherapy. Probable metastases to cervical spine. Biopsy performed at [facility] 07/16/2025. Histology is pending. * Palliative care recommendations reviewed. Poor short-term prognosis. Plan 80 min visit: review medical record, interview/examine patient, discuss POC w/ daughter, stop NaHCO3, recommend consultation w/ pharmacy to dose adjust medications for MAGDA, order urine studies/am labs, update medical record History of Present Illness Reason for Consultation: NPE - MAGDA/CKD Attending Physician: Kassy Keller MD History of Present Illness Ms. Gonzalez is a 75-year-old white female who is seen at the request of the [facility] hospitalist service for evaluation of MAGDA. Information for the HPI is obtained from direct patient interview and review of the EMR. HPI summarized as follows: Ms. Gonzalez has not undergone nephrology evaluation in the past. Her baseline creatinine has been 0.91.0 w/ EGFR 60 cc/min. 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 She has undergone mastectomy and radiation therapy. Adjuvant chemotherapy was aborted due to poor tolerance. In June 2025 Ms. Gonzalez developed progressive bilateral upper extremity weakness. 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 She was transferred to [facility]. On July 16, 2025 she underwent spine surgery with biopsy of the mass. Histology is not currently available. Ms. Willingham was subsequently transferred to [facility] 07/23/2023. Unfortunately she was unable to participate in physical therapy. She became progressively lethargic and was transferred to [facility] July 25, 2025. She presented to the emergency department with septic shock. Systolic blood pressure in the mid 60s and hypoxemic. She received 3 L crystalloid in the emergency department and was admitted to the ICU for ongoing vasopressor therapy, IV hydration and management of hyperkalemia. Urine culture returned positive for Klebsiella and Pseudomonas which was pansensitive. Serum creatinine at the time of admission was 1.8. This has subsequently risen to 3.61. Fortunately patient is nonoliguric. Urine output was 1375 cc last shift. She remains 7 L volume positive and is currently receiving IV sodium bicarbonate at 80 cc/hour, IV Zosyn and midodrine 7.5 mg 3 times a day for blood pressure support. Sodium chloride 1 g p.o. 3 times daily has been provided to correct hyponatremia. IV furosemide has been held. Ms. Gonzalez has been encephalopathic. Review of her medications show that she is on both gabapentin and ropinirole. Palliative care has been actively monitoring her clinical course. They have met with the family. Her palliative prognostic index score is 12 (PPI>6 = proximate survival with 3 weeks. Sensitivity 80%/specificity 85%). Allergies Allergy/AdvReac Type Severity Reaction Status Date / Time adhesive tape Allergy Rash Unverified 07/10/25 19:18 aspartame Allergy Verified 07/26/25 12:59 clindamycin Allergy Unknown Verified 07/10/25 23:07 crab Allergy Nausea Verified 07/10/25 23:07 levofloxacin Allergy Diarrhea Verified 07/10/25 19:17 levothyroxine sodium Allergy Unknown Verified 07/10/25 23:07 [From Synthroid] phenylalanine Allergy Verified 07/26/25 12:59 sucralose Allergy Verified 07/26/25 12:59 [From Splenda (sucralose)] amoxicillin [From Augmentin] AdvReac Diarrhea Verified 07/10/25 19:17 ciprofloxacin AdvReac Diarrhea Verified 07/10/25 19:17 clavulanic acid AdvReac Diarrhea Verified 07/10/25 19:17 [From Augmentin] Home Medications Medication Instructions Recorded Confirmed Type furosemide 20 mg tablet 20 mg PO DAILY PRN Weight Gain 03/07/24 07/24/25 History letrozole 2.5 mg tablet 2.5 mg PO DAILY 03/07/24 07/24/25 History ropinirole 0.5 mg tablet 0.5 mg PO HS 09/12/24 07/24/25 History amitriptyline 25 mg tablet 25 mg PO HS 02/20/25 07/24/25 History empagliflozin 10 mg tablet 10 mg PO QAM 02/20/25 07/24/25 History (Jardiance) gabapentin 400 mg capsule 800 mg PO Q12 02/20/25 07/24/25 History lisinopril 10 1 tab PO DAILY 02/20/25 07/24/25 History mg-hydrochlorothiazide 12.5 mg tablet oxycodone 5 mg tablet 5 mg PO Q4 PRN Moderate Pain 07/10/25 07/24/25 History (Scale Score 4-6) acetaminophen 500 mg tablet 1,000 mg PO Q8 07/24/25 07/24/25 History bisacodyl 10 mg rectal suppository 10 mg VT DAILY PRN Constipation 07/24/25 07/24/25 History (Dulcolax (bisacodyl)) cyclobenzaprine 5 mg tablet 5 mg PO TID PRN Muscle Spasm 07/24/25 07/24/25 History docusate sodium 100 mg capsule 100 mg PO Q12 PRN Constipation 07/24/25 07/24/25 History enoxaparin 60 mg/0.6 mL 60 mg subcut BID 07/24/25 07/24/25 History subcutaneous syringe fentanyl 50 mcg/hr transdermal 1 patch transdermal Q72H 07/24/25 07/24/25 History patch ondansetron 4 mg disintegrating 4 mg PO Q6H PRN NAUSEA OR VOMITING 07/24/25 07/24/25 History tablet oxycodone 5 mg tablet 10 mg PO Q4H PRN PAIN (SCALE 7-10) 07/24/25 07/24/25 History pantoprazole 40 mg tablet,delayed 40 mg PO DAILYBB 07/24/25 07/24/25 History release sennosides 8.6 mg-docusate sodium 1 tab-cap PO QDL PRN Constipation 07/24/25 07/24/25 History 50 mg tablet (Senokot-S) thyroid (pork) 30 mg tablet 60 mg PO DAILY 07/24/25 07/24/25 History ([place] Thyroid) Patient History Medical History Hx of blood clots Kidney failure Bronchitis Surgical History H/O ligation of vein 2446-1861 H/O mastectomy 2012 History of carpal tunnel surgery History of left knee replacement 2011 H/O right knee surgery 2010 Hx of tonsillectomy 1977 H/O lymph node excision 2022 H/O total mastectomy (~2022) Right and sentinel node biopsy/ right axillary lymph node dissection Family History Aunt Breast cancer Other Diabetes Heart disease Stroke Social History Smoking Status: Unknown if ever smoked Hx Alcohol Use: Yes Alcohol type: hard liquor Alcohol Intake Frequency: 2-4 x/Month Hx Substance Use: No Preferred Language: [place] Communication Ability: Effective Classification Control Clerk Required: No Beliefs That Will Affect Care: None marital status: Current Living Situation: Alone current occupational status: retired Other Information That Helps Us Care for You: No Feels Safe at Home: Yes Safety Concerns: Feels Safe At This Time Diet: regular during the past year weight has: increased > 10 lbs Assistive Devices: None Review of Systems Review of Systems: Unobtainable due to cognitive status Physical Exam Physical Exam: Awakens to voice. Will speak name. Oriented to place and month Breathing easily on O2 NC Constitutional: + ill appearing Eyes: PERRL, conjunctivae normal, anicteric sclerae ENMT: external ear and nose normal, oropharynx normal Neck: trachea midline, no thyromegaly L IJ CVC in place Respiratory: normal respiratory effort, lungs clear to auscultation Cardiovascular: Rate/Rhythm: regular rate and regular rhythm 2+ dependent edema Gastrointestinal (Abdomen): Inspection/Auscultation: + abdomen distended and + hypoactive bowel sounds Percussion/Palpation: abdomen nontender Skin: no rashes Neurologic: lethargic but oriented x3 Results & Data Vital Signs (Past 12 Hours) Vital Signs Temp Pulse Pulse Resp BP Pulse Ox O2 Del Method 08/04/25 08:48 36.5 C 77 17 145/82 H 98 CPAP 08/04/25 08:00 Nasal Cannula 08/04/25 07:00 68 08/04/25 06:50 72 18 93 08/04/25 04:30 36.8 C 80 20 119/62 90 BiPAP 08/04/25 03:31 68 18 94 08/04/25 03:15 73 O2 Flow Rate 08/04/25 08:48 08/04/25 08:00 4 08/04/25 07:00 08/04/25 06:50 2 08/04/25 04:30 08/04/25 03:31 2 08/04/25 03:15 Laboratory Results Laboratory Results WBC 9.40 K/ul (4.8-10.8) 08/04/25 08:09 RBC 2.93 M/uL (4.20-5.40) L 08/04/25 08:09 Hgb 9.3 g/dl (12.0-16.0) L 08/04/25 08:09 POC Hgb 8.5 g/dl (12.0-16.0) L 08/01/25 02:15 Hct 27.1 % (37.0-47.0) L 08/04/25 08:09 POC Hct 25 % (37-47) L 08/01/25 02:15 MCV 92.5 fL (80.0-100.0) 08/04/25 08:09 MCH 31.7 pg (25.0-34.0) 08/04/25 08:09 MCHC 34.3 g/dL (32.0-36.0) 08/04/25 08:09 RDW Std Deviation 48.8 fL (36.4-46.3) H 08/04/25 08:09 RDW Coeff of [place] 14.3 % (11.5-14.5) 08/04/25 08:09 Plt Count 266 K/uL (130-400) 08/04/25 08:09 MPV 10.8 fL (9.4-12.4) 08/04/25 08:09 Immature Gran % (Auto) 6.9 % 07/31/25 21:35 Neut % (Auto) 80.0 % 07/31/25 21:35 Lymph % (Auto) 5.3 % 07/31/25 21:35 [place]ion % (Auto) 7.1 % 07/31/25 21:35 Eos % (Auto) 0.4 % 07/31/25 21:35 Baso % (Auto) 0.3 % 07/31/25 21:35 Neut # (Auto) 10.32 K/uL (1.40-6.50) H 07/31/25 21:35 Lymph # (Auto) 0.68 K/uL (1.20-3.40) L 07/31/25 21:35 Irion # (Auto) 0.91 K/uL (0.11-0.59) H 07/31/25 21:35 Eos # (Auto) 0.05 K/uL (0.00-0.50) 07/31/25 21:35 Baso # (Auto) 0.04 K/uL (0.00-0.20) 07/31/25 21:35 Immature Gran # (Auto) 0.89 K/uL (0.01-0.20) H 07/31/25 21:35 Absolute Nucleated RBC 0.02 K/uL (0.00-0.12) 07/31/25 21:35 Nucleated RBC % (auto) 0.2 % 07/31/25 21:35 Toxic Granulation 1+ 07/27/25 03:41 Dohle Bodies 1+ 07/31/25 21:35 Polychromasia 1+ 07/27/25 03:41 Tear Drop Cells 1+ 07/27/25 03:41 Echinocytes 1+ 07/28/25 04:13 Acanthocytes (Spur) 1+ 07/27/25 03:41 PT 9.5 Seconds (9.0-12.0) 07/27/25 14:44 INR 0.9 (0.9-1.1) 07/27/25 14:44 Heparin Anti-Xa, Unfract < 0.10 IU/ml (0.3-0.7) L 07/27/25 14:44 Specimen Type Arterial 08/01/25 02:15 Sample Site L Radial 08/01/25 02:15 POC pH 7.31 (7.35-7.45) L 08/01/25 02:15 POC pCO2 36 mmHg (35-46) 08/01/25 02:15 POC pO2 91 mmHg (80-95) 08/01/25 02:15 POC HCO3 18 mmol/L (19-24) L 08/01/25 02:15 POC Total CO2 19 mmol/L (24-31) L 08/01/25 02:15 POC Base Excess -8.0 mmol/L (-9-1.8) 08/01/25 02:15 O2 Sat Pulse Oximetry 97 08/01/25 02:15 ABG pH 7.32 (7.35-7.45) L 07/31/25 22:48 ABG pH (Temp Correct) 7.314 (7.35-7.45) L 08/01/25 02:15 ABG pCO2 32 mmHg (35-46) L 07/31/25 22:48 ABG pCO2 (Temp Corrct 36 mmHg (35-46) 08/01/25 02:15 ABG pO2 139 mmHg (80-95) H 07/31/25 22:48 POC ABG pO2 at Pt Temp 91 08/01/25 02:15 ABG HCO3 17 mmol/L (19-24) L 07/31/25 22:48 POC ABG O2 Sat 96.0 % (90-95) H 08/01/25 02:15 ABG O2 Saturation 100.0 % (90-95) H 07/31/25 22:48 ABG Base Excess -8.5 mEq/L (-9-1.8) 07/31/25 22:48 Junior Test Pass 08/01/25 02:15 VBG pH 7.25 (7.36-7.41) L 07/31/25 21:35 VBG pCO2 42 mmHg (38-50) 07/31/25 21:35 VBG pO2 43 mmHg 07/31/25 21:35 VBG HCO3 18 mmol/L 07/31/25 21:35 VBG O2 Saturation 76.1 % 07/31/25 21:35 VBG Base Excess -8.5 mEq/L 07/31/25 21:35 Oxygen Given 4 L 07/31/25 22:48 O2 Delivery Device BIPAP 08/01/25 02:15 EPAP 6 08/01/25 02:15 IPAP 12 08/01/25 02:15 POC Sodium 127 mmol/L (135-144) L 08/01/25 02:15 Sodium 133 mmol/L (136-145) L 08/04/25 08:18 POC Potassium 4.6 mmol/L (3.3-5.0) 08/01/25 02:15 Potassium 3.5 mmol/L (3.5-5.1) 08/04/25 08:18 POC Chloride 97 mmol/L (101-112) L 07/24/25 22:27 Chloride 96 mmol/L (98-107) L 08/04/25 08:18 Carbon Dioxide 24 mmol/L (21-32) 08/04/25 08:18 POC Total CO2 25 mmol/L (24-31) 07/24/25 22:27 Anion Gap 13 (3-11) H 08/04/25 08:18 POC Anion Gap 12.0 mmol/L (16-25) L 07/24/25 22:27 POC BUN 65 mg/dl (7-18) H 07/24/25 22:27 BUN 105 mg/dl (6-23) H 08/04/25 08:18 Creatinine 3.61 mg/dl (0.6-1.2) H 08/04/25 08:18 POC Creatinine 2.9 mg/dl (0.6-1.3) H 07/24/25 22:27 Est Cr Clr Drug Dosing 19.7 ml/min 08/04/25 08:18 eGFR 12.75 08/04/25 08:18 BUN/Creatinine Ratio 29.1 (10-20) H 08/04/25 08:18 Glucose 132 mg/dl (70-99(Fasting)) H 08/04/25 08:18 POC Glucose 119 mg/dl (70-99) H 07/29/25 07:45 POC Glucose (other) 162 mg/dl (70-99) H 07/26/25 21:08 Osmolality 305 mOsm/kg (280-300) H 07/25/25 04:17 Lactate 1.1 mmol/L (0.4-2.0) 07/31/25 21:35 Calcium 8.4 mg/dl (8.6-10.3) L 08/04/25 08:18 POC Ioniz Calcium Cruz 1.15 mmol/l (1.12-1.32) 07/24/25 22:27 Phosphorus 7.0 mg/dl (2.5-4.9) H 08/04/25 08:18 Magnesium 2.2 mg/dl (1.7-2.4) 08/03/25 07:47 Total Bilirubin 0.7 mg/dl (0.2-1.0) 08/03/25 07:47 Direct Bilirubin 0.3 mg/dl (0-0.2) H 07/28/25 04:13 AST 31 U/L (13-39) 08/03/25 07:47 ALT 25 U/L (7-52) 08/03/25 07:47 Alkaline Phosphatase 127 U/L (34-104) H 08/03/25 07:47 Troponin I High Sens 14.3 pg/ml (0-14) H 07/25/25 04:17 C-Reactive Protein 20.23 mg/dl (0-0.5) H 07/25/25 04:17 B-Natriuretic Peptide 7 pg/ml (0-100) 07/24/25 22:29 Total Protein 5.2 gm/dl (6.0-8.3) L 08/03/25 07:47 Albumin 2.5 gm/dl (3.4-5.0) L 08/03/25 07:47 Globulin 2.7 gm/dl (2.5-4.0) 08/03/25 07:47 Albumin/Globulin Ratio 0.9 (0.9-2) 08/03/25 07:47 Procalcitonin 5.25 ng/ml (0-0.5) H 07/24/25 22:29 Random Cortisol 25.49 mcg/dl 07/28/25 04:13 Urine Color [place] 07/24/25 22:37 Urine Appearance Turbid (Clear) A 07/24/25 22:37 Urine pH 5.0 (4.5-7.5) 07/24/25 22:37 Ur Specific [place] 1.009 (1.000-1.030) 07/24/25 22:37 Urine Protein 2+ (Negative) H 07/24/25 22:37 Urine Glucose (UA) 1+ (Negative) H 07/24/25 22:37 Urine Ketones Negative (Negative) 07/24/25 22:37 Urine Blood 3+ (Negative) H 07/24/25 22:37 Urine Nitrite Negative (Negative) 07/24/25 22:37 Urine Bilirubin Negative (Negative) 07/24/25 22:37 Urine Urobilinogen Negative (Negative) 07/24/25 22:37 Ur Leukocyte Esterase 3+ (Negative) H 07/24/25 22:37 Urine WBC (Auto) >50 /hpf (0-5) H 07/24/25 22:37 Urine RBC (Auto) >20 /hpf (0-2) H 07/24/25 22:37 U Hyaline Cast (Auto) 11-20 /lpf (0-2) H 07/24/25 22:37 U Epithel Cells (Auto) 0-2 /hpf (0-2) 07/24/25 22:37 Urine Bacteria (Auto) 4+ (None Seen) H 07/24/25 22:37 Urine Osmolality 425 mOsm/kg (500-800) L 07/25/25 06:52 Urine Comment 07/24/25 22:37 Nasal Screen MRSA (PCR) Negative (Negative) 07/25/25 03:30 Random Vancomycin 18.7 mcg/ml (10-20) 07/26/25 04:32 Adenovirus (PCR) Not Detected (NotDetected) 07/24/25 23:42 B. pertussis DNA (PCR) Not Detected (NotDetected) 07/24/25 23:42 B.parapertussis DNA PCR Not Detected (NotDetected) 07/24/25 23:42 C. pneumoniae DNA (PCR) Not Detected (NotDetected) 07/24/25 23:42 Coronavirus OC43 (PCR) Not Detected (NotDetected) 07/24/25 23:42 Coronavirus HKU1 (PCR) Not Detected (NotDetected) 07/24/25 23:42 Coronavirus 229E (PCR) Not Detected (NotDetected) 07/24/25 23:42 SARS-CoV-2 (PCR) Not Detected (NotDetected) 07/24/25 23:42 Coronavirus NL63 (PCR) Not Detected (NotDetected) 07/24/25 23:42 Human Metapneumovir PCR Not Detected (NotDetected) 07/24/25 23:42 Influenza Type A (PCR) Not Detected (NotDetected) 07/24/25 23:42 Influenza Type B (PCR) Not Detected (NotDetected) 07/24/25 23:42 M. pneumoniae (PCR) Not Detected (NotDetected) 07/24/25 23:42 Parainfluenza 1 (PCR) Not Detected (NotDetected) 07/24/25 23:42 Parainfluenza 2 (PCR) Not Detected (NotDetected) 07/24/25 23:42 Parainfluenza 3 (PCR) Not Detected (NotDetected) 07/24/25 23:42 Parainfluenza 4 (PCR) Not Detected (NotDetected) 07/24/25 23:42 RSV (PCR) Not Detected (NotDetected) 07/24/25 23:42 Entero/Rhino (PCR) Not Detected (NotDetected) 07/24/25 23:42 Impressions Abdomen/Pelvis CTA 07/24/25 21:53 Exam(s): CTA ABDOMEN + PELVIS With Contrast IV Amt: 119ml opti 320 EXAM: CT Angiography Abdomen and Pelvis With Intravenous Contrast CLINICAL HISTORY: Reason for exam: eval for AAA. TECHNIQUE: Axial computed tomographic angiography images of the abdomen and pelvis with intravenous contrast. CTDI is 69 mGy and DLP is 2230 mGy-cm. Automated exposure control was utilized for the study. A dose lowering technique was utilized adhering to the principles of ALARA. MIP reconstructed images were created and reviewed. CONTRAST: Patient received 119ml opti 320 of IV contrast COMPARISON: No relevant prior studies available. FINDINGS: VASCULATURE: Aorta: No acute findings. No abdominal aortic aneurysm. No dissection. Celiac trunk and mesenteric arteries: No acute findings. No occlusion or significant stenosis. Renal arteries: No acute findings. No occlusion or significant stenosis. Iliac arteries: No acute findings. No occlusion or significant stenosis. Lung bases: Unremarkable. No mass. No consolidation. ABDOMEN: Liver: Borderline hepatomegaly. Gallbladder and bile ducts: Unremarkable. No calcified stones. No ductal dilation. Pancreas: 1.6 x 1.2 cm pancreatic body cyst. No ductal dilation. Spleen: Unremarkable. No splenomegaly. Adrenals: Unremarkable. No mass. Kidneys and ureters: Unremarkable. No hydronephrosis. No solid mass. Stomach and bowel: Subtle inflammatory changes about the splenic flexure and proximal descending colon consistent with colitis within same. Large amount of liquid stool within the colon. PELVIS: Appendix: No findings to suggest acute appendicitis. Bladder: Temple catheter within the urinary bladder. Reproductive: Unremarkable as visualized. ABDOMEN and PELVIS: Intraperitoneal space: Unremarkable. No significant fluid collection. No free air. Bones/joints: No acute fracture. No dislocation. Soft tissues: Unremarkable. Lymph nodes: Unremarkable. No enlarged lymph nodes. IMPRESSION: Mild uncomplicated colitis Large amount of liquid stool within the colon No evidence of abdominal aortic aneurysm. Electronically signed by: Kavon Mckeon MD 07/24/25 23:46 PM Chest CTA 07/24/25 21:53 Exam(s): CTA CHEST W/WO Contrast IV Amt: 119cc opti 320 EXAM: CT Angiography Chest Without and With Intravenous Contrast CLINICAL HISTORY: Reason for exam: eval for AAA. TECHNIQUE: Axial computed tomographic angiography images of the chest without and with intravenous contrast. CTDI is 28.14 mGy and DLP is 796 mGy-cm. Automated exposure control was utilized for the study. A dose lowering technique was utilized adhering to the principles of ALARA. MIP reconstructed images were created and reviewed. CONTRAST: Patient received 119cc opti 320 of IV contrast COMPARISON: Reference is made to MRI dated 07/13/2025 FINDINGS: Limitations: Exam limited secondary to patient respiratory motion. Pulmonary arteries: Unremarkable. No pulmonary embolism. Aorta: No acute findings. No thoracic aortic aneurysm. Lungs: Bibasilar [id number]-right dependent atelectasis. No mass. Pleural space: Unremarkable. No significant effusion. No pneumothorax. Heart: Unremarkable. No cardiomegaly. No significant pericardial effusion. No evidence of RV dysfunction. Bones/joints: Postoperative changes T1 and T2 interbody fusion. No acute fracture. No dislocation. Soft tissues: 6.2 x 3.3 cm soft tissue mass along the lateral tail of the right pectoralis major muscle. Air contains numerous surgical clips and corresponds to the abnormality identified as a hematoma on the prior MRI. Lymph nodes: Unremarkable. No enlarged lymph nodes. IMPRESSION: No acute findings in the visualized arteries of the chest. Exam limited as described above Right chest wall soft tissue mass likely representing resolving hematoma similar appearance when compared with the prior MRI Electronically signed by: Kavon Mckeon MD 07/24/25 23:31 PM Venous Doppler Study 07/27/25 06:27 EXAM: US venous doppler UE RT CLINICAL HISTORY: Lymphedema vs VTE. TECHNIQUE: Ultrasound examination of the right upper extremity veins was performed in real time with duplex imaging. One or more of the following were performed: spectral analysis, resistive index, waveform analysis, and pulsed Doppler. The examination was limited due to patient body habitus. COMPARISON: None. FINDINGS: Normal phasic, nonpulsatile, and spontaneous flow is noted in the right internal jugular, subclavian, axillary, brachial, basilic, cephalic, radial, and ulnar veins. No sonographic evidence of acute deep vein thrombosis (DVT) is detected in the visualized veins of the upper extremity. Compression and Augmentation: All evaluated veins compress fully with applied transducer pressure. Augmentation of venous flow is noted with distal compression. Additional Findings: No evidence of intraluminal thrombus. Very mild edema of the right upper extremity is noted. IMPRESSION: 1. No sonographic evidence of acute DVT is detected at the time of examination. 2. Very mild edema of the right upper extremity is noted. 3. The examination was limited due to patient body habitus. Disclaimer: DVT could be missed early in the disease when clot burden is minimal. For patients with moderate and high pretest probability of DVT and negative ultrasound, the [employer] clinical guidelines recommend testing with a D-dimer assay or repeat ultrasound in 5-7 days. If symptoms worsen, the Society of Radiologists in Ultrasound recommends repeating ultrasound even earlier. Electronically signed by Arun Oglesby 07-27-2025 08:34 AM Chest X-Ray 07/31/25 21:01 Exam(s): XR CXR 1 VIEW EXAM: XR Chest, 1 View CLINICAL HISTORY: Reason for exam: worsened AMS. TECHNIQUE: Frontal view of the chest. COMPARISON: 07/28/2025 FINDINGS: Lungs: Within limitations this exam there is mild central pulmonary vascular congestion consistent with pulmonary edema. Shallow inspiration limits evaluation. Pleural space: Unremarkable. No pneumothorax. Heart: Cardiomegaly. Mediastinum: Unremarkable. Normal mediastinal contour. Bones/joints: Postop changes of the cervical spine. No acute fracture. Tubes, lines and devices: Left subclavian central venous catheter stable in position. IMPRESSION: Mild pulmonary edema Electronically signed by: Kavon Mckeon MD 07/31/25 23:[address] 08/03/25 09:15 EXAM: CT Head Without Intravenous Contrast INDICATION: Follow-up parietal lesions. TECHNIQUE: Axial computed tomography images of the head/brain without intravenous contrast. Sagittal and/or coronal reformats are provided. Sagittal and coronal reformatted images were created and reviewed. This CT exam was performed using one or more of the following dose reduction techniques: automated exposure control, adjustment of the mA and/or kV according to patient size, and/or use of iterative reconstruction technique. COMPARISON: 07/10/2025 FINDINGS: Limitations: None. Brain and extra-axial spaces: There is age appropriate cortical atrophy and chronic ischemic periventricular white matter hypodensity. No acute infarct, hemorrhage or mass noted. Bones/joints: No acute changes. Soft tissues: No significant abnormality noted. Vasculature: No acute abnormality noted. Sinuses: No layering fluid in the visualized portions of the paranasal sinuses. Mastoid air cells: Stable chronic sclerosis and mild mucosal thickening floor of the right mastoid. No mastoid effusion. Orbits: No significant abnormality noted. IMPRESSION: Cerebral atrophy. No interval change. ACT 112: N/A Electronically signed by Elli Strange 08-03-2025 09:58 AM PG Care Time/CCT Total # of Minutes Spent Total Time Spent with Patient: Total time spent is greater than 50% in coordination of care (as documented) at patient's floor/unit and/or counseling patient: Coding Level of Care Code 82630 IN/OBS CONSULT LVL 5,80M Diagnoses MAGDA (acute kidney injury) N17.9 Chronic kidney disease N18.9 Acute encephalopathy G93.40 Recurrent cancer of right breast C50.911
[2025-08-04 17:30] LABS: Appearance Urine Clear (Clear); Bacteria Urine Automated None Seen (None Seen); Cast Urine Automated 0-2 /lpf (0-2); Epithelial Cell Urine Auto 0-2 /hpf (0-2); Glucose Urine UA Negative (Negative); RBC Urine Automated 0-2 /hpf (0-2); WBC Urine Automated 0-5 /hpf (0-5)
[2025-08-04 18:18] LABS: Protein Creatinine Ratio Urine 4.7 (0-0.2); Total Protein Urine Random 206.2 mg/dl (0-11.9)
--- NOTE | 2025-08-04 21:07 | Electrocardiogram Report ---
Test Reason : Blood Pressure : */* mmHG Vent. Rate : 98 BPM Atrial Rate : * BPM P-R Int : * ms QRS Dur : 130 ms QT Int : 352 ms P-R-T Axes : * -43 91 degrees QTcB Int : 449 ms Atrial fibrillation Left axis deviation Left ventricular hypertrophy with QRS widening and repolarization abnormality ( R in aVL , Jose pr oduct , Romhilt-Estrada ) Abnormal ECG When compared with ECG of 24-Jul-2025 21:51, Atrial fibrillation has replaced Sinus rhythm ST now depressed in Lateral leads T wave inversion now evident in Lateral leads Confirmed by Nilson Booth ([id number]) on 08/04/2025 9:07:13 PM Referred By: [facility] Confirmed By: Nilson Booth
[2025-08-05 07:10] LABS: Hematocrit (blood only) 29.4 % (37.0-47.0); Hemoglobin 9.5 g/dl (12.0-16.0); Mean Corpuscular Hemoglobin 30.4 pg (25.0-34.0); Mean Corpuscular Volume 94.2 fL (80.0-100.0); Platelet Count 273 K/uL (130-400); RDW Standard Deviation 50.6 fL (36.4-46.3); Red Blood Count 3.12 M/uL (4.20-5.40); White Blood Count 10.61 K/ul (4.8-10.8)
--- NOTE | 2025-08-05 07:28 | Hospitalist Progress Note ---
Date of Service August 05, 2025 Assessment & Plan (1) Septic shock: (2) MAGDA (acute kidney injury): (3) Bilateral arm weakness: (4) Recurrent cancer of right breast: (5) Brachial plexopathy: (6) Respiratory acidosis: (7) Hypertension: Plan This is a 75-year-old female with remote history of breast cancer s/p mastectomy, chemo and radiation with progressive bilateral upper extremity weakness. 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 She was transferred to [facility] and had spinal surgery performed on July 16. [facility]. Presents to [facility] with hypotension, septic shock. Acute encephalopathy Her mentation waxes and wanes,today she is clear and voices desire to proceed to rehab She was made DNR , no escalation of care, But if she deteriorates further, they will make her comfort care before then, CT scan of the head done 08/03/2025 did not show any acute pathology holding requip and elavil 08/04 metabolic acidosis persists from renal failure Afib: Now in sinus # septic shock -Now resolved -Source is likely urinary UA appears grossly infected. -Cultures growing Klebsiella and Pseudomonas montague sensitive -Continue IV cefepime, end date 08/05 -now off pressors -started PO midodrine # MAGDA with CKD 3, -Renal function is worse than baseline, still feel is magda from hypotension - consult nephrology, feels still atn and will recover, supportive care at this time Hyperphosphatemia: Secondary to poor renal fucntion On Phoslo # post op cervical spine surgery -Due to worsening bilateral upper extremity weakness, she was sent to [place] -Patient was found to have an epidural mass, 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 -Biopsy of the mass was taken and sent to pathology, result pending. -She also underwent bilateral foraminotomies of C5-C6 C6-6 7 and posterior fusion of C3-T3. -She is currently on [place] neck collar which will be in place for 12 weeks- october -Sutures were removed on 07/26/25 Pain management Frequent orientation -[place] neck collar to remain for 12 weeks #acute hypoxic respiratory failure associated with sepsis patient initially hypoxic requiring placement of supplemental oxygen. -Patient with history of DANNIE and reports compliance with her home CPAP CPAP nightly Supplemental oxygen as needed # abdominal pain. -CT findings as above with nonspecific colitis. resolving still with some diarrhea # hypothyroidism. TSH = 3.504 on 07/10/2025. -Random cortisol appropriately elevated Continue Synthroid #History of breast cancer with likely recurrence. 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 -She was offered an attempted adjuvant chemotherapy which was aborted because of poor tolerance. -Patient continues on letrozole. Deconditioning: Patient is very deconditioned Barely able to participate in physical therapy, and also reluctant to [facility], I doubt if she can make it there Disposition:prognosis is guarded, she has not improved, family open for comfort care only, no escalation of care Admission and Anticipated Discharge Date Admission Date: July 25, 2025 Subjective pt is conversant, says she is interested in recovery if she will recover, discussed that this is probably going to be a long road and will require some stay at a nursing facility. can lift upper arms against gravity, still very weak Physical Exam Physical Exam: wearing [place] collar right arm is swollen, typical with her lymphedema, diminished lung sounds at bases, lower extremity is with trace edema cardiac is regular. Results & Data Results & Data Vital Signs (Past 12 Hours) Vital Signs Temp Pulse Pulse Pulse Resp BP Pulse Ox 08/05/25 03:06 98.4 F 77 17 127/73 93 08/05/25 02:15 78 16 93 08/04/25 23:10 98.6 F 73 19 107/64 96 08/04/25 21:26 77 18 98 08/04/25 20:02 08/04/25 19:42 98.4 F 75 16 102/66 100 O2 Del Method O2 Flow Rate 08/05/25 03:06 CPAP 4 08/05/25 02:15 2 08/04/25 23:10 CPAP 4 08/04/25 21:26 2 08/04/25 20:02 Nasal Cannula 4 08/04/25 19:42 Nasal Cannula 4 Laboratory Results Reviewed CBC reviewed chemistry Medications Administered reviewed all meds and orders from transfer process PG Care Time/CCT Total # of Minutes Spent Total Time Spent with Patient: Total time spent is greater than 50% in coordination of care (as documented) at patient's floor/unit and/or counseling patient: Coding Level of Care Code 69692 SUB INP/OBS CARE 3/50MIN Diagnoses Septic shock A41.9; R65.21 MAGDA (acute kidney injury) N17.9 Bilateral arm weakness R29.898 Recurrent cancer of right breast C50.911 Brachial plexopathy G54.0 Respiratory acidosis E87.29 Hypertension I10
[2025-08-05 07:47] LABS: Anion Gap 13.0 (3-11); Blood Urea Nitrogen 106.0 mg/dl (6-23); Calcium 8.6 mg/dl (8.6-10.3); Carbon Dioxide 23.0 mmol/L (21-32); Chloride 98.0 mmol/L (98-107); Creatinine Clr Calc Pharmacy 17.7 ml/min; Glucose 106.0 mg/dl (70-99(Fasting)); Potassium 3.8 mmol/L (3.5-5.1); Sodium 134.0 mmol/L (136-145)
--- NOTE | 2025-08-05 09:02 | Nephrology Progress Note ---
Date of Service August 05, 2025 Assessment & Plan (1) MAGDA (acute kidney injury): Plan: * MAGDA likely ATN secondary to septic shock, IV contrast * Cr has risen to 4.0 this am. Patient remains in the injury phase of ATN * Patient is nonoliguric w/ 1700 cc UO last 24 hours. Temple catheter remains in place draining clear yellow urine * Electrolyte balance is acceptable. No acute indication for CLINICAL LAB CLERK at this time * Urine sediment is negative for ATN casts. Patient does have high grade proteinuria * 07/24/25 abdominal CTA - No ANNA, no obstruction * Mild hyponatremia. Serum Na 134. Continue NaCl 1 g p.o. 3 times daily * Serum HCO3 23. Bicarbonate supplement has been stopped * Poor dialysis candidate due to metastatic breast cancer, intolerant of adjuvant chemotherapy, poor short-term prognosis as documented by palliative care, continued need for vasoactive therapy (midodrine) * Monitor UO. Will order BMP for am (2) Chronic kidney disease: Plan: * CKD with baseline Cr 0.91.0 w/ eGFR 60 cc/minute (3) Hypotension arterial: Plan: * SBP 102-127 mm Hg last 24 hours * Remains on midodrine 7.5 mg po TID (4) Acute encephalopathy: Plan: * Multifactorial including sepsis, medications - improving * Recommend consultation with pharmacy to dose adjust gabapentin, ropinirole and Zosyn for MAGDA * Thyroid replacement added back 08/04/25 (5) Recurrent cancer of right breast: Plan: * Intolerant to adjuvant chemotherapy. Probable metastases to cervical spine. Biopsy performed at [facility] 07/16/2025. Will request histology results * Poor short-term prognosis. Await further palliative care recommendations Admission and Anticipated Discharge Date Admission Date: July 25, 2025 Subjective Ms. Gonzalez was evaluated in her hospital room this morning. She was more alert but oriented only to self. She repeatedly asked to speak w/ staff combat information center officer due to "a question". Review of Systems Review of Systems: Unobtainable due to cognitive status Physical Exam Physical Exam: Awakens to voice. Will speak name Breathing easily on O2 NC Constitutional: + ill appearing Eyes: PERRL, conjunctivae normal, anicteric sclerae ENMT: external ear and nose normal, oropharynx normal Neck: trachea midline, no thyromegaly Respiratory: normal respiratory effort, lungs clear to auscultation Cardiovascular: Rate/Rhythm: regular rate and regular rhythm Gastrointestinal (Abdomen): Inspection/Auscultation: + abdomen distended and + hypoactive bowel sounds Percussion/Palpation: abdomen nontender Skin: no rashes Results & Data Vital Signs (Past 12 Hours) Vital Signs Temp Pulse Pulse Resp BP Pulse Ox O2 Del Method 08/05/25 08:23 36.5 C 88 17 102/70 99 Nasal Cannula 08/05/25 03:06 36.9 C 77 17 127/73 93 CPAP 08/05/25 02:15 78 16 93 08/04/25 23:10 37.0 C 73 19 107/64 96 CPAP 08/04/25 21:26 77 18 98 O2 Flow Rate 08/05/25 08:23 4 08/05/25 03:06 4 08/05/25 02:15 2 08/04/25 23:10 4 08/04/25 21:26 2 Laboratory Results Laboratory Results - last 24 hr 08/04/25 08/04/25 08/04/25 08:09 08:18 Unknown WBC 9.40 RBC 2.93 L Hgb 9.3 L Hct 27.1 L MCV 92.5 MCH 31.7 MCHC 34.3 RDW Std Deviation 48.8 H RDW Coeff of [place] 14.3 Plt Count 266 MPV 10.8 Sodium 133 L Potassium 3.5 Chloride 96 L Carbon Dioxide 24 Anion Gap 13 H BUN 105 H Creatinine 3.61 H Est Cr Clr Drug Dosing 19.7 eGFR 12.75 BUN/Creatinine Ratio 29.1 H Glucose 132 H Calcium 8.4 L Phosphorus 7.0 H Urine Color Yellow Urine Appearance Clear Urine pH 5.5 Ur Specific [place] 1.014 Urine Protein 2+ H Urine Glucose (UA) Negative Urine Ketones Negative Urine Blood 1+ H Urine Nitrite Negative Urine Bilirubin Negative Urine Urobilinogen Negative Ur Leukocyte Esterase Trace H Urine WBC (Auto) 0-5 Urine RBC (Auto) 0-2 U Hyaline Cast (Auto) 0-2 U Epithel Cells (Auto) 0-2 Urine Bacteria (Auto) None Seen Ur Random Creatinine 44.0 U Random Total Protein 206.2 H Ur Random Sodium 31 Protein/Creatinin Ratio 4.7 H 08/05/25 06:53 WBC 10.61 RBC 3.12 L Hgb 9.5 L Hct 29.4 L MCV 94.2 MCH 30.4 MCHC 32.3 RDW Std Deviation 50.6 H RDW Coeff of [place] 14.7 H Plt Count 273 MPV 10.9 Sodium 134 L Potassium 3.8 Chloride 98 Carbon Dioxide 23 Anion Gap 13 H BUN 106 H Creatinine 4.02 H D Est Cr Clr Drug Dosing 17.7 eGFR 11.20 BUN/Creatinine Ratio 26.4 H Glucose 106 H Calcium 8.6 Phosphorus Urine Color Urine Appearance Urine pH Ur Specific [place] Urine Protein Urine Glucose (UA) Urine Ketones Urine Blood Urine Nitrite Urine Bilirubin Urine Urobilinogen Ur Leukocyte Esterase Urine WBC (Auto) Urine RBC (Auto) U Hyaline Cast (Auto) U Epithel Cells (Auto) Urine Bacteria (Auto) Ur Random Creatinine U Random Total Protein Ur Random Sodium Protein/Creatinin Ratio PG Care Time/CCT Total # of Minutes Spent Total Time Spent with Patient: 50 min visit - reviewed medical record/medications/laboratory results, interviewed & examined patient, elected to continue midodrine for BP support, reviewed palliative care recommendations, ordered histology report from [facility], ordered BMP for am, discussed POC w/ staff combat information center officer, updated medical record Coding Level of Care Code 62927 SUB INP/OBS CARE 3/50MIN Diagnoses MAGDA (acute kidney injury) N17.9 Chronic kidney disease N18.9 Hypotension arterial I95.9 Acute encephalopathy G93.40 Recurrent cancer of right breast C50.911
--- NOTE | 2025-08-06 09:17 | Nephrology Progress Note ---
Date of Service August 06, 2025 Assessment & Plan (1) MAGDA (acute kidney injury): Plan: * MAGDA likely ATN secondary to septic shock, IV contrast * Awaiting am lab results * [place] catheter remains in place draining clear yellow urine. UO 1700 cc last 24 hrs * 08/04/25 urine sediment was negative for ATN casts. Patient does have high grade proteinuria * 07/24/25 abdominal CTA - No ANNA, no obstruction * h/o mild hyponatremia. Continue NaCl 1 g p.o. 3 times daily * Poor dialysis candidate due to metastatic breast cancer, intolerant of adjuvant chemotherapy, poor short-term prognosis as documented by palliative care, continued need for vasoactive therapy (midodrine) * Monitor UO. Lab contacted to draw blood work this am. Will review results once available * Will order BMP for tomorrow (2) Chronic kidney disease: Plan: * CKD with baseline Cr 0.91.0 w/ eGFR 60 cc/minute (3) Hypotension arterial: Plan: * SBP 102-111 mm Hg last 24 hours * Continue midodrine 7.5 mg po TID (4) Acute encephalopathy: Plan: * Multifactorial including sepsis, medications - improving * Recommend consultation with pharmacy to dose adjust gabapentin, ropinirole and Zosyn for MAGDA * Thyroid replacement added back 08/04/25 (5) Recurrent cancer of right breast: Plan: * Intolerant to adjuvant chemotherapy. Probable metastases to cervical spine. Biopsy performed at [facility] 07/16/2025. Will request histology results * Poor short-term prognosis. Await further palliative care recommendations Admission and Anticipated Discharge Date Admission Date: July 25, 2025 Subjective Ms. Gonzalez was evaluated in her hospital room this morning. She was alert and oriented to self, place and month. Her primary concern is a headache. She was breathing comfortably flat in bed on O2 at 4L/min NC Review of Systems Constitutional: no fever Eyes: no problem reported Ear, Nose, Mouth, Throat: no problem reported Respiratory: no cough and no dyspnea Cardiovascular: no chest pain Gastrointestinal: no abdominal pain Neurologic: + headache(s) Physical Exam Constitutional: + ill appearing; not in distress Eyes: PERRL, conjunctivae normal, anicteric sclerae ENMT: external ear and nose normal, oropharynx normal Neck: trachea midline, no thyromegaly Respiratory: normal respiratory effort, lungs clear to auscultation Cardiovascular: Rate/Rhythm: regular rate and regular rhythm Gastrointestinal (Abdomen): Inspection/Auscultation: + abdomen distended and + hypoactive bowel sounds Percussion/Palpation: abdomen nontender Skin: no rashes Results & Data Vital Signs (Past 12 Hours) Vital Signs Temp Pulse Resp BP Pulse Ox O2 Del Method O2 Flow Rate 08/06/25 07:23 36.5 C 70 15 102/53 L 97 Nasal Cannula 4 08/06/25 07:22 Nasal Cannula 4 08/05/25 23:41 36.6 C 84 16 111/74 98 Nasal Cannula 4 Laboratory Results 04:44 AM labs - pending PG Care Time/CCT Total # of Minutes Spent Total Time Spent with Patient: 50 min visit - reviewed medical record/medications, interviewed & examined patient, elected to continue midodrine for BP support, called lab to have am blood work drawn stat, ordered histology report from [facility], ordered BMP for am, discussed POC w/ staff attorney, updated medical record Coding Level of Care Code 64554 SUB INP/OBS CARE 3/50MIN Diagnoses MAGDA (acute kidney injury) N17.9 Chronic kidney disease N18.9 Hypotension arterial I95.9 Acute encephalopathy G93.40 Recurrent cancer of right breast C50.911
[2025-08-06 10:53] LABS: Anion Gap 12.0 (3-11); Blood Urea Nitrogen 113.0 mg/dl (6-23); Calcium 8.6 mg/dl (8.6-10.3); Carbon Dioxide 24.0 mmol/L (21-32); Chloride 98.0 mmol/L (98-107); Creatinine Clr Calc Pharmacy 15.7 ml/min; Glucose 152.0 mg/dl (70-99(Fasting)); Potassium 3.5 mmol/L (3.5-5.1); Sodium 134.0 mmol/L (136-145)
[2025-08-06] MEDS: FUROSEMIDE 40 MG/4 ML VIAL IV ONE ×2 (11:18→11:38)
--- NOTE | 2025-08-06 11:23 | Hospitalist Progress Note ---
Date of Service August 06, 2025 Assessment & Plan (1) Septic shock: (2) MAGDA (acute kidney injury): (3) Bilateral arm weakness: (4) Recurrent cancer of right breast: (5) Brachial plexopathy: (6) Respiratory acidosis: (7) Hypertension: Plan This is a 75-year-old female with remote history of breast cancer s/p mastectomy, chemo and radiation with progressive bilateral upper extremity weakness. 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 She was transferred to [facility] and had spinal surgery performed on July 16. She was discharged to [facility] rehab on July 23. Presents to [facility] with hypotension, septic shock. Acute encephalopathy Her mentation waxes and wanes, 08/06 is now less awake and not sure she wants rehab She was made DNR , no escalation of care, notified son, will try to reach daughter If she deteriorates further, they will make her comfort care before then, CT scan of the head done 08/03/2025 did not show any acute pathology holding requip and elavil 08/04, not able to take gabapentin and not able to crush meds metabolic acidosis persists from renal failure Afib: Now in sinus # septic shock -Now resolved completed antibiotics -Source is likely urinary-Cultures growing Klebsiella and Pseudomonas [place] sensitive -Continue IV cefepime, end date 08/05 -Off pressors continues on PO midodrine # MAGDA with CKD 3, -Renal function is worse than baseline, still feel is magda from hypotension - consult nephrology, feels still atn and will recover, supportive care at this time given massive edema, nephro ok's one time dose of lasix Hyperphosphatemia: Secondary to poor renal fucntion On Phoslo # post op cervical spine surgery -Due to worsening bilateral upper extremity weakness, she was sent to [place] -Patient was found to have an epidural mass, 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 -Biopsy of the mass was taken and sent to pathology, result pending. -She also underwent bilateral foraminotomies of C5-C6 C6-6 7 and posterior fusion of C3-T3. -She is currently on [place] neck collar which will be in place for 12 weeks- october -Sutures were removed on 07/26/25 -[place] neck collar to remain for 12 weeks #acute hypoxic respiratory failure associated with sepsis patient initially hypoxic requiring placement of supplemental oxygen. -Patient with history of DANNIE and reports compliance with her home CPAP CPAP nightly Supplemental oxygen as needed # abdominal pain resolving -CT findings as above with nonspecific colitis. resolving # hypothyroidism. TSH = 3.504 on 07/10/2025. -Random cortisol appropriately elevated Continue Synthroid #History of breast cancer with likely recurrence. 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 -She was offered an attempted adjuvant chemotherapy which was aborted because of poor tolerance. -Patient continues on letrozole. Deconditioning: Patient is very deconditioned Barely able to participate in physical therapy, and also reluctant to [facility], not sure if pt will have fortitude to participate however still in discussion Admission and Anticipated Discharge Date Admission Date: July 25, 2025 Subjective Pt is not as bright or alert today, she is non committal to going to rehab at this point and has had a slight downturn in her renal function spoke to her son neli at 1115, he suggested I reach out to his sister at 1130. Physical Exam Physical Exam: wearing [place] collar, right arm remains swollen, typical with her lymphedema, diminished lung sounds at bases, lower extremity is with increasing edema cardiac is regular. Results & Data Results & Data Vital Signs (Past 12 Hours) Vital Signs Temp Pulse Resp BP Pulse Ox O2 Del Method O2 Flow Rate 08/06/25 07:23 97.7 F 70 15 102/53 L 97 Nasal Cannula 4 08/06/25 07:22 Nasal Cannula 4 08/05/25 23:41 97.9 F 84 16 111/74 98 Nasal Cannula 4 Laboratory Results review chemistry with worsening Cr, did speak to nephrology, ok for one time dose of Lasix to help extremity PG Care Time/CCT Total # of Minutes Spent Total Time Spent with Patient: Total time spent is greater than 50% in coordination of care (as documented) at patient's floor/unit and/or counseling patient: Coding Level of Care Code 66621 SUB INP/OBS CARE 3/50MIN Diagnoses Septic shock A41.9; R65.21 MAGDA (acute kidney injury) N17.9 Bilateral arm weakness R29.898 Recurrent cancer of right breast C50.911 Brachial plexopathy G54.0 Respiratory acidosis E87.29 Hypertension I10
[2025-08-06 13:33] LABS: Appearance Urine Cloudy (Clear); Bacteria Urine Automated None Seen (None Seen); Epithelial Cell Urine Auto 0-2 /hpf (0-2); Glucose Urine UA Negative (Negative); RBC Urine Automated 0-2 /hpf (0-2)
--- NOTE | 2025-08-07 08:52 | Nephrology Progress Note ---
Date of Service August 07, 2025 Assessment & Plan (1) MAGDA (acute kidney injury): Plan: * MAGDA likely ATN secondary to septic shock, IV contrast * Awaiting am lab results (order was active in EMR for 04:44 am draw time this morning) * [place] catheter remains in place draining clear yellow urine. UO 550 cc last 24 hrs * 08/04/25 urine sediment was negative for ATN casts. Patient does have high grade proteinuria * 07/24/25 abdominal CTA - No ANNA, no obstruction * h/o mild hyponatremia. Continue NaCl 1 g p.o. 3 times daily * Poor dialysis candidate due to metastatic breast cancer, intolerant of adjuvant chemotherapy, poor short-term prognosis as documented by palliative care, continued need for vasoactive therapy (midodrine) * Monitor UO. Lab contacted to draw blood work this am. Will review results once available * Will order BMP for tomorrow (2) Recurrent cancer of right breast: Plan: * 07/16/25 [facility] surgical pathology report: epidural mass c/w metastatic breast carcinoma * Intolerant to adjuvant chemotherapy in the past * Consider consultation w/ oncology to explore treatment options * Recommend follow up w/ palliative care (3) Chronic kidney disease: Plan: * CKD with baseline Cr 0.91.0 w/ eGFR 60 cc/minute (4) Hypotension arterial: Plan: * SBP 84-119 mm Hg last 24 hours * Continue midodrine 7.5 mg po TID (5) Acute encephalopathy: Plan: * Multifactorial including sepsis, medications - improving * Recommend consultation with pharmacy to dose adjust gabapentin, ropinirole and Zosyn for MAGDA * Thyroid replacement added back 08/04/25 Admission and Anticipated Discharge Date Admission Date: July 25, 2025 Subjective Ms. Gonzalez was evaluated in her hospital room this morning. She was alert and oriented to self, place and month. She was being prepared for abdominal CT scan and voiced no medical concerns. Review of Systems Constitutional: no fever Eyes: no problem reported Ear, Nose, Mouth, Throat: no problem reported Respiratory: no cough and no dyspnea Cardiovascular: no chest pain Gastrointestinal: no abdominal pain Physical Exam Physical Exam: Awakens to voice. Will speak name Breathing easily on O2 NC Constitutional: + ill appearing; not in distress Eyes: PERRL, conjunctivae normal, anicteric sclerae ENMT: external ear and nose normal, oropharynx normal Neck: trachea midline, no thyromegaly Respiratory: normal respiratory effort, lungs clear to auscultation Cardiovascular: Rate/Rhythm: regular rate and regular rhythm Gastrointestinal (Abdomen): Inspection/Auscultation: + abdomen distended and + hypoactive bowel sounds Percussion/Palpation: abdomen nontender Skin: no rashes Results & Data Vital Signs (Past 12 Hours) Vital Signs Temp Pulse Resp BP Pulse Ox O2 Del Method O2 Flow Rate 08/07/25 08:42 37.1 C 87 16 119/65 98 Nasal Cannula 4 08/07/25 00:20 36.6 C 90 20 103/63 97 Nasal Cannula 4 08/06/25 23:05 37.1 C 86 20 84/50 L 95 Nasal Cannula 4 08/06/25 21:05 Nasal Cannula 4 Laboratory Results Laboratory Results - last 24 hr 08/06/25 08/06/25 10:11 11:45 Sodium 134 L Potassium 3.5 Chloride 98 Carbon Dioxide 24 Anion Gap 12 H BUN 113 H Creatinine 4.52 H* D Est Cr Clr Drug Dosing 15.7 eGFR 9.73 BUN/Creatinine Ratio 25.0 H Glucose 152 H Calcium 8.6 Urine Color Yellow Urine Appearance Cloudy A Urine pH 5.5 Ur Specific [place] 1.015 Urine Protein 2+ H Urine Glucose (UA) Negative Urine Ketones Negative Urine Blood 1+ H Urine Nitrite Negative Urine Bilirubin Negative Urine Urobilinogen Negative Ur Leukocyte Esterase 1+ H Urine WBC (Auto) 11-20 H Urine RBC (Auto) 0-2 U Hyaline Cast (Auto) 3-5 H U Epithel Cells (Auto) 0-2 Urine Bacteria (Auto) None Seen Amorphous Sediment Present A 08/07/25 04:44 am Lab - pending PG Care Time/CCT Total # of Minutes Spent Total Time Spent with Patient: 50 min visit - reviewed medical record/medications, interviewed & examined patient, elected to continue midodrine for BP support, called lab to have am blood work drawn this am, reviewed surgical pathology report from [facility], ordered BMP for am, discussed POC w/ primary service, updated medical record Coding Level of Care Code 42156 SUB INP/OBS CARE 3/50MIN Diagnoses MAGDA (acute kidney injury) N17.9 Recurrent cancer of right breast C50.911 Chronic kidney disease N18.9 Hypotension arterial I95.9 Acute encephalopathy G93.40
--- NOTE | 2025-08-07 09:29 | XRay Report ---
XR chest 1V portable CLINICAL HISTORY: hypoxia COMPARISON STUDY: 07/31/2025 FINDINGS: Stable left central catheter. Stable cardiomegaly with pulmonary vascular congestion. There is mild stranding opacity in the lung bases, improved. No pleural effusion or pneumothorax. IMPRESSION: Mild stranding opacity in the lung bases, improved. ACT 112: Negative or not required by law. Electronically signed by: Shawn Garza M.D. 08/07/2025 9:28 AM
--- NOTE | 2025-08-07 10:10 | CT Scan Report ---
ABDOMEN AND PELVIS CT WITHOUT CONTRAST CT DOSE: 1746.61 mGy.cm HISTORY: MAGDA TECHNIQUE: Multiaxial CT images of the abdomen and pelvis were performed without contrast. A dose lo wering technique was utilized adhering to the principles of ALARA. COMPARISON STUDY: 07/24/2025 FINDINGS: ABDOMEN: Liver, spleen, gallbladder, pancreas, and adrenal glands have an unremarkable non-IV contras t appearance. There are moderate atherosclerotic calcifications. No abdominal aortic aneurysm. There is no hydronephrosis. No renal or ureteral calculi seen. Pelvis: Temple catheter is present. Urinary bladder is empty. Uterus is either very diminutive or abse nt. No adnexal mass seen. There is short segment wall thickening and inflammation at the mid aspect d escending colon consistent with colitis. There is a variant small adjacent focus of extraluminal gas medial aspect of the inflamed segment. No other bowel inflammation or obstruction seen. No free fluid or abscess. Osseous structures: There is osteopenia. There is mild lumbar degenerative disc disease. IMPRESSION: 1. Small area of focal colitis versus short segment acute diverticulitis mid aspect of the descending colon. Very small amount of adjacent extraluminal gas. Otherwise no abscess or free fluid. 2. No other acute findings seen. Otherwise as described. ACT 112: Negative or not required by law. The above report was generated using voice recognition software. It may contain grammatical, syntax o r spelling errors. Electronically signed by: Shawn Garza M.D. 08/07/2025 10:07 AM
--- NOTE | 2025-08-07 10:26 | Hospitalist Progress Note ---
Date of Service August 07, 2025 Assessment & Plan (1) Septic shock: (2) MAGDA (acute kidney injury): (3) Bilateral arm weakness: (4) Recurrent cancer of right breast: (5) Brachial plexopathy: (6) Respiratory acidosis: (7) Hypertension: Plan This is a 75-year-old female with remote history of breast cancer s/p mastectomy, chemo and radiation with progressive bilateral upper extremity weakness. 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 She was transferred to [facility] and had spinal surgery performed on July 16. She was discharged to [facility]hab on July 23. Presents to [facility] with hypotension, septic shock. # MAGDA with CKD 3, This appears to be her biggest issue. Initially improved from septic shock. worsening 07/30 after urine output 3400ml on 07/28 and Lasix given 07/29- (although only 20mg IV). Suspect I&Os not accurately recorded as having ongoing diarrhea not always recorded and may not be keeping up with significant output. She admittedly has a lot of third spacing but lasix causing significant Cr bump yesterday fits with intravascular depletion and on discussion with nephrology will give 1L LR today. However goal is more symptomatic management at this stage and even if her renal function improves her overal prognosis remains very poor and IV fluids even if improves renal function will cause increased third spacing and symptom management appears reasonable. Repeat CT today without obstructive changes Acute encephalopathy Appears improved today suggesting more due to amitriptyline and gabapentin in setting of MAGDA, less likely BUN, does not want HD regardless Afib: Now in sinus # septic shock -Now resolved completed antibiotics -Source is likely urinary-Cultures growing Klebsiella and Pseudomonas [place]ague sensitive -Continue IV cefepime, end date 08/05 -Off pressors continues on PO midodrine Hyperphosphatemia: Secondary to poor renal function and IV replacement given earlier in stay On Phoslo # post op cervical spine surgery -Due to worsening bilateral upper extremity weakness, she was sent to [place] -Patient was found to have an epidural mass, 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 -Biopsy of the mass was taken and sent to pathology, result pending. -She also underwent bilateral foraminotomies of C5-C6 C6-6 7 and posterior fusion of C3-T3. -She is currently on Brandon neck collar which will be in place for 12 weeks- october -Sutures were removed on 07/26/25 -Brandon neck collar to remain for 12 weeks #acute hypoxic respiratory failure associated with sepsis patient initially hypoxic requiring placement of supplemental oxygen. -Patient with history of DANNIE and reports compliance with her home CPAP CPAP nightly Supplemental oxygen as needed # abdominal pain resolving -CT findings as above with nonspecific colitis. now with some concern for free air but given goal of comfort will avoid NPO status resolving # hypothyroidism. TSH = 3.504 on 07/10/2025. -Random cortisol appropriately elevated Continue Synthroid #History of breast cancer with likely recurrence. 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 -She was offered an attempted adjuvant chemotherapy which was aborted because of poor tolerance. -Patient continues on letrozole, given more goal of comfort will discontinue this Deconditioning: Patient is very deconditioned Barely able to participate in physical therapy, and also reluctant to Initial plan was for [facility], not sure if pt will have fortitude to participate however still in discussion VTE Prophylaxis - previously on Lovenox however given more goal of comfort and worsening renal function will discontinue this Disposition - continue on med/surg Admission and Anticipated Discharge Date Admission Date: July 25, 2025 Subjective Appears relatively awake. Having lower back pain but otherwise no complaints. Discussed care with Dr Mckinney and Nichol (palliative) throughout the day and patient wishes to transition to more comfort care given confirmed metastatic disease in her cervical spine. Physical Exam Respiratory: normal respiratory effort; no respiratory distress Auscultation: + diminished lung sounds (bibasal) Gastrointestinal (Abdomen): normal bowel sounds, soft, nontender, no hepatosplenomegaly Psychiatric: A+Ox3, euthymic affect Genitourinary: no CVA tenderness Results & Data Results & Data Vital Signs (Past 12 Hours) Vital Signs Temp Pulse Resp BP Pulse Ox O2 Del Method O2 Flow Rate 08/07/25 08:42 37.1 C 87 16 119/65 98 Nasal Cannula 4 08/07/25 00:20 36.6 C 90 20 103/63 97 Nasal Cannula 4 08/06/25 23:05 37.1 C 86 20 84/50 L 95 Nasal Cannula 4 PG Care Time/CCT Total # of Minutes Spent Total Time Spent with Patient: Total time spent is greater than 50% in coordination of care (as documented) at patient's floor/unit and/or counseling patient: Coding Level of Care Code 92218 SUB INP/OBS CARE 3/50MIN Diagnoses Septic shock A41.9; R65.21 MAGDA (acute kidney injury) N17.9 Bilateral arm weakness R29.898 Recurrent cancer of right breast C50.911 Brachial plexopathy G54.0 Respiratory acidosis E87.29 Hypertension I10
[2025-08-07] MEDS ORDERED: Nursing to Pharmacy Communication SCH (10:30)
[2025-08-07 10:35] LABS: Hematocrit (blood only) 27.3 % (37.0-47.0); Hemoglobin 8.6 g/dl (12.0-16.0); Mean Corpuscular Hemoglobin 30.4 pg (25.0-34.0); Mean Corpuscular Volume 96.5 fL (80.0-100.0); Platelet Count 214 K/uL (130-400); RDW Standard Deviation 51.8 fL (36.4-46.3); Red Blood Count 2.83 M/uL (4.20-5.40); White Blood Count 8.99 K/ul (4.8-10.8)
[2025-08-07] MEDS: ADVANCED PROBIOTIC 625 MG CAPSULE PO SCH (10:35)
[2025-08-07 11:04] LABS: Anion Gap 12.0 (3-11); Blood Urea Nitrogen 115.0 mg/dl (6-23); Calcium 8.6 mg/dl (8.6-10.3); Carbon Dioxide 22.0 mmol/L (21-32); Chloride 102.0 mmol/L (98-107); Creatinine Clr Calc Pharmacy 13.1 ml/min; Glucose 114.0 mg/dl (70-99(Fasting)); Potassium 4.0 mmol/L (3.5-5.1); Sodium 136.0 mmol/L (136-145)
[2025-08-07] MEDS: LACTATED RINGER'S 1,000 ML IV SCH (12:08)
[2025-08-07] MEDS: LACTOBACILLUS ACIDOPHILUS 1 GM PACK PO SCH (12:08)
--- NOTE | 2025-08-07 14:43 | Palliative Family Discussion ---
Date of Service August 07, 2025 Patient Directed Conference Time of Meetin:30 - 14:00 Participants: Heather Mejia AGACNP Patient participation: yes Patient Support System: son Emmanuel Other Healthcare Provider Participation: None Meeting Location: bedside Advanced Directive available: no If yes, descriptors: The patient's surrogate medical decision maker participated: son Legally authorized health care proxy: n/a Other surrogate: n/a A family meeting was held for Maryan Gonzalez. This meeting was necessary for determining the appropriate course of treatment. Topics of Discussion Topics of Discussion: 1. pt values and GOC 2. admission course, general health 3. comfort care/hospice Other Content of Meetin. Opportunity given for participants to speak and ask questions. 2. Participants were assured of attention to patient comfort. 3. Reassurance provided. 4. Support was provided for informed, [place] decisions. 5. Emotions expressed by family were acknowledged and addressed. 6. Follow-up Outpatient: n/a 7. Plan of Care: DNR/DNI, likely transition to comfort directed care in upcoming days with discharge disposition TBD Met with pt and her son at bedside, ee discussed at length the patient's acute and chronic medical conditions, general prognosis, treatment options, and goals of care. Patient shared with her son that she had been told today that her biopsy results showed metastatic breast cancer and also that her kidneys are failing. She shared that she would never want dialysis and worries that her kidneys are going to kill her. Pt shared that given her metastatic cancer, kidney failure, deconditioning and genreally unacceptable (to her) quality of life she would like to have no further aggressive treatments and wants to transition to a comfort directed approach. She shared that she does not wish to be dependent on others for her daily care, and if she cannot live independently she does not wish "to drag things out". We again discussed general prognostication given her overall health, shared that pt likely has weeks to months to live. Emmanuel shared that he would like to take the pt home if possible. He shared that he has already gotten approval for leave from his employer and would be able to stay with her as her primary host and hostess. Maryan and Emmanuel both stated that they would need some time to discuss details of location for hospice care. Discussed hospice benefit: an interdisciplinary program offered by nurses, nurses aides, social workers, chaplains and a medical record transcriber for patients with a terminal condition and a life expectancy of less than 6 months. This is covered by Medicare at 100%/no out of pocket expense to patient and all meds/supplies needed by patient for the reason they are on hospice are paid for/covered by hospice. The goal is assure quality of life of the patient in their home setting (home, retirement, inpatient hospice setting) by providing symptoms management, psychosocial and spiritual support. However, they cannot offer 24 hours care and if the family is unable to provide that care, they will have to consider personal care with out of pocket cost vs. retirement placement. We discussed the goals of hospice as a patient service and the goals of care; we discussed EOL trajectories and transitions axel the emotional impact of realizing mortality as a concrete reality from prior abstract considerations. Pt was reassured that no matter where they are along this trajectory, they are not alone - their medical team will remain by their side through their journey. Discussed the pros/cons of accepting help when especially weakened and distressed by pain-which would also help provide relief/decrease caregiver burden/strain. Maryan reinforced her desire for DNR/DNI and no further escalation of care, but shared that prior to transition to comfort care she would like to discuss with her daughter Latesha. Emmanuel shared that Latesha will be visiting with pt tomorrow and we agreed to revisit discussion when she is present. Time Involved in Meeting: I spent 60 minutes overall addressing this case: 10 in medical data review/discussion with referring provider(s) and/or preparation for the visit 30 in direct interaction with the patient and son 30 Advance Care Planning/Goals of Care discussions as detailed above in note (must be >16min) 10 in subsequent review and synthesis of assessment and plan 10 in communicating with other providers regarding the patient's case: ALYSSA, attending Dr. Dubose, ML
--- NOTE | 2025-08-07 18:21 | Electrocardiogram Report ---
Test Reason : Blood Pressure : */* mmHG Vent. Rate : 86 BPM Atrial Rate : 86 BPM P-R Int : 206 ms QRS Dur : 124 ms QT Int : 352 ms P-R-T Axes : 61 -37 97 degrees QTcB Int : 421 ms Sinus rhythm with occasional Premature ventricular complexes Left axis deviation Left ventricular hypertrophy with QRS widening and repolarization abnormality Abnormal ECG When compared with ECG of 27-Jul-2025 12:55, Sinus rhythm has replaced Atrial fibrillation Confirmed by Warner Maloney ([id number]) on 08/07/2025 6:21:37 PM Referred By: [facility] Confirmed By: Warner Maloney
--- NOTE | 2025-08-08 08:59 | Nephrology Progress Note ---
Date of Service August 08, 2025 Assessment & Plan (1) MAGDA (acute kidney injury): Plan: * MAGDA likely ATN secondary to septic shock, IV contrast * Remains in injury phase of ATN. Electrolyte balance is acceptable * Temple catheter remains in place draining clear yellow urine. UO 602 cc last 24 hrs * 08/06/25 urine sediment was negative for ATN casts. Patient does have high grade proteinuria * 07/24/25 abdominal CTA - No ANNA, no obstruction * h/o mild hyponatremia. Continue NaCl 1 g p.o. 3 times daily * Poor dialysis candidate due to metastatic breast cancer, intolerant of adjuvant chemotherapy, poor short-term prognosis as documented by palliative care, continued need for vasoactive therapy (midodrine) * Continue supportive care. Patient and family to meet w/ palliative care today to discuss goals of care (2) Recurrent cancer of right breast: Plan: * 07/16/25 [facility] [place] [place] surgical pathology report: epidural mass c/w metastatic breast carcinoma * Intolerant to adjuvant chemotherapy in the past (3) Chronic kidney disease: Plan: * CKD with baseline Cr 0.91.0 w/ eGFR 60 cc/minute (4) Hypotension arterial: Plan: * SBP 93-138 mm Hg last 24 hours * Continue midodrine 7.5 mg po TID (5) Diverticulitis: Plan: * 08/07/25 non-contrast abdominal CT: small segment acute diverticulitis in mid descending colon w/ small amount of adjacent extraluminal gas. No hydronephrosis, renal or ureteral calculi. Temple catheter remains in place. * Patient may require antibiotic therapy to treat diverticulitis and cover gram neg/anaerobic bacteria. Will defer to primary service (6) Acute encephalopathy: Plan: * Multifactorial including sepsis, medications - improving * Recommend consultation with pharmacy to dose adjust gabapentin, ropinirole and Zosyn for MAGDA * Thyroid replacement added back 08/04/25 Admission and Anticipated Discharge Date Admission Date: July 25, 2025 Subjective Ms. Gonzalez was evaluated in her hospital room this morning. She was alert and oriented to self. She voiced no medical concerns. Review of Systems Constitutional: no fever Eyes: no problem reported Ear, Nose, Mouth, Throat: no problem reported Respiratory: no cough and no dyspnea Cardiovascular: no chest pain Gastrointestinal: no abdominal pain Neurologic: + headache(s) Physical Exam Physical Exam: Awakens to voice. Will speak name Breathing easily on O2 NC Constitutional: + ill appearing; not in distress Eyes: PERRL, conjunctivae normal, anicteric sclerae ENMT: external ear and nose normal, oropharynx normal Neck: trachea midline, no thyromegaly Respiratory: normal respiratory effort, lungs clear to auscultation Cardiovascular: Rate/Rhythm: regular rate and regular rhythm Gastrointestinal (Abdomen): Inspection/Auscultation: + abdomen distended and + hypoactive bowel sounds Percussion/Palpation: abdomen nontender Skin: no rashes Results & Data Vital Signs (Past 12 Hours) Vital Signs Temp Pulse Resp BP Pulse Ox O2 Del Method O2 Flow Rate 08/08/25 07:32 36.8 C 91 H 18 97/58 L 96 Nasal Cannula 4 08/07/25 23:04 37.3 C 80 15 93/59 L 97 Nasal Cannula 4 08/07/25 21:50 Nasal Cannula 4 Laboratory Results Laboratory Results - last 24 hr 08/07/25 08/08/25 10:02 09:01 WBC 8.99 RBC 2.83 L Hgb 8.6 L Hct 27.3 L MCV 96.5 MCH 30.4 MCHC 31.5 L RDW Std Deviation 51.8 H RDW Coeff of [place] 14.7 H Plt Count 214 MPV 10.6 Absolute Nucleated RBC 0.02 Nucleated RBC % (auto) 0.2 Sodium 136 135 L Potassium 4.0 3.8 Chloride 102 101 Carbon Dioxide 22 22 Anion Gap 12 H 12 H BUN 115 H 117 H Creatinine 5.46 H* D 5.83 H* D Est Cr Clr Drug Dosing 13.1 12.2 eGFR 7.76 7.17 BUN/Creatinine Ratio 21.1 H 20.1 H Glucose 114 H 125 H Calcium 8.6 8.5 L PG Care Time/CCT Total # of Minutes Spent Total Time Spent with Patient: 50 min visit - reviewed medical record, reviewed abdominal CT films, reviewed palliative care recommendations, interviewed & examined patient, elected to continue midodrine for BP support, ordered BMP for am, discussed POC w/ primary service, updated medical record Coding Level of Care Code 64660 SUB INP/OBS CARE 3/50MIN Diagnoses MAGDA (acute kidney injury) N17.9 Recurrent cancer of right breast C50.911 Chronic kidney disease N18.9 Hypotension arterial I95.9 Diverticulitis K57.92 Acute encephalopathy G93.40
[2025-08-08 09:40] LABS: Anion Gap 12.0 (3-11); Blood Urea Nitrogen 117.0 mg/dl (6-23); Calcium 8.5 mg/dl (8.6-10.3); Carbon Dioxide 22.0 mmol/L (21-32); Chloride 101.0 mmol/L (98-107); Creatinine Clr Calc Pharmacy 12.2 ml/min; Glucose 125.0 mg/dl (70-99(Fasting)); Potassium 3.8 mmol/L (3.5-5.1); Sodium 135.0 mmol/L (136-145)
--- NOTE | 2025-08-08 12:26 | Palliative Care Progress Note ---
Date of Service August 08, 2025 Assessment & Plan (1) Weakness: (2) Lethargy: (3) Palliative care by specialist: Plan: Palliative care will continue to follow for ongoing EOL pt care and family support. (4) Counseling regarding goals of care: Plan: Met with pt and her daughter at bedside to discuss GOC for 30 minutes. Reinforced previous discussion concerning patient's acute and chronic medical conditions, general prognosis, treatment options, and goals of care (see previous palliative care notes). Pt again shared that she does not wish to pursue any further aggressive treatment given her deconditioned state, metastatic cancer and renal failure. She shared that she would not want cancer directed treatments nor dialysis. Pt requests transition to comfort directed care and desire to return home if possible. She shared concern for being "too much" for her children to handle and said that perhaps SNF would be best option. Pt's daughter asked about hospice care and costs involved. Discussed hospice benefit: an interdisciplinary program offered by nurses, nurses aides, social workers, chaplains and a biomedical engineering aide for patients with a terminal condition and a life expectancy of less than 6 months. This is covered by Medicare at 100%/no out of pocket expense to patient and all meds/supplies needed by patient for the reason they are on hospice are paid for/covered by hospice. The goal is assure quality of life of the patient in their home setting (home, [place] [facility], inpatient hospice setting) by providing symptoms management, psychosocial and spiritual support. However, they cannot offer 24 hours care and if the family is unable to provide that care, they will have to consider personal care with out of pocket cost vs. [place] [facility] placement. We discussed the goals of hospice as a patient service and the goals of care; we discussed EOL trajectories and transitions axel the emotional impact of realizing mortality as a concrete realit y from prior abstract considerations. Pt was reassured that no matter where they are along this trajectory, they are not alone - their medical team will remain by their side through their journey. Discussed the pros/cons of accepting help when especially weakened and distressed by pain-which would also help provide relief/decrease caregiver burden/strain. 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 Discharge disposition pending further family discussion home vs SNF with hospice. (6) Need for comfort care: Plan: Comfort plan of care parameters: 1. Patient/Family want hospice added to their care. 2. NO rehab/PT/OT 3. Strictly End of Life care only 4. NO escalation of care: do not increase oxygen, escalate therapies, etc. The focus is on comfort through end of life, assure this is accomplished with aggressive symptom management (i.e. relief of dyspnea, pain, etc.) 5. NO return to hospital 6. NO labs, imaging, surgery 7. Oral intake as desired for comfort and pleasure: NO dietary restriction, Allow permissive aspiration, do not withhold food or drink for concern of aspiration and allow PO for pleasure and comfort. 8. If difficulty urinating/commode/bedpan, ok to place Temple catheter for comfort/hygiene/skin protection AND/OR Continue Temple catheter for comfort/hygiene/skin protection 9. NO: calorie counts, artificial nutrition, feeding tubes or IV fluids EOL Symptom manamgement: Pain/dyspnea/tachypnea - avoid morphine iso renal failure dilaudid 2mg IVP PRN q1h Consider titratable dilaudid drip if pt requires >3 PRN doses in under two consecutive hours. Nausea/vomitting zofran 4mg IVP q4h PRN Agitation ativan 0.5mg IVP q4h PRN Hyperactive delirium haldol 5mg IVP q6h PRN Secretions - if repositioning not effective robinul 0.4mg IV q4h PRN atropine SL 3 drops Q1h PRN Nursing care: Discontinue all medications not directed towards comfort. Detether pt from IV tubing, monitor cables, and check vitals once per shift. Please continue HFNC and titrate down as able for patient comfort. Use medications above PRN for dyspnea/tachypnea and do not increase oxygen once titrated down. Assess q1h for pain/dyspnea and treat accordingly. Plan POLICE CR[employer] SCENE TECHNICIAN, dispo pending family discusiion re home vs SNF Admission and Anticipated Discharge Date Admission Date: July 25, 2025 Subjective Assessed pt at bedside, she was more drowsy today, but arousable and conversant. Her daughter and grandson were at bedside. NAEON. Pt states pain well managed and she is in NAD on 3L NC. Review of Systems Constitutional: + body aches, + fatigue and + malaise Neurologic: + paresthesia paresthesias to both hands, chronic Physical Exam Constitutional: + ill appearing, + morbidly obese, coope rative and + edematous; no acute distress Eyes: PERRL, conjunctivae normal, anicteric sclerae Neck: trachea midline, no thyromegaly Cardiovascular: Rate/Rhythm: + tachycardic Heart Sounds: normal S1 and normal S2 Extremities: + edema Gastrointestinal (Abdomen): normal bowel sounds, soft, nontender, no hepatosplenomegaly Neurologic: PERRL, EOMI, accommodation nl, no face palsy, no dysarthria Psychiatric: A+Ox3, euthymic affect Lymphatic: + lymphedema Results & Data Vital Signs (Past 12 Hours) Vital Signs Temp Pulse Resp BP Pulse Ox O2 Del Method O2 Flow Rate 08/08/25 08:00 Nasal Cannula 4 08/08/25 07:32 36.8 C 91 H 18 97/58 L 96 Nasal Cannula 4 Laboratory Results Abnormal lab results 08/08/25 Range/Units 09:01 Sodium 135 L (136-145) mmol/L Anion Gap 12 H (3-11) BUN 117 H (6-23) mg/dl Creatinine 5.83 H* D (0.6-1.2) mg/dl BUN/Creatinine Ratio 20.1 H (10-20) Glucose 125 H (70-99(Fasting)) mg/dl Calcium 8.5 L (8.6-10.3) mg/dl Diagnostic Findings Abdomen/Pelvis CTA 07/24/25 21:53 Exam(s): CTA ABDOMEN + PELVIS With Contrast IV Amt: 119ml opti 320 EXAM: CT Angiography Abdomen and Pelvis With Intravenous Contrast CLINICAL HISTORY: Reason for exam: eval for AAA. TECHNIQUE: Axial computed tomographic angiography images of the abdomen and pelvis with intravenous contrast. CTDI is 69 mGy and DLP is 2230 mGy-cm. Automated exposure control was utilized for the study. A dose lowering technique was utilized adhering to the principles of ALARA. MIP reconstructed images were created and reviewed. CONTRAST: Patient received 119ml opti 320 of IV contrast COMPARISON: No relevant prior studies available. FINDINGS: VASCULATURE: Aorta: No acute findings. No abdominal aortic aneurysm. No dissection. Celiac trunk and mesenteric arteries: No acute findings. No occlusion or significant stenosis. Renal arteries: No acute findings. No occlusion or significant stenosis. Iliac arteries: No acute findings. No occlusion or significant stenosis. Lung bases: Unremarkable. No mass. No consolidation. ABDOMEN: Liver: Borderline hepatomegaly. Gallbladder and bile ducts: Unremarkable. No calcified stones. No ductal dilation. Pancreas: 1.6 x 1.2 cm pancreatic body cyst. No ductal dilation. Spleen: Unremarkable. No splenomegaly. Adrenals: Unremarkable. No mass. Kidneys and ureters: Unremarkable. No hydronephrosis. No solid mass. Stomach and bowel: Subtle inflammatory changes about the splenic flexure and proximal descending colon consistent with colitis within same. Large amount of liquid stool within the colon. PELVIS: Appendix: No findings to suggest acute appendicitis. Bladder: Temple catheter within the urinary bladder. Reproductive: Unremarkable as visualized. ABDOMEN and PELVIS: Intraperitoneal space: Unremarkable. No significant fluid collection. No free air. Bones/joints: No acute fracture. No dislocation. Soft tissues: Unremarkable. Lymph nodes: Unremarkable. No enlarged lymph nodes. IMPRESSION: Mild uncomplicated colitis Large amount of liquid stool within the colon No evidence of abdominal aortic aneurysm. Electronically signed by: Kavon Mckeon MD 07/24/25 23:46 PM Chest CTA 07/24/25 21:53 Exam(s): CTA CHEST W/WO Contrast IV Amt: 119cc opti 320 EXAM: CT Angiography Chest Without and With Intravenous Contrast CLINICAL HISTORY: Reason for exam: eval for AAA. TECHNIQUE: Axial computed tomographic angiography images of the chest without and with intravenous contrast. CTDI is 28.14 mGy and DLP is 796 mGy-cm. Automated exposure control was utilized for the study. A dose lowering technique was utilized adhering to the principles of ALARA. MIP reconstructed images were created and reviewed. CONTRAST: Patient received 119cc opti 320 of IV contrast COMPARISON: Reference is made to MRI dated 07/13/2025 FINDINGS: Limitations: Exam limited secondary to patient respiratory motion. Pulmonary arteries: Unremarkable. No pulmonary embolism. Aorta: No acute findings. No thoracic aortic aneurysm. Lungs: Bibasilar ildg-teeomek-vnbf-right dependent atelectasis. No mass. Pleural space: Unremarkable. No significant effusion. No pneumothorax. Heart: Unremarkable. No cardiomegaly. No significant pericardial effusion. No evidence of RV dysfunction. Bones/joints: Postoperative changes T1 and T2 interbody fusion. No acute fracture. No dislocation. Soft tissues: 6.2 x 3.3 cm soft tissue mass along the lateral tail of the right pectoralis major muscle. Air contains numerous surgical clips and corresponds to the abnormality identified as a hematoma on the prior MRI. Lymph nodes: Unremarkable. No enlarged lymph nodes. IMPRESSION: No acute findings in the visualized arteries of the chest. Exam limited as described above Right chest wall soft tissue mass likely representing resolving hematoma similar appearance when compared with the prior MRI Electronically signed by: Kavon Mckeon MD 07/24/25 23:31 PM Venous Doppler Study 07/27/25 06:27 EXAM: US venous doppler UE RT CLINICAL HISTORY: Lymphedema vs VTE. TECHNIQUE: Ultrasound examination of the right upper extremity veins was performed in real time with duplex imaging. One or more of the following were performed: spectral analysis, resistive index, waveform analysis, and pulsed Doppler. The examination was limited due to patient body habitus. COMPARISON: None. FINDINGS: Normal phasic, nonpulsatile, and spontaneous flow is noted in the right internal jugular, subclavian, axillary, brachial, basilic, cephalic, radial, and ulnar veins. No sonographic evidence of acute deep vein thrombosis (DVT) is detected in the visualized veins of the upper extremity. Compression and Augmentation: All evaluated veins compress fully with applied transducer pressure. Augmentation of venous flow is noted with distal compression. Additional Findings: No evidence of intraluminal thrombus. Very mild edema of the right upper extremity is noted. IMPRESSION: 1. No sonographic evidence of acute DVT is detected at the time of examination. 2. Very mild edema of the right upper extremity is noted. 3. The examination was limited due to patient body habitus. Disclaimer: DVT could be missed early in the disease when clot burden is minimal. For patients with moderate and high pretest probability of DVT and negative ultrasound, the [employer] clinical guidelines recommend testing with a D-dimer assay or repeat ultrasound in 5-7 days. If symptoms worsen, the Society of Radiologists in Ultrasound recommends repeating ultrasound even earlier. Electronically signed by Arun Oglesby 07-27-2025 08:[address] 08/03/25 09:15 EXAM: CT Head Without Intravenous Contrast INDICATION: Follow-up parietal lesions. TECHNIQUE: Axial computed tomography images of the head/brain without intravenous contrast. Sagittal and/or coronal reformats are provided. Sagittal and coronal reformatted images were created and reviewed. This CT exam was performed using one or more of the following dose reduction techniques: automated exposure control, adjustment of the mA and/or kV according to patient size, and/or use of iterative reconstruction technique. COMPARISON: 07/10/2025 FINDINGS: Limitations: None. Brain and extra-axial spaces: There is age appropriate cortical atrophy and chronic ischemic periventricular white matter hypodensity. No acute infarct, hemorrhage or mass noted. Bones/joints: No acute changes. Soft tissues: No significant abnormality noted. Vasculature: No acute abnormality noted. Sinuses: No layering fluid in the visualized portions of the paranasal sinuses. Mastoid air cells: Stable chronic sclerosis and mild mucosal thickening floor of the right mastoid. No mastoid effusion. Orbits: No significant abnormality noted. IMPRESSION: Cerebral atrophy. No interval change. ACT 112: N/A Electronically signed by Elli Strange 08-03-2025 09:58 AM Chest X-Ray 08/07/25 08:36 XR chest 1V portable CLINICAL HISTORY: hypoxia COMPARISON STUDY: 07/31/2025 FINDINGS: Stable left central catheter. Stable cardiomegaly with pulmonary vascular congestion. There is mild stranding opacity in the lung bases, improved. No pleural effusion or pneumothorax. IMPRESSION: Mild stranding opacity in the lung bases, improved. ACT 112: Negative or not required by law. Electronically signed by: Shawn Garza M.D. 08/07/2025 9:28 AM Abdomen/Pelvis CT 08/07/25 08:[address] WITHOUT CONTRAST CT DOSE: 1746.61 mGy.cm HISTORY: MAGDA TECHNIQUE: Multiaxial CT images of the abdomen and pelvis were performed without contrast. A dose lowering technique was utilized adhering to the principles of ALARA. COMPARISON STUDY: 07/24/2025 FINDINGS: ABDOMEN: Liver, spleen, gallbladder, pancreas, and adrenal glands have an unremarkable non-IV contrast appearance. There are moderate atherosclerotic calcifications. No abdominal aortic aneurysm. There is no hydronephrosis. No renal or ureteral calculi seen. Pelvis: Temple catheter is present. Urinary bladder is empty. Uterus is either very diminutive or absent. No adnexal mass seen. There is short segment wall thickening and inflammation at the mid aspect descending colon consistent with colitis. There is a variant small adjacent focus of extraluminal gas medial aspect of the inflamed segment. No other bowel inflammation or obstruction seen. No free fluid or abscess. Osseous structures: There is osteopenia. There is mild lumbar degenerative disc disease. IMPRESSION: 1. Small area of focal colitis versus short segment acute diverticulitis mid aspect of the descending colon. Very small amount of adjacent extraluminal gas. Otherwise no abscess or free fluid. 2. No other acute findings seen. Otherwise as described. ACT 112: Negative or not required by law. The above report was generated using voice recognition software. It may contain grammatical, syntax or spelling errors. Electronically signed by: Shawn Garza M.D. 08/07/2025 10:07 AM Medications Administered Current Inpatient Medications Acetaminophen (Acetaminophen Susp 325 Mg/10.15 Ml Udc) 650 mg PO Q6H PRN PRN Reason: Pain or Fever Stop: 09/07/25 11:34 Atropine Sulfate (Atropine Sulfate 1% Op Soln 5 Ml Btl) 4 drops SL Q1H PRN PRN Reason: Secretions or pulm congestion Stop: 09/07/25 15:22 Fentanyl (Fentanyl 50 Mcg/Hr Tdsy) 1 patch TD Q3D@0900 NIA Stop: 08/11/25 00:29 Last Admin: 08/06/25 09:14 Dose: 1 patch Glycopyrrolate (Glycopyrrolate 0.2 Mg/Ml Vial) 0.4 mg IV Q4H PRN PRN Reason: Rattling Secretions or Pulm Congestion Stop: 09/07/25 15:22 Heparin Sodium (Porcine) (Heparin 100 Unit/Ml 5ml Flush) 5 ml FLUSH PRN PRN PRN Reason: Flush Stop: 08/28/25 08:17 Last Admin: 07/29/25 15:04 Dose: 5 ml Hydromorphone HCl (Hydromorphone Inj 0.5 Mg/0.5 Ml Syr) 0.2 mg IV Q1H PRN PRN Reason: Pain or Respiratory Distress Stop: 08/22/25 15:22 Hyoscyamine (Hyoscyamine Sulfate 0.125 Mg Tab) 0.125 mg SL Q4H PRN PRN Reason: Secretions or Pulm Congestion Stop: 09/07/25 15:22 Lorazepam 0.5 mg/ Syringe 0.5 mls @ 2 mls/min IV Q4H PRN PRN Reason: Anxiety/Agitation Stop: 09/07/25 15:22 Lorazepam (Lorazepam 0.5 Mg Tab) 0.5 mg PO Q4H PRN PRN Reason: Anxiety/Agitation Stop: 09/07/25 15:22 Midodrine (Midodrine Hcl 2.5 Mg Tab) 7.5 mg PO TID@0800,1200,1700 [facility] Stop: 08/28/25 07:59 Last Admin: 08/08/25 13:06 Dose: 7.5 mg Miscellaneous (Check Fentanyl Patch Placement) 1 each N/A QS [facility] Stop: 08/24/25 15:59 Last Admin: 08/08/25 08:13 Dose: 1 each Miscellaneous (Fentanyl Patch Remove & Waste) 1 each N/A Q3D@0859 [facility] Stop: 08/30/25 08:58 Last Admin: 08/06/25 09:14 Dose: 1 each Nystatin (Nystatin Powder 15gm Btl) 1 appln EXT BID PRN PRN Reason: groin fold excoriation Stop: 08/24/25 03:45 Last Admin: 07/30/25 07:59 Dose: 1 appln Ondansetron HCl (Ondansetron Inj 2 Mg/Ml 2 Ml Vial) 4 mg IV Q4H PRN PRN Reason: Nausea &/or Vomiting Stop: 09/07/25 15:22 Ondansetron HCl (Ondansetron 4 Mg Od Tab) 4 mg SL Q4H PRN PRN Reason: Nausea &/or Vomiting Stop: 09/07/25 15:22 Pantoprazole Sodium (Pantoprazole 40 Mg Tab) 40 mg PO DAILYBB [facility] Stop: 08/24/25 06:29 Last Admin: 08/08/25 05:45 Dose: 40 mg Thyroid (Ellam[place] Thyroid 30 Mg Tab) 60 mg PO DAILY [facility] Stop: 08/24/25 08:59 Last Admin: 08/08/25 08:15 Dose: 60 mg PG Care Time/CCT Total # of Minutes Spent Total Time Spent with Patient: Total time spent is greater than 50% in coordination of care (as documented) at patient's floor/unit and/or counseling patient: Advanced Care Planning 79302 Advanced Care Planning 30 Min [place] [address] SUB INP/OBS CARE 3/50MIN Patient Type Established History Expanded Problem Focused Exam Expanded Problem Focused Medical Decision Making Moderate Complexity Diagnoses Weakness R53.1 Lethargy R53.83 Palliative care by specialist Z51.5 Counseling regarding goals of care Z71.89 Comfort measures only status Z51.5 Need for comfort care Additional Codes Advanced Care Planning - 43632 Advanced Care Planning 30 Min: 40404 Advanced Care Planning 30 Min ([id number])
[2025-08-08] MEDS ORDERED: LORazepam 0.5 MG TAB PO PRN (15:23)
[2025-08-08] MEDS ORDERED: HYOSCYAMINE SULFATE 0.125 MG TAB SL PRN (15:23)
[2025-08-08] MEDS ORDERED: ONDANSETRON INJ 2 MG/ML 2 ML VIAL IV PRN (15:23)
[2025-08-08] MEDS ORDERED: ONDANSETRON 4 MG OD TAB SL PRN (15:23)
[2025-08-08] MEDS ORDERED: ATROPINE SULFATE 1% OP SOLN 5 ML BTL SL PRN (15:23)
[2025-08-08] MEDS: ACETAMINOPHEN SUSP 325 MG/10.15 ML UDC PO PRN (15:41)
--- NOTE | 2025-08-08 19:42 | Hospitalist Progress Note ---
Date of Service August 08, 2025 Assessment & Plan (1) Septic shock: (2) MAGDA (acute kidney injury): (3) Bilateral arm weakness: (4) Recurrent cancer of right breast: (5) Brachial plexopathy: (6) Respiratory acidosis: (7) Hypertension: Plan This is a 75-year-old female with remote history of breast cancer s/p mastectomy, chemo and radiation with progressive bilateral upper extremity weakness. 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 She was transferred to [facility] and had spinal surgery performed on July 16. She was discharged to [facility] on July 23. Presents to [facility] with hypotension, septic shock. #Goals of care Appreciate palliative care leading goals conversation, renal function worsening with generalized edema and metastatic breast cancer. Switched to comfort care only today. If able will try to discharge home on hospice. # MAGDA with CKD 3, Continues to get worse. Now electing for comfort care only. #Acute encephalopathy Appears improved today suggesting more due to amitriptyline and gabapentin in setting of MAGDA, less likely BUN, does not want HD regardless #Afib: Now in sinus # septic shock -Now resolved completed antibiotics -Source is likely urinary-Cultures growing Klebsiella and Pseudomonas montague sensitive -Continue IV cefepime, end date 08/05 Hyperphosphatemia: Secondary to poor renal function and IV replacement given earlier in stay On [facility] # post op cervical spine surgery -Due to worsening bilateral upper extremity weakness, she was sent to [facility] -Patient was found to have an epidural mass, 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 -Biopsy of the mass was taken and sent to pathology, result pending. -She also underwent bilateral foraminotomies of C5-C6 C6-6 7 and posterior fusion of C3-T3. -She is currently on Saxman neck collar which will be in place for 12 weeks- October -Sutures were removed on 07/26/25 -Saxman neck collar to remain for 12 weeks #acute hypoxic respiratory failure associated with sepsis patient initially hypoxic requiring placement of supplemental oxygen. -Patient with history of DANNIE and reports compliance with her home CPAP CPAP nightly Supplemental oxygen as needed # abdominal pain resolving -CT findings as above with nonspecific colitis. now with some concern for free air but given goal of comfort will avoid NPO status resolving # hypothyroidism. TSH = 3.504 on 07/10/2025. -Random cortisol appropriately elevated Continue Synthroid #History of breast cancer with likely recurrence. According to Oncology, Patient was diagnosed with recurrent invasive ductal carcinoma involving the right breast ER positive, OH negative HER2/naty negative with 16 of 17 lymph nodes positive for metastatic disease. -She was offered an attempted adjuvant chemotherapy which was aborted because of poor tolerance. -Patient continues on letrozole, given more goal of comfort will discontinue this Deconditioning: Patient is very deconditioned Barely able to participate in physical therapy, and also reluctant to Initial plan was for [facility], not sure if pt will have fortitude to participate however still in discussion VTE Prophylaxis - comfort care Disposition - continue on med/surg, planning on discharge on hospice Admission and Anticipated Discharge Date Admission Date: July 25, 2025 Subjective Discussed metastatic breast cancer with patient and son at bedside. Worsening renal function with third spacing therefore ongoing fluids may cause increased pain and swelling. Physical Exam Respiratory: normal respiratory effort; no respiratory distress Psychiatric: A+Ox3, euthymic affect Results & Data Results & Data Vital Signs (Past 12 Hours) Vital Signs Temp Pulse Resp BP Pulse Ox O2 Del Method O2 Flow Rate 08/08/25 15:16 37.3 C 80 16 114/72 97 Nasal Cannula 4 08/08/25 08:00 Nasal Cannula 4 PG Care Time/CCT Total # of Minutes Spent Total Time Spent with Patient: Total time spent is greater than 50% in coordination of care (as documented) at patient's floor/unit and/or counseling patient: Coding Level of Care Code 07307 SUB INP/OBS CARE 2/35MIN Diagnoses Septic shock A41.9; R65.21 MAGDA (acute kidney injury) N17.9 Bilateral arm weakness R29.898 Recurrent cancer of right breast C50.911 Brachial plexopathy G54.0 Respiratory acidosis E87.29 Hypertension I10
--- NOTE | 2025-08-09 09:03 | Nephrology Progress Note ---
Date of Service August 09, 2025 Assessment & Plan (1) MAGDA (acute kidney injury): (2) Comfort measures only status: Plan Chart review performed this morning. 08/08/25 palliative care note reviewed. Patient does not wish escalation of care or dialysis. She has transitioned to c omfort care only. No further nephrology evaluation indicated at this time. Will sign off. Please call if further assistance is needed Admission and Anticipated Discharge Date Admission Date: July 25, 2025 PG Care Time/CCT Total # of Minutes Spent Total Time Spent with Patient: Total time spent is greater than 50% in coordination of care (as documented) at patient's floor/unit and/or counseling patient: Coding Level of Care Code 75506 SUB INP/OBS CARE 12/01MIN Diagnoses MAGDA (acute kidney injury) N17.9 Comfort measures only status Z51.5
--- NOTE | 2025-08-09 13:16 | Palliative Care Progress Note ---
Date of Service August 09, 2025 Assessment & Plan (1) Weakness: (2) Lethargy: (3) Counseling regarding goals of care: Plan: On pt and family request, pt transitioned to [facility] on 08/08/25. (4) Need for comfort care: Plan: Comfort plan of care parameters: 1. Patient/Family want hospice added to their care. 2. NO rehab/PT/OT 3. Strictly End of Life care only 4. NO escalation of care: do not increase oxygen, escalate therapies, etc. The focus is on comfort through end of life, assure this is accomplished with aggressive symptom management (i.e. relief of dyspnea, pain, etc.) 5. NO return to hospital 6. NO labs, imaging, surgery 7. Oral intake as desired for comfort and pleasure: NO dietary restriction, Allow permissive aspiration, do not withhold food or drink for concern of aspiration and allow PO for pleasure and comfort. 8. If difficulty urinating/commode/bedpan, ok to place [place] catheter for comfort/hygiene/skin protection AND/OR Continue [place] catheter for co mfort/hygiene/skin protection 9. NO: calorie counts, artificial nutrition, feeding tubes or IV fluids EOL Symptom manamgement: Pain/dyspnea/tachypnea - avoid morphine iso renal failure dilaudid 2mg IVP PRN q1h Consider titratable dilaudid drip if pt requires >3 PRN doses in under two consecutive hours. Nausea/vomitting zofran 4mg IVP q4h PRN Agitation ativan 0.5mg IVP q4h PRN Hyperactive delirium haldol 5mg IVP q6h PRN Secretions - if repositioning not effective robinul 0.4mg IV q4h PRN atropine SL 3 drops Q1h PRN Nursing care: Discontinue all medications not directed towards comfort. Detether pt from IV tubing, monitor cables, and check vitals once per shift. Please continue HFNC and titrate down as able for patient comfort. Use medications above PRN for dyspnea/tachypnea and do not increase oxygen once titrated down. Assess q1h for pain/dyspnea and treat accordingly. Plan [facility], dispo pending family discusiion re home vs SNF Admission and Anticipated Discharge Date Admission Date: July 25, 2025 Subjective Assessed pt at bedside, no visitors present. NAEON. Pt appears comfortable in NAD on NC. Transitioned to [facility] yesterday, pending SNF placement. Review of Systems Review of Systems: All systems reviewed & are unremarkable except as noted in Subjective Physical Exam Constitutional: + ill appearing, + morbidly obese, coope rative and + edematous; no acute distress Eyes: PERRL, conjunctivae normal, anicteric sclerae Neck: trachea midline, no thyromegaly Cardiovascular: Rate/Rhythm: + tachycardic Heart Sounds: normal S1 and normal S2 Extremities: + edema Gastrointestinal (Abdomen): normal bowel sounds, soft, nontender, no hepatosplenomegaly Neurologic: PERRL, EOMI, accommodation nl, no face palsy, no dysarthria Psychiatric: A+Ox3, euthymic affect Lymphatic: + lymphedema Results & Data Vital Signs (Past 12 Hours) Vital Signs O2 Del Method O2 Flow Rate 08/09/25 09:39 Nasal Cannula 4 Laboratory Results No further labs or diagnostics in concert with comfort directed care. Diagnostic Findings No further labs or diagnostics in concert with comfort directed care. Medications Administered Current Inpatient Medications Acetaminophen (Acetaminophen Susp 325 Mg/10.15 Ml Udc) 650 mg PO Q6H PRN PRN Reason: Pain or Fever Stop: 09/07/25 11:34 Last Admin: 08/08/25 15:41 Dose: 650 mg Atropine Sulfate (Atropine Sulfate 1% Op Soln 5 Ml Btl) 4 drops SL Q1H PRN PRN Reason: Secretions or pulm congestion Stop: 09/07/25 15:22 Fentanyl (Fentanyl 50 Mcg/Hr Tdsy) 1 patch TD Q3D@0900 NIA Stop: 08/11/25 00:29 Last Admin: 08/09/25 08:06 Dose: 1 patch Glycopyrrolate (Glycopyrrolate 0.2 Mg/Ml Vial) 0.4 mg IV Q4H PRN PRN Reason: Rattling Secretions or Pulm Congestion Stop: 09/07/25 15:22 Heparin Sodium (Porcine) (Heparin 100 Unit/Ml 5ml Flush) 5 ml FLUSH PRN PRN PRN Reason: Flush Stop: 08/28/25 08:17 Last Admin: 07/29/25 15:04 Dose: 5 ml Hydromorphone HCl (Hydromorphone Inj 0.5 Mg/0.5 Ml Syr) 0.2 mg IV Q1H PRN PRN Reason: Pain or Respiratory Distress Stop: 08/22/25 15:22 Hyoscyamine (Hyoscyamine Sulfate 0.125 Mg Tab) 0.125 mg SL Q4H PRN PRN Reason: Secretions or Pulm Congestion Stop: 09/07/25 15:22 Lorazepam 0.5 mg/ Syringe 0.5 mls @ 2 mls/min IV Q4H PRN PRN Reason: Anxiety/Agitation Stop: 09/07/25 15:22 Lorazepam (Lorazepam 0.5 Mg Tab) 0.5 mg PO Q4H PRN PRN Reason: Anxiety/Agitation Stop: 09/07/25 15:22 Miscellaneous (Check Fentanyl Patch Placement) 1 each N/A QS [facility] Stop: 08/24/25 15:59 Last Admin: 08/09/25 08:06 Dose: 1 each Miscellaneous (Fentanyl Patch Remove & Waste) 1 each N/A Q3D@0859 [facility] Stop: 08/30/25 08:58 Last Admin: 08/09/25 08:06 Dose: 1 each Nystatin (Nystatin Powder 15gm Btl) 1 appln EXT BID PRN PRN Reason: groin fold excoriation Stop: 08/24/25 03:45 Last Admin: 07/30/25 07:59 Dose: 1 appln Ondansetron HCl (Ondansetron Inj 2 Mg/Ml 2 Ml Vial) 4 mg IV Q4H PRN PRN Reason: Nausea &/or Vomiting Stop: 09/07/25 15:22 Ondansetron HCl (Ondansetron 4 Mg Od Tab) 4 mg SL Q4H PRN PRN Reason: Nausea &/or Vomiting Stop: 09/07/25 15:22 Pantoprazole Sodium (Pantoprazole 40 Mg Tab) [facility] Stop: 08/24/25 06:29 Last Admin: 08/09/25 05:56 Dose: 40 mg Thyroid ([place] Thyroid 30 Mg Tab) 60 mg PO DAILY [facility] Stop: 08/24/25 08:59 Last Admin: 08/09/25 08:09 Dose: 60 mg PG Care Time/CCT Total # of Minutes Spent Total Time Spent with Patient: Total time spent is greater than 50% in coordination of care (as documented) at patient's floor/unit and/or counseling patient: C[place] [address] SUB INP/OBS CARE 235MIN Patient Type Established History Expanded Problem Focused Exam Expanded Problem Focused Diagnoses Weakness R53.1 Lethargy R53.83 Counseling regarding goals of care Z71.89 Need for comfort care
--- NOTE | 2025-08-09 16:44 | Hospitalist Progress Note ---
Date of Service August 09, 2025 Assessment & Plan (1) Septic shock: (2) MAGDA (acute kidney injury): (3) Bilateral arm weakness: (4) Recurrent cancer of right breast: (5) Brachial plexopathy: (6) Respiratory acidosis: (7) Hypertension: Plan This is a 75-year-old female with remote history of breast cancer s/p mastectomy, chemo and radiation with progressive bilateral upper extremity weakness. 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 She was transferred to [facility] and had spinal surgery performed on July 16. She was discharged to [facility] rehab on July 23. Presents to [facility] with hypotension, septic shock. #Goals of care Appreciate palliative care leading goals conversation, renal function worsening with generalized edema and metastatic breast cancer. Switched to comfort care only 08/08. Planning on discharging to SNF with hospice. May remove cervical collar while in bed but should be on for any turning. # MAGDA with CKD 3, No further blood draws. #Acute encephalopathy Appears improved today suggesting more due to amitriptyline and gabapentin in setting of MAGDA, less likely BUN, does not want HD regardless #Paroxysmal Atrial Fibrillation: Converted to sinus this admission #Septic shock -Now resolved completed antibiotics -Source is likely urinary-Cultures growing Klebsiella and Pseudomonas montague sensitive -Finished cefepime course Hyperphosphatemia: Secondary to poor renal function and IV replacement given earlier in stay On Phoslo # post op cervical spine surgery -Due to worsening bilateral upper extremity weakness, she was sent to [place] -Patient was found to have an epidural mass, 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 -Biopsy of the mass was taken and sent to pathology, result pending. -She also underwent bilateral foraminotomies of C5-C6 C6-6 7 and posterior fusion of C3-T3. -She is currently on [place] neck collar which will be in place for 12 weeks- October -Sutures were removed on 07/26/25 -[place] neck collar to remain for 12 weeks, now on comfort can remove while lying still in bed but should be on for any turning etc... #acute hypoxic respiratory failure associated with sepsis patient initially hypoxic requiring placement of supplemental oxygen. -Patient with history of DANNIE and reports compliance with her home CPAP CPAP nightly Supplemental oxygen as needed # abdominal pain resolved -CT findings as above with nonspecific colitis. now with some concern for free air but given goal of comfort will avoid NPO status resolving #Hypothyroidism TSH = 3.504 on 07/10/2025. -Random cortisol appropriately elevated Continue Synthroid #History of breast cancer with likely recurrence. 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 -She was offered an attempted adjuvant chemotherapy which was aborted because of poor tolerance. -Patient continues on letrozole, given more goal of comfort will discontinue this #Deconditioning: Patient is very deconditioned Barely able to participate in physical therapy, and also reluctant to VTE Prophylaxis - comfort care Disposition - continue on med/surg, planning on discharge on hospice Admission and Anticipated Discharge Date Admission Date: July 25, 2025 Subjective No acute concerns or questions from patient. Still producing some urine in catheter. Physical Exam Respiratory: no respiratory distress Psychiatric: A+Ox3, euthymic affect Results & Data Results & Data Vital Signs (Past 12 Hours) Vital Signs O2 Del Method O2 Flow Rate 08/09/25 09:39 Nasal Cannula 4 PG Care Time/CCT Total # of Minutes Spent Total Time Spent with Patient: Total time spent is greater than 50% in coordination of care (as documented) at patient's floor/unit and/or counseling patient: Coding Level of Care Code 73464 SUB INP/OBS CARE 2/35MIN Diagnoses Septic shock A41.9; R65.21 MAGDA (acute kidney injury) N17.9 Bilateral arm weakness R29.898 Recurrent cancer of right breast C50.911 Brachial plexopathy G54.0 Respiratory acidosis E87.29 Hypertension I10
--- NOTE | 2025-08-10 14:07 | Hospitalist Progress Note ---
Date of Service August 10, 2025 Assessment & Plan (1) Septic shock: (2) MAGDA (acute kidney injury): (3) Bilateral arm weakness: (4) Recurrent cancer of right breast: (5) Brachial plexopathy: (6) Respiratory acidosis: (7) Hypertension: Plan This is a 75-year-old female with remote history of breast cancer s/p mastectomy, chemo and radiation with progressive bilateral upper extremity weakness. 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 She was transferred to [facility] and had spinal surgery performed on July 16. She was discharged to [facility] rehab on July 23. Presents to [facility] with hypotension, septic shock. #Goals of care Appreciate palliative care leading goals conversation, renal function worsening with generalized edema and metastatic breast cancer. Switched to comfort care only 08/08. Planning on discharging to SNF with hospice. May remove cervical collar while in bed but should be on for any turning. No change in medications or plan today # MAGDA with CKD 3, No further blood draws. #Acute encephalopathy Appears improved today suggesting more due to amitriptyline and gabapentin in setting of MAGDA, less likely BUN, does not want HD regardless #Paroxysmal Atrial Fibrillation: Converted to sinus this admission #Septic shock -Now resolved completed antibiotics -Source is likely urinary-Cultures growing Klebsiella and Pseudomonas [place] sensitive -Finished cefepime course Hyperphosphatemia: Secondary to poor renal function and IV replacement given earlier in stay On Phoslo # post op cervical spine surgery -Due to worsening bilateral upper extremity weakness, she was sent to [place] -Patient was found to have an epidural mass, 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 -Biopsy of the mass was taken and sent to pathology, result pending. -She also underwent bilateral foraminotomies of C5-C6 C6-6 7 and posterior fusion of C3-T3. -She is currently on [place] neck collar which will be in place for 12 weeks- October -Sutures were removed on 07/26/25 -[place] neck collar to remain for 12 weeks, now on comfort can remove while lying still in bed but should be on for any turning etc... #acute hypoxic respiratory failure associated with sepsis patient initially hypoxic requiring placement of supplemental oxygen. -Patient with history of DANNIE and reports compliance with her home CPAP CPAP nightly Supplemental oxygen as needed #Abdominal pain resolved -CT findings as above with nonspecific colitis. now with some concern for free air but given goal of comfort will avoid NPO status resolving #Hypothyroidism TSH = 3.504 on 07/10/2025. -Random cortisol appropriately elevated Continue Synthroid #History of breast cancer with likely recurrence. 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 -She was offered an attempted adjuvant chemotherapy which was aborted because of poor tolerance. -Patient continues on letrozole, given more goal of comfort will discontinue this VTE Prophylaxis - comfort care Disposition - continue on med/surg, planning on discharge on hospice Admission and Anticipated Discharge Date Admission Date: July 25, 2025 Subjective Complaining of some lower back pain, glad to have the collar off for some respite Physical Exam Respiratory: normal respiratory effort; no respiratory distress Auscultation: + diminished lung sounds (bibasal) Gastrointestinal (Abdomen): normal bowel sounds, soft, nontender, no hepatosplenomegaly when turned she had some leakage from rectal tube with blood coming out, no skin breakdown Psychiatric: A+Ox3, euthymic affect Genitourinary: no CVA tenderness Results & Data Results & Data Vital Signs (Past 12 Hours) Vital Signs O2 Del Method O2 Flow Rate 08/10/25 08:18 Nasal Cannula 4 PG Care Time/CCT Total # of Minutes Spent Total Time Spent with Patient: Total time spent is greater than 50% in coordination of care (as documented) at patient's floor/unit and/or counseling patient: Coding Level of Care Code 86283 SUB INP/OBS CARE 12/01MIN Diagnoses Septic shock A41.9; R65.21 MAGDA (acute kidney injury) N17.9 Bilateral arm weakness R29.898 Recurrent cancer of right breast C50.911 Brachial plexopathy G54.0 Respiratory acidosis E87.29 Hypertension I10
--- NOTE | 2025-08-11 16:49 | Hospitalist Progress Note ---
Date of Service August 11, 2025 Assessment & Plan (1) Septic shock: (2) MAGDA (acute kidney injury): (3) Bilateral arm weakness: (4) Recurrent cancer of right breast: (5) Brachial plexopathy: (6) Respiratory acidosis: (7) Hypertension: Plan This is a 75-year-old female with remote history of breast cancer s/p mastectomy, chemo and radiation with progressive bilateral upper extremity weakness. 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 She was transferred to [facility] and had spinal surgery performed on July 16. She was discharged to [facility] rehab on July 23. Presents to [facility] with hypotension, septic shock. #Goals of care Appreciate palliative care leading goals conversation, renal function worsening with generalized edema and metastatic breast cancer. Switched to comfort care only 08/08. Planning on discharging to SNF with hospice. May remove cervical collar while in bed but should be on for any turning. No change in medications or plan today # MAGDA with CKD 3, No further blood draws. #Acute encephalopathy Appears improved today suggesting more due to amitriptyline and gabapentin in setting of MAGDA, less likely BUN, does not want HD regardless #Paroxysmal Atrial Fibrillation: Converted to sinus this admission #Septic shock -Now resolved completed antibiotics -Source urinary-Cultures growing Klebsiella and Pseudomonas [place] sensitive -Finished cefepime course Hyperphosphatemia: Secondary to poor renal function and IV replacement given earlier in stay On Phoslo # post op cervical spine surgery -Due to worsening bilateral upper extremity weakness, she was sent to [place] -Patient was found to have an epidural mass, 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 -Biopsy of the mass was taken and sent to pathology, result pending. -She also underwent bilateral foraminotomies of C5-C6 C6-6 7 and posterior fusion of C3-T3. -She is currently on [place] neck collar which will be in place for 12 weeks- October -Sutures were removed on 07/26/25 -[place] neck collar to remain for 12 weeks, now on comfort can remove while lying still in bed but should be on for any turning etc... #acute hypoxic respiratory failure associated with sepsis patient initially hypoxic requiring placement of supplemental oxygen. -Patient with history of DANNIE and reports compliance with her home CPAP CPAP nightly Supplemental oxygen as needed #Abdominal pain resolved -CT findings as above with nonspecific colitis. now with some concern for free air but given goal of comfort will avoid NPO status resolving #Hypothyroidism TSH = 3.504 on 07/10/2025. -Random cortisol appropriately elevated Continue Synthroid #History of breast cancer with likely recurrence. According to Oncology, Patient was diagnosed with recurrent invasive ductal car cinoma involving the right breast ER positive, [place] negative HER2/naty negative with 16 of 17 lymph nodes positive for metastatic disease. -She was offered an attempted adjuvant chemotherapy which was aborted because of poor tolerance. -Patient continues on letrozole, given more goal of comfort will discontinue this VTE Prophylaxis - comfort care Disposition - continue on med/surg, planning on discharge on hospice when this can be set up Admission and Anticipated Discharge Date Admission Date: July 25, 2025 Subjective Appears more confused and lethargic today. No current complaints. Physical Exam Respiratory: normal respiratory effort; no respiratory distress Neurologic: awake (but lethargic) Results & Data Results & Data Vital Signs (Past 12 Hours) Vital Signs O2 Del Method O2 Flow Rate 08/11/25 07:51 Nasal Cannula 4 PG Care Time/CCT Total # of Minutes Spent Total Time Spent with Patient: Total time spent is greater than 50% in coordination of care (as documented) at patient's floor/unit and/or counseling patient: Coding Level of Care Code 28395 SUB INP/OBS CARE 2/35MIN Diagnoses Septic shock A41.9; R65.21 MAGDA (acute kidney injury) N17.9 Bilateral arm weakness R29.898 Recurrent cancer of right breast C50.911 Brachial plexopathy G54.0 Respiratory acidosis E87.29 Hypertension I10
--- NOTE | 2025-08-12 20:43 | Hospitalist Progress Note ---
Date of Service August 12, 2025 Assessment & Plan (1) Septic shock: (2) MAGDA (acute kidney injury): (3) Bilateral arm weakness: (4) Recurrent cancer of right breast: (5) Brachial plexopathy: (6) Respiratory acidosis: (7) Hypertension: Plan This is a 75-year-old female with remote history of breast cancer s/p mastectomy, chemo and radiation with progressive bilateral upper extremity weakness. 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 She was transferred to [facility] and had spinal surgery performed on July 16. She was discharged to [facility] rehab on July 23. Presents to [facility] with hypotension, septic shock. #Goals of care Appreciate palliative care leading goals conversation, renal function worsening with generalized edema and metastatic breast cancer. Switched to comfort care only 08/08. Planning on discharging to SNF with hospice. May remove cervical collar while in bed but should be on for any turning. No change to medications again today, appears to be more lethargic but she has gone back and forth in the past and still is producing urine but if she continues to deteriorate may need to switch to GIP here # MAGDA with CKD 3, No further blood draws. #Acute encephalopathy Appears improved today suggesting more due to amitriptyline and gabapentin in setting of MAGDA, less likely BUN, does not want HD regardless #Paroxysmal Atrial Fibrillation: Converted to sinus this admission #Septic shock -Now resolved completed antibiotics -Source urinary-Cultures growing Klebsiella and Pseudomonas [place] sensitive -Finished cefepime course Hyperphosphatemia: Secondary to poor renal function and IV replacement given earlier in stay On Phoslo # post op cervical spine surgery -Due to worsening bilateral upper extremity weakness, she was sent to [place] -Patient was found to have an epidural mass, 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 -Biopsy of the mass was taken and sent to pathology, result pending. -She also underwent bilateral foraminotomies of C5-C6 C6-6 7 and posterior fusion of C3-T3. -She is currently on [place] neck collar which will be in place for 12 weeks- October -Sutures were removed on 07/26/25 -[place] neck collar to remain for 12 weeks, now on comfort can remove while lying still in bed but should be on for any turning etc... #acute hypoxic respiratory failure associated with sepsis patient initially hypoxic requiring placement of supplemental oxygen. -Patient with history of DANNIE and reports compliance with her home CPAP CPAP nightly Supplemental oxygen as needed #Abdominal pain resolved -CT findings as above with nonspecific colitis. now with some concern for free air but given goal of comfort will avoid NPO status resolving #Hypothyroidism TSH = 3.504 on 07/10/2025. 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 -She was offered an attempted adjuvant chemotherapy which was aborted because of poor tolerance. -Letrozole stopped for goals of care VTE Prophylaxis - comfort care Disposition - continue on med/surg, planning on discharge on hospice when this can be set up Admission and Anticipated Discharge Date Admission Date: July 25, 2025 Subjective Patient appears more lethargic today. No acute concerns or questions from the patient. She denies being in any pain. Physical Exam Respiratory: normal respiratory effort; no respiratory distress Cardiovascular: Rate/Rhythm: regular rate and regular rhythm Gastrointestinal (Abdomen): normal bowel sounds, soft, nontender, no hepatosplenomegaly Results & Data Results & Data Vital Signs (Past 12 Hours) Vital Signs O2 Del Method O2 Flow Rate 08/12/25 19:59 Nasal Cannula 4 PG Care Time/CCT Total # of Minutes Spent Total Time Spent with Patient: Total time spent is greater than 50% in coordination of care (as documented) at patient's floor/unit and/or counseling patient: Coding Level of Care Code 24757 SUB INP/OBS CARE 12/01MIN Diagnoses Septic shock A41.9; R65.21 MAGDA (acute kidney injury) N17.9 Bilateral arm weakness R29.898 Recurrent cancer of right breast C50.911 Brachial plexopathy G54.0 Respiratory acidosis E87.29 Hypertension I10
--- NOTE | 2025-08-13 13:26 | Palliative Care Progress Note ---
Date of Service August 13, 2025 Assessment & Plan (1) Weakness: (2) Lethargy: (3) Counseling regarding goals of care: Plan: On pt and family request, pt transitioned to BUSINESS SERVICES DIRECTOR on 08/08/25. (4) Need for comfort care: Plan: Comfort plan of care parameters: 1. Patient/Family want hospice added to their care. 2. NO rehab/PT/OT 3. Strictly End of Life care only 4. NO escalation of care: do not increase oxygen, escalate therapies, etc. The focus is on comfort through end of life, assure this is accomplished with aggressive symptom management (i.e. relief of dyspnea, pain, etc.) 5. NO return to hospital 6. NO labs, imaging, surgery 7. Oral intake as desired for comfort and pleasure: NO dietary restriction, Allow permissive aspiration, do not withhold food or drink for concern of aspiration and allow PO for pleasure and comfort. 8. If difficulty urinating/commode/bedpan, ok to place Temple catheter for comfort/hygiene/skin protection AND/OR Continue Temple catheter for co mfort/hygiene/skin protection 9. NO: calorie counts, artificial nutrition, feeding tubes or IV fluids EOL Symptom manamgement: Pain/dyspnea/tachypnea - avoid morphine iso renal failure dilaudid 2mg IVP PRN q1h Consider titratable dilaudid drip if pt requires >3 PRN doses in under two consecutive hours. Nausea/vomitting zofran 4mg IVP q4h PRN Agitation ativan 0.5mg IVP q4h PRN Hyperactive delirium haldol 5mg IVP q6h PRN Secretions - if repositioning not effective robinul 0.4mg IV q4h PRN atropine SL 3 drops Q1h PRN Nursing care: Discontinue all medications not directed towards comfort. Detether pt from IV tubing, monitor cables, and check vitals once per shift. Please continue HFNC and titrate down as able for patient comfort. Use medications above PRN for dyspnea/tachypnea and do not increase oxygen once titrated down. Assess q1h for pain/dyspnea and treat accordingly. Plan BUSINESS SERVICES DIRECTOR, dispo pending placement-- SNF with hospice Admission and Anticipated Discharge Date Admission Date: July 25, 2025 Subjective Pt drowsy but arousable. NAEON. She remains BUSINESS SERVICES DIRECTOR, pending placement in SNF with hospice. VSS and NAD on 4L NC. Pt denies any discomfort. Review of Systems Constitutional: + body aches, + fatigue and + malaise Neurologic: + paresthesia paresthesias to both hands, chronic Physical Exam Constitutional: + ill appearing, + morbidly obese, coope rative and + edematous; no acute distress Eyes: PERRL, conjunctivae normal, anicteric sclerae Neck: trachea midline, no thyromegaly Cardiovascular: Rate/Rhythm: + tachycardic Heart Sounds: normal S1 and normal S2 Extremities: + edema Gastrointestinal (Abdomen): normal bowel sounds, soft, nontender, no hepatosplenomegaly Neurologic: PERRL, EOMI, accommodation nl, no face palsy, no dysarthria Lymphatic: + lymphedema Results & Data Vital Signs (Past 12 Hours) Vital Signs Temp 37.3 C 08/08/25 15:16 Pulse 80 08/08/25 15:16 Resp 16 08/08/25 15:16 BP 114/72 08/08/25 15:16 Pulse Ox 97 08/08/25 15:16 O2 Del Method Nasal Cannula 08/13/25 07:55 O2 Flow Rate 4 08/13/25 07:55 Intake & Output 08/12/25 08/13/25 08/13/25 18:59 06:59 18:59 Output Total 600 / 600 Balance -600 / -600 Output: Urine Amount (Catheter) 600 / 600 Temple/Indwelling 600 / 600 Laboratory Results No further labs or diagnostics in concert with comfort directed care. Diagnostic Findings No further labs or diagnostics in concert with comfort directed care. Medications Administered Current Inpatient Medications Acetaminophen (Acetaminophen Susp 325 Mg/10.15 Ml Udc) 650 mg PO Q6H PRN PRN Reason: Pain or Fever Stop: 09/07/25 11:34 Last Admin: 08/08/25 15:41 Dose: 650 mg Atropine Sulfate (Atropine Sulfate 1% Op Soln 5 Ml Btl) 4 drops SL Q1H PRN PRN Reason: Secretions or pulm congestion Stop: 09/07/25 15:22 Fentanyl (Fentanyl 50 Mcg/Hr Tdsy) 1 patch TD Q3D@0900 NIA Stop: 08/26/25 08:59 Last Admin: 08/12/25 09:13 Dose: 1 patch Glycopyrrolate (Glycopyrrolate 0.2 Mg/Ml Vial) 0.4 mg IV Q4H PRN PRN Reason: Rattling Secretions or Pulm Congestion Stop: 09/07/25 15:22 Heparin Sodium (Porcine) (Heparin 100 Unit/Ml 5ml Flush) 5 ml FLUSH PRN PRN PRN Reason: Flush Stop: 08/28/25 08:17 Last Admin: 08/12/25 08:51 Dose: 5 ml Hydromorphone HCl (Hydromorphone Inj 0.5 Mg/0.5 Ml Syr) 0.2 mg IV Q1H PRN PRN Reason: Pain or Respiratory Distress Stop: 08/22/25 15:22 Hyoscyamine (Hyoscyamine Sulfate 0.125 Mg Tab) 0.125 mg SL Q4H PRN PRN Reason: Secretions or Pulm Congestion Stop: 09/07/25 15:22 Lorazepam 0.5 mg/ Syringe 0.5 mls @ 2 mls/min IV Q4H PRN PRN Reason: Anxiety/Agitation Stop: 09/07/25 15:22 Lorazepam (Lorazepam 0.5 Mg Tab) 0.5 mg PO Q4H PRN PRN Reason: Anxiety/Agitation Stop: 09/07/25 15:22 Miscellaneous (Fentanyl Patch Remove & Waste) 1 each N/A Q3D@0859 [facility] Stop: 09/11/25 08:58 Last Admin: 08/12/25 08:56 Dose: 1 each Miscellaneous (Check Fentanyl Patch Placement) 1 each N/A QS [facility] Stop: 09/11/25 15:59 Last Admin: 08/13/25 15:45 Dose: 1 each Nystatin (Nystatin Powder 15gm Btl) 1 appln EXT BID PRN PRN Reason: groin fold excoriation Stop: 08/24/25 03:45 Last Admin: 07/30/25 07:59 Dose: 1 appln Ondansetron HCl (Ondansetron Inj 2 Mg/Ml 2 Ml Vial) 4 mg IV Q4H PRN PRN Reason: Nausea &/or Vomiting Stop: 09/07/25 15:22 Ondansetron HCl (Ondansetron 4 Mg Od Tab) 4 mg SL Q4H PRN PRN Reason: Nausea &/or Vomiting Stop: 09/07/25 15:22 Pantoprazole Sodium (Pantoprazole 40 Mg Tab) 40 mg PO DAILYBB NIA Stop: 08/24/25 06:29 Last Admin: 08/13/25 07:22 Dose: 40 mg Thyroid ([place] Thyroid 30 Mg Tab) 60 mg PO DAILY NIA Stop: 08/24/25 08:59 Last Admin: 08/13/25 08:50 Dose: 60 mg PG Care Time/CCT Total # of Minutes Spent Total Time Spent with Patient: Total time spent is greater than 50% in coordination of care (as documented) at patient's floor/unit and/or counseling patient: C[place] [address] SUB INP/OBS CARE 2/35MIN Patient Type Established History Expanded Problem Focused Exam Expanded Problem Focused Medical Decision Making Low Complexity Diagnoses Weakness R53.1 Lethargy R53.83 Counseling regarding goals of care Z71.89 Need for comfort care
--- NOTE | 2025-08-13 18:12 | Hospitalist Progress Note ---
Date of Service August 13, 2025 Assessment & Plan (1) Septic shock: (2) MAGDA (acute kidney injury): (3) Bilateral arm weakness: (4) Recurrent cancer of right breast: (5) Brachial plexopathy: (6) Respiratory acidosis: (7) Hypertension: Plan This is a 75-year-old female with remote history of breast cancer s/p mastectomy, chemo and radiation with progressive bilateral upper extremity weakness. 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 She was transferred to and had spinal surgery performed on July 16. She was discharged to [facility] rehab on July 23. Presents to [facility] with hypotension, septic shock. #Goals of care Appreciate palliative care leading goals conversation and pain control management, renal function worsening with generalized edema and metastatic breast cancer. Switched to comfort care only 08/08. Planning on discharging to SNF/[facility] with hospice. May remove cervical collar while in bed but should be on for any turning. No change to medications again 08/13, appears to be more lethargic but she has gone back and forth in the past and still is producing urine but if she continues to deteriorate may need to switch to GIP here # MAGDA with CKD 3, No further blood draws. #Acute encephalopathy Initially improved off gabapentin and amitriptyline but now getting worse, likely uremic encephalopathy #Paroxysmal Atrial Fibrillation: Converted to sinus this admission #Septic shock -Now resolved completed antibiotics -Source urinary-Cultures growing Klebsiella and Pseudomonas montague sensitive -Finished cefepime course Hyperphosphatemia: Secondary to poor renal function and IV replacement given earlier in stay On Phoslo # post op cervical spine surgery -Due to worsening bilateral upper extremity weakness, she was sent to [place] -Patient was found to have an epidural mass, 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 -Biopsy of the mass was taken and sent to pathology, result pending. -She also underwent bilateral foraminotomies of C5-C6 C6-6 7 and posterior fusion of C3-T3. -She is currently on [place] neck collar which will be in place for 12 weeks- October -Sutures were removed on 07/26/25 -[place] neck collar to remain for 12 weeks, now on comfort can remove while lying still in bed but should be on for any turning etc... #acute hypoxic respiratory failure associated with sepsis patient initially hypoxic requiring placement of supplemental oxygen. -Patient with history of DANNIE and reports compliance with her home CPAP CPAP nightly Supplemental oxygen as needed #Abdominal pain resolved -CT findings as above with nonspecific colitis. now with some concern for free air but given goal of comfort will avoid NPO status resolving #Hypothyroidism TSH = 3.504 on 07/10/2025. -Random cortisol appropriately elevated Continue Synthroid #Metastatic breast cancer According to Oncology, Patient was diagnosed with recurrent invasive ductal carcinoma involving the right breast ER positive, [place] negative HER2/naty negative with 16 of 17 lymph nodes positive for metastatic disease. -She was offered an attempted adjuvant chemotherapy which was aborted because of poor tolerance. -Letrozole stopped for goals of care VTE Prophylaxis - comfort care Disposition - continue on med/surg, planning on discharge on hospice when this can be set up Admission and Anticipated Discharge Date Admission Date: July 25, 2025 Subjective Increasingly drowsy last few days but easily arousable. Physical Exam Respiratory: normal respiratory effort; no respiratory distress Gastrointestinal (Abdomen): Percussion/Palpation: abdomen soft; abdomen nontender Psychiatric: Orientation: alert (to voice) Results & Data Results & Data Vital Signs (Past 12 Hours) Vital Signs O2 Del Method O2 Flow Rate 08/13/25 07:55 Nasal Cannula 4 PG Care Time/CCT Total # of Minutes Spent Total Time Spent with Patient: Total time spent is greater than 50% in coordination of care (as documented) at patient's floor/unit and/or counseling patient: Coding Level of Care Code 32432 SUB INP/OBS CARE 12/01MIN Diagnoses Septic shock A41.9; R65.21 MAGDA (acute kidney injury) N17.9 Bilateral arm weakness R29.898 Recurrent cancer of right breast C50.911 Brachial plexopathy G54.0 Respiratory acidosis E87.29 Hypertension I10
[2025-08-14 07:30] VITALS: BP 106/94; PULSE 95; RESP 14; O2SAT 90
[2025-08-14] MEDS: LORazepam Inj 0.5 MG in SYRINGE 0.25 ML IV PRN (12:06)
[2025-08-14] MEDS: HYDROmorphone INJ 0.5 MG/0.5 ML SYR IV PRN (12:06)
--- NOTE | 2025-08-14 14:41 | Palliative Care Progress Note ---
Date of Service August 14, 2025 Assessment & Plan (1) Weakness: (2) Lethargy: (3) Counseling regarding goals of care: Plan: On pt and family request, pt transitioned to PAPER CUTTER on 08/08/25. Pt's son Emmanuel working with CM for placement in SNF with hospice. (4) Need for comfort care: Plan: Comfort plan of care parameters: 1. Patient/Family want hospice added to their care. 2. NO rehab/PT/OT 3. Strictly End of Life care only 4. NO escalation of care: do not increase oxygen, escalate therapies, etc. The focus is on comfort through end of life, assure this is accomplished with aggressive symptom management (i.e. relief of dyspnea, pain, etc.) 5. NO return to hospital 6. NO labs, imaging, surgery 7. Oral intake as desired for comfort and pleasure: NO dietary restriction, Allow permissive aspiration, do not withhold food or drink for concern of aspiration and allow PO for pleasure and comfort. 8. If difficulty urinating/commode/bedpan, ok to place Temple catheter for comfort/hygiene/skin protection AND/OR Continue Temple catheter for comfort/hygiene/skin protection 9. NO: calorie counts, artificial nutrition, feeding tubes or IV fluids EOL Symptom manamgement: Pain/dyspnea/tachypnea - avoid morphine iso renal failure dilaudid 2mg IVP PRN q1h Consider titratable dilaudid drip if pt requires >3 PRN doses in under two consecutive hours. Nausea/vomitting zofran 4mg IVP q4h PRN Agitation ativan 0.5mg IVP q4h PRN Hyperactive delirium haldol 5mg IVP q6h PRN Secretions - if repositioning not effective robinul 0.4mg IV q4h PRN atropine SL 3 drops Q1h PRN Nursing care: Discontinue all medications not directed towards comfort. Detether pt from IV tubing, monitor cables, and check vitals once per shift. Please continue HFNC and titrate down as able for patient comfort. Use medications above PRN for dyspnea/tachypnea and do not increase oxygen once titrated down. Assess q1h for pain/dyspnea and treat accordingly. Plan PAPER CUTTER, dispo pending placement-- SNF with hospice Admission and Anticipated Discharge Date Admission Date: July 25, 2025 Subjective Assessed pt at bedside, she was transitioned to PAPER CUTTER on 08/08/25. Pt is more drowsy today, but remains arousable, oriented to person and place. She appears comfortable, pale skin, extremities cool. Respiratory effort normal with NAD on RA. No visitors at bedside. Review of Systems Constitutional: + body aches, + fatigue and + malaise Neurologic: + paresthesia paresthesias to both hands, chronic Physical Exam Constitutional: + ill appearing, + morbidly obese, coope rative and + edematous; no acute distress Eyes: PERRL, conjunctivae normal, anicteric sclerae Neck: trachea midline, no thyromegaly Cardiovascular: Rate/Rhythm: + tachycardic Heart Sounds: normal S1 and normal S2 Extremities: + edema Gastrointestinal (Abdomen): normal bowel sounds, soft, nontender, no hepatosplenomegaly Neurologic: PERRL, EOMI, accommodation nl, no face palsy, no dysarthria Psychiatric: A+Ox3, euthymic affect Lymphatic: + lymphedema Results & Data Vital Signs (Past 12 Hours) Vital Signs Temp Pulse Resp BP Pulse Ox O2 Del Method O2 Flow Rate 08/14/25 07:29 37.3 C 95 H 14 106/94 90 Room Air, Nasal Cannula 4 Laboratory Results No further labs or diagnostics in concert with comfort directed care. Diagnostic Findings No further labs or diagnostics in concert with comfort directed care. Medications Administered Current Inpatient Medications Acetaminophen (Acetaminophen Susp 325 Mg/10.15 Ml Udc) 650 mg PO Q6H PRN PRN Reason: Pain or Fever Stop: 09/07/25 11:34 Last Admin: 08/08/25 15:41 Dose: 650 mg Atropine Sulfate (Atropine Sulfate 1% Op Soln 5 Ml Btl) 4 drops SL Q1H PRN PRN Reason: Secretions or pulm congestion Stop: 09/07/25 15:22 Fentanyl (Fentanyl 50 Mcg/Hr Tdsy) 1 patch TD Q3D@0900 NIA Stop: 08/26/25 08:59 Last Admin: 08/12/25 09:13 Dose: 1 patch Glycopyrrolate (Glycopyrrolate 0.2 Mg/Ml Vial) 0.4 mg IV Q4H PRN PRN Reason: Rattling Secretions or Pulm Congestion Stop: 09/07/25 15:22 Heparin Sodium (Porcine) (Heparin 100 Unit/Ml 5ml Flush) 5 ml FLUSH PRN PRN PRN Reason: Flush Stop: 08/28/25 08:17 Last Admin: 08/12/25 08:51 Dose: 5 ml Hydromorphone HCl (Hydromorphone Inj 0.5 Mg/0.5 Ml Syr) 0.2 mg IV Q1H PRN PRN Reason: Pain or Respiratory Distress Stop: 08/22/25 15:22 Last Admin: 08/14/25 12:06 Dose: 0.2 mg Hyoscyamine (Hyoscyamine Sulfate 0.125 Mg Tab) 0.125 mg SL Q4H PRN PRN Reason: Secretions or Pulm Congestion Stop: 09/07/25 15:22 Lorazepam 0.5 mg/ Syringe 0.5 mls @ 2 mls/min IV Q4H PRN PRN Reason: Anxiety/Agitation Stop: 09/07/25 15:22 Last Admin: 08/14/25 12:06 Dose: 2 mls/min Lorazepam (Lorazepam 0.5 Mg Tab) 0.5 mg PO Q4H PRN PRN Reason: Anxiety/Agitation Stop: 09/07/25 15:22 Miscellaneous (Fentanyl Patch Remove & Waste) 1 each N/A Q3D@0859 [facility] Stop: 09/11/25 08:58 Last Admin: 08/12/25 08:56 Dose: 1 each Miscellaneous (Check Fentanyl Patch Placement) 1 each N/A QS [facility] Stop: 09/11/25 15:59 Last Admin: 08/14/25 07:58 Dose: 1 each Nystatin (Nystatin Powder 15gm Btl) 1 appln EXT BID PRN PRN Reason: groin fold excoriation Stop: 08/24/25 03:45 Last Admin: 07/30/25 07:59 Dose: 1 appln Ondansetron HCl (Ondansetron Inj 2 Mg/Ml 2 Ml Vial) 4 mg IV Q4H PRN PRN Reason: Nausea &/or Vomiting Stop: 09/07/25 15:22 Ondansetron HCl (Ondansetron 4 Mg Od Tab) 4 mg SL Q4H PRN PRN Reason: Nausea &/or Vomiting Stop: 09/07/25 15:22 Pantoprazole Sodium (Pantoprazole 40 Mg Tab) 40 mg PO DAILYBB [facility] Stop: 08/24/25 06:29 Last Admin: 08/14/25 06:23 Dose: 40 mg Thyroid ([place] Thyroid 30 Mg Tab) 60 mg PO DAILY NIA Stop: 08/24/25 08:59 Last Admin: 08/14/25 07:24 Dose: 60 mg PG Care Time/CCT Total # of Minutes Spent Total Time Spent with Patient: Total time spent is greater than 50% in coordination of care (as documented) at patient's floor/unit and/or counseling patient: Coding [place] [address] SUB INP/OBS CARE 2/35MIN Patient Type Established History Expanded Problem Focused Exam Expanded Problem Focused Medical Decision Making Moderate Complexity Diagnoses Weakness R53.1 Lethargy R53.83 Counseling regarding goals of care Z71.89 Need for comfort care
--- NOTE | 2025-08-14 15:46 | Hospitalist Progress Note ---
Date of Service August 14, 2025 Assessment & Plan (1) Septic shock: (2) MAGDA (acute kidney injury): (3) Bilateral arm weakness: (4) Recurrent cancer of right breast: (5) Brachial plexopathy: (6) Respiratory acidosis: (7) Hypertension: Plan This is a 75-year-old female with remote history of breast cancer s/p mastectomy, chemo and radiation with progressive bilateral upper extremity weakness. 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 She was transferred to [facility] and had spinal surgery performed on July 16. She was discharged to [facility] rehab on July 23. Presents to [facility] with hypotension, septic shock. #Goals of care Appreciate palliative care leading goals conversation and pain control management, renal function worsening with generalized edema and metastatic breast cancer. Switched to comfort care only 08/08. Planning on discharging to SNF[facility] with hospice. May remove cervical collar while in bed but should be on for any turning. No change to medications again 08/13, appears to be more lethargic but she has gone back and forth in the past and still is producing urine but if she continues to deteriorate may need to switch to GIP here # MAGDA with CKD 3, No further blood draws. #Acute encephalopathy Initially improved off gabapentin and amitriptyline but now getting worse, likely uremic encephalopathy #Paroxysmal Atrial Fibrillation: Converted to sinus this admission #Septic shock -Now resolved completed antibiotics -Source urinary-Cultures growing Klebsiella and Pseudomonas montague sensitive -Finished cefepime course Hyperphosphatemia: Secondary to poor renal function and IV replacement given earlier in stay On Phoslo # post op cervical spine surgery -Due to worsening bilateral upper extremity weakness, she was sent to [place] -Patient was found to have an epidural mass, 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 -Biopsy of the mass was taken and sent to pathology, result pending. -She also underwent bilateral foraminotomies of C5-C6 C6-6 7 and posterior fusion of C3-T3. -She is currently on [place] neck collar which will be in place for 12 weeks- October -Sutures were removed on 07/26/25 -[place] neck collar to remain for 12 weeks, now on comfort can remove while lying still in bed but should be on for any turning etc... #acute hypoxic respiratory failure associated with sepsis patient initially hypoxic requiring placement of supplemental oxygen. -Patient with history of DANNIE and reports compliance with her home CPAP CPAP nightly Supplemental oxygen as needed #Abdominal pain resolved -CT findings as above with nonspecific colitis. now with some concern for free air but given goal of comfort will avoid NPO status resolving #Hypothyroidism TSH = 3.504 on 07/10/2025. -Random cortisol appropriately elevated Continue Synthroid #Metastatic breast cancer According to Oncology, Patient was diagnosed with recurrent invasive ductal carcinoma involving the right breast ER positive, [place] negative HER2/naty negative with 16 of 17 lymph nodes positive for metastatic disease. -She was offered an attempted adjuvant chemotherapy which was aborted because of poor tolerance. -Letrozole stopped for goals of care VTE Prophylaxis - comfort care Disposition - continue on med/surg, planning on discharge on hospice when this can be set up Admission and Anticipated Discharge Date Admission Date: July 25, 2025 Subjective pt minimally responsive, but did have exacerbation of pain and was recently medicated Physical Exam Physical Exam: shallow unlabored respiration cardiac is regular Results & Data Results & Data Vital Signs (Past 12 Hours) Vital Signs Temp Pulse Resp BP Pulse Ox O2 Del Method O2 Flow Rate 08/14/25 07:29 99.1 F 95 H 14 106/94 90 Room Air, Nasal Cannula 4 PG Care Time/CCT Total # of Minutes Spent Total Time Spent with Patient: Total time spent is greater than 50% in coordination of care (as documented) at patient's floor/unit and/or counseling patient: Coding Level of Care Code 96870 SUB INP/OBS CARE 2/35MIN Diagnoses Septic shock A41.9; R65.21 MAGDA (acute kidney injury) N17.9 Bilateral arm weakness R29.898 Recurrent cancer of right breast C50.911 Brachial plexopathy G54.0 Respiratory acidosis E87.29 Hypertension I10
[2025-08-14] MEDS ORDERED: STAT IV Infusion **Titration per Protocol STA (18:33)
--- NOTE | 2025-08-14 18:37 | Communication Note ---
Date of Service: August 14, 2025 Patient had a rapid decline throughout the day she had periods of apnea. Family is at the bedside. Patient appears restless. Discussion with family to initiate Dilaudid drip family is in agreeance. Because of her uncomfortable state and the need for boluses throughout the afternoon we will start a Dilaudid drip on this patient per palliative care protocol
[2025-08-14] MEDS: HYDROmorphone 100 MG/100 ML BAG IV SCH (19:24)
[2025-08-14] MEDS: HYDROmorphone BOLUS from BAG IV PRN (19:28)
--- NOTE | 2025-08-15 11:34 | Palliative Care Progress Note ---
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 (4) Need for comfort care: Plan: Comfort plan of care parameters: 1. Patient/Family want hospice added to their care. 2. NO rehab/PT/OT 3. Strictly End of Life care only 4. NO escalation of care: do not increase oxygen, escalate therapies, etc. The focus is on comfort through end of life, assure this is accomplished with aggressive symptom management (i.e. relief of dyspnea, pain, etc.) 5. NO return to hospital 6. NO labs, imaging, surgery 7. Oral intake as desired for comfort and pleasure: NO dietary restriction, Allow permissive aspiration, do not withhold food or drink for concern of aspiration and allow PO for pleasure and comfort. 8. If difficulty urinating/commode/bedpan, ok to place Temple catheter for comfort/hygiene/skin protection AND/OR Continue Temple catheter for comfort/hygiene/skin protection 9. NO: calorie counts, artificial nutrition, feeding tubes or IV fluids EOL Symptom manamgement: Pain/dyspnea/tachypnea - avoid morphine iso renal failure dilaudid 2mg IVP PRN q1h Continue dilaudid drip titrate for comfort Nausea/vomitting zofran 4mg IVP q4h PRN Agitation ativan 0.5mg IVP q4h PRN Hyperactive delirium haldol 5mg IVP q6h PRN Secretions - if repositioning not effective robinul 0.4mg IV q4h PRN atropine SL 3 drops Q1h PRN Nursing care: Discontinue all medications not directed towards comfort. Detether pt from IV tubing, monitor cables, and check vitals once per shift. Please continue HFNC and titrate down as able for patient comfort. Use medications above PRN for dyspnea/tachypnea and do not increase oxygen once titrated down. Assess q1h for pain/dyspnea and treat accordingly. Plan [employer] SUPERVIS[employer], pt now obtunded on dilaudid drip, requested [facility] place referral for [facility] hospice evaluation. Admission and Anticipated Discharge Date Admission Date: July 25, 2025 Subjective Assessed pt at bedside, she was transitioned to [employer] SUPERVISOR on 08/08/25; was started on dialudid drip by primary team overnight. Pt is obtunded but appears comfortable, pale skin, extremities cool. Respiratory effort normal with NAD on RA. No visitors at bedside. Review of Systems Review of Systems: Unobtainable due to cognitive status Physical Exam Constitutional: + ill appearing, + morbidly obese and + edematous; no acute distress Neck: trachea midline, no thyromegaly Respiratory: + cough and + tachypneic; no respiratory distress and does not use accessory muscles Cardiovascular: Rate/Rhythm: + tachycardic Heart Sounds: normal S1 and normal S2 Extremities: + edema Gastrointestinal (Abdomen): normal bowel sounds, soft, nontender, no hepatosplenomegaly Neurologic: obtunded, does not follow commands Lymphatic: + lymphedema Results & Data Vital Signs (Past 12 Hours) Vital Signs Temp 37.3 C 08/14/25 07:29 Pulse 95 H 08/14/25 07:29 Resp 14 08/14/25 07:29 BP 106/94 08/14/25 07:29 Pulse Ox 90 08/14/25 07:29 O2 Del Method Room Air, Nasal Cannula 08/14/25 07:29 O2 Flow Rate 4 08/14/25 07:29 Intake & Output 08/14/25 08/15/25 08/15/25 18:59 06:59 18:59 Intake Total 2.353 / 2.353 Output Total 410 / 1310 900 / 1310 Balance -410 / -1310 -900 / -1310 2.353 / 2.353 Intake: IV 2.353 / 2.353 HYDROmorphone 100 mg In 100 ml 2.353 / 2.353 @ 0.2 MG/HR 0.2 mls/hr IV .Q96H [facility] Rx#:[id number] Output: Urine Amount (Catheter) 410 / 1310 900 / 1310 Temple/Indwelling 410 / 1310 900 / 1310 Laboratory Results No further labs or diagnostics in concert with comfort directed care. Diagnostic Findings No further labs or diagnostics in concert with comfort directed care. Medications Administered Current Inpatient Medications Acetaminophen (Acetaminophen Susp 325 Mg/10.15 Ml Udc) 650 mg PO Q6H PRN PRN Reason: Pain or Fever Stop: 09/07/25 11:34 Last Admin: 08/08/25 15:41 Dose: 650 mg Atropine Sulfate (Atropine Sulfate 1% Op Soln 5 Ml Btl) 4 drops SL Q1H PRN PRN Reason: Secretions or pulm congestion Stop: 09/07/25 15:22 Fentanyl (Fentanyl 50 Mcg/Hr Tdsy) 1 patch TD Q3D@0900 [facility] Stop: 08/26/25 08:59 Last Admin: 08/15/25 09:26 Dose: 1 patch Glycopyrrolate (Glycopyrrolate 0.2 Mg/Ml Vial) 0.4 mg IV Q4H PRN PRN Reason: Rattling Secretions or Pulm Congestion Stop: 09/07/25 15:22 Heparin Sodium (Porcine) (Heparin 100 Unit/Ml 5ml Flush) 5 ml FLUSH PRN PRN PRN Reason: Flush Stop: 08/28/25 08:17 Last Admin: 08/12/25 08:51 Dose: 5 ml Hydromorphone HCl (Hydromorphone Inj 0.5 Mg/0.5 Ml Syr) 0.2 mg IV Q1H PRN PRN Reason: Pain or Respiratory Distress Stop: 08/22/25 15:22 Last Admin: 08/14/25 18:07 Dose: 0.2 mg Hydromorphone HCl (Hydromorphone Bolus From Bag) 0.2 mg IV Q15M PRN PRN Reason: Comfort Care Parameters Stop: 08/28/25 18:32 Last Admin: 08/15/25 05:34 Dose: 0.2 mg Hyoscyamine (Hyoscyamine Sulfate 0.125 Mg Tab) 0.125 mg SL Q4H PRN PRN Reason: Secretions or Pulm Congestion Stop: 09/07/25 15:22 Lorazepam 0.5 mg/ Syringe 0.5 mls @ 2 mls/min IV Q4H PRN PRN Reason: Anxiety/Agitation Stop: 09/07/25 15:22 Last Admin: 08/15/25 05:31 Dose: 2 mls/min Hydromorphone HCl (Dilaudid) 100 mg in 100 mls @ 0.2 mls/hr IV .Q96H [facility]; Protocol Stop: 08/28/25 18:44 Last Titration: 08/15/25 07:10 Dose: 0.2 mg/hr, 0.2 mls/hr Lorazepam (Lorazepam 0.5 Mg Tab) 0.5 mg PO Q4H PRN PRN Reason: Anxiety/Agitation Stop: 09/07/25 15:22 Miscellaneous (Fentanyl Patch Remove & Waste) 1 each N/A Q3D@0859 [facility] Stop: 09/11/25 08:58 Last Admin: 08/15/25 09:24 Dose: 1 each Miscellaneous (Check Fentanyl Patch Placement) 1 each N/A QS [facility] Stop: 09/11/25 15:59 Last Admin: 08/15/25 09:24 Dose: 1 each Nystatin (Nystatin Powder 15gm Btl) 1 appln EXT BID PRN PRN Reason: groin fold excoriation Stop: 08/24/25 03:45 Last Admin: 07/30/25 07:59 Dose: 1 appln Ondansetron HCl (Ondansetron Inj 2 Mg/Ml 2 Ml Vial) 4 mg IV Q4H PRN PRN Reason: Nausea &/or Vomiting Stop: 09/07/25 15:22 Ondansetron HCl (Ondansetron 4 Mg Od Tab) 4 mg SL Q4H PRN PRN Reason: Nausea &/or Vomiting Stop: 09/07/25 15:22 Pantoprazole Sodium (Pantoprazole 40 Mg Tab) 40 mg PO DAILYBB [facility] Stop: 08/24/25 06:29 Last Admin: 08/15/25 05:34 Dose: Not Given Thyroid ([place] Thyroid 30 Mg Tab) 60 mg PO DAILY [facility] Stop: 08/24/25 08:59 Last Admin: 08/15/25 09:24 Dose: Not Given PG Care Time/CCT Total # of Minutes Spent Total Time Spent with Patient: Total time spent is greater than 50% in coordination of care (as documented) at patient's floor/unit and/or counseling patient: C[place] [address] SUB INP/OBS CARE 3/50MIN Patient Type Established History Expanded Problem Focused Exam Expanded Problem Focused Medical Decision Making Moderate Complexity Diagnoses Weakness R53.1 Lethargy R53.83 Counseling regarding goals of care Z71.89 Need for comfort care
--- NOTE | 2025-08-15 16:17 | Hospitalist Progress Note ---
Date of Service August 15, 2025 Assessment & Plan (1) Septic shock: (2) MAGDA (acute kidney injury): (3) Bilateral arm weakness: (4) Recurrent cancer of right breast: (5) Brachial plexopathy: (6) Respiratory acidosis: (7) Hypertension: Plan This is a 75-year-old female with remote history of breast cancer s/p mastectomy, chemo and radiation with progressive bilateral upper extremity weakness. 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 She was transferred to [facility] and had spinal surgery performed on July 16. She was discharged to [facility] rehab on July 23. Presents to [facility] with hypotension, septic shock. #Goals of care Appreciate palliative care leading goals conversation and pain control management, renal function worsening with generalized edema and metastatic breast cancer. Switched to comfort care only 08/08. Initiated Dilaudid drip on 08/14/2025 May remove cervical collar while in bed but should be on for any turning. No change to medications again 08/13, appears to be more lethargic but she has gone back and forth in the past and still is producing urine but if she continues to deteriorate may need to switch to GIP here # MAGDA with CKD 3, No further blood draws. #Acute encephalopathy Initially improved off gabapentin and amitriptyline but now getting worse, likely uremic encephalopathy #Paroxysmal Atrial Fibrillation: Converted to sinus this admission #Septic shock -Now resolved completed antibiotics -Source urinary-Cultures growing Klebsiella and Pseudomonas [place] sensitive -Finished cefepime course Hyperphosphatemia: Secondary to poor renal function and IV replacement given earlier in stay # post op cervical spine surgery -Due to worsening bilateral upper extremity weakness, she was sent to [place] -Patient was found to have an epidural mass, 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 -Biopsy of the mass was taken and sent to pathology, result pending. -She also underwent bilateral foraminotomies of C5-C6 C6-6 7 and posterior fusion of C3-T3. -She is currently on [place] neck collar which will be in place for 12 weeks- October -Sutures were removed on 07/26/25 -[place] neck collar to remain for 12 weeks, now on comfort can remove while lying still in bed but should be on for any turning etc... #acute hypoxic respiratory failure associated with sepsis patient initially hypoxic requiring placement of supplemental oxygen. -Patient with history of DANNIE and reports compliance with her home CPAP CPAP nightly Supplemental oxygen as needed #Abdominal pain resolved -CT findings as above with nonspecific colitis. now with some concern for free air but given goal of comfort #Hypothyroidism TSH = 3.504 on 07/10/2025. 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 -She was offered an attempted adjuvant chemotherapy which was aborted because of poor tolerance. -Letrozole stopped for goals of care VTE Prophylaxis - comfort care Disposition - continue on med/surg, planning on discharge on hospice when this can be set up Admission and Anticipated Discharge Date Admission Date: July 25, 2025 Subjective pt is waxing and waning in alertness, still very strong smell in room almost like tissue necrosis, she does awaken and says y/n to ? but falls asleep easily Physical Exam Physical Exam: pt is uncomfortable and Dilaudid gtt increased grimacing and some rapid shallow breathing PG Care Time/CCT Total # of Minutes Spent Total Time Spent with Patient: Total time spent is greater than 50% in coordination of care (as documented) at patient's floor/unit and/or counseling patient: Coding Level of Care Code 87108 SUB INP/OBS CARE 2/35MIN Diagnoses Septic shock A41.9; R65.21 MAGDA (acute kidney injury) N17.9 Bilateral arm weakness R29.898 Recurrent cancer of right breast C50.911 Brachial plexopathy G54.0 Respiratory acidosis E87.29 Hypertension I10
[2025-08-16] MEDS: ACETAMINOPHEN 1,000 MG/100 ML VIAL IV PRN (01:32)
[2025-08-16 03:32] VITALS: TEMP 99.7
[2025-08-16] MEDS: GLYCOPYRROLATE 0.2 MG/ML VIAL IV PRN (12:54)
--- NOTE | 2025-08-16 14:00 | Palliative Care Progress Note ---
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 (4) Need for comfort care: Plan: Comfort plan of care parameters: 1. Patient/Family want hospice added to their care. 2. NO rehab/PT/OT 3. Strictly End of Life care only 4. NO escalation of care: do not increase oxygen, escalate therapies, etc. The focus is on comfort through end of life, assure this is accomplished with aggressive symptom management (i.e. relief of dyspnea, pain, etc.) 5. NO return to hospital 6. NO labs, imaging, surgery 7. Oral intake as desired for comfort and pleasure: NO dietary restriction, Allow permissive aspiration, do not withhold food or drink for concern of aspiration and allow PO for pleasure and comfort. 8. If difficulty urinating/commode/bedpan, ok to place Temple catheter for comfort/hygiene/skin protection AND/OR Continue Temple catheter for comfort/hygiene/skin protection 9. NO: calorie counts, artificial nutrition, feeding tubes or IV fluids EOL Symptom manamgement: Pain/dyspnea/tachypnea - avoid morphine iso renal failure dilaudid 2mg IVP PRN q1h Continue dilaudid drip titrate for comfort - currently at 0.8mg/hr Nausea/vomitting zofran 4mg IVP q4h PRN Agitation ativan 0.5mg IVP q4h PRN Hyperactive delirium haldol 5mg IVP q6h PRN Secretions - if repositioning not effective robinul 0.4mg IV q4h PRN atropine SL 3 drops Q1h PRN Nursing care: Discontinue all medications not directed towards comfort. Detether pt from IV tubing, monitor cables, and check vitals once per shift. Please continue HFNC and titrate down as able for patient comfort. Use medications above PRN for dyspnea/tachypnea and do not increase oxygen once titrated down. Assess q1h for pain/dyspnea and treat accordingly. Plan [employer] ROOM ATTENDANT, pt now unresponsive on dilaudid drip, per CM notes pt is not candidate for GIP hospice per Veronica (symptoms well controlled). Admission and Anticipated Discharge Date Admission Date: July 25, 2025 Subjective Assessed pt at bedside, she was transitioned to M[employer] L[employer] ROOM ATTENDANT on 08/08/25; was started on dialudid drip by primary team and has ongoing need for PRN medications to ensure comfort; dilaudid drip has been escalated to 0.8mg/hr. Pt is unresponsive to verbal and gentle tactile stimuli, did not attempt to awaken in concert with comfort directed care. She is showing signs of transition to active dying; cool extremities, dusky skin with circumaural cyanosis, and agonal respirations. Respiratory effort decreased, rate 8-12/min with frequent periods of apnea. No visitors at bedside. Attempt to contact pt's son Emmanuel by phone, no answer, unabl e to leave . Review of Systems Review of Systems: Unobtainable due to cognitive status Physical Exam Constitutional: + acute distress, + ill appearing, + mor bidly obese and + edematous Eyes: PERRL, conjunctivae normal, anicteric sclerae Neck: trachea midline, no thyromegaly Respiratory: + abnormal respiratory pattern; no respi ratory distress and does not use accessory muscles decreased respiratory effort Cardiovascular: Rate/Rhythm: + tachycardic Heart Sounds: normal S1 and normal S2 Extremities: + edema Gastrointestinal (Abdomen): normal bowel sounds, soft, nontender, no hep atosplenomegaly Neurologic: unresponsive to verbal and gentle tactile stimuli, did not attempt to awaken in concert with comfort directed care Lymphatic: + lymphedema Results & Data Vital Signs (Past 12 Hours) Vital Signs Temp 08/16/25 02:30 37.6 C H Laboratory Results No further labs or diagnostics in concert with comfort directed care. Diagnostic Findings No further labs or diagnostics in concert with comfort directed care. Medications Administered Current Inpatient Medications Acetaminophen (Acetaminophen Susp 325 Mg/10.15 Ml Udc) 650 mg PO Q6H PRN PRN Reason: Pain or Fever Stop: 09/07/25 11:34 Last Admin: 08/08/25 15:41 Dose: 650 mg Atropine Sulfate (Atropine Sulfate 1% Op Soln 5 Ml Btl) 4 drops SL Q1H PRN PRN Reason: Secretions or pulm congestion Stop: 09/07/25 15:22 Fentanyl (Fentanyl 50 Mcg/Hr Tdsy) 1 patch TD Q3D@0900 [facility] Stop: 08/26/25 08:59 Last Admin: 08/15/25 09:26 Dose: 1 patch Glycopyrrolate (Glycopyrrolate 0.2 Mg/Ml Vial) 0.4 mg IV Q4H PRN PRN Reason: Rattling Secretions or Pulm Congestion Stop: 09/07/25 15:22 Last Admin: 08/16/25 12:54 Dose: 0.4 mg Heparin Sodium (Porcine) (Heparin 100 Unit/Ml 5ml Flush) 5 ml FLUSH PRN PRN PRN Reason: Flush Stop: 08/28/25 08:17 Last Admin: 08/12/25 08:51 Dose: 5 ml Hydromorphone HCl (Hydromorphone Inj 0.5 Mg/0.5 Ml Syr) 0.2 mg IV Q1H PRN PRN Reason: Pain or Respiratory Distress Stop: 08/22/25 15:22 Last Admin: 08/14/25 18:07 Dose: 0.2 mg Hydromorphone HCl (Hydromorphone Bolus From Bag) 0.2 mg IV Q15M PRN PRN Reason: Comfort Care Parameters Stop: 08/28/25 18:32 Last Admin: 08/15/25 05:34 Dose: 0.2 mg Hyoscyamine (Hyoscyamine Sulfate 0.125 Mg Tab) 0.125 mg SL Q4H PRN PRN Reason: Secretions or Pulm Congestion Stop: 09/07/25 15:22 Lorazepam 0.5 mg/ Syringe 0.5 mls @ 2 mls/min IV Q4H PRN PRN Reason: Anxiety/Agitation Stop: 09/07/25 15:22 Last Admin: 08/15/25 05:31 Dose: 2 mls/min Hydromorphone HCl (Dilaudid) 100 mg in 100 mls @ 0.8 mls/hr IV .Q96H NIA; Protocol Stop: 08/28/25 18:44 Last Titration: 08/16/25 06:57 Dose: 0.8 mg/hr, 0.8 mls/hr Acetaminophen (Ofirmev) 1,000 mg in 100 mls @ 400 mls/hr IV Q8H PRN PRN Reason: Pain or Fever Stop: 08/19/25 01:07 Last Infusion: 08/16/25 01:47 Dose: Infused Lorazepam (Lorazepam 0.5 Mg Tab) 0.5 mg PO Q4H PRN PRN Reason: Anxiety/Agitation Stop: 09/07/25 15:22 Miscellaneous (Fentanyl Patch Remove & Waste) 1 each N/A Q3D@0859 [facility] Stop: 09/11/25 08:58 Last Admin: 08/15/25 09:24 Dose: 1 each Miscellaneous (Check Fentanyl Patch Placement) 1 each N/A QS [facility] Stop: 09/11/25 15:59 Last Admin: 08/16/25 07:53 Dose: 1 each Nystatin (Nystatin Powder 15gm Btl) 1 appln EXT BID PRN PRN Reason: groin fold excoriation Stop: 08/24/25 03:45 Last Admin: 07/30/25 07:59 Dose: 1 appln Ondansetron HCl (Ondansetron Inj 2 Mg/Ml 2 Ml Vial) 4 mg IV Q4H PRN PRN Reason: Nausea &/or Vomiting Stop: 09/07/25 15:22 Ondansetron HCl (Ondansetron 4 Mg Od Tab) 4 mg SL Q4H PRN PRN Reason: Nausea &/or Vomiting Stop: 09/07/25 15:22 Pantoprazole Sodium (Pantoprazole 40 Mg Tab) 40 mg PO DAILYBB [facility] Stop: 08/24/25 06:29 Last Admin: 08/16/25 04:24 Dose: Not Given Thyroid ([place] Thyroid 30 Mg Tab) 60 mg PO DAILY [facility] Stop: 08/24/25 08:59 Last Admin: 08/16/25 07:54 Dose: Not Given PG Care Time/CCT Total # of Minutes Spent Total Time Spent with Patient: Total time spent is greater than 50% in coordination of care (as documented) at patient's floor/unit and/or counseling patient: Coding [place] [address] SUB INP/OBS CARE 2/35MIN Patient Type Established History Expanded Problem Focused Exam Expanded Problem Focused Medical Decision Making Moderate Complexity Diagnoses Weakness R53.1 Lethargy R53.83 Counseling regarding goals of care Z71.89 Need for comfort care
--- NOTE | 2025-08-16 16:22 | Hospitalist Progress Note ---
Date of Service August 16, 2025 Assessment & Plan (1) Septic shock: (2) MAGDA (acute kidney injury): (3) Bilateral arm weakness: (4) Recurrent cancer of right breast: (5) Brachial plexopathy: (6) Respiratory acidosis: (7) Hypertension: Plan This is a 75-year-old female with remote history of breast cancer s/p mastectomy, chemo and radiation with progressive bilateral upper extremity weakness. 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 She was transferred to [facility] and had spinal surgery performed on July 16. She was discharged to [facility]hab on July 23. Presents to [facility] with hypotension, septic shock. Comfort measures With palliative care consult, helping conversation and pain management previously Switch to comfort care 08/08, Dilaudid drip was required starting 08/14/2025 More lethargic 08/13 intermittently UOP substantially decreased in the last 24 hours, 150 cc today She required ongoing as needed dosing of pain medications without adequate comfort and was switched to a hydromorphone drip, which required escalation to 0.8 mg/h. Morphine avoided due to renal dysfunction. While more comfortable subsequently has continued to decline. Due to subsequently well-controlled symptoms on IV drip reportedly not a candidate for GIP. Palliative following. She appears cyanotic, intermittently with agonal respirations, and she is not responsive to verbal or tactile stimuli. She appears to be entering the active phase of dying Did attempt to contact family around 4 PM, no answer and unable to leave voicemail As she appears to be entering the active phase of dying is not appropriate/stable for transfer to outpatient hospice at this time Was able to give an update to patient's son by phone at 4:33 PM. Did review progression, concern for her possibly entering the active stage of dying, current treatment and goals. He expressed an appreciation of her update, he will discuss further with his sister who lives out of town. He is aware that she could pass in the near future, and he has been able to be on her side in the evening and expresses an appreciation of update/awareness. # MAGDA with CKD 3, No further blood draws. 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 -Biopsy of the mass was taken and sent to pathology, result pending. -She also underwent bilateral foraminotomies of C5-C6 C6-6 7 and posterior fusion of C3-T3. -Sutures were removed on 07/26/25 -[place] neck collar to remain for 12 weeks, now on comfort can remove while lying still in bed but should be on for any turning etc... #acute hypoxic respiratory failure associated with sepsis patient initially hypoxic requiring placement of supplemental oxygen. 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 now with some concern for free air but given goal of comfort #Hypothyroidism TSH = 3.504 on 07/10/2025. -Random cortisol appropriately elevated Continue Synthroid #Metastatic breast cancer According to Oncology, Patient was diagnosed with recurrent invasive ductal carcinoma involving the right breast ER positive, [place] negative HER2/naty negative with 16 of 17 lymph nodes positive for metastatic disease. -She was offered an attempted adjuvant chemotherapy which was aborted because of poor tolerance. -Letrozole stopped for goals of care VTE Prophylaxis - comfort care Admission and Anticipated Discharge Date Admission Date: July 25, 2025 Subjective Subjective limited due to mental status Physical Exam Physical Exam: Does not respond to verbal or tactile stimuli Intermittent agonal breathing [place], pallor present Slight lower extremity mottling PG Care Time/CCT Total # of Minutes Spent Total Time Spent with Patient: Total time spent is greater than 50% in coordination of care (as documented) at patient's floor/unit and/or counseling patient: Coding Level of Care Code 82367 SUB INP/OBS CARE 3/50MIN Diagnoses Septic shock A41.9; R65.21 MAGDA (acute kidney injury) N17.9 Bilateral arm weakness R29.898 Recurrent cancer of right breast C50.911 Brachial plexopathy G54.0 Respiratory acidosis E87.29 Hypertension I10
--- NOTE | 2025-08-17 09:55 | Hospitalist Progress Note ---
Date of Service August 17, 2025 Assessment & Plan (1) Septic shock: (2) MAGDA (acute kidney injury): (3) Bilateral arm weakness: (4) Recurrent cancer of right breast: (5) Brachial plexopathy: (6) Respiratory acidosis: (7) Hypertension: Plan This is a 75-year-old female with remote history of breast cancer s/p mastectomy, chemo and radiation with progressive bilateral upper extremity weakness. 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 She was transferred to [facility] and had spinal surgery performed on July 16. She was discharged to [facility] rehab on July 23. Presents to [facility] with hypotension, septic shock. Comfort measures With palliative care consult, helping conversation and pain management previously Switch to comfort care 08/08, Dilaudid drip was required starting 08/14/2025 UOP decreasing, 350 last 24 hours She required ongoing as needed dosing of pain medications without adequate comfort and was switched to a hydromorphone drip, which required escalation to 0.8 mg/h. Morphine avoided due to renal dysfunction. While more comfortable subsequently has continued to decline. Due to subsequently well-controlled symptoms on IV drip reportedly not a candidate for GIP. Palliative following. Inadequate pain control morning of 08/17 requiring increased push doses. She has had intermittent agonal breathing patterns and both due to her clinical state and uncontrolled pain requiring frequent push dosing is not appropriate for transition to home hospice. # MAGDA with CKD 3, No further blood draws. #Paroxysmal Atrial Fibrillation: - Converted to sinus this admission #Septic shock -Resolved following antibiotics - DEV TECHNICAL MGR Hyperphosphatemia: - Secondary to poor renal function and IV replacement given earlier in stay # post op cervical spine surgery -Due to worsening bilateral upper extremity weakness, she was sent to [place] -Patient was found to have an epidural mass, 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 -Biopsy of the mass was taken and sent to pathology, result pending. -She also underwent bilateral foraminotomies of C5-C6 C6-6 7 and posterior fusion of C3-T3. -Sutures were removed on 07/26/25 -Lyon neck collar to remain for 12 weeks, now on comfort can remove while lying still in bed but should be on for any turning etc... #acute hypoxic respiratory failure associated with sepsis patient initially hypoxic requiring placement of supplemental oxygen. -Patient with history of DANNIE and reports compliance with her home CPAP CPAP nightly Supplemental oxygen as needed - DEV TECHNICAL MGR #Abdominal pain resolved -CT findings as above with nonspecific colitis. now with some concern for free air but given goal of comfort #Hypothyroidism TSH = 3.504 on 07/10/2025. -Random cortisol appropriately elevated Continue Synthroid #Metastatic breast cancer According to Oncology, Patient was diagnosed with recurrent invasive ductal carcinoma involving the right breast ER positive, [place] negative HER2/naty negative with 16 of 17 lymph nodes positive for metastatic disease. -She was offered an attempted adjuvant chemotherapy which was aborted because of poor tolerance. -Letrozole stopped for goals of care VTE Prophylaxis - comfort care Admission and Anticipated Discharge Date Admission Date: July 25, 2025 Subjective Slightly more alert this morning. She is grimacing at time of bedside assessment does not give verbal responses but moans and nods head when asked if she is in pain. Indicates by nodding that the pain is in her back and her abdomen. Nursing aware, did receive a push dose of hydromorphone 0.2 mg twice in the morning. On reassessment does open eyes transiently to voice before falling asleep. Grimacing improved on reassessment. Opens eyes before falling back asleep, distress appears improved Physical Exam Physical Exam: Opens eyes transiently, grimacing and moaning on initial visit. Blinks eyes and nods slightly when asked in pain. On subsequent reevaluation opens eyes transiently before falling asleep grimacing has improved [place], pallor present Respiratory rate approximately 14 Results & Data Results & Data Vital Signs (Past 12 Hours) Vital Signs O2 Del Method 08/17/25 07:30 Room Air PG Care Time/CCT Total # of Minutes Spent Total Time Spent with Patient: Total time spent is greater than 50% in coordination of care (as documented) at patient's floor/unit and/or counseling patient: Coding Level of Care Code 14995 SUB INP/OBS CARE 3/50MIN Diagnoses Septic shock A41.9; R65.21 MAGDA (acute kidney injury) N17.9 Bilateral arm weakness R29.898 Recurrent cancer of right breast C50.911 Brachial plexopathy G54.0 Respiratory acidosis E87.29 Hypertension I10
--- NOTE | 2025-08-18 06:35 | Death Pronouncement Note ---
Date of Service August 18, 2025 Pronouncement Note Admission Date Admission Date: July 25, 2025 Contributing Factors (1) Septic shock: (2) MAGDA (acute kidney injury): (3) Bilateral arm weakness: (4) Recurrent cancer of right breast: (5) Brachial plexopathy: (6) Respiratory acidosis: (7) Hypertension: Hospital Course Hospital Course: I was called to pronounce the of Maryan Gonzalez : 1950 by nursing on 08/18/2025 Upon entering the room, the patient was found to be in a terminal state. Patient was unresponsive to verbal and tactile stimuli. Patient unresponsive to corneal and pupillary reflexes. On cardiopulmonary exam, no carotid or radial pulses found and pt without spontaneous heart tones or respirations. Time of was pronounced by me on 08/18/2025 at 0627 Attending physician was notified. Next of kin was notified by nursing Additional Data Attending physician: Feng Santiago MD
--- NOTE | 2025-08-18 07:00 | Discharge Summary ---
Discharge Summary Date of Service August 18, 2025 Principal Dx & Hospital Course #1 = Principal Diagnosis (1) Septic shock: (2) MAGDA (acute kidney injury): (3) Bilateral arm weakness: (4) Recurrent cancer of right breast: (5) Brachial plexopathy: (6) Respiratory acidosis: (7) Hypertension: Plan This is a 75-year-old female with remote history of breast cancer s/p mastectomy, chemo and radiation with progressive bilateral upper extremity weakness. 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 She was transferred to [facility] and had spinal surgery performed on July 16. She was discharged to [facility] rehab on July 23. Presents to [facility] with hypotension, septic shock. 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 Date/Time of : 08/18/2025 at 6:27 AM Cause of : Acute hypoxic respiratory failure Septic shock Urosepsis Contributing factors: Obstructive sleep apnea Metastatic breast cancer with a suspected recurrence Epidural mass s/p resection pathology not available Comfort measures With palliative care consult, helping conversation and pain management previously Switch to comfort care 08/08, Dilaudid drip was required starting 08/14/2025 UOP decreasing, 350 last 24 hours She required ongoing as needed dosing of pain medications without adequate comfort and was switched to a hydromorphone drip, which required escalation to 0.8 mg/h. Morphine avoided due to renal dysfunction. While more comfortable subsequently has continued to decline. Due to subsequently well-controlled symptoms on IV drip reportedly not a candidate for GIP. Palliative following. Inadequate pain control morning of 08/17 requiring increased push doses. She has had intermittent agonal breathing patterns and both due to her clinical state and uncontrolled pain requiring frequent push dosing is not appropriate for transition to home hospice. She was treated per protocol for grimacing, Rester distress, and pain Patient passed overnight was pronounced by overnight resident 08/18/2025 at 6:27 AM Prior note copied below for completion # MAGDA with CKD 3, No further blood draws. #Paroxysmal Atrial Fibrillation: - Converted to sinus this admission #Septic shock -Resolved following antibiotics - VALIDATION TECHNICIAN Hyperphosphatemia: - Secondary to poor renal function and IV replacement given earlier in stay # post op cervical spine surgery -Due to worsening bilateral upper extremity weakness, she was sent to [place] -Patient was found to have an epidural mass, 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 -Biopsy of the mass was taken and sent to pathology, result pending. -She also underwent bilateral foraminotomies of C5-C6 C6-6 7 and posterior fusion of C3-T3. -Sutures were removed on 07/26/25 -[place]k neck collar to remain for 12 weeks, now on comfort can remove while lying still in bed but should be on for any turning etc... #acute hypoxic respiratory failure associated with sepsis patient initially hypoxic requiring placement of supplemental oxygen. -Patient with history of DANNIE and reports compliance with her home CPAP CPAP nightly Supplemental oxygen as needed - VALIDATION TECHNICIAN #Abdominal pain resolved -CT findings as above with nonspecific colitis. now with some concern for free air but given goal of comfort #Hypothyroidism TSH = 3.504 on 07/10/2025. -Random cortisol appropriately elevated Continue Synthroid #Metastatic breast cancer According to Oncology, Patient was diagnosed with recurrent invasive ductal carcinoma involving the right breast ER positive, [place] negative HER2/naty negative with 16 of 17 lymph nodes positive for metastatic disease. -She was offered an attempted adjuvant chemotherapy which was aborted because of poor tolerance. -Letrozole stopped for goals of care VTE Prophylaxis - comfort care Admission HPI Per Admitting Provider Maryan Gonzalez 75-year-old female with history of breast cancer s/p mastectomy, chemo and radiation, sleep apnea and hypertension presenting from [facility] with hypotension. Patient has been having progressive bilateral upper extremity weakness ongoing since May. She was seen at [facility] on 06/21/2025 and had a cervical spine without contrast which showed a left C6-C7 and C7-T1 neuroforaminal narrowing which may affect the exiting nerve root. No change when compared with prior. MRI of the thoracic spine with mild spinal stenosis, T8-T9 through T10-T11. Patient was admitted to [facility] from 07/10 - 07/14/25 after presenting with worsening bilateral upper extremity pain. On 07/12 patient had a cervical spine MRI which showed epidural thickening extending from C4-T2 with associated postcontrast enhancement, could be consistent with epidural metastatic disease or treatment related changes. She had a chest MRI performed on 07/13 which revealed C2-T3 dorsal epidural hematoma which seems unlikely based on review by day time/day for radiologist and some signal enhancement in the right brachial plexus Patient was ultimately transferred to [facility] on 07/14/2025 for neurosurgical evaluation. On 07/16/2025 patient had biopsy of C6 and C7 spinous processes and epidural area, C5-T1 laminectomy, bilateral foraminotomies at C5-C6, C6-C7 and T1-T2 and posterior spinal fusion C3-T2, posterior instrumentation patient C3-T2 and allograft performed by Dr. Sanchez at [facility]. 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 Patient did well postoperatively per review of [facility]. She did develop urinary retention and had a Temple placed on July 18. Patient was ultimately discharged to [facility] on 07/23/2025 Per report, patient with low blood pressure throughout the day today as well as worsening confusion and lethargy Therefore she was sent to the ER for evaluation Patient complaining only of abdominal pain at present. Denies chest pain, cough, shortness of breath. Denies fever, chills, nausea, vomiting, diarrhea. Upon arrival to the ER patient hypotensive with blood pressure of 64/48. Initially hypoxic requiring placement of nonrebreather. She was administered 3 L of crystalloid as well as albumin 5% x 250 mL with persistent hypotension. Levophed was initiated with improvement. ER course: Normal saline x 1 L Plasma-Lyte x 2 L Albumin 5% x 2 at 50 mL Levophed Calcium gluconate x 1 g Zosyn x 4.5 g Tylenol x 1 g Vancomycin 2750 mg Albuterol neb x 1 Insulin 10 units IV plus dextrose 50 mL Temple Exchanged Discharge Exam See same-day note, patient pronounced overnight Discharge Plan Discharge Items Patient Disposition: Other Date/Time: 08/18/25 07:10 Hospital Stay Data Consultations 07/25/25 09:49 Consult Palliative Care Routine 08/04/25 10:11 Consult Nephrology Routine Diagnostic Imagining Performed 07/24/25 21:53 CT angio abdomen pelvis w con Stat CTA chest dissec wo/w con [CT angio chest dissec wo/w con] Stat 07/27/25 06:27 US venous doppler UE RT Urgent 08/03/25 09:15 CT head/brain wo con Urgent 08/07/25 08:39 CT Abd and Pelvis [CT abd pelvis wo con] Stat Total Time Total Time Spent Total Time Spent (In Minutes): 20 minutes was spent on chart review and documentation Coding Level of Care Code 92844 IN/OBS DISCH 30 MIN/LESS Diagnoses Septic shock A41.9; R65.21 MAGDA (acute kidney injury) N17.9 Bilateral arm weakness R29.898 Recurrent cancer of right breast C50.911 Brachial plexopathy G54.0 Respiratory acidosis E87.29 Hypertension I10
== END 2025-08-18 07:10 | disposition expired | DRG 698 ==
LOC: ED 21:41 → 1E 07-25 02:27 → SUATTDRO 07-25 02:27 → 1E 07-25 03:33 → 2S 07-29 15:18 → 3N 08-05 18:48